=== PATIENT | female | born 1955 | race Caucasian/White ===

== ENCOUNTER → 2016-07-14 | Outpatient (CLI) | payer OTHER ==
[~2016-07-14] MED LIST: CARV6.25 PO; CITRTAB15 PO; CLOB-49 TOP; DRIS50002 PO; FLUO25CR EXT; HYDR-4266 PO; HYDR12.55 PO; IRON65TA PO; ROCA0.25 PO; VITA500C24 PO
[2016-07-14 13:43] LABS: ALBUMIN 3.9 GM/DL (3.2-5.2); CREATININE FOR GFR 1.89 MG/DL (0.55-1.02); GLOMERULAR FILTRATION RATE 28.6 (>45); PHOSPHORUS LEVEL 4.3 MG/DL (2.5-4.9); POTASSIUM SERUM 4.5 MEQ/L (3.5-5.1)
[2016-07-14 14:08] LABS: MEAN CORPUSCULAR HEMOGLOBIN 29.3 pg (27.0-33.0); MEAN CORPUSCULAR HGB CONC 33.4 g/dl (32.0-36.5); MEAN CORPUSCULAR VOLUME 87.9 fl (80.0-96.0); PLATELET COUNT, AUTOMATED 241 k/mm3 (150-450); RED CELL DISTRIBUTION WIDTH 15.6 % (11.5-14.5); WHITE BLOOD COUNT 2.2 K/mm3 (4.0-10.0)
[2016-07-14 15:02] LABS: BANDS 6 % (< 11); BASOPHILS 1 % (0-4); EOSINOPHILS 5 % (0-5)
[2016-07-14 15:03] LABS: ANISOCYTOSIS 1+; MICROCYTOSIS 1+
== END ==
LOC: M SMT 08:25
PROVIDERS: ATTEND Internal Medicine Nephrology
DX: Z94.0 Kidney transplant status (principal); N18.5 Chronic kidney disease, stage 5; Z79.899 Other long term (current) drug therapy

== ENCOUNTER → 2016-07-19 | Outpatient (CLI) | payer OTHER ==
[2016-07-19 10:54] LABS: ALBUMIN 3.8 GM/DL (3.2-5.2); ALBUMIN/GLOBULIN RATIO 1.41 (1.00-1.93); ALKALINE PHOSPHATASE 45 U/L (45-117); ALT/SGPT 24 U/L (12-78); ANION GAP 12 MEQ/L (8-16); AST/SGOT 20 U/L (15-37); BILIRUBIN,DIRECT < 0.1 MG/DL (0.0-0.2); BILIRUBIN,TOTAL 0.3 MG/DL (0.2-1.0); BLOOD UREA NITROGEN 50 MG/DL (7-18); CALCIUM LEVEL 8.5 MG/DL (8.8-10.2); CARBON DIOXIDE LEVEL 23 MEQ/L (21-32); CHLORIDE LEVEL 105 MEQ/L (98-107); CHOLESTEROL LEVEL 241 MG/DL (<200); CREATININE FOR GFR 2.44 MG/DL (0.55-1.02); GLOMERULAR FILTRATION RATE 21.3 (>45); GLUCOSE, FASTING 91 MG/DL (80-110); MAGNESIUM LEVEL 2.1 MG/DL (1.8-2.4); PHOSPHORUS LEVEL 4.1 MG/DL (2.5-4.9); POTASSIUM SERUM 4.7 MEQ/L (3.5-5.1); SODIUM LEVEL 140 MEQ/L (136-145); TOTAL PROTEIN 6.5 GM/DL (6.4-8.2); TRIGLYCERIDES LEVEL 181 MG/DL (<150)
[2016-07-19 11:37] LABS: DIFF SLIDE NUMBER 156; MEAN CORPUSCULAR HEMOGLOBIN 29.6 pg (27.0-33.0); MEAN CORPUSCULAR HGB CONC 34.7 g/dl (32.0-36.5); MEAN CORPUSCULAR VOLUME 85.2 fl (80.0-96.0); PLATELET COUNT, AUTOMATED 268 k/mm3 (150-450); RED CELL DISTRIBUTION WIDTH 15.9 % (11.5-14.5); WHITE BLOOD COUNT 2.7 K/mm3 (4.0-10.0)
[2016-07-19 12:27] LABS: ANISOCYTOSIS 2+; BANDS 6 % (< 11); EOSINOPHILS 2 % (0-5); MICROCYTOSIS 1+; POIKILOCYTOSIS 1+
== END ==
LOC: M SMT 08:14
PROVIDERS: ATTEND Internal Medicine Nephrology
DX: Z94.0 Kidney transplant status (principal); N18.5 Chronic kidney disease, stage 5; D84.9 Immunodeficiency, unspecified

== ENCOUNTER → 2016-07-23 | Outpatient (CLI) | payer OTHER ==
[2016-07-23 11:04] LABS: ALBUMIN 3.8 GM/DL (3.2-5.2); ALBUMIN/GLOBULIN RATIO 1.58 (1.00-1.93); ALKALINE PHOSPHATASE 44 U/L (45-117); ALT/SGPT 22 U/L (12-78); ANION GAP 11 MEQ/L (8-16); AST/SGOT 20 U/L (15-37); BILIRUBIN,DIRECT < 0.1 MG/DL (0.0-0.2); BILIRUBIN,TOTAL 0.2 MG/DL (0.2-1.0); BLOOD UREA NITROGEN 32 MG/DL (7-18); CALCIUM LEVEL 8.3 MG/DL (8.8-10.2); CARBON DIOXIDE LEVEL 26 MEQ/L (21-32); CHLORIDE LEVEL 104 MEQ/L (98-107); CHOLESTEROL LEVEL 242 MG/DL (<200); CREATININE FOR GFR 1.79 MG/DL (0.55-1.02); GLOMERULAR FILTRATION RATE 30.4 (>45); GLUCOSE, FASTING 92 MG/DL (80-110); MAGNESIUM LEVEL 2.1 MG/DL (1.8-2.4); PHOSPHORUS LEVEL 3.6 MG/DL (2.5-4.9); POTASSIUM SERUM 4.8 MEQ/L (3.5-5.1); SODIUM LEVEL 141 MEQ/L (136-145); TOTAL PROTEIN 6.2 GM/DL (6.4-8.2); TRIGLYCERIDES LEVEL 153 MG/DL (<150)
[2016-07-23 11:08] LABS: MEAN CORPUSCULAR HEMOGLOBIN 28.9 pg (27.0-33.0); MEAN CORPUSCULAR VOLUME 87.7 fl (80.0-96.0); PLATELET COUNT, AUTOMATED 246 k/mm3 (150-450); RED CELL DISTRIBUTION WIDTH 16.8 % (11.5-14.5)
[2016-07-23 11:35] LABS: ANISOCYTOSIS 1+; BANDS 1 % (< 11); BASOPHILS 1 % (0-4); EOSINOPHILS 5 % (0-5)
== END ==
LOC: M SMT 08:07
PROVIDERS: ATTEND Internal Medicine Nephrology
DX: Z94.0 Kidney transplant status (principal); N18.5 Chronic kidney disease, stage 5; D84.9 Immunodeficiency, unspecified

== ENCOUNTER → 2016-07-23 | Outpatient (CLI) | payer OTHER ==
--- NOTE | 2016-07-23 12:23 | REP ---
ULTRASOUND RENAL TRANSPLANT WITH DUPLEX DOPPLER EVALUATION: Real-time sonographic evaluation of the renal transplant performed. The transplant was placed at [facility] in March 2016. Renal transplant measures 10.8 x 7.2 x 6.5 cm. There is no hydronephrosis. Peripherally in a relatively subcutaneous location is an elliptical fluid collection compatible with postsurgical hematoma/seroma measuring 15.7 x 1.3 x 2.1 cm. Duplex Doppler evaluation of the intrarenal vasculature demonstrates somewhat elevated resistive indices of the arcuate and segmental branches. In the upper third of the renal transplant, resistive index is 0.79, mid aspect, 0.77 and lower third 0.77. The peak systolic velocity of the right iliac artery prior to the anastomosis with the transplant artery is 131 cm/s, just distal to the origin of the transplant artery it is 172 cm/s. Transplant artery demonstrates peak systolic velocity at its origin, at the anastomosis of 207 cm/s, in the mid aspect 52 cm/s, and in the region of the transplant hilum 61 cm/s. Ratio of peak systolic velocities of the main transplant artery to the external iliac artery is 1.6. Transplant renal vein is patent with normal waveforms. IMPRESSION: Elliptical postsurgical hematoma/seroma in a relatively subcutaneous location at the site of the prior transplant surgery. No perirenal collection. No hydronephrosis of the renal transplant, with normal size. There is somewhat elevated resistive indices of the intrarenal vasculature but there is no compelling duplex Doppler sonographic evidence of transplant renal artery stenosis. Signed by Yasmani Soliman MD 07/23/2016 01:14 P
== END ==
LOC: M RAD 09:53
PROVIDERS: ATTEND Internal Medicine Nephrology
DX: Z94.0 Kidney transplant status (principal); N17.9 Acute kidney failure, unspecified

== ENCOUNTER → 2016-08-02 | Outpatient (REF) | payer OTHER ==
[2016-08-02 10:26] LABS: ALBUMIN 3.6 GM/DL (3.2-5.2); ALBUMIN/GLOBULIN RATIO 1.57 (1.00-1.93); ALKALINE PHOSPHATASE 41 U/L (45-117); ALT/SGPT 27 U/L (12-78); ANION GAP 12 MEQ/L (8-16); AST/SGOT 22 U/L (15-37); BILIRUBIN,DIRECT < 0.1 MG/DL (0.0-0.2); BILIRUBIN,TOTAL 0.3 MG/DL (0.2-1.0); BLOOD UREA NITROGEN 37 MG/DL (7-18); CARBON DIOXIDE LEVEL 26 MEQ/L (21-32); CHLORIDE LEVEL 104 MEQ/L (98-107); CHOLESTEROL LEVEL 210 MG/DL (<200); CREATININE FOR GFR 1.52 MG/DL (0.55-1.02); GLOMERULAR FILTRATION RATE 36.8 (>45); GLUCOSE, FASTING 90 MG/DL (80-110); MAGNESIUM LEVEL 1.9 MG/DL (1.8-2.4); PHOSPHORUS LEVEL 3.8 MG/DL (2.5-4.9); POTASSIUM SERUM 3.8 MEQ/L (3.5-5.1); SODIUM LEVEL 142 MEQ/L (136-145); TOTAL PROTEIN 5.9 GM/DL (6.4-8.2); TRIGLYCERIDES LEVEL 113 MG/DL (<150)
[2016-08-02 10:34] LABS: MEAN CORPUSCULAR HEMOGLOBIN 29.5 pg (27.0-33.0); MEAN CORPUSCULAR HGB CONC 32.9 g/dl (32.0-36.5); MEAN CORPUSCULAR VOLUME 89.7 fl (80.0-96.0); PLATELET COUNT, AUTOMATED 271 k/mm3 (150-450); RED CELL DISTRIBUTION WIDTH 15.3 % (11.5-14.5); WHITE BLOOD COUNT 3.4 K/mm3 (4.0-10.0)
[2016-08-02 11:24] LABS: BANDS 5 % (< 11); BASOPHILS 2 % (0-4); EOSINOPHILS 3 % (0-5)
[2016-08-02 11:25] LABS: ANISOCYTOSIS 2+; MICROCYTOSIS 2+
[2016-08-02 11:26] LABS: POIKILOCYTOSIS 1+
== END ==
LOC: M LABSMT 09:30 → M SHH 09:30
PROVIDERS: ATTEND Internal Medicine Nephrology
DX: Z94.0 Kidney transplant status (principal); D84.9 Immunodeficiency, unspecified; Z79.899 Other long term (current) drug therapy; N18.5 Chronic kidney disease, stage 5

== ENCOUNTER → 2016-08-09 | Outpatient (CLI) | payer OTHER ==
[2016-08-09 12:43] LABS: MEAN CORPUSCULAR HEMOGLOBIN 29.9 pg (27.0-33.0); MEAN CORPUSCULAR HGB CONC 33.1 g/dl (32.0-36.5); MEAN CORPUSCULAR VOLUME 90.4 fl (80.0-96.0); PLATELET COUNT, AUTOMATED 255 k/mm3 (150-450); RED CELL DISTRIBUTION WIDTH 14.9 % (11.5-14.5); WHITE BLOOD COUNT 4.3 K/mm3 (4.0-10.0)
[2016-08-09 12:48] LABS: ALBUMIN 3.7 GM/DL (3.2-5.2); ALBUMIN/GLOBULIN RATIO 1.54 (1.00-1.93); ALKALINE PHOSPHATASE 45 U/L (45-117); ALT/SGPT 51 U/L (12-78); ANION GAP 10 MEQ/L (8-16); AST/SGOT 27 U/L (15-37); BILIRUBIN,DIRECT < 0.1 MG/DL (0.0-0.2); BILIRUBIN,TOTAL 0.3 MG/DL (0.2-1.0); BLOOD UREA NITROGEN 38 MG/DL (7-18); CALCIUM LEVEL 8.6 MG/DL (8.8-10.2); CARBON DIOXIDE LEVEL 26 MEQ/L (21-32); CHLORIDE LEVEL 105 MEQ/L (98-107); CHOLESTEROL LEVEL 226 MG/DL (<200); CREATININE FOR GFR 1.58 MG/DL (0.55-1.02); GLOMERULAR FILTRATION RATE 35.2 (>45); GLUCOSE, FASTING 97 MG/DL (80-110); MAGNESIUM LEVEL 1.9 MG/DL (1.8-2.4); PHOSPHORUS LEVEL 3.4 MG/DL (2.5-4.9); POTASSIUM SERUM 4.1 MEQ/L (3.5-5.1); SODIUM LEVEL 141 MEQ/L (136-145); TOTAL PROTEIN 6.1 GM/DL (6.4-8.2); TRIGLYCERIDES LEVEL 141 MG/DL (<150)
[2016-08-09 13:31] LABS: EOSINOPHILS 4 % (0-5)
== END ==
LOC: M SMT 08:21
PROVIDERS: ATTEND Internal Medicine Nephrology
DX: N18.5 Chronic kidney disease, stage 5 (principal); Z94.0 Kidney transplant status; D64.9 Anemia, unspecified; Z79.899 Other long term (current) drug therapy

== ENCOUNTER → 2016-08-19 | Outpatient (CLI) | payer OTHER, MEDICARE ==
[2016-08-19 11:57] LABS: MEAN CORPUSCULAR HEMOGLOBIN 29.2 pg (27.0-33.0); MEAN CORPUSCULAR HGB CONC 33.1 g/dl (32.0-36.5); MEAN CORPUSCULAR VOLUME 88.2 fl (80.0-96.0); PLATELET COUNT, AUTOMATED 193 k/mm3 (150-450); WHITE BLOOD COUNT 3.3 K/mm3 (4.0-10.0)
[2016-08-19 12:07] LABS: EOSINOPHILS 3 % (0-5)
[2016-08-19 12:26] LABS: ALBUMIN 3.7 GM/DL (3.2-5.2); ALBUMIN/GLOBULIN RATIO 1.54 (1.00-1.93); ALKALINE PHOSPHATASE 46 U/L (45-117); ALT/SGPT 25 U/L (12-78); ANION GAP 13 MEQ/L (8-16); AST/SGOT 18 U/L (15-37); BILIRUBIN,DIRECT < 0.1 MG/DL (0.0-0.2); BILIRUBIN,TOTAL 0.3 MG/DL (0.2-1.0); BLOOD UREA NITROGEN 50 MG/DL (7-18); CALCIUM LEVEL 8.6 MG/DL (8.8-10.2); CARBON DIOXIDE LEVEL 24 MEQ/L (21-32); CHLORIDE LEVEL 102 MEQ/L (98-107); CHOLESTEROL LEVEL 231 MG/DL (<200); GLOMERULAR FILTRATION RATE 28.4 (>45); GLUCOSE, FASTING 99 MG/DL (80-110); PHOSPHORUS LEVEL 3.6 MG/DL (2.5-4.9); POTASSIUM SERUM 3.8 MEQ/L (3.5-5.1); SODIUM LEVEL 139 MEQ/L (136-145); TOTAL PROTEIN 6.1 GM/DL (6.4-8.2); TRIGLYCERIDES LEVEL 127 MG/DL (<150)
[2016-08-19 19:49] LABS: MICROSCOPIC INDICATED? MAN YES (NO)
[2016-08-19 19:53] LABS: BACTERIA, URINE SMALL AMOUNT; HYALINE CAST, URINE NONE SEEN /lpf (0-1); MICROSCOPIC EXAM PERFORMED; SQUAMOUS EPITHELIAL CELL URINE SMALL AMOUNT /hpf (SMALL AMT)
== END ==
LOC: M SMT 08:09
PROVIDERS: ATTEND Internal Medicine Nephrology
DX: Z94.0 Kidney transplant status (principal); N18.5 Chronic kidney disease, stage 5; Z79.899 Other long term (current) drug therapy; D64.9 Anemia, unspecified

== ENCOUNTER → 2016-09-02 | Outpatient (CLI) | payer OTHER ==
[2016-09-02 10:57] LABS: MEAN CORPUSCULAR HEMOGLOBIN 29.3 pg (27.0-33.0); MEAN CORPUSCULAR HGB CONC 33.1 g/dl (32.0-36.5); MEAN CORPUSCULAR VOLUME 88.4 fl (80.0-96.0); PLATELET COUNT, AUTOMATED 193 k/mm3 (150-450); RED CELL DISTRIBUTION WIDTH 13.9 % (11.5-14.5); WHITE BLOOD COUNT 2.7 K/mm3 (4.0-10.0)
[2016-09-02 11:16] LABS: ALBUMIN 3.6 GM/DL (3.2-5.2); ALBUMIN/GLOBULIN RATIO 1.57 (1.00-1.93); ALKALINE PHOSPHATASE 45 U/L (45-117); ALT/SGPT 21 U/L (12-78); ANION GAP 11 MEQ/L (8-16); AST/SGOT 16 U/L (15-37); BILIRUBIN,DIRECT < 0.1 MG/DL (0.0-0.2); BILIRUBIN,TOTAL 0.3 MG/DL (0.2-1.0); BLOOD UREA NITROGEN 61 MG/DL (7-18); CALCIUM LEVEL 8.3 MG/DL (8.8-10.2); CARBON DIOXIDE LEVEL 23 MEQ/L (21-32); CHLORIDE LEVEL 106 MEQ/L (98-107); CHOLESTEROL LEVEL 194 MG/DL (<200); CREATININE FOR GFR 1.92 MG/DL (0.55-1.02); GLOMERULAR FILTRATION RATE 28.1 (>45); GLUCOSE, FASTING 104 MG/DL (80-110); MAGNESIUM LEVEL 2.1 MG/DL (1.8-2.4); PHOSPHORUS LEVEL 3.8 MG/DL (2.5-4.9); POTASSIUM SERUM 4.3 MEQ/L (3.5-5.1); SODIUM LEVEL 140 MEQ/L (136-145); TOTAL PROTEIN 5.9 GM/DL (6.4-8.2); TRIGLYCERIDES LEVEL 89 MG/DL (<150)
[2016-09-02 11:46] LABS: BANDS 5 % (< 11); EOSINOPHILS 1 % (0-5)
[2016-09-02 11:47] LABS: ANISOCYTOSIS 1+
== END ==
LOC: M SMT 08:21
PROVIDERS: ATTEND Internal Medicine Nephrology
DX: Z94.0 Kidney transplant status (principal); N18.5 Chronic kidney disease, stage 5; D84.9 Immunodeficiency, unspecified; Z79.899 Other long term (current) drug therapy

== ENCOUNTER → 2016-09-14 | Outpatient (CLI) | payer OTHER ==
[2016-09-14 10:29] LABS: MEAN CORPUSCULAR HEMOGLOBIN 29.6 pg (27.0-33.0); MEAN CORPUSCULAR HGB CONC 33.6 g/dl (32.0-36.5); MEAN CORPUSCULAR VOLUME 88.2 fl (80.0-96.0); PLATELET COUNT, AUTOMATED 171 k/mm3 (150-450); RED CELL DISTRIBUTION WIDTH 13.7 % (11.5-14.5); WHITE BLOOD COUNT 2.7 K/mm3 (4.0-10.0)
[2016-09-14 10:31] LABS: ALBUMIN 3.5 GM/DL (3.2-5.2); ALBUMIN/GLOBULIN RATIO 1.59 (1.00-1.93); ALKALINE PHOSPHATASE 48 U/L (45-117); ALT/SGPT 27 U/L (12-78); ANION GAP 10 MEQ/L (8-16); AST/SGOT 18 U/L (15-37); BILIRUBIN,DIRECT < 0.1 MG/DL (0.0-0.2); BILIRUBIN,TOTAL 0.3 MG/DL (0.2-1.0); BLOOD UREA NITROGEN 60 MG/DL (7-18); CALCIUM LEVEL 8.2 MG/DL (8.8-10.2); CARBON DIOXIDE LEVEL 22 MEQ/L (21-32); CHLORIDE LEVEL 105 MEQ/L (98-107); CHOLESTEROL LEVEL 186 MG/DL (<200); CREATININE FOR GFR 1.98 MG/DL (0.55-1.02); GLOMERULAR FILTRATION RATE 27.1 (>45); GLUCOSE, FASTING 101 MG/DL (80-110); MAGNESIUM LEVEL 1.8 MG/DL (1.8-2.4); POTASSIUM SERUM 4.3 MEQ/L (3.5-5.1); SODIUM LEVEL 137 MEQ/L (136-145); TOTAL PROTEIN 5.7 GM/DL (6.4-8.2); TRIGLYCERIDES LEVEL 98 MG/DL (<150)
[2016-09-14 10:53] LABS: BANDS 6 % (< 11); EOSINOPHILS 1 % (0-5)
== END ==
LOC: M SMT 08:25
PROVIDERS: ATTEND Internal Medicine Nephrology
DX: N18.5 Chronic kidney disease, stage 5 (principal); Z79.899 Other long term (current) drug therapy; Z94.0 Kidney transplant status; D84.9 Immunodeficiency, unspecified

== ENCOUNTER → 2016-10-21 | Outpatient (REF) | payer OTHER, MEDICARE ==
[2016-10-21 14:09] LABS: PERCENT SATURATION 16.6 % (13.2-37.4)
== END ==
LOC: M LAB REF 13:22
PROVIDERS: ATTEND Internal Medicine Nephrology
DX: Z94.0 Kidney transplant status (principal)

== ENCOUNTER → 2016-10-25 | Outpatient (CLI) | payer OTHER, MEDICARE ==
[2016-10-25 14:28] LABS: ALBUMIN 3.5 GM/DL (3.2-5.2); ALBUMIN/GLOBULIN RATIO 1.46 (1.00-1.93); BILIRUBIN,DIRECT 0.1 MG/DL (0.0-0.2); BILIRUBIN,TOTAL 0.4 MG/DL (0.2-1.0); CALCIUM LEVEL 8.4 MG/DL (8.8-10.2); CREATININE FOR GFR 2.49 MG/DL (0.55-1.02); GLOMERULAR FILTRATION RATE 20.8 (>45); MAGNESIUM LEVEL 1.8 MG/DL (1.8-2.4); PHOSPHORUS LEVEL 4.1 MG/DL (2.5-4.9); POTASSIUM SERUM 4.2 MEQ/L (3.5-5.1); TOTAL PROTEIN 5.9 GM/DL (6.4-8.2)
[2016-10-25 15:01] LABS: DIFF SLIDE NUMBER 121; MEAN CORPUSCULAR HEMOGLOBIN 28.9 pg (27.0-33.0); MEAN CORPUSCULAR HGB CONC 32.3 g/dl (32.0-36.5); MEAN CORPUSCULAR VOLUME 89.4 fl (80.0-96.0); PLATELET COUNT, AUTOMATED 252 k/mm3 (150-450); RED CELL DISTRIBUTION WIDTH 14.8 % (11.5-14.5); WHITE BLOOD COUNT 8.5 K/mm3 (4.0-10.0)
[2016-10-25 15:35] LABS: ANISOCYTOSIS 2+; BANDS 2 % (< 11); BASOPHILS 1 % (0-4); EOSINOPHILS 3 % (0-5)
[2016-10-25 15:36] LABS: MICROCYTOSIS 1+; POIKILOCYTOSIS 1+
== END ==
LOC: M SMT 08:15
PROVIDERS: ATTEND Internal Medicine Nephrology
DX: Z94.0 Kidney transplant status (principal); N18.5 Chronic kidney disease, stage 5; Z79.899 Other long term (current) drug therapy

== ENCOUNTER → 2016-10-28 | Outpatient (CLI) | payer OTHER ==
[2016-10-28 10:13] LABS: MEAN CORPUSCULAR HEMOGLOBIN 28.9 pg (27.0-33.0); MEAN CORPUSCULAR HGB CONC 32.4 g/dl (32.0-36.5); PLATELET COUNT, AUTOMATED 220 k/mm3 (150-450); RED CELL DISTRIBUTION WIDTH 14.7 % (11.5-14.5); WHITE BLOOD COUNT 8.4 K/mm3 (4.0-10.0)
[2016-10-28 10:28] LABS: ALBUMIN 3.4 GM/DL (3.2-5.2); ALBUMIN/GLOBULIN RATIO 1.36 (1.00-1.93); BILIRUBIN,DIRECT 0.1 MG/DL (0.0-0.2); BILIRUBIN,TOTAL 0.4 MG/DL (0.2-1.0); CREATININE FOR GFR 2.27 MG/DL (0.55-1.02); GLOMERULAR FILTRATION RATE 23.1 (>45); MAGNESIUM LEVEL 1.8 MG/DL (1.8-2.4); PHOSPHORUS LEVEL 4.2 MG/DL (2.5-4.9); POTASSIUM SERUM 4.2 MEQ/L (3.5-5.1); TOTAL PROTEIN 5.9 GM/DL (6.4-8.2)
[2016-10-28 10:40] LABS: BASOPHILS 2 % (0-4); EOSINOPHILS 2 % (0-5)
== END ==
LOC: M SMT 08:49
PROVIDERS: ATTEND Internal Medicine Nephrology
DX: Z94.0 Kidney transplant status (principal); N18.5 Chronic kidney disease, stage 5; D84.9 Immunodeficiency, unspecified; Z79.899 Other long term (current) drug therapy

== ENCOUNTER → 2016-11-16 | Outpatient (CLI) | payer OTHER | LOC: M SMT 08:01 | PROVIDERS: ATTEND Internal Medicine Nephrology | DX: Z94.0 Kidney transplant status (principal); N18.5 Chronic kidney disease, stage 5; D84.9 Immunodeficiency, unspecified ==

== ENCOUNTER → 2016-12-09 | Outpatient (CLI) | payer OTHER | LOC: M SMT 08:19 | PROVIDERS: ATTEND Internal Medicine Nephrology | DX: Z94.0 Kidney transplant status (principal); N18.5 Chronic kidney disease, stage 5; D84.9 Immunodeficiency, unspecified; Z79.899 Other long term (current) drug therapy ==

== ENCOUNTER → 2016-12-13 | Outpatient (CLI) | payer OTHER | LOC: M SMT 08:25 | PROVIDERS: ATTEND Internal Medicine Nephrology | DX: Z94.0 Kidney transplant status (principal); D84.9 Immunodeficiency, unspecified; Z79.899 Other long term (current) drug therapy ==

== ENCOUNTER → 2016-12-16 | Outpatient (CLI) | payer OTHER | LOC: M SMT 08:25 | PROVIDERS: ATTEND Internal Medicine Nephrology | DX: Z94.0 Kidney transplant status (principal); N18.5 Chronic kidney disease, stage 5; D84.9 Immunodeficiency, unspecified; Z79.899 Other long term (current) drug therapy ==

== ENCOUNTER → 2016-12-23 | Outpatient (REF) | payer OTHER ==
[~2016-12-23] MED LIST changes: +AMLO5TAB2 PO; +CALC600T60 PO; +CARV12.5 PO; +CLON3PA TD; +FURO20TA2 PO; +HYDR-3910 PO; -HYDR-4266 PO; +IRON50TA PO; +MYCO500T PO; +NULO250I IV; +PRED5TA PO; +PROC1INJ5 IJ; +SODI325T9 PO; +VALG1TAB PO; +VITA100066 PO
[2016-12-23 18:07] LABS: PERCENT SATURATION 14.5 % (13.2-37.4)
== END ==
LOC: M LAB REF 17:05
PROVIDERS: ATTEND Internal Medicine Nephrology
DX: N18.9 Chronic kidney disease, unspecified (principal); D63.1 Anemia in chronic kidney disease

== ENCOUNTER → 2016-12-23 | Outpatient (CLI) | payer OTHER | LOC: M SMT 08:17 | PROVIDERS: ATTEND Internal Medicine Nephrology | DX: Z94.0 Kidney transplant status (principal); N18.5 Chronic kidney disease, stage 5; D84.9 Immunodeficiency, unspecified; Z79.899 Other long term (current) drug therapy ==

== ENCOUNTER → 2016-12-27 | Outpatient (CLI) | payer OTHER | LOC: M SMT 08:08 | PROVIDERS: ATTEND Internal Medicine Nephrology | DX: Z94.0 Kidney transplant status (principal); N18.5 Chronic kidney disease, stage 5; D84.9 Immunodeficiency, unspecified; Z79.899 Other long term (current) drug therapy ==

== ENCOUNTER → 2016-12-31 | Outpatient (CLI) | payer OTHER | LOC: M SMT 08:03 | PROVIDERS: ATTEND Internal Medicine Nephrology | DX: Z94.0 Kidney transplant status (principal); N18.5 Chronic kidney disease, stage 5; D84.9 Immunodeficiency, unspecified; Z79.899 Other long term (current) drug therapy ==

== ENCOUNTER → 2017-01-03 | Outpatient (CLI) | payer OTHER | LOC: M SMT 08:09 | PROVIDERS: ATTEND Internal Medicine Nephrology | DX: Z94.0 Kidney transplant status (principal); N18.5 Chronic kidney disease, stage 5; D84.9 Immunodeficiency, unspecified; Z79.899 Other long term (current) drug therapy ==

== ENCOUNTER → 2017-01-10 | Outpatient (CLI) | payer OTHER ==
[2017-01-10 13:32] LABS: ADD MANUAL DIFFER YES; DIFF SLIDE NUMBER 212; MEAN CORPUSCULAR HEMOGLOBIN 30.8 pg (27.0-33.0); MEAN CORPUSCULAR VOLUME 90.8 fl (80.0-96.0); RED CELL DISTRIBUTION WIDTH 17.8 % (11.5-14.5); WHITE BLOOD COUNT 4.4 K/mm3 (4.0-10.0)
[2017-01-10 13:47] LABS: ALBUMIN 3.4 GM/DL (3.2-5.2); ALBUMIN/GLOBULIN RATIO 1.31 (1.00-1.93); ALKALINE PHOSPHATASE 46 U/L (45-117); ALT/SGPT 19 U/L (12-78); ANION GAP 12 MEQ/L (8-16); AST/SGOT 20 U/L (15-37); BILIRUBIN,DIRECT < 0.1 MG/DL (0.0-0.2); BILIRUBIN,TOTAL 0.6 MG/DL (0.2-1.0); BLOOD UREA NITROGEN 69 MG/DL (7-18); CALCIUM LEVEL 8.7 MG/DL (8.8-10.2); CARBON DIOXIDE LEVEL 21 MEQ/L (21-32); CHLORIDE LEVEL 103 MEQ/L (98-107); CREATININE FOR GFR 2.42 MG/DL (0.55-1.02); GLOMERULAR FILTRATION RATE 21.5 (>45); GLUCOSE, FASTING 87 MG/DL (80-110); MAGNESIUM LEVEL 2.3 MG/DL (1.8-2.4); PHOSPHORUS LEVEL 4.1 MG/DL (2.5-4.9); POTASSIUM SERUM 4.7 MEQ/L (3.5-5.1); SODIUM LEVEL 136 MEQ/L (136-145)
[2017-01-10 14:00] LABS: PLATELET COUNT, AUTOMATED 96 k/mm3 (150-450)
[2017-01-10 14:03] LABS: BANDS 3 % (< 11)
[2017-01-13 00:08] LABS: log10 CMV QN DNA P1 2.879 (.)
== END ==
LOC: M SMT 08:15
PROVIDERS: ATTEND Internal Medicine Nephrology
DX: Z94.0 Kidney transplant status (principal); N18.5 Chronic kidney disease, stage 5; D84.9 Immunodeficiency, unspecified; Z79.899 Other long term (current) drug therapy

== ENCOUNTER → 2017-01-14 | Outpatient (CLI) | payer OTHER ==
[2017-01-14 14:26] LABS: ADD MANUAL DIFFER YES; DIFF SLIDE NUMBER 244; MEAN CORPUSCULAR HEMOGLOBIN 30.1 pg (27.0-33.0); MEAN CORPUSCULAR HGB CONC 33.3 g/dl (32.0-36.5); MEAN CORPUSCULAR VOLUME 90.6 fl (80.0-96.0); RED CELL DISTRIBUTION WIDTH 17.7 % (11.5-14.5)
[2017-01-14 14:27] LABS: PLATELET COUNT, AUTOMATED 99 k/mm3 (150-450)
[2017-01-14 14:32] LABS: ALBUMIN 3.5 GM/DL (3.2-5.2); ALBUMIN/GLOBULIN RATIO 1.4 (1.00-1.93); BILIRUBIN,DIRECT 0.2 MG/DL (0.0-0.2); BILIRUBIN,TOTAL 0.7 MG/DL (0.2-1.0); CALCIUM LEVEL 8.4 MG/DL (8.8-10.2); CREATININE FOR GFR 2.28 MG/DL (0.55-1.02); MAGNESIUM LEVEL 2.1 MG/DL (1.8-2.4); PHOSPHORUS LEVEL 4.2 MG/DL (2.5-4.9)
[2017-01-14 15:04] LABS: BANDS 8 % (< 11); EOSINOPHILS 2 % (0-5)
[2017-01-14 15:11] LABS: ANISOCYTOSIS 2+
[2017-01-14 15:21] LABS: TOXIC VACUOLATION 1+
[2017-01-19 08:09] LABS: log10 CMV QN DNA P1 2.749 (.)
== END ==
LOC: M SMT 08:12
PROVIDERS: ATTEND Internal Medicine Nephrology
DX: Z94.0 Kidney transplant status (principal); N18.5 Chronic kidney disease, stage 5; D84.9 Immunodeficiency, unspecified; Z79.899 Other long term (current) drug therapy

== ENCOUNTER → 2017-01-28 | Outpatient (CLI) | payer OTHER ==
[2017-01-28 10:16] LABS: ADD MANUAL DIFFER YES; MEAN CORPUSCULAR HEMOGLOBIN 30.8 pg (27.0-33.0); MEAN CORPUSCULAR HGB CONC 34.1 g/dl (32.0-36.5); MEAN CORPUSCULAR VOLUME 90.3 fl (80.0-96.0); PLATELET COUNT, AUTOMATED 164 k/mm3 (150-450); RED CELL DISTRIBUTION WIDTH 17.1 % (11.5-14.5)
[2017-01-28 10:32] LABS: ALBUMIN 3.4 GM/DL (3.2-5.2); ALBUMIN/GLOBULIN RATIO 1.42 (1.00-1.93); BILIRUBIN,DIRECT 0.1 MG/DL (0.0-0.2); BILIRUBIN,TOTAL 0.4 MG/DL (0.2-1.0); CALCIUM LEVEL 8.3 MG/DL (8.8-10.2); CREATININE FOR GFR 2.33 MG/DL (0.55-1.02); GLOMERULAR FILTRATION RATE 22.4 (>45); MAGNESIUM LEVEL 2.3 MG/DL (1.8-2.4); TOTAL PROTEIN 5.8 GM/DL (6.4-8.2)
[2017-01-28 11:07] LABS: BANDS 10 % (< 11); BASOPHILS 1 % (0-4); NUCLEATED RED BLOOD CELL 1 % (0-0)
[2017-01-28 11:10] LABS: TOXIC GRANULATION 1+
[2017-01-28 11:11] LABS: ANISOCYTOSIS 2+; POIKILOCYTOSIS 1+
[2017-02-01 00:10] LABS: log10 CMV QN DNA P1 2.33 (.)
== END ==
LOC: M SMT 08:22
PROVIDERS: ATTEND Internal Medicine Nephrology
DX: Z94.0 Kidney transplant status (principal); N18.5 Chronic kidney disease, stage 5; D84.9 Immunodeficiency, unspecified; Z79.899 Other long term (current) drug therapy

== ENCOUNTER → 2017-02-07 | Outpatient (CLI) | payer OTHER ==
[2017-02-07 09:57] LABS: ALBUMIN 3.3 GM/DL (3.2-5.2); ALBUMIN/GLOBULIN RATIO 1.43 (1.00-1.93); BILIRUBIN,DIRECT 0.1 MG/DL (0.0-0.2); BILIRUBIN,TOTAL 0.5 MG/DL (0.2-1.0); CALCIUM LEVEL 8.2 MG/DL (8.8-10.2); CREATININE FOR GFR 2.27 MG/DL (0.55-1.02); GLOMERULAR FILTRATION RATE 23.1 (>45); MAGNESIUM LEVEL 2.3 MG/DL (1.8-2.4); PHOSPHORUS LEVEL 4.2 MG/DL (2.5-4.9); POTASSIUM SERUM 4.6 MEQ/L (3.5-5.1); TOTAL PROTEIN 5.6 GM/DL (6.4-8.2)
[2017-02-07 10:01] LABS: MEAN CORPUSCULAR HEMOGLOBIN 30.9 pg (27.0-33.0); MEAN CORPUSCULAR HGB CONC 33.6 g/dl (32.0-36.5); MEAN CORPUSCULAR VOLUME 91.9 fl (80.0-96.0); RED CELL DISTRIBUTION WIDTH 17.8 % (11.5-14.5); WHITE BLOOD COUNT 1.7 K/mm3 (4.0-10.0)
== END ==
LOC: M SMT 08:18
PROVIDERS: ATTEND Internal Medicine Nephrology
DX: Z94.0 Kidney transplant status (principal)

== ENCOUNTER → 2017-02-08 | Outpatient (REF) | payer OTHER | LOC: M LAB REF 17:07 | PROVIDERS: ATTEND Internal Medicine Nephrology | DX: D64.9 Anemia, unspecified (principal) ==

== ENCOUNTER 2017-02-09 08:45 | Outpatient (CLI) | payer OTHER ==
[~2017-02-09 08:45] MED LIST changes: -AMLO5TAB2 PO; -CALC600T60 PO; -CARV12.5 PO; -CLON3PA TD; -FURO20TA2 PO; -IRON50TA PO; -MYCO500T PO; -NULO250I IV; -PRED5TA PO; -PROC1INJ5 IJ; -SODI325T9 PO; -VALG1TAB PO; -VITA100066 PO
[2017-02-09] MEDS ORDERED: diphenhydrAMINE 25 MG CAP PO ONE (09:00)
[2017-02-09] MEDS ORDERED: AMLO5TAB2 PO (14:26)
[2017-02-09] MEDS ORDERED: MYCO500T PO (14:26)
[2017-02-09] MEDS ORDERED: VITA100066 PO (14:26)
[2017-02-09] MEDS ORDERED: NULO250I IV (14:26)
[2017-02-09] MEDS ORDERED: PRED5TA PO (14:26)
[2017-02-09] MEDS ORDERED: FURO20TA2 PO (14:26)
[2017-02-09] MEDS ORDERED: CALC600T60 PO (14:26)
[2017-02-09] MEDS ORDERED: IRON50TA PO (14:26)
[2017-02-09] MEDS ORDERED: CARV12.5 PO (14:26)
[2017-02-09] MEDS ORDERED: PROC1INJ5 IJ (14:26)
[2017-02-09] MEDS ORDERED: CLON3PA TD (14:26)
[2017-02-09] MEDS ORDERED: VALG1TAB PO (14:26)
[2017-02-09] MEDS ORDERED: SODI325T9 PO (14:26)
== END 2017-02-09 14:15 | disposition home or self-care (01) ==
LOC: M INFU 08:45
PROVIDERS: ATTEND Internal Medicine Nephrology
DX: D64.9 Anemia, unspecified (principal); Z94.0 Kidney transplant status; Z79.52 Long term (current) use of systemic steroids
CPT/HCPCS: 36430; P9016

== ENCOUNTER → 2017-02-11 | Outpatient (CLI) | payer OTHER ==
[~2017-02-11] MED LIST changes: +AMLO5TAB2 PO; +CALC600T60 PO; +CARV12.5 PO; +CLON3PA TD; +FURO20TA2 PO; +IRON50TA PO; +MYCO500T PO; +NULO250I IV; +PRED5TA PO; +PROC1INJ5 IJ; +SODI325T9 PO; +VALG1TAB PO; +VITA100066 PO
[2017-02-11 11:03] LABS: ADD MANUAL DIFFER YES; DIFF SLIDE NUMBER 122; MEAN CORPUSCULAR HEMOGLOBIN 31.1 pg (27.0-33.0); MEAN CORPUSCULAR HGB CONC 35.2 g/dl (32.0-36.5); MEAN CORPUSCULAR VOLUME 88.3 fl (80.0-96.0); RED CELL DISTRIBUTION WIDTH 16.1 % (11.5-14.5); WHITE BLOOD COUNT 1.1 K/mm3 (4.0-10.0)
[2017-02-11 11:09] LABS: ALBUMIN 3.4 GM/DL (3.2-5.2); ALBUMIN/GLOBULIN RATIO 1.21 (1.00-1.93); BILIRUBIN,DIRECT 0.2 MG/DL (0.0-0.2); BILIRUBIN,TOTAL 0.6 MG/DL (0.2-1.0); CALCIUM LEVEL 8.6 MG/DL (8.8-10.2); CREATININE FOR GFR 2.04 MG/DL (0.55-1.02); GLOMERULAR FILTRATION RATE 26.1 (>45); MAGNESIUM LEVEL 2.3 MG/DL (1.8-2.4); PHOSPHORUS LEVEL 3.9 MG/DL (2.5-4.9); POTASSIUM SERUM 4.9 MEQ/L (3.5-5.1); TOTAL PROTEIN 6.2 GM/DL (6.4-8.2)
[2017-02-11 11:33] LABS: PLATELET COUNT, AUTOMATED 96 k/mm3 (150-450)
[2017-02-11 11:38] LABS: BANDS 3 % (< 11)
[2017-02-11 11:40] LABS: ANISOCYTOSIS 1+
== END ==
LOC: M SMT 08:15
PROVIDERS: ATTEND Internal Medicine Nephrology
DX: Z94.0 Kidney transplant status (principal); N18.5 Chronic kidney disease, stage 5; D84.9 Immunodeficiency, unspecified; Z79.899 Other long term (current) drug therapy

== ENCOUNTER → 2017-02-18 | Outpatient (CLI) | payer OTHER | LOC: M SMT 08:21 | PROVIDERS: ATTEND Internal Medicine Nephrology | DX: Z94.0 Kidney transplant status (principal); N18.5 Chronic kidney disease, stage 5; D84.9 Immunodeficiency, unspecified; Z79.899 Other long term (current) drug therapy ==

== ENCOUNTER → 2017-02-25 | Outpatient (CLI) | payer OTHER | LOC: M SMT 08:21 | PROVIDERS: ATTEND Internal Medicine Nephrology | DX: Z94.0 Kidney transplant status (principal); N18.5 Chronic kidney disease, stage 5; D84.9 Immunodeficiency, unspecified; Z79.899 Other long term (current) drug therapy ==

== ENCOUNTER → 2017-03-04 | Outpatient (CLI) | payer OTHER | LOC: M SMT 08:01 | PROVIDERS: ATTEND Internal Medicine Nephrology | DX: Z94.0 Kidney transplant status (principal); N18.5 Chronic kidney disease, stage 5; D84.9 Immunodeficiency, unspecified; Z79.899 Other long term (current) drug therapy ==

== ENCOUNTER → 2017-03-11 | Outpatient (CLI) | payer OTHER ==
[2017-03-11 10:04] LABS: ALBUMIN 3.2 GM/DL (3.2-5.2); CALCIUM LEVEL 8.1 MG/DL (8.8-10.2); CREATININE FOR GFR 1.98 MG/DL (0.55-1.02); PHOSPHORUS LEVEL 4.7 MG/DL (2.5-4.9); POTASSIUM SERUM 4.2 MEQ/L (3.5-5.1)
[2017-03-11 10:42] LABS: ADD MANUAL DIFFER YES; DIFF SLIDE NUMBER 148; MEAN CORPUSCULAR HEMOGLOBIN 31.2 pg (27.0-33.0); MEAN CORPUSCULAR HGB CONC 34.4 g/dl (32.0-36.5); MEAN CORPUSCULAR VOLUME 90.6 fl (80.0-96.0); RED CELL DISTRIBUTION WIDTH 17.3 % (11.5-14.5); WHITE BLOOD COUNT 3.8 K/mm3 (4.0-10.0)
[2017-03-11 10:43] LABS: PLATELET COUNT, AUTOMATED 76 k/mm3 (150-450)
[2017-03-11 11:21] LABS: BANDS 14 % (< 11); BASOPHILS 1 % (0-4); CORRECTED WHITE BLOOD COUNT 3.6 K/mm3; EOSINOPHILS 1 % (0-5); NUCLEATED RED BLOOD CELL 5 % (0-0)
[2017-03-11 11:22] LABS: ANISOCYTOSIS 2+; POIKILOCYTOSIS 2+
== END ==
LOC: M SMT 08:05
PROVIDERS: ATTEND Internal Medicine Nephrology
DX: Z94.0 Kidney transplant status (principal); N18.5 Chronic kidney disease, stage 5; D84.9 Immunodeficiency, unspecified; Z79.899 Other long term (current) drug therapy

== ENCOUNTER → 2017-03-18 | Outpatient (CLI) | payer OTHER | LOC: M SMT 08:38 | PROVIDERS: ATTEND Internal Medicine Nephrology | DX: Z94.0 Kidney transplant status (principal); N18.5 Chronic kidney disease, stage 5; D84.9 Immunodeficiency, unspecified; Z79.899 Other long term (current) drug therapy ==

== ENCOUNTER → 2017-03-25 | Outpatient (CLI) | payer OTHER | LOC: M SMT 08:21 | PROVIDERS: ATTEND Internal Medicine Nephrology | DX: Z94.0 Kidney transplant status (principal); N18.5 Chronic kidney disease, stage 5; D84.9 Immunodeficiency, unspecified; Z79.899 Other long term (current) drug therapy ==

== ENCOUNTER → 2017-03-28 | Outpatient (CLI) | payer OTHER | LOC: M SMT 08:30 | PROVIDERS: ATTEND Internal Medicine Nephrology | DX: N18.5 Chronic kidney disease, stage 5 (principal); Z94.0 Kidney transplant status; D84.9 Immunodeficiency, unspecified; Z79.899 Other long term (current) drug therapy ==

== ENCOUNTER → 2017-03-31 | Outpatient (REF) | payer OTHER ==
[2017-03-31 19:58] LABS: TOTAL PROTEIN 6.1 GM/DL (6.4-8.2)
[2017-03-31 20:57] LABS: REASON FOR REVIEW COMPREHENSIVE REVIEW
[2017-04-01 12:04] LABS: FOLATE 13.9 NG/ML
[2017-04-04 10:50] LABS: ALBUMIN 3.82 GM/DL (3.29-5.55); ALBUMIN % 62.7 % (55.8-66.1); GAMMA GLOBULIN % 7.3 % (11.1-18.8)
== END ==
LOC: M LAB REF 17:18
PROVIDERS: ATTEND Internal Medicine Medical Oncology
DX: D64.9 Anemia, unspecified (principal)

== ENCOUNTER 2017-04-01 09:49 | Outpatient (CLI) | payer OTHER, MEDICARE ==
[~2017-04-01 09:49] MED LIST changes: +ACETAMINOPHEN TAB 650MG DOSE (2X325MG) PO SCH; +diphenhydrAMINE 25 MG CAP PO SCH
[2017-04-01 10:20] VITALS: BP 147/70
[2017-04-01] MEDS ORDERED: FUROSEMIDE 20 MG/2 ML VIAL (J1940) IV ONE (11:00)
[2017-04-01 14:50] VITALS: BP 151/70
== END 2017-04-01 17:02 | disposition home or self-care (01) ==
LOC: M OPCLI4PR 09:49 → M PED 09:54 → M OPCLI4PR 17:02
PROVIDERS: ATTEND Internal Medicine Medical Oncology
DX: N18.9 Chronic kidney disease, unspecified (principal); D63.1 Anemia in chronic kidney disease; Z79.52 Long term (current) use of systemic steroids; Z79.899 Other long term (current) drug therapy
CPT/HCPCS: 36430; J1940; P9016

== ENCOUNTER → 2017-04-04 | Outpatient (CLI) | payer OTHER, MEDICARE ==
[~2017-04-04] MED LIST changes: -ACETAMINOPHEN TAB 650MG DOSE (2X325MG) PO SCH; -diphenhydrAMINE 25 MG CAP PO SCH
== END ==
LOC: M SMT 08:36
PROVIDERS: ATTEND Internal Medicine Nephrology
DX: Z94.0 Kidney transplant status (principal); N18.5 Chronic kidney disease, stage 5; D84.9 Immunodeficiency, unspecified; Z79.899 Other long term (current) drug therapy

== ENCOUNTER → 2017-04-14 | Outpatient (REF) | payer OTHER, MEDICARE | LOC: M LAB REF 15:00 | PROVIDERS: ATTEND Internal Medicine Medical Oncology | DX: D64.9 Anemia, unspecified (principal) ==

== ENCOUNTER → 2017-04-22 | Outpatient (CLI) | payer OTHER | LOC: M SMT 08:27 | PROVIDERS: ATTEND Internal Medicine Nephrology | DX: Z94.0 Kidney transplant status (principal); N18.5 Chronic kidney disease, stage 5; D84.9 Immunodeficiency, unspecified; Z79.899 Other long term (current) drug therapy ==

== ENCOUNTER → 2017-09-09 | Outpatient (CLI) | payer OTHER ==
[2017-09-09 12:37] LABS: HEMATOCRIT 33.4 % (36.0-47.0); HEMOGLOBIN 10.9 g/dl (12.0-16.0); MEAN CORPUSCULAR HEMOGLOBIN 30.9 pg (27.0-33.0); MEAN CORPUSCULAR HGB CONC 32.6 g/dl (32.0-36.5); MEAN CORPUSCULAR VOLUME 94.6 fl (80.0-96.0); PLATELET COUNT, AUTOMATED 170 10^3/uL (150-450); RED BLOOD COUNT 3.53 10^6/uL (4.00-5.40); RED CELL DISTRIBUTION WIDTH 14.4 % (11.5-14.5); WHITE BLOOD COUNT 2.7 10^3/uL (4.0-10.0)
[2017-09-09 12:43] LABS: ADD MANUAL DIFFER YES; DIFF SLIDE NUMBER 153; POS COUNT POS FLAG; POSITIVE MORPH POS FLAG
[2017-09-09 12:46] LABS: APPEARANCE, URINE CLEAR (CLEAR); BACTERIA, URINE AUTO NEGATIVE (NEGATIVE); BILIRUBIN, URINE AUTO NEGATIVE (NEGATIVE); BLOOD, URINE BLOOD NEGATIVE (NEGATIVE); COLOR, URINE STRAW (YELLOW); GLUCOSE, URINE (UA) AUTO NEGATIVE (NEGATIVE); KETONE, URINE AUTO NEGATIVE (NEGATIVE); LEUKOCYTE ESTERASE, URINE AUTO NEGATIVE (NEGATIVE); MUCUS, URINE SMALL (NEGATIVE); NITRITE, URINE AUTO NEGATIVE (NEGATIVE); PROTEIN, URINE AUTO 1+ mg/dL (NEGATIVE); RBC, URINE AUTO 1 /HPF (0-3); SPECIFIC GRAVITY URINE AUTO 1.011 (1.002-1.035); SQUAMOUS EPITHELIAL CELL UR AU 0 /HPF (0-6); UROBILINOGEN, URINE AUTO 0.2 mg/dL (0.0-2.0); WBC, URINE AUTO 4 /HPF (0-3)
[2017-09-09 13:00] LABS: ALBUMIN 3.5 GM/DL (3.2-5.2); ANION GAP 9 MEQ/L (8-16); BLOOD UREA NITROGEN 63 MG/DL (7-18); CALCIUM LEVEL 8.5 MG/DL (8.8-10.2); CARBON DIOXIDE LEVEL 24 MEQ/L (21-32); CHLORIDE LEVEL 108 MEQ/L (98-107); CREATININE FOR GFR 2.21 MG/DL (0.55-1.30); GLOMERULAR FILTRATION RATE 23.8 (>45); GLUCOSE, FASTING 92 MG/DL (70-100); MAGNESIUM LEVEL 2.4 MG/DL (1.8-2.4); POTASSIUM SERUM 4.9 MEQ/L (3.5-5.1); SODIUM LEVEL 141 MEQ/L (136-145)
[2017-09-09 13:25] LABS: ATYPICAL LYMPH 8 % (0-5); BANDS 3 % (< 11); BASOPHILS 2 % (0-4); EOSINOPHILS 6 % (0-5); LYMPHOCYTES 10 % (16-52); METAMYELOCYTES 3 % (0-0); MONOCYTES 7 % (0-8); NEUTROPHILS 61 % (35-75)
[2017-09-09 13:27] LABS: PLATELET ESTIMATE NORMAL (NORMAL)
[2017-09-09 13:58] LABS: CREATININE,RANDOM URINE 59.2 MG/DL; TOTAL PROTEIN,RANDOM URINE 52.7 MG/DL (0.0-12.0)
== END ==
LOC: M SMT 09:02
DX: D84.9 Immunodeficiency, unspecified (principal); N18.5 Chronic kidney disease, stage 5; Z94.0 Kidney transplant status; Z79.899 Other long term (current) drug therapy
CPT/HCPCS: 83735

== ENCOUNTER → 2017-10-25 | Outpatient (CLI) | payer OTHER ==
[2017-10-25 13:25] LABS: HEMATOCRIT 35.7 % (36.0-47.0); HEMOGLOBIN 11.6 g/dl (12.0-15.5); MEAN CORPUSCULAR HEMOGLOBIN 30.4 pg (27.0-33.0); MEAN CORPUSCULAR HGB CONC 32.5 g/dl (32.0-36.5); MEAN CORPUSCULAR VOLUME 93.7 fl (80.0-96.0); PLATELET COUNT, AUTOMATED 214 10^3/uL (150-450); RED BLOOD COUNT 3.81 10^6/uL (4.00-5.40); RED CELL DISTRIBUTION WIDTH 13.8 % (11.5-14.5); WHITE BLOOD COUNT 7.9 10^3/uL (4.0-10.0)
[2017-10-25 13:28] LABS: APPEARANCE, URINE CLEAR (CLEAR); BACTERIA, URINE AUTO 1+ (NEGATIVE); BILIRUBIN, URINE AUTO NEGATIVE (NEGATIVE); BLOOD, URINE BLOOD NEGATIVE (NEGATIVE); COLOR, URINE STRAW (YELLOW); GLUCOSE, URINE (UA) AUTO NEGATIVE (NEGATIVE); KETONE, URINE AUTO NEGATIVE (NEGATIVE); LEUKOCYTE ESTERASE, URINE AUTO NEGATIVE (NEGATIVE); MUCUS, URINE SMALL (NEGATIVE); NITRITE, URINE AUTO NEGATIVE (NEGATIVE); PROTEIN, URINE AUTO NEGATIVE (NEGATIVE); RBC, URINE AUTO 0 /HPF (0-3); SPECIFIC GRAVITY URINE AUTO 1.006 (1.002-1.035); SQUAMOUS EPITHELIAL CELL UR AU 0 /HPF (0-6); UROBILINOGEN, URINE AUTO 0.2 mg/dL (0.0-2.0); WBC, URINE AUTO 0 /HPF (0-3)
[2017-10-25 13:33] LABS: ADD MANUAL DIFFER YES; DIFF SLIDE NUMBER 238; POS COUNT POS FLAG; POSITIVE MORPH POS FLAG
[2017-10-25 13:58] LABS: ATYPICAL LYMPH 1 % (0-5); BANDS 5 % (< 11); EOSINOPHILS 1 % (0-5); LYMPHOCYTES 6 % (16-52); METAMYELOCYTES 4 % (0-0); MONOCYTES 11 % (0-8); MYELOCYTES 1 % (0-0); NEUTROPHILS 71 % (35-75); PLATELET ESTIMATE NORMAL (NORMAL)
[2017-10-25 13:59] LABS: ANISOCYTOSIS 1+; POIKILOCYTOSIS 1+
[2017-10-25 14:01] LABS: CREATININE,RANDOM URINE 33.8 MG/DL; TOTAL PROTEIN,RANDOM URINE 20.5 MG/DL (0.0-12.0)
[2017-10-25 14:06] LABS: ALBUMIN 3.8 GM/DL (3.2-5.2); ALBUMIN/GLOBULIN RATIO 1.36 (1.00-1.93); ALKALINE PHOSPHATASE 70 U/L (45-117); ALT/SGPT 23 U/L (12-78); ANION GAP 11 MEQ/L (8-16); AST/SGOT 31 U/L (7-37); BILIRUBIN,DIRECT < 0.1 MG/DL (0.0-0.2); BILIRUBIN,TOTAL 0.3 MG/DL (0.2-1.0); BLOOD UREA NITROGEN 84 MG/DL (7-18); CALCIUM LEVEL 9.4 MG/DL (8.8-10.2); CARBON DIOXIDE LEVEL 24 MEQ/L (21-32); CHLORIDE LEVEL 101 MEQ/L (98-107); CREATININE FOR GFR 2.63 MG/DL (0.55-1.30); GLOMERULAR FILTRATION RATE 19.5 (>45); GLUCOSE, FASTING 81 MG/DL (70-100); MAGNESIUM LEVEL 2.4 MG/DL (1.8-2.4); PHOSPHORUS LEVEL 5.2 MG/DL (2.5-4.9); POTASSIUM SERUM 5.1 MEQ/L (3.5-5.1); SODIUM LEVEL 136 MEQ/L (136-145); TOTAL PROTEIN 6.6 GM/DL (6.4-8.2)
[2017-10-28 00:07] LABS: BK VIRUS BLOOD PCR1 Negative copies/mL (Negative); CMV QUANT DNA PCR (PLASMA) 1449 IU/mL (Negative); log10 CMV QN DNA P1 3.161 (.)
== END ==
LOC: M SMT 11:31
DX: Z94.0 Kidney transplant status (principal); N18.5 Chronic kidney disease, stage 5; D84.9 Immunodeficiency, unspecified; Z79.899 Other long term (current) drug therapy
CPT/HCPCS: 83735

== ENCOUNTER 2017-11-18 08:55 | Outpatient (CLI) | payer OTHER, MEDICARE ==
[2017-11-18] MEDS: FILTER 1.2 MICRON (ADULT TPN/MANNITOL/REMICADE) XX (09:00)
[2017-11-18] MEDS: BELATACEPT IV (09:18)
[2017-11-18] MEDS: NS IV (09:18)
== END 2017-11-18 10:45 | disposition home or self-care (01) ==
LOC: M INFU 08:55
DX: Z94.0 Kidney transplant status (principal); Z79.52 Long term (current) use of systemic steroids; Z79.899 Other long term (current) drug therapy
CPT/HCPCS: J0485

== ENCOUNTER → 2017-11-18 | Outpatient (CLI) | payer OTHER, MEDICARE ==
[2017-11-18 09:41] LABS: HEMATOCRIT 33.4 % (36.0-47.0); HEMOGLOBIN 10.7 g/dl (12.0-15.5); MEAN CORPUSCULAR HEMOGLOBIN 29.4 pg (27.0-33.0); MEAN CORPUSCULAR VOLUME 91.8 fl (80.0-96.0); PLATELET COUNT, AUTOMATED 121 10^3/uL (150-450); RED BLOOD COUNT 3.64 10^6/uL (4.00-5.40); RED CELL DISTRIBUTION WIDTH 13.5 % (11.5-14.5); WHITE BLOOD COUNT 6.6 10^3/uL (4.0-10.0)
[2017-11-18 09:43] LABS: POS COUNT POS FLAG; POSITIVE MORPH POS FLAG
[2017-11-18 09:44] LABS: ADD MANUAL DIFFER YES; DIFF SLIDE NUMBER 169
[2017-11-18 09:53] LABS: APPEARANCE, URINE CLEAR (CLEAR); BACTERIA, URINE AUTO NEGATIVE (NEGATIVE); BILIRUBIN, URINE AUTO NEGATIVE (NEGATIVE); BLOOD, URINE BLOOD NEGATIVE (NEGATIVE); COLOR, URINE STRAW (YELLOW); GLUCOSE, URINE (UA) AUTO NEGATIVE (NEGATIVE); KETONE, URINE AUTO NEGATIVE (NEGATIVE); LEUKOCYTE ESTERASE, URINE AUTO NEGATIVE (NEGATIVE); NITRITE, URINE AUTO NEGATIVE (NEGATIVE); PROTEIN, URINE AUTO 1+ mg/dL (NEGATIVE); RBC, URINE AUTO 0 /HPF (0-3); SPECIFIC GRAVITY URINE AUTO 1.008 (1.002-1.035); SQUAMOUS EPITHELIAL CELL UR AU 2 /HPF (0-6); UROBILINOGEN, URINE AUTO 0.2 mg/dL (0.0-2.0); WBC, URINE AUTO 3 /HPF (0-3)
[2017-11-18 10:07] LABS: ATYPICAL LYMPH 2 % (0-5); BANDS 7 % (< 11); LYMPHOCYTES 3 % (16-52); METAMYELOCYTES 1 % (0-0); MONOCYTES 9 % (0-8); MYELOCYTES 1 % (0-0); NEUTROPHILS 77 % (35-75)
[2017-11-18 10:08] LABS: ANISOCYTOSIS 1+; PLATELET ESTIMATE DECREASED (NORMAL); POLYCHROMASIA 1+
[2017-11-18 10:14] LABS: ALBUMIN 3.5 GM/DL (3.2-5.2); ALBUMIN/GLOBULIN RATIO 1.21 (1.00-1.93); ALKALINE PHOSPHATASE 74 U/L (45-117); ALT/SGPT 29 U/L (12-78); ANION GAP 10 MEQ/L (8-16); AST/SGOT 28 U/L (7-37); BILIRUBIN,DIRECT 0.1 MG/DL (0.0-0.2); BILIRUBIN,TOTAL 0.4 MG/DL (0.2-1.0); BLOOD UREA NITROGEN 71 MG/DL (7-18); CALCIUM LEVEL 8.5 MG/DL (8.8-10.2); CARBON DIOXIDE LEVEL 25 MEQ/L (21-32); CHLORIDE LEVEL 104 MEQ/L (98-107); CREATININE FOR GFR 2.45 MG/DL (0.55-1.30); GLOMERULAR FILTRATION RATE 21.1 (>45); GLUCOSE, FASTING 89 MG/DL (70-100); MAGNESIUM LEVEL 2.4 MG/DL (1.8-2.4); PHOSPHORUS LEVEL 4.8 MG/DL (2.5-4.9); POTASSIUM SERUM 4.5 MEQ/L (3.5-5.1); SODIUM LEVEL 139 MEQ/L (136-145); TOTAL PROTEIN 6.4 GM/DL (6.4-8.2)
[2017-11-18 10:28] LABS: TOTAL PROTEIN,RANDOM URINE 39.1 MG/DL (0.0-12.0)
[2017-11-22 00:06] LABS: BK VIRUS BLOOD PCR1 Negative copies/mL (Negative); CMV QUANT DNA PCR (PLASMA) 8820 IU/mL (Negative); log10 CMV QN DNA P1 3.945 (.)
== END ==
LOC: M LAB 08:37
DX: Z94.0 Kidney transplant status (principal)
CPT/HCPCS: 83735

== ENCOUNTER 2017-12-16 07:13 | Outpatient (CLI) | payer OTHER, MEDICARE ==
[2017-12-16] MEDS: FILTER 1.2 MICRON (ADULT TPN/MANNITOL/REMICADE) XX (07:15)
[2017-12-16] MEDS: NS IV (08:18)
[2017-12-16] MEDS: BELATACEPT IV (08:18)
== END 2017-12-16 09:15 | disposition home or self-care (01) ==
LOC: M INFU 07:13
DX: Z94.0 Kidney transplant status (principal); Z79.52 Long term (current) use of systemic steroids; Z79.899 Other long term (current) drug therapy
CPT/HCPCS: J0485

== ENCOUNTER → 2017-12-16 | Outpatient (CLI) | payer OTHER, MEDICARE ==
[2017-12-16 10:19] LABS: BASO % 0.2 % (0.0-1.0); EOS # 0.1 10^3/uL (0.0-0.50); EOS % 1.5 % (0.0-3.0); HEMATOCRIT 30.3 % (36.0-47.0); HEMOGLOBIN 9.9 g/dl (12.0-15.5); IMMATURE GRANULOCYTE % 2.6 % (0-3.0); LYMPH # 0.4 10^3/uL (1.5-4.5); LYMPH % 7.8 % (24.0-44.0); MEAN CORPUSCULAR HEMOGLOBIN 29.4 pg (27.0-33.0); MEAN CORPUSCULAR HGB CONC 32.7 g/dl (32.0-36.5); MEAN CORPUSCULAR VOLUME 89.9 fl (80.0-96.0); MONO # 0.6 10^3/uL (0.0-0.8); MONO % 11.3 % (0.0-5.0); NEUTROPHILS # 4.1 10^3/uL (1.8-7.7); NEUTROPHILS % 76.6 % (36.0-66.0); PLATELET COUNT, AUTOMATED 171 10^3/uL (150-450); RED BLOOD COUNT 3.37 10^6/uL (4.00-5.40); RED CELL DISTRIBUTION WIDTH 14.6 % (11.5-14.5); WHITE BLOOD COUNT 5.4 10^3/uL (4.0-10.0)
[2017-12-16 10:33] LABS: ALBUMIN 3.5 GM/DL (3.2-5.2); ALBUMIN/GLOBULIN RATIO 1.35 (1.00-1.93); ALKALINE PHOSPHATASE 75 U/L (45-117); ALT/SGPT 22 U/L (12-78); AMORPHOUS SEDIMENT SMALL (NEGATIVE); ANION GAP 11 MEQ/L (8-16); APPEARANCE, URINE HAZY (CLEAR); AST/SGOT 19 U/L (7-37); BACTERIA, URINE AUTO NEGATIVE (NEGATIVE); BILIRUBIN, URINE AUTO NEGATIVE (NEGATIVE); BILIRUBIN,DIRECT 0.1 MG/DL (0.0-0.2); BILIRUBIN,TOTAL 0.4 MG/DL (0.2-1.0); BLOOD UREA NITROGEN 81 MG/DL (7-18); BLOOD, URINE BLOOD NEGATIVE (NEGATIVE); CALCIUM LEVEL 8.6 MG/DL (8.8-10.2); CARBON DIOXIDE LEVEL 24 MEQ/L (21-32); CHLORIDE LEVEL 105 MEQ/L (98-107); COLOR, URINE STRAW (YELLOW); CREATININE FOR GFR 2.69 MG/DL (0.55-1.30); GLUCOSE, FASTING 87 MG/DL (70-100); GLUCOSE, URINE (UA) AUTO NEGATIVE (NEGATIVE); KETONE, URINE AUTO NEGATIVE (NEGATIVE); LEUKOCYTE ESTERASE, URINE AUTO NEGATIVE (NEGATIVE); MAGNESIUM LEVEL 2.2 MG/DL (1.8-2.4); MUCUS, URINE SMALL (NEGATIVE); NITRITE, URINE AUTO NEGATIVE (NEGATIVE); PHOSPHORUS LEVEL 4.3 MG/DL (2.5-4.9); PROTEIN, URINE AUTO 1+ mg/dL (NEGATIVE); RBC, URINE AUTO 0 /HPF (0-3); SODIUM LEVEL 140 MEQ/L (136-145); SPECIFIC GRAVITY URINE AUTO 1.009 (1.002-1.035); SQUAMOUS EPITHELIAL CELL UR AU 0 /HPF (0-6); TOTAL PROTEIN 6.1 GM/DL (6.4-8.2); UROBILINOGEN, URINE AUTO 0.2 mg/dL (0.0-2.0); WBC, URINE AUTO 2 /HPF (0-3)
[2017-12-16 11:06] LABS: CREATININE,RANDOM URINE 55.4 MG/DL; TOTAL PROTEIN,RANDOM URINE 35.2 MG/DL (0.0-12.0)
== END ==
LOC: M LAB 07:12
DX: Z94.0 Kidney transplant status (principal)
CPT/HCPCS: 83735

== ENCOUNTER 2018-01-13 08:44 | Outpatient (CLI) | payer OTHER, MEDICARE ==
[2018-01-13] MEDS: FILTER 1.2 MICRON (ADULT TPN/MANNITOL/REMICADE) XX (09:00)
[2018-01-13] MEDS: BELATACEPT IV (09:32)
[2018-01-13] MEDS: NS IV (09:32)
== END 2018-01-13 10:45 | disposition home or self-care (01) ==
LOC: M INFU 08:44
DX: Z94.0 Kidney transplant status (principal); Z79.899 Other long term (current) drug therapy; Z90.711 Acquired absence of uterus with remaining cervical stump
CPT/HCPCS: J0485

== ENCOUNTER → 2018-01-13 | Outpatient (CLI) | payer OTHER, MEDICARE ==
[2018-01-13 09:37] LABS: HEMATOCRIT 28.9 % (36.0-47.0); HEMOGLOBIN 9.5 g/dl (12.0-15.5); MEAN CORPUSCULAR HEMOGLOBIN 29.7 pg (27.0-33.0); MEAN CORPUSCULAR HGB CONC 32.9 g/dl (32.0-36.5); MEAN CORPUSCULAR VOLUME 90.3 fl (80.0-96.0); PLATELET COUNT, AUTOMATED 141 10^3/uL (150-450); RED CELL DISTRIBUTION WIDTH 14.6 % (11.5-14.5); WHITE BLOOD COUNT 4.3 10^3/uL (4.0-10.0)
[2018-01-13 09:42] LABS: APPEARANCE, URINE CLEAR (CLEAR); BACTERIA, URINE AUTO NEGATIVE (NEGATIVE); BILIRUBIN, URINE AUTO NEGATIVE (NEGATIVE); BLOOD, URINE BLOOD NEGATIVE (NEGATIVE); COLOR, URINE STRAW (YELLOW); GLUCOSE, URINE (UA) AUTO NEGATIVE (NEGATIVE); KETONE, URINE AUTO NEGATIVE (NEGATIVE); LEUKOCYTE ESTERASE, URINE AUTO NEGATIVE (NEGATIVE); NITRITE, URINE AUTO NEGATIVE (NEGATIVE); PROTEIN, URINE AUTO 1+ mg/dL (NEGATIVE); RBC, URINE AUTO 0 /HPF (0-3); SPECIFIC GRAVITY URINE AUTO 1.011 (1.002-1.035); SQUAMOUS EPITHELIAL CELL UR AU 1 /HPF (0-6); UROBILINOGEN, URINE AUTO 0.2 mg/dL (0.0-2.0); WBC, URINE AUTO 3 /HPF (0-3)
[2018-01-13 09:45] LABS: ADD MANUAL DIFFER YES; DIFF SLIDE NUMBER 137; POS COUNT POS FLAG; POSITIVE MORPH POS FLAG
[2018-01-13 10:02] LABS: CREATININE,RANDOM URINE 78.8 MG/DL; TOTAL PROTEIN,RANDOM URINE 49.4 MG/DL (0.0-12.0)
[2018-01-13 10:04] LABS: ALBUMIN 3.6 GM/DL (3.2-5.2); ALBUMIN/GLOBULIN RATIO 1.33 (1.00-1.93); ALKALINE PHOSPHATASE 65 U/L (45-117); ALT/SGPT 23 U/L (12-78); ANION GAP 11 MEQ/L (8-16); AST/SGOT 20 U/L (7-37); BILIRUBIN,DIRECT < 0.1 MG/DL (0.0-0.2); BILIRUBIN,TOTAL 0.4 MG/DL (0.2-1.0); BLOOD UREA NITROGEN 75 MG/DL (7-18); CALCIUM LEVEL 8.8 MG/DL (8.8-10.2); CARBON DIOXIDE LEVEL 24 MEQ/L (21-32); CHLORIDE LEVEL 106 MEQ/L (98-107); CREATININE FOR GFR 2.45 MG/DL (0.55-1.30); GLOMERULAR FILTRATION RATE 21.1 (>45); GLUCOSE, FASTING 92 MG/DL (70-100); MAGNESIUM LEVEL 2.2 MG/DL (1.8-2.4); PHOSPHORUS LEVEL 4.9 MG/DL (2.5-4.9); POTASSIUM SERUM 5.1 MEQ/L (3.5-5.1); SODIUM LEVEL 141 MEQ/L (136-145); TOTAL PROTEIN 6.3 GM/DL (6.4-8.2)
[2018-01-13 10:07] LABS: ATYPICAL LYMPH 2 % (0-5); BANDS 2 % (< 11); BASOPHILS 1 % (0-4); EOSINOPHILS 1 % (0-5); LYMPHOCYTES 14 % (16-52); MONOCYTES 2 % (0-8); NEUTROPHILS 78 % (35-75)
[2018-01-13 10:08] LABS: OVALOCYTES 1+; PLATELET ESTIMATE NORMAL (NORMAL)
[2018-01-13 10:09] LABS: ANISOCYTOSIS 1+; POIKILOCYTOSIS 1+
[2018-01-15 10:13] LABS: QUANTIFERON GOLD TB Negative (Negative); TB Test (QFT) Antigen 0.03 IU/mL (.); TB Test (QFT) Antigen Minus Ni <0.01 IU/mL (.); TB Test (QFT) Mitogen 7.25 IU/mL (.); TB Test (QFT) Nil 0.04 IU/mL (.)
[2018-01-17 10:04] LABS: CMV QUANT DNA PCR (PLASMA) 353 IU/mL (Negative); log10 CMV QN DNA P1 2.548 (.)
== END ==
LOC: M LAB 08:41
DX: Z94.0 Kidney transplant status (principal); N18.5 Chronic kidney disease, stage 5; D84.9 Immunodeficiency, unspecified; Z79.899 Other long term (current) drug therapy
CPT/HCPCS: 83735

== ENCOUNTER 2018-02-10 07:45 | Outpatient (CLI) | payer OTHER, MEDICARE ==
[2018-02-10] MEDS: FILTER 1.2 MICRON (ADULT TPN/MANNITOL/REMICADE) XX (08:48)
[2018-02-10] MEDS: BELATACEPT IV (08:48)
[2018-02-10] MEDS: NS IV (08:48)
== END 2018-02-10 09:25 | disposition home or self-care (01) ==
LOC: M INFU 07:45
DX: N18.4 Chronic kidney disease, stage 4 (severe) (principal); D63.1 Anemia in chronic kidney disease; R60.0 Localized edema; E79.0 Hyperuricemia without signs of inflammatory arthritis and tophaceous disease; B25.9 Cytomegaloviral disease, unspecified; Z94.0 Kidney transplant status; Z90.710 Acquired absence of both cervix and uterus
CPT/HCPCS: J0485

== ENCOUNTER → 2018-02-10 | Outpatient (CLI) | payer OTHER, MEDICARE ==
[2018-02-10 08:19] LABS: HEMATOCRIT 30.5 % (36.0-47.0); HEMOGLOBIN 10.1 g/dl (12.0-15.5); MEAN CORPUSCULAR HEMOGLOBIN 30.9 pg (27.0-33.0); MEAN CORPUSCULAR HGB CONC 33.1 g/dl (32.0-36.5); MEAN CORPUSCULAR VOLUME 93.3 fl (80.0-96.0); PLATELET COUNT, AUTOMATED 131 10^3/uL (150-450); RED BLOOD COUNT 3.27 10^6/uL (4.00-5.40); RED CELL DISTRIBUTION WIDTH 15.4 % (11.5-14.5); WHITE BLOOD COUNT 4.5 10^3/uL (4.0-10.0)
[2018-02-10 08:20] LABS: ADD MANUAL DIFFER YES; DIFF SLIDE NUMBER 130; POS COUNT POS FLAG; POSITIVE MORPH POS FLAG
[2018-02-10 08:39] LABS: APPEARANCE, URINE CLEAR (CLEAR); BACTERIA, URINE AUTO NEGATIVE (NEGATIVE); BILIRUBIN, URINE AUTO NEGATIVE (NEGATIVE); BLOOD, URINE BLOOD NEGATIVE (NEGATIVE); COLOR, URINE STRAW (YELLOW); GLUCOSE, URINE (UA) AUTO NEGATIVE (NEGATIVE); KETONE, URINE AUTO NEGATIVE (NEGATIVE); LEUKOCYTE ESTERASE, URINE AUTO TRACE (NEGATIVE); NITRITE, URINE AUTO NEGATIVE (NEGATIVE); PROTEIN, URINE AUTO 1+ mg/dL (NEGATIVE); RBC, URINE AUTO 0 /HPF (0-3); SPECIFIC GRAVITY URINE AUTO 1.009 (1.002-1.035); SQUAMOUS EPITHELIAL CELL UR AU 1 /HPF (0-6); UROBILINOGEN, URINE AUTO 0.2 mg/dL (0.0-2.0); WBC, URINE AUTO 2 /HPF (0-3)
[2018-02-10 08:48] LABS: ALBUMIN 3.6 GM/DL (3.2-5.2); ALBUMIN/GLOBULIN RATIO 1.33 (1.00-1.93); ALKALINE PHOSPHATASE 67 U/L (45-117); ALT/SGPT 34 U/L (12-78); ANION GAP 9 MEQ/L (8-16); AST/SGOT 28 U/L (7-37); BILIRUBIN,DIRECT < 0.1 MG/DL (0.0-0.2); BILIRUBIN,TOTAL 0.4 MG/DL (0.2-1.0); BLOOD UREA NITROGEN 63 MG/DL (7-18); CALCIUM LEVEL 8.7 MG/DL (8.8-10.2); CARBON DIOXIDE LEVEL 26 MEQ/L (21-32); CHLORIDE LEVEL 105 MEQ/L (98-107); CREATININE FOR GFR 2.49 MG/DL (0.55-1.30); GLOMERULAR FILTRATION RATE 20.7 (>45); GLUCOSE, FASTING 89 MG/DL (70-100); MAGNESIUM LEVEL 2.5 MG/DL (1.8-2.4); PHOSPHORUS LEVEL 4.5 MG/DL (2.5-4.9); POTASSIUM SERUM 4.9 MEQ/L (3.5-5.1); SODIUM LEVEL 140 MEQ/L (136-145); TOTAL PROTEIN 6.3 GM/DL (6.4-8.2)
[2018-02-10 09:29] LABS: ANISOCYTOSIS 1+; BANDS 3 % (< 11); LYMPHOCYTES 14 % (16-52); METAMYELOCYTES 3 % (0-0); MONOCYTES 3 % (0-8); NEUTROPHILS 77 % (35-75); PLATELET ESTIMATE DECREASED (NORMAL)
[2018-02-10 09:30] LABS: OVALOCYTES 1+
[2018-02-13 00:06] LABS: QUANTIFERON GOLD TB Negative (Negative); TB Test (QFT) Antigen 0.02 IU/mL (.); TB Test (QFT) Antigen Minus Ni <0.01 IU/mL (.); TB Test (QFT) Mitogen 8.61 IU/mL (.); TB Test (QFT) Nil 0.03 IU/mL (.)
[2018-02-14 15:19] LABS: CMV QUANT DNA PCR (PLASMA) Positive < 200 IU/mL (Negative)
== END ==
LOC: M LAB 07:43
DX: Z94.0 Kidney transplant status (principal)
CPT/HCPCS: 83735

== ENCOUNTER 2018-03-10 10:09 | Outpatient (CLI) | payer OTHER, MEDICARE ==
[2018-03-10] MEDS: FILTER 1.2 MICRON (ADULT TPN/MANNITOL/REMICADE) XX (10:30)
[2018-03-10] MEDS: NS IV (10:46)
[2018-03-10] MEDS: BELATACEPT IV (10:46)
== END 2018-03-10 11:30 | disposition home or self-care (01) ==
LOC: M INFU 10:09
DX: N18.4 Chronic kidney disease, stage 4 (severe) (principal); D63.1 Anemia in chronic kidney disease; I12.9 Hypertensive chronic kidney disease with stage 1 through stage 4 chronic kidney disease, or unspecified chronic kidney disease; R01.1 Cardiac murmur, unspecified; E79.0 Hyperuricemia without signs of inflammatory arthritis and tophaceous disease; R60.0 Localized edema; Z79.899 Other long term (current) drug therapy; Z90.710 Acquired absence of both cervix and uterus; Z94.0 Kidney transplant status
CPT/HCPCS: J0485

== ENCOUNTER 2018-04-07 10:19 | Outpatient (CLI) | payer OTHER, MEDICARE ==
[2018-04-07] MEDS: FILTER 1.2 MICRON (ADULT TPN/MANNITOL/REMICADE) XX (11:00)
[2018-04-07] MEDS: NS IV (11:31)
[2018-04-07] MEDS: BELATACEPT IV (11:31)
== END 2018-04-07 12:25 | disposition home or self-care (01) ==
LOC: M INFU 10:19
DX: Z94.0 Kidney transplant status (principal); Z98.890 Other specified postprocedural states
CPT/HCPCS: J0485

== ENCOUNTER → 2018-04-07 | Outpatient (CLI) | payer OTHER, MEDICARE ==
[2018-04-07 11:07] LABS: HEMOGLOBIN 12.7 g/dl (12.0-15.5); MEAN CORPUSCULAR HEMOGLOBIN 31.8 pg (27.0-33.0); MEAN CORPUSCULAR HGB CONC 31.8 g/dl (32.0-36.5); PLATELET COUNT, AUTOMATED 102 10^3/uL (150-450); RED CELL DISTRIBUTION WIDTH 16.4 % (11.5-14.5)
[2018-04-07 11:11] LABS: ADD MANUAL DIFFER YES; DIFF SLIDE NUMBER 178; POS COUNT POS FLAG; POSITIVE MORPH POS FLAG
[2018-04-07 11:17] LABS: APPEARANCE, URINE CLEAR (CLEAR); BACTERIA, URINE AUTO 1+ (NEGATIVE); BILIRUBIN, URINE AUTO NEGATIVE (NEGATIVE); BLOOD, URINE BLOOD NEGATIVE (NEGATIVE); COLOR, URINE YELLOW (YELLOW); GLUCOSE, URINE (UA) AUTO NEGATIVE (NEGATIVE); KETONE, URINE AUTO NEGATIVE (NEGATIVE); LEUKOCYTE ESTERASE, URINE AUTO 2+ (NEGATIVE); NITRITE, URINE AUTO NEGATIVE (NEGATIVE); PROTEIN, URINE AUTO 1+ mg/dL (NEGATIVE); RBC, URINE AUTO 1 /HPF (0-3); SPECIFIC GRAVITY URINE AUTO 1.006 (1.002-1.035); SQUAMOUS EPITHELIAL CELL UR AU 2 /HPF (0-6); UROBILINOGEN, URINE AUTO 0.2 mg/dL (0.0-2.0); WBC, URINE AUTO 9 /HPF (0-3)
[2018-04-07 11:48] LABS: ATYPICAL LYMPH 1 % (0-5); BANDS 17 % (< 11); BASOPHILS 2 % (0-4); LYMPHOCYTES 11 % (16-52); NEUTROPHILS 69 % (35-75); OVALOCYTES 1+; PLATELET ESTIMATE DECREASED (NORMAL)
[2018-04-07 11:54] LABS: CREATININE,RANDOM URINE 35.5 MG/DL
[2018-04-07 12:27] LABS: ALBUMIN 3.1 GM/DL (3.2-5.2); ALBUMIN/GLOBULIN RATIO 1.11 (1.00-1.93); ALKALINE PHOSPHATASE 122 U/L (45-117); ALT/SGPT 38 U/L (12-78); ANION GAP 12 MEQ/L (8-16); AST/SGOT 48 U/L (7-37); BILIRUBIN,DIRECT 0.2 MG/DL (0.0-0.2); BILIRUBIN,TOTAL 0.8 MG/DL (0.2-1.0); BLOOD UREA NITROGEN 60 MG/DL (7-18); CARBON DIOXIDE LEVEL 23 MEQ/L (21-32); CHLORIDE LEVEL 107 MEQ/L (98-107); CREATININE FOR GFR 2.68 MG/DL (0.55-1.30); GLUCOSE, FASTING 170 MG/DL (70-100); MAGNESIUM LEVEL 2.1 MG/DL (1.8-2.4); PHOSPHORUS LEVEL 3.1 MG/DL (2.5-4.9); POTASSIUM SERUM 4.4 MEQ/L (3.5-5.1); SODIUM LEVEL 142 MEQ/L (136-145); TOTAL PROTEIN 5.9 GM/DL (6.4-8.2)
[2018-04-11 15:09] LABS: CMV QUANT DNA PCR (PLASMA) 290 IU/mL (Negative); log10 CMV QN DNA P1 2.462 (.)
== END ==
LOC: M LAB 10:16
DX: Z94.0 Kidney transplant status (principal)
CPT/HCPCS: 83735

== ENCOUNTER 2018-05-05 10:29 | Outpatient (CLI) | payer OTHER, MEDICARE ==
[2018-05-05] MEDS: FILTER 1.2 MICRON (ADULT TPN/MANNITOL/REMICADE) XX (11:25)
[2018-05-05] MEDS: NS IV (11:26)
[2018-05-05] MEDS: BELATACEPT IV (11:26)
== END 2018-05-05 14:35 | disposition home or self-care (01) ==
LOC: M INFU 10:29
DX: Z94.0 Kidney transplant status (principal)
CPT/HCPCS: J0485

== ENCOUNTER → 2018-05-05 | Outpatient (CLI) | payer OTHER, MEDICARE ==
[2018-05-05 11:00] LABS: APPEARANCE, URINE CLEAR (CLEAR); BACTERIA, URINE AUTO 1+ (NEGATIVE); BILIRUBIN, URINE AUTO NEGATIVE (NEGATIVE); BLOOD, URINE BLOOD NEGATIVE (NEGATIVE); COLOR, URINE YELLOW (YELLOW); GLUCOSE, URINE (UA) AUTO NEGATIVE (NEGATIVE); KETONE, URINE AUTO NEGATIVE (NEGATIVE); LEUKOCYTE ESTERASE, URINE AUTO NEGATIVE (NEGATIVE); MUCUS, URINE SMALL (NEGATIVE); NITRITE, URINE AUTO NEGATIVE (NEGATIVE); PROTEIN, URINE AUTO 1+ mg/dL (NEGATIVE); RBC, URINE AUTO 1 /HPF (0-3); SPECIFIC GRAVITY URINE AUTO 1.009 (1.002-1.035); SQUAMOUS EPITHELIAL CELL UR AU 2 /HPF (0-6); UROBILINOGEN, URINE AUTO 0.2 mg/dL (0.0-2.0); WBC, URINE AUTO 6 /HPF (0-3)
[2018-05-05 11:09] LABS: HEMOGLOBIN 13.1 g/dl (12.0-15.5); MEAN CORPUSCULAR HEMOGLOBIN 31.6 pg (27.0-33.0); RED BLOOD COUNT 4.14 10^6/uL (4.00-5.40); RED CELL DISTRIBUTION WIDTH 13.9 % (11.5-14.5); WHITE BLOOD COUNT 7.2 10^3/uL (4.0-10.0)
[2018-05-05 11:15] LABS: ADD MANUAL DIFFER YES; DIFF SLIDE NUMBER 169; PLATELET COUNT, AUTOMATED 67 10^3/uL (150-450); POS COUNT POS FLAG; POSITIVE MORPH POS FLAG
[2018-05-05 11:16] LABS: IMMATURE PLATELET FRACTION % 3.7 % (0.0-9.6)
[2018-05-05 11:27] LABS: CREATININE,RANDOM URINE 70.2 MG/DL
[2018-05-05 11:28] LABS: ALBUMIN 3.2 GM/DL (3.2-5.2); ALBUMIN/GLOBULIN RATIO 1.19 (1.00-1.93); ALKALINE PHOSPHATASE 186 U/L (45-117); ALT/SGPT 53 U/L (12-78); ANION GAP 9 MEQ/L (8-16); AST/SGOT 62 U/L (7-37); BILIRUBIN,DIRECT 0.2 MG/DL (0.0-0.2); BILIRUBIN,TOTAL 0.7 MG/DL (0.2-1.0); BLOOD UREA NITROGEN 47 MG/DL (7-18); CALCIUM LEVEL 9.2 MG/DL (8.8-10.2); CARBON DIOXIDE LEVEL 26 MEQ/L (21-32); CHLORIDE LEVEL 101 MEQ/L (98-107); CREATININE FOR GFR 2.09 MG/DL (0.55-1.30); GLOMERULAR FILTRATION RATE 25.3 (>45); GLUCOSE, FASTING 90 MG/DL (70-100); MAGNESIUM LEVEL 1.9 MG/DL (1.8-2.4); PHOSPHORUS LEVEL 3.6 MG/DL (2.5-4.9); SODIUM LEVEL 136 MEQ/L (136-145); TOTAL PROTEIN 5.9 GM/DL (6.4-8.2)
[2018-05-05 11:39] LABS: BANDS 4 % (< 11); EOSINOPHILS 1 % (0-5); LYMPHOCYTES 8 % (16-52); MONOCYTES 4 % (0-8); NEUTROPHILS 83 % (35-75); PLATELET ESTIMATE DECREASED (NORMAL)
[2018-05-05 13:49] LABS: TOTAL PROTEIN,RANDOM URINE 36.1 MG/DL (0.0-12.0)
[2018-05-09 00:10] LABS: CMV QUANT DNA PCR (PLASMA) 340 IU/mL (Negative); log10 CMV QN DNA P1 2.531 (.)
== END ==
LOC: M LAB 10:26
DX: N18.5 Chronic kidney disease, stage 5 (principal); Z94.0 Kidney transplant status; D84.9 Immunodeficiency, unspecified; Z79.899 Other long term (current) drug therapy
CPT/HCPCS: 83735

== ENCOUNTER → 2018-05-17 | Outpatient (REF) | payer OTHER, MEDICARE ==
[2018-05-17 11:39] LABS: APPEARANCE, URINE CLEAR (CLEAR); BACTERIA, URINE AUTO NEGATIVE (NEGATIVE); BILIRUBIN, URINE AUTO NEGATIVE (NEGATIVE); BLOOD, URINE BLOOD NEGATIVE (NEGATIVE); COLOR, URINE STRAW (YELLOW); GLUCOSE, URINE (UA) AUTO NEGATIVE (NEGATIVE); KETONE, URINE AUTO NEGATIVE (NEGATIVE); LEUKOCYTE ESTERASE, URINE AUTO NEGATIVE (NEGATIVE); NITRITE, URINE AUTO NEGATIVE (NEGATIVE); PROTEIN, URINE AUTO 1+ mg/dL (NEGATIVE); RBC, URINE AUTO 0 /HPF (0-3); SPECIFIC GRAVITY URINE AUTO 1.008 (1.002-1.035); SQUAMOUS EPITHELIAL CELL UR AU 0 /HPF (0-6); UROBILINOGEN, URINE AUTO 0.2 mg/dL (0.0-2.0); WBC, URINE AUTO 1 /HPF (0-3)
[2018-05-17 11:43] LABS: ALBUMIN 3.3 GM/DL (3.2-5.2); ALBUMIN/GLOBULIN RATIO 1.32 (1.00-1.93); ALKALINE PHOSPHATASE 168 U/L (45-117); ALT/SGPT 39 U/L (12-78); ANION GAP 8 MEQ/L (8-16); AST/SGOT 45 U/L (7-37); BILIRUBIN,DIRECT 0.2 MG/DL (0.0-0.2); BILIRUBIN,TOTAL 0.7 MG/DL (0.2-1.0); BLOOD UREA NITROGEN 74 MG/DL (7-18); CALCIUM LEVEL 8.9 MG/DL (8.8-10.2); CARBON DIOXIDE LEVEL 25 MEQ/L (21-32); CHLORIDE LEVEL 107 MEQ/L (98-107); CPK CREATINE PHOSPHOKINASE 59 U/L (26-192); CREATININE FOR GFR 2.63 MG/DL (0.55-1.30); GLOMERULAR FILTRATION RATE 19.4 (>45); GLUCOSE, FASTING 93 MG/DL (70-100); LDH LACTATE DEHYDROGENASE 361 U/L (84-246); MAGNESIUM LEVEL 2.4 MG/DL (1.8-2.4); PHOSPHORUS LEVEL 4.3 MG/DL (2.5-4.9); POTASSIUM SERUM 4.6 MEQ/L (3.5-5.1); SODIUM LEVEL 140 MEQ/L (136-145); TOTAL PROTEIN 5.8 GM/DL (6.4-8.2)
[2018-05-17 11:50] LABS: HEMATOCRIT 40.2 % (36.0-47.0); MEAN CORPUSCULAR HGB CONC 32.3 g/dl (32.0-36.5); MEAN CORPUSCULAR VOLUME 95.9 fl (80.0-96.0); PLATELET COUNT, AUTOMATED 82 10^3/uL (150-450); RED BLOOD COUNT 4.19 10^6/uL (4.00-5.40); RED CELL DISTRIBUTION WIDTH 14.1 % (11.5-14.5); WHITE BLOOD COUNT 2.4 10^3/uL (4.0-10.0)
[2018-05-17 11:51] LABS: ADD MANUAL DIFFER YES; DIFF SLIDE NUMBER 198; POS COUNT POS FLAG; POSITIVE MORPH POS FLAG
[2018-05-17 11:56] LABS: TOTAL PROTEIN,RANDOM URINE 34.1 MG/DL (0.0-12.0)
[2018-05-17 13:11] LABS: ATYPICAL LYMPH 9 % (0-5); BANDS 37 % (< 11); BASOPHILS 1 % (0-4); EOSINOPHILS 5 % (0-5); LYMPHOCYTES 18 % (16-52); METAMYELOCYTES 12 % (0-0); MONOCYTES 4 % (0-8); NEUTROPHILS 14 % (35-75); PLATELET ESTIMATE MARKED DECREASE (NORMAL)
[2018-05-17 13:13] LABS: TEAR DROP CELLS 1+
[2018-05-23 00:30] LABS: CMV QUANT DNA PCR (PLASMA) Positive < 200 IU/mL (Negative)
== END ==
LOC: M LABDRWSH 11:09
DX: N18.5 Chronic kidney disease, stage 5 (principal); Z94.0 Kidney transplant status; Z51.81 Encounter for therapeutic drug level monitoring; Z79.899 Other long term (current) drug therapy
CPT/HCPCS: 82550

== ENCOUNTER → 2018-05-17 | Outpatient (REF) | payer OTHER, MEDICARE ==
[2018-05-17 11:45] LABS: HEMATOCRIT 40.4 % (36.0-47.0); HEMOGLOBIN 13.1 g/dl (12.0-15.5); MEAN CORPUSCULAR HEMOGLOBIN 31.6 pg (27.0-33.0); MEAN CORPUSCULAR HGB CONC 32.4 g/dl (32.0-36.5); MEAN CORPUSCULAR VOLUME 97.6 fl (80.0-96.0); RED BLOOD COUNT 4.14 10^6/uL (4.00-5.40); WHITE BLOOD COUNT 2.2 10^3/uL (4.0-10.0)
[2018-05-17 11:48] LABS: ALBUMIN 3.4 GM/DL (3.2-5.2); ALBUMIN/GLOBULIN RATIO 1.36 (1.00-1.93); ALKALINE PHOSPHATASE 161 U/L (45-117); ALT/SGPT 40 U/L (12-78); ANION GAP 10 MEQ/L (8-16); AST/SGOT 45 U/L (7-37); BILIRUBIN,TOTAL 0.7 MG/DL (0.2-1.0); BLOOD UREA NITROGEN 76 MG/DL (7-18); CALCIUM LEVEL 8.9 MG/DL (8.8-10.2); CARBON DIOXIDE LEVEL 24 MEQ/L (21-32); CHLORIDE LEVEL 107 MEQ/L (98-107); CHOLESTEROL LEVEL 219 MG/DL (<200); CREATININE FOR GFR 2.67 MG/DL (0.55-1.30); FREE T4 0.91 NG/DL (0.76-1.46); GLOMERULAR FILTRATION RATE 19.1 (>45); GLUCOSE, FASTING 95 MG/DL (70-100); HDL CHOLESTEROL 68 MG/DL (>40); LDL CHOLESTEROL 126 MG/DL (<100); MAGNESIUM LEVEL 2.5 MG/DL (1.8-2.4); NON-HDL-C 151 MG/DL; PLATELET COUNT, AUTOMATED 79 10^3/uL (150-450); POS COUNT POS FLAG; POSITIVE MORPH POS FLAG; POTASSIUM SERUM 4.7 MEQ/L (3.5-5.1); SODIUM LEVEL 141 MEQ/L (136-145); TOTAL PROTEIN 5.9 GM/DL (6.4-8.2); TRIGLYCERIDES LEVEL 126 MG/DL (<150)
[2018-05-17 11:49] LABS: ADD MANUAL DIFFER YES; DIFF SLIDE NUMBER 148
[2018-05-17 11:51] LABS: TOTAL 25(OH) VITAMIN D 35.2 NG/ML (30.0-100.0)
[2018-05-17 11:52] LABS: IMMATURE PLATELET FRACTION % 3.2 % (0.0-9.6)
[2018-05-17 12:47] LABS: ATYPICAL LYMPH 2 % (0-5); BANDS 33 % (< 11); EOSINOPHILS 5 % (0-5); LYMPHOCYTES 21 % (16-52); METAMYELOCYTES 11 % (0-0); MONOCYTES 5 % (0-8); MYELOCYTES 2 % (0-0); NEUTROPHILS 21 % (35-75); PLATELET ESTIMATE MARKED DECREASE (NORMAL)
[2018-05-17 12:49] LABS: SCHISTOCYTES 1+; TEAR DROP CELLS 1+
== END ==
LOC: M SFHCSACK 08:47
DX: I12.9 Hypertensive chronic kidney disease with stage 1 through stage 4 chronic kidney disease, or unspecified chronic kidney disease (principal); N18.9 Chronic kidney disease, unspecified; Z13.29 Encounter for screening for other suspected endocrine disorder; E78.2 Mixed hyperlipidemia; E55.9 Vitamin D deficiency, unspecified
CPT/HCPCS: 83735

== ENCOUNTER 2018-06-06 13:21 | Outpatient (CLI) | payer OTHER, MEDICARE ==
[2018-06-06] MEDS: FILTER 1.2 MICRON (ADULT TPN/MANNITOL/REMICADE) XX (13:45)
[2018-06-06] MEDS: NS IV (14:27)
[2018-06-06] MEDS: BELATACEPT IV (14:27)
== END 2018-06-06 15:00 | disposition home or self-care (01) ==
LOC: M INFU 13:21
DX: Z94.0 Kidney transplant status (principal)
CPT/HCPCS: J0485

== ENCOUNTER → 2018-06-06 | Outpatient (CLI) | payer OTHER, MEDICARE ==
[2018-06-06 14:05] LABS: APPEARANCE, URINE CLEAR (CLEAR); BACTERIA, URINE AUTO 1+ (NEGATIVE); BILIRUBIN, URINE AUTO NEGATIVE (NEGATIVE); BLOOD, URINE BLOOD NEGATIVE (NEGATIVE); COLOR, URINE STRAW (YELLOW); GLUCOSE, URINE (UA) AUTO NEGATIVE (NEGATIVE); HEMOGLOBIN 12.5 g/dl (12.0-15.5); KETONE, URINE AUTO NEGATIVE (NEGATIVE); LEUKOCYTE ESTERASE, URINE AUTO 1+ (NEGATIVE); MEAN CORPUSCULAR HEMOGLOBIN 31.9 pg (27.0-33.0); MEAN CORPUSCULAR HGB CONC 32.9 g/dl (32.0-36.5); MEAN CORPUSCULAR VOLUME 96.9 fl (80.0-96.0); MUCUS, URINE SMALL (NEGATIVE); NITRITE, URINE AUTO NEGATIVE (NEGATIVE); PLATELET COUNT, AUTOMATED 100 10^3/uL (150-450); PROTEIN, URINE AUTO NEGATIVE (NEGATIVE); RBC, URINE AUTO 1 /HPF (0-3); RED BLOOD COUNT 3.92 10^6/uL (4.00-5.40); RED CELL DISTRIBUTION WIDTH 15.2 % (11.5-14.5); SPECIFIC GRAVITY URINE AUTO 1.009 (1.002-1.035); SQUAMOUS EPITHELIAL CELL UR AU 1 /HPF (0-6); UROBILINOGEN, URINE AUTO 0.2 mg/dL (0.0-2.0); WBC, URINE AUTO 6 /HPF (0-3); WHITE BLOOD COUNT 3.6 10^3/uL (4.0-10.0)
[2018-06-06 14:10] LABS: POSITIVE MORPH POS FLAG
[2018-06-06 14:11] LABS: ADD MANUAL DIFFER YES; DIFF SLIDE NUMBER 313; POS COUNT POS FLAG
[2018-06-06 14:19] LABS: ALBUMIN 3.4 GM/DL (3.2-5.2); ALBUMIN/GLOBULIN RATIO 1.26 (1.00-1.93); ALKALINE PHOSPHATASE 172 U/L (45-117); ALT/SGPT 40 U/L (12-78); ANION GAP 8 MEQ/L (8-16); AST/SGOT 53 U/L (7-37); BILIRUBIN,DIRECT 0.2 MG/DL (0.0-0.2); BILIRUBIN,TOTAL 0.8 MG/DL (0.2-1.0); BLOOD UREA NITROGEN 66 MG/DL (7-18); CARBON DIOXIDE LEVEL 24 MEQ/L (21-32); CHLORIDE LEVEL 106 MEQ/L (98-107); CPK CREATINE PHOSPHOKINASE 126 U/L (26-192); CREATININE FOR GFR 2.54 MG/DL (0.55-1.30); GLOMERULAR FILTRATION RATE 20.2 (>45); GLUCOSE, FASTING 133 MG/DL (70-100); LDH LACTATE DEHYDROGENASE 398 U/L (84-246); MAGNESIUM LEVEL 2.2 MG/DL (1.8-2.4); PHOSPHORUS LEVEL 3.5 MG/DL (2.5-4.9); POTASSIUM SERUM 4.9 MEQ/L (3.5-5.1); SODIUM LEVEL 138 MEQ/L (136-145); TOTAL PROTEIN 6.1 GM/DL (6.4-8.2)
[2018-06-06 14:30] LABS: CREATININE, URINE 54.6 MG/DL; MAU/CREAT RATIO 300.3 MCG/MG (0.0-30.0)
[2018-06-06 14:55] LABS: BANDS 39 % (< 11); LYMPHOCYTES 14 % (16-52); METAMYELOCYTES 2 % (0-0); MONOCYTES 5 % (0-8); NEUTROPHILS 40 % (35-75)
[2018-06-06 15:04] LABS: PLATELET ESTIMATE DECREASED (NORMAL)
[2018-06-06 15:05] LABS: ANISOCYTOSIS 1+; POIKILOCYTOSIS 1+; TEAR DROP CELLS 1+
[2018-06-10 00:08] LABS: CMV QUANT DNA PCR (PLASMA) 353 IU/mL (Negative); log10 CMV QN DNA P1 2.548 (.)
== END ==
LOC: M LAB 13:24
DX: D84.9 Immunodeficiency, unspecified (principal); N18.5 Chronic kidney disease, stage 5; Z51.81 Encounter for therapeutic drug level monitoring; Z79.899 Other long term (current) drug therapy; Z94.0 Kidney transplant status
CPT/HCPCS: 82550

== ENCOUNTER 2018-07-04 09:50 | Outpatient (CLI) | payer OTHER, MEDICARE ==
[~2018-07-04] VITALS: Ht 154.9 cm; Wt 81.0 kg
[2018-07-04] MEDS ORDERED: BELATACEPT IV ONE (10:00)
[2018-07-04] MEDS ORDERED: FILTER 1.2 MICRON (ADULT TPN/MANNITOL/REMICADE) XX ONE (10:00)
[2018-07-04] MEDS ORDERED: NS IV ONE (10:00)
[2018-07-04 10:17] VITALS: BP 140/60
[2018-07-04 11:00] VITALS: BP 114/55
== END 2018-07-04 11:00 | disposition home or self-care (01) ==
LOC: M INFU 09:50
PROVIDERS: ATTEND Internal Medicine Nephrology
DX: Z94.0 Kidney transplant status (principal)
CPT/HCPCS: 96365; J0485

== ENCOUNTER → 2018-07-04 | Outpatient (CLI) | payer OTHER, MEDICARE ==
[~2018-07-04] MED LIST changes: +ALLO100T PO; -AMLO5TAB2 PO; +AMLO5TAB6 PO; +BIOT50004 PO; +CLON0.3D8 TD; -CLON3PA TD; -DRIS50002 PO; +DRIS50003 PO; +FILG48VL SC; +LISI2.5T5 PO; +VALC450T PO
[2018-07-04 10:21] LABS: HEMATOCRIT 38.9 % (36.0-47.0); HEMOGLOBIN 12.9 g/dl (12.0-15.5); MEAN CORPUSCULAR HEMOGLOBIN 31.9 pg (27.0-33.0); MEAN CORPUSCULAR HGB CONC 33.2 g/dl (32.0-36.5); PLATELET COUNT, AUTOMATED 127 10^3/uL (150-450); RED BLOOD COUNT 4.05 10^6/uL (4.00-5.40); WHITE BLOOD COUNT 3.3 10^3/uL (4.0-10.0)
[2018-07-04 10:26] LABS: APPEARANCE, URINE CLEAR (CLEAR); BACTERIA, URINE AUTO NEGATIVE (NEGATIVE); BILIRUBIN, URINE AUTO NEGATIVE (NEGATIVE); BLOOD, URINE BLOOD NEGATIVE (NEGATIVE); COLOR, URINE YELLOW (YELLOW); GLUCOSE, URINE (UA) AUTO NEGATIVE (NEGATIVE); KETONE, URINE AUTO NEGATIVE (NEGATIVE); LEUKOCYTE ESTERASE, URINE AUTO NEGATIVE (NEGATIVE); NITRITE, URINE AUTO NEGATIVE (NEGATIVE); PROTEIN, URINE AUTO NEGATIVE (NEGATIVE); RBC, URINE AUTO 0 /HPF (0-3); SQUAMOUS EPITHELIAL CELL UR AU 0 /HPF (0-6); UROBILINOGEN, URINE AUTO 0.2 mg/dL (0.0-2.0); WBC, URINE AUTO 1 /HPF (0-3)
[2018-07-04 10:47] LABS: ALBUMIN 3.3 GM/DL (3.2-5.2); BILIRUBIN,DIRECT 0.4 MG/DL (0.0-0.2); BILIRUBIN,TOTAL 1.1 MG/DL (0.2-1.0); CREATININE FOR GFR 2.98 MG/DL (0.55-1.30); GLOMERULAR FILTRATION RATE 16.8 (>45); MAGNESIUM LEVEL 2.3 MG/DL (1.8-2.4); PHOSPHORUS LEVEL 4.2 MG/DL (2.5-4.9); POTASSIUM SERUM 3.9 MEQ/L (3.5-5.1)
[2018-07-04 10:57] LABS: TOTAL PROTEIN,RANDOM URINE 19.8 MG/DL (0.0-12.0)
[2018-07-04 10:58] LABS: ANISOCYTOSIS 1+; ATYPICAL LYMPH 8 % (0-5); BASOPHILS 2 % (0-4); EOSINOPHILS 1 % (0-5); LYMPHOCYTES 14 % (16-52); METAMYELOCYTES 19 % (0-0); MONOCYTES 2 % (0-8); MYELOCYTES 3 % (0-0); NEUTROPHILS 27 % (35-75); PLATELET ESTIMATE DECREASED (NORMAL); POIKILOCYTOSIS 1+
[2018-07-04 10:59] LABS: OVALOCYTES 1+; SCHISTOCYTES 1+; TEAR DROP CELLS 1+
[2018-07-11 00:07] LABS: CMV QUANT DNA PCR (PLASMA) Positive < 200 IU/mL (Negative)
== END ==
LOC: M LAB 09:54
PROVIDERS: ATTEND Internal Medicine Nephrology
DX: Z94.0 Kidney transplant status (principal); N18.5 Chronic kidney disease, stage 5; D84.9 Immunodeficiency, unspecified; Z79.899 Other long term (current) drug therapy

== ENCOUNTER 2018-08-01 16:46 | Inpatient (IN) | payer OTHER, MEDICARE ==
[~2018-08-01] VITALS: Ht 149.9 cm; Wt 76.8 kg
[~2018-08-01 16:46] MED LIST changes: -CALC1CAP31 PO; -FURO40TA2 PO; -LEVA250T13 PO; -LISI-542 PO; -MUCI600T37 PO; -MYCO250C PO
--- NOTE | 2018-08-01 17:38 | REP ---
Chest one-view HISTORY: Cough Comparison: None The lungs are clear. The heart is normal in size. The pulmonary vasculature is normal in appearance. Impression: No acute disease. Electronically Signed by Tj Mcfadden MD 08/01/2018 05:30 P
[2018-08-01 17:54] LABS: HEMATOCRIT 36.1 % (36.0-47.0); MEAN CORPUSCULAR HEMOGLOBIN 31.8 pg (27.0-33.0); MEAN CORPUSCULAR HGB CONC 33.2 g/dl (32.0-36.5); MEAN CORPUSCULAR VOLUME 95.8 fl (80.0-96.0); PLATELET COUNT, AUTOMATED 141 10^3/uL (150-450); RED BLOOD COUNT 3.77 10^6/uL (4.00-5.40); WHITE BLOOD COUNT 6.4 10^3/uL (4.0-10.0)
[2018-08-01] MEDS ORDERED: IPRATROPIUM 0.5MG/ALBUTEROL 2.5MG INH SOL UD 3ML (DUONEB)(J7620) NEB ONE (18:00)
[2018-08-01 18:21] LABS: CALCIUM LEVEL 8.7 MG/DL (8.8-10.2); CREATININE FOR GFR 3.12 MG/DL (0.55-1.30); GLOMERULAR FILTRATION RATE 15.9 (>45); MB/CK RELATIVE INDEX 0.54 (< OR =4); POTASSIUM SERUM 4.7 MEQ/L (3.5-5.1); TROPONIN I 0.02 NG/ML (< 0.10)
[2018-08-01 18:37] LABS: EOSINOPHILS 1 % (0-5); LYMPHOCYTES 18 % (16-52); METAMYELOCYTES 9 % (0-0); MONOCYTES 8 % (0-8); MYELOCYTES 9 % (0-0); NEUTROPHILS 45 % (35-75); PLATELET ESTIMATE DECREASED (NORMAL); TOXIC VACUOLATION 2+
[2018-08-01 18:38] LABS: ANISOCYTOSIS 1+; TEAR DROP CELLS 1+
[2018-08-01] MEDS: MYCOPHENOLATE MOFETIL 250 MG CAP (J7517) PO SCH (21:00)
[2018-08-01] MEDS: CARVedilol 12.5 MG TAB PO SCH (21:00)
[2018-08-01] MEDS: NS 1,000 ML IV SCH ×2 (21:25→22:30)
[2018-08-01] MEDS ORDERED: cefTRIAXone SOD 1 GM in D5W MINI-BAG PLUS 50 ML IV ONE (21:45)
[2018-08-01] MEDS ORDERED: CALC1CAP31 PO (21:50)
[2018-08-01] MEDS ORDERED: LISI-542 PO (21:50)
[2018-08-01] MEDS ORDERED: FURO40TA2 PO (21:50)
[2018-08-01] MEDS ORDERED: CARV6.25 PO (21:50)
[2018-08-01] MEDS ORDERED: MYCO250C PO (21:50)
--- NOTE | 2018-08-01 22:56 | HPEPDOC ---
[facility] Medical History & Physical Date of Admission Aug 01, 2018 Other Provider Dictating/admitting: Lucia Montez MD Attending Physician: ALE AGUERO MD History and Physical CHIEF COMPLAINT: Cough 1 week HISTORY OF PRESENT ILLNESS: Patient is a 63-year-old woman. She has history significant for hypertension, hyperlipidemia, renal failure. She is status post renal transplant in 2016. She also has history of leukopenia, cytopenia. According to her, she has been in her usual usual state of health until about a week ago when she developed coughing, no associated shortness of breath, cough is said to be nonproductive of sputum. She also has noticed generalized weakness associated with this episode of cough. Although she denies noticing any subjective fever or chills, but she gives a history of having a temperature of 100 at her infusion center and infusion was withheld on account of this. She was also seen by Dr. Francisco who felt she may be developing a pneumonia and advised that she gets further evaluation in the hospital. She denies chest pain, palpitations, nausea, vomiting, no hemoptysis. No change in bowel or urinary habits. No recent lower extremity swellings or pains. No recent long distance travel. She was evaluated. It respiratory panel in the emergency room which all came out negative for chest x-ray with no acute disease. Her labs also without any white count, although with bandemia, no lactate. Hospitalist was called in for further evaluation and to admit patient. PAST MEDICAL HISTORY: Per HPI PAST SURGICAL HISTORY: 1. Right breast lumpectomy, benign pathology. 2. Total hysterectomy. 3. AV fistula 2015. 4. Renal transplant March 2016 SOCIAL HISTORY: Marital status: . Denies alcohol, denies illicit drug use. Denies smoking. FAMILY HISTORY: Father: in his 80s Mother: in her 80s Siblings: 4 brothers and one sister is total. 2 brothers in their 60s ALLERGIES: Please see below. REVIEW OF SYSTEMS: She denies chest pain, palpitations, nausea, vomiting, no hemoptysis. No change in bowel or urinary habits. No recent lower extremity swellings or pains. Other systems reviewed, negative. 12 point review of system done HOME MEDICATIONS: Please see below. PHYSICAL EXAMINATION: VITAL SIGNS: Temperature 98, pulse 75, respiratory rate 20, blood pressure 126/63, pulse oximetry 95% on 2 L of. GENERAL APPEARANCE: Elderly woman, lying calmly in bed, not in any apparent distress. She is not pale, anicteric and afebrile HEENT: Atraumatic. Neck: Supple. LUNGS: Transmitted sounds initially but clears up with coughing. CARDIOVASCULAR: S1 and 2 heard, no murmurs, rubs or gallops. ABDOMEN: Obese, soft, not tender, not distended. Bowel sounds normoactive. MUSCULOSKELETAL: Apparently within normal limits. EXTREMITIES: No pedal edema, 2+ bilateral pedal pulses noted. NEUROLOGICAL: Awake, alert, oriented 3. PSYCHIATRIC: Normal affect LABORATORY DATA: See below. IMAGING: Chest x-ray: No acute disease. EKG normal sinus rhythm, no acute ST or T-wave changes noted. MICROBIOLOGY: Please see below. ASSESSMENT: 63-year-old woman with hypertension, hyperlipidemia, renal failure status post renal transplant in 2016. Comes in with a weeks duration of nonproductive cough. Exam reveals elderly patient with cough transmitted sounds on auscultation, but clears after coughing. Chest x-ray unremarkable, labs equivocal: No white count, but with bandemia and no lactate, creatinine 3.12 baseline of 2.5-2.6, blood has shown slow increase in serum creatinine over the past 3 months. History significant for associated weakness, poor appetite and with medication compliant. DIAGNOSES: 1. Bronchitis. 2. JAMES 3. Renal transplant. . PLAN: 1. I will admit patient to the medical floor with remote telemetry under care of Dr. Aguero. 2. I will give a dose of ceftriaxone on clear if there is any source of infection at this time. Follow temperature trends. Follow blood culture. Follow repeat CBC in the morning. 3. I will also give IV normal saline as volume expansion for JAMES to run at a rate of 50 mils per hour and I will hold Lasix, lisinopril and valganciclovir for now. Please review and restart medications when indicated. Follow repeat chemistry in the morning. 4. Status post renal transplant. Renal consult placed to Dr. Francisco. 5. DVT prophylaxis subcutaneous heparin. 6. GI prophylaxis not indicated at this time. 7. Further management will be per patient's clinical course. Vital Signs Vital Signs Date Time Temp Pulse Resp B/P (MAP) Pulse Ox O2 Delivery O2 Flow Rate FiO2 2/5/19 22:16 73 20 95 Nasal Cannula 2.0 08/01/18 22:15 144/74 (97) 08/01/18 17:16 97.1 Laboratory Data Labs 24H Laboratory Tests 2 08/01/18 17:45: Immature Granulocyte % (Auto) , Nucleated Red Blood Cells % (auto) 0.0, Neutrophils 45, Band Neutrophils 10, Lymphocytes (Manual) 18, Monocytes (Manual) 8, Eosinophils (Manual) 1, Metamyelocytes 9H, Myelocytes 9H, Toxic Vacuolation 2+, Platelet Estimate DECREASED, Anisocytosis 1+, Macrocytosis 1+, Tear Drop Cells 1+, Anion Gap 12, Glomerular Filtration Rate 15.9L, Lactic Acid Level 1.6, Blood Urea Nitrogen 80H, Creatinine 3.12H, Sodium Level 136, Potassium Level 4.7 , Chloride Level 105, Carbon Dioxide Level 19L, Calcium Level 8.7L, Total Creatine Kinase 369H, Creatine Kinase MB 2.0, Creatine Kinase MB Relative Index 0.54, Troponin I 0.02, OQ-Wpn-H-Type Natriuretic Peptide 4597H CBC/BMP Laboratory Tests 08/01/18 17:45 Red Blood Count 3.77 L, Mean Corpuscular Volume 95.8, Mean Corpuscular Hemoglobin 31.8, Mean Corpuscular Hemoglobin Concent 33.2, Red Cell Distribution Width 16.3 H, Calcium Level 8.7 L, Total Creatine Kinase 369 H Microbiology Microbiology 08/01/18 Blood Culture, Received Pending 08/01/18 Blood Culture, Received Pending 08/01/18 Respiratory Virus Panel (PCR) (PANFILO) - Final, Complete Home Medications Scheduled Allopurinol (Allopurinol) 100 Mg Tab, 100 MG PO DAILY Belatacept IV (Nulojix) 250 Mg Inj, 250 MG IV MTHLY EVERY 28 DAYS, SUPPOSED TO GET NEXT DOSE ON 08/01/18 BUT HAD ELEVATED T EMPERATURE Biotin (Vitamin H) (Biotin) 5,000 Mcg Cap, 5,000 MCG PO DAILY Calcitriol (Calcitriol) 0.25 Mcg Cap, 0.25 MCG PO 3XW TAKES ON TUESDAY, TUESDAY AND TUESDAY Calcium Carbonate (Calcium) 600 Mg Tab, 600 MG PO BID Carvedilol (Carvedilol) 6.25 Mg Tab, 12.5 MG PO BID Clonidine HCl (Clonidine HCl) 0.3 Mg/24 Hr Dis, 1 PATCH TD 1XWK TAKES ON MONDAYS Furosemide (Furosemide) 40 Mg Tab, 20 MG PO DAILY Lisinopril (Lisinopril) 5 Mg Tab, 2.5 MG PO DAILY Mycophenolate Mofetil (Mycophenolate Mofetil) 250 Mg Cap, 250 MG PO BID Prednisone (Prednisone) 5 Mg Tab, 5 MG PO DAILY Valganciclovir Hydrochloride (Valcyte) 450 Mg Tab, 450 MG PO BID Allergies Coded Allergies: No Known Allergies (Verified , 12/31/02) LUCIA MONTEZ MD Aug 01, 2018 22:56
[2018-08-02 00:36] LABS: MAGNESIUM LEVEL 1.8 MG/DL (1.8-2.4)
[2018-08-02] MEDS ORDERED: MAG SULF 1GM/100ML (MAG RUN) 1 GM in APPROPRIATE DILUENT 1 EA IV ONE ×2 (01:30→02:30)
[2018-08-02] MEDS ORDERED: guaiFENesin DM LIQ 10ML UD PO PRN (01:30)
[2018-08-02 06:57] LABS: HEMOGLOBIN 11.8 g/dl (12.0-15.5); MEAN CORPUSCULAR HEMOGLOBIN 32.2 pg (27.0-33.0); MEAN CORPUSCULAR HGB CONC 33.7 g/dl (32.0-36.5); MEAN CORPUSCULAR VOLUME 95.6 fl (80.0-96.0); PLATELET COUNT, AUTOMATED 141 10^3/uL (150-450); RED BLOOD COUNT 3.66 10^6/uL (4.00-5.40); WHITE BLOOD COUNT 5.2 10^3/uL (4.0-10.0)
[2018-08-02 07:26] LABS: CALCIUM LEVEL 8.2 MG/DL (8.8-10.2); CREATININE FOR GFR 2.8 MG/DL (0.55-1.30); GLOMERULAR FILTRATION RATE 18.1 (>45); MAGNESIUM LEVEL 3.1 MG/DL (1.8-2.4); POTASSIUM SERUM 4.7 MEQ/L (3.5-5.1)
[2018-08-02] MEDS: ALLOPURINOL 100 MG TAB PO SCH (07:42)
[2018-08-02] MEDS: predniSONE 5 MG TAB PO SCH (07:43)
[2018-08-02] MEDS: HEPARIN SOD (PORCINE) 5000 UNITS/ML VIAL SQ SCH ×2 (07:43→21:43)
[2018-08-02] MEDS: CARVedilol 12.5 MG TAB PO SCH ×2 (07:43→21:44)
[2018-08-02 08:21] LABS: C REACTIVE PROTEIN QUANTITATIV 17.6 MG/DL (0.00-0.30)
[2018-08-02 08:30] LABS: ATYPICAL LYMPH 1 % (0-5); LYMPHOCYTES 12 % (16-52); METAMYELOCYTES 5 % (0-0); MONOCYTES 17 % (0-8); MYELOCYTES 4 % (0-0); NEUTROPHILS 53 % (35-75)
[2018-08-02 08:31] LABS: ANISOCYTOSIS 1+; OVALOCYTES 1+; POIKILOCYTOSIS 1+
[2018-08-02 08:45] LABS: PLATELET ESTIMATE DECREASED (NORMAL)
--- NOTE | 2018-08-02 09:03 | ECGEPIP ---
Stationary ECG Study [facility] - ED Test Date: 2018-08-01 Pat Name: ELENO GUTIERREZ Department: Room: - Gender: F Career Representative: SANDRINE : 1955 Requested By: Abhijeet Stuart Order Number: [id number] Reading MD: Abhijeet Mccauley Measurements Intervals Mabel Rate: 77 P: 50 RI: 166 QRS: 23 QRSD: 85 T: 34 QT: 391 QTc: 443 Interpretive Statements SINUS RHYTHM POSSIBLE LEFT ATRIAL ENLARGEMENT NO PRIORS FOR COMPARISON Electronically Signed On 08-02-2018 9:02:53 EST by Abhijeet Mccauley
[2018-08-02] MEDS: MYCOPHENOLATE MOFETIL 250 MG CAP (J7517) PO SCH ×2 (09:27→21:44)
[2018-08-02 10:30] VITALS: BP 130/61
[2018-08-02 10:47] LABS: APPEARANCE, URINE HAZY (CLEAR); BACTERIA, URINE AUTO 1+ (NEGATIVE); BILIRUBIN, URINE AUTO NEGATIVE (NEGATIVE); BLOOD, URINE BLOOD NEGATIVE (NEGATIVE); COLOR, URINE YELLOW (YELLOW); GLUCOSE, URINE (UA) AUTO NEGATIVE (NEGATIVE); KETONE, URINE AUTO NEGATIVE (NEGATIVE); LEUKOCYTE ESTERASE, URINE AUTO NEGATIVE (NEGATIVE); MUCUS, URINE SMALL (NEGATIVE); NITRITE, URINE AUTO NEGATIVE (NEGATIVE); PROTEIN, URINE AUTO NEGATIVE (NEGATIVE); RBC, URINE AUTO 3 /HPF (0-3); SPECIFIC GRAVITY URINE AUTO 1.012 (1.002-1.035); SQUAMOUS EPITHELIAL CELL UR AU 5 /HPF (0-6); UROBILINOGEN, URINE AUTO 0.2 mg/dL (0.0-2.0); WBC, URINE AUTO 2 /HPF (0-3)
[2018-08-02 11:14] LABS: CREATININE,RANDOM URINE 92.8 MG/DL
--- NOTE | 2018-08-02 13:00 | REP ---
Chest two views HISTORY: Shortness of breath Comparison: 08/01/2018 The lungs are clear. The cardiac silhouette is enlarged. The pulmonary vasculature is normal in appearance. The bony structure is intact. IMPRESSION: Cardiomegaly. Electronically Signed by Tj Mcfadden MD 08/02/2018 12:51 P
[2018-08-02] MEDS: ValGANciclovir HYDROCHLORIDE 450MG TABLET PO SCH ×2 (13:12→18:01)
--- NOTE | 2018-08-02 13:30 | IPNPDOC ---
Text Note Date of Service The patient was seen on 08/02/18. NOTE Subjective: Patient states she's had upper respiratory tract infection over the last week. Has a nonproductive cough. Sick contacts at work. Denies chest pain/palpitations. Objective: Vitals: (see below) General: No acute distress, laying comfortably in bed. HEENT: Moist mucous membranes. Neck: No JVD or lymphadenopathy Cardiac: RRR, No murmurs Pulm: Mild crackles at the bases of her than the right b/l. No wheezing, rhonchi Abd: NT/ND + BS . Obese Ext: No edema or cyanosis Labs (see below) Images: Chest x-ray on 08/01/18 with no acute pulmonary disease. CT chest pending. Assessment/Plan 1. Acute bronchitis. Chest x-ray negative for infiltrate. We'll obtain CT chest without contrast. Started on Rocephin, will continue. Sputum culture. Blood cultures pending. Mild low-grade fevers. Respiratory panel negative. On 2 L of oxygen. 2. Acute kidney injury on chronic kidney disease. History of renal transplant. Status post IV fluids, and improving. Dr. Francisco consulted. 3. Hypertension controlled continue current meds DVT prophy: Heparin subcutaneous VS,Fishbone, I+O VS, Fishbone, I+O Laboratory Tests 08/01/18 17:45 Red Blood Count 3.77 L, Mean Corpuscular Volume 95.8, Mean Corpuscular Hemoglobin 31.8, Mean Corpuscular Hemoglobin Concent 33.2, Red Cell Distribution Width 16.3 H, Calcium Level 8.7 L, Total Creatine Kinase 369 H 08/02/18 06:39 Red Blood Count 3.66 L, Mean Corpuscular Volume 95.6, Mean Corpuscular Hemoglobin 32.2, Mean Corpuscular Hemoglobin Concent 33.7, Red Cell Distribution Width 16.3 H, Calcium Level 8.2 L Vital Signs Date Time Temp Pulse Resp B/P (MAP) Pulse Ox O2 Delivery O2 Flow Rate FiO2 08/02/18 10:30 100.2 82 20 130/61 (84) 94 2.0 08/02/18 07:00 Room Air I&O- Last 24 Hours up to 6 AM 08/02/18 06:00 Output Total 220 ml Balance -220 ml ALE NAVARRETE MD Aug 02, 2018 13:30
--- NOTE | 2018-08-02 15:18 | REP ---
CT chest without contrast: History: Cough. Question infiltrate. Comparison chest x-ray: Earlier today. CT findings: There are patchy areas of parenchymal consolidation bilaterally in the bases involving areas of both lower lobes, the right middle lobe, and the lingular segment of the left upper lobe. There is some patchy inflammatory changes more superiorly in the upper lobes bilaterally. The findings are compatible with multifocal pneumonia. There is partial collapse in the posterobasal segment of the left lower lobe with air bronchograms. No pulmonary nodule is appreciated. No pleural effusion is seen. No adrenal lesion is observed. Vascular calcification is noted. There is a small amount of pericardial fluid. No bony destructive lesion. Impression: Patchy infiltrates bilaterally involving the lower lobes and to a lesser extent the right middle lobe and bilateral upper lobes. Small amount of pericardial fluid. Electronically Signed by Gerardo Wright MD 08/02/2018 07:17 P
[2018-08-02 16:45] VITALS: BP 160/75
[2018-08-02] MEDS: AZITHROMYCIN INJ 500 MG, VIAL MATE ADAPTER 1 EACH in D5W 250 ML IV SCH (21:43)
[2018-08-02 22:00] VITALS: BP 143/67
[2018-08-02] MEDS: cefTRIAXone SOD 1 GM in D5W MINI-BAG PLUS 50 ML IV SCH (22:42)
[2018-08-03 06:00] VITALS: BP 153/69
--- NOTE | 2018-08-03 08:09 | CR ---
DATE OF CONSULTATION: 08/02/2018 REQUESTING PHYSICIAN: Dr. Sean Van REASON FOR CONSULTATION: Management of chronic kidney disease (CKD)IV and renal allograft status. CHIEF COMPLAINT: The patient presented to the emergency room with a productive cough for one week with fever. HISTORY OF PRESENT ILLNESS: This patient is a 63-year-old female with past medical history of end-stage renal disease status post donor kidney transplant with chronic kidney disease stage IV, with a baseline GFR of around 20. She follows up regularly with the nephrology clinic. Her immune suppression is maintained with Cellcept, prednisone, and belatacept infusions once a month. She came to see me for an urgent visit yesterday in the clinic and she was complaining of feeling very weak, tired, fatigued, fevers and a productive cough. She was found to have acute kidney injury superimposed on chronic kidney disease stage IV. Because of her immunocompromised status the patient was sent to the emergency room for further evaluation for possible community acquired pneumonia. The patient was evaluated in the emergency room (ER) last night. She had a chest x-ray done which did not show any infiltrate; however, her CBC showed myelocytes and metamyelocytes. The patient was admitted under observation last night and given one dose of ceftriaxone. I saw and evaluated the patient this morning in the emergency room. The patient reports that she feels much better today as compared with yesterday after she got the antibiotics. However, she reports that she is feeling very weak and tired still at this time. The patient could not get her regular dose of belatacept yesterday because of the fever and feeling very weak and tired. PAST MEDICAL HISTORY: 1. donor kidney transplant. 2. CKD IV. 3. Hypertension. 4. Lower extremity edema. 5. Chronic cytomegalovirus (CMV) viremia. 6. Hyperlipidemia. 7. History of leukopenia and anemia requiring Neupogen and Epogen in the past. PAST SURGICAL HISTORY: 1. History of donor kidney transplant in March 2016. 2. Status post total hysterectomy. 3. Status post left arm arteriovenous (AV) fistula in 2015. 4. Status post left breast lumpectomy. ALLERGIES: No known drug allergies. FAMILY HISTORY: No significant family history of end-stage renal disease requiring hemodialysis. SOCIAL HISTORY: The patient is , she lives alone. She is currently working in [employer]. She denies any illicit drug abuse or alcohol abuse. REVIEW OF SYSTEMS Constitutional: The patient reports feeling very weak and tired with fever spikes. EYES: She denies any blurring vision, double vision. ENT: She denies any dysphagia or ear discharge. Cardiovascular: She denies any chest pain or palpitations. Respiratory: She reports cough, mild to moderate shortness of breath and phlegm. Gastrointestinal (GI): She denies any nausea or vomiting but she does report decreased appetite. Genitourinary: She denies any dysuria or hematuria. Musculoskeletal: She denies any muscles aches or pains. Central Nervous System: She denies any strokes or seizures. Psychiatric: She denies any depression, anxiety. Endocrine: She reports history of secondary hypoparathyroidism. Hematological/Oncological: She denies easy bleeding or bruising. All other review of systems are negative PHYSICAL EXAMINATION: General: The patient is awake, alert and oriented times three sitting up in the bed. Vital signs: Temperature 100.2 degrees Fahrenheit, blood pressure 130/61, pulse 82, respiratory rate 20, saturating 94% on nasal cannula at 2 liters. Head and Neck Exam: Extraocular muscles intact, pupils equal, round, and reactive to light. Moist mucous membranes. Neck is supple. There is no jugular venous distention (JVD). Cardiovascular: S1, S2, regular rate, trace edema of the bilateral lower extremities. Respiratory: Diffuse, coarse crepitations bilaterally in the lungs. Decreased breath sounds at the bases. Abdomen: Soft, positive bowel sounds. A renal allograft is palpable. No tenderness at the renal allograft. Genitourinary: The bladder is not palpable. No hernias are noted. Musculoskeletal: No clubbing or cyanosis. Pulses are 2+. Left arm AV fistula is palpable. HEALTH POLICY MANAGER: No focal deficit. Power is 5/5 in all extremities. Psychiatric: Normal mood and affect. LABORATORY DATA: CBC showed a WBC 5.2, hemoglobin 11.8, platelets 141. The patient had metamyelocytes and myelocytes on admission which are improving after ceftriaxone infusion. Urinalysis showed 1+ bacteria, no protein or blood was noted. Basic metabolic profile (BMP) on arrival showed sodium 136, potassium 4.7, chloride 105, bicarbonate 19, BUN 80, creatinine 3.1. Lactic acid 1.6, calcium 8.7, magnesium 1.8, ProBNP 4597, C-reactive protein 17.6. Microbiology: Blood cultures are negative so far. Respiratory viral panel is negative. IMAGING: Chest x-ray, PA and lateral, does not show any acute infiltrate. CAT scan of the chest without contrast showed patchy infiltration bilaterally involving the lower lobes and to a lesser extent in the right middle lobe and bilateral upper lobes consistent with multifocal pneumonia. CURRENT INPATIENT MEDICATIONS: The patient's medications were all reviewed by me. She was given one dose of ceftriaxone 1 gram IV last night. - normal saline at 50 mL an hour - allopurinol 100 mg daily - Coreg 12.5 mg by mouth every12 hours - mycophenolate 250 mg by mouth twice daily - prednisone 5 mg by mouth daily - Valcyte 450 mg by mouth twice a day ASSESSMENT: This patient is a 63-year-old female with history of donor kidney transplant, immunocompromised status, hypertension, chronic edema, secondary hyperparathyroidism admitted this time with multifocal pneumonia. PLAN: 1. Multifocal pneumonia. The patient is immunocompromised. I have started her on ceftriaxone 1 gram IV daily. I have also started her on azithromycin 500 mg IV daily. Blood cultures are pending. Sputum cultures are also pending. 2. Renal allograft status. The patient gets belatacept infusions once a month. She could not get the infusion because of sickness. I would hold off on the infusion. She will get it as soon as she is discharged from the hospital. Continue mycophenolate at 250 mg by mouth twice a day and prednisone 5 mg by mouth daily. 3. Chronic gout secondary to chronic kidney disease. Continue the current dose of allopurinol 100 mg by mouth daily. 4. Hypertension. Continue the current dose of carvedilol 12. 5 mg by mouth twice a day, lisinopril is on-hold because of acute kidney injury. 5. Chronic cytomegalovirus (CMV) viremia. Continue current dose of Valcyte 450 mg by mouth twice daily. The patient is also on Clonidine patch 0.3 mg for 24 hours which will be restarted. 6. Chronic lower extremity edema. The patient takes Furosemide 20 mg by mouth daily which is on-hold because of acute kidney injury. 7. Acute kidney injury superimposed on chronic kidney disease stage IV. This is secondary to dehydration, volume depletion, use of diuretics and sickness and inability to keep food down. She is being given cathleen IV fluid hydration. I stopped the intravenous fluid now. Continue to hold the diuretics. Further decision to restart diuretics will be done tomorrow morning. Thank you for involving me in the care of this patient. I shall be happy to follow the patient along with you tomorrow morning.
[2018-08-03] MEDS: HEPARIN SOD (PORCINE) 5000 UNITS/ML VIAL SQ SCH ×2 (08:20→21:37)
[2018-08-03] MEDS: predniSONE 5 MG TAB PO SCH (08:20)
[2018-08-03] MEDS: MYCOPHENOLATE MOFETIL 250 MG CAP (J7517) PO SCH ×2 (08:20→21:37)
[2018-08-03] MEDS: ALLOPURINOL 100 MG TAB PO SCH (08:20)
[2018-08-03] MEDS: CARVedilol 12.5 MG TAB PO SCH ×2 (08:21→21:36)
[2018-08-03] MEDS: ValGANciclovir HYDROCHLORIDE 450MG TABLET PO SCH ×2 (08:21→17:45)
[2018-08-03 08:25] LABS: HEMOGLOBIN 12.2 g/dl (12.0-15.5); MEAN CORPUSCULAR HEMOGLOBIN 32.2 pg (27.0-33.0); MEAN CORPUSCULAR VOLUME 97.6 fl (80.0-96.0); PLATELET COUNT, AUTOMATED 167 10^3/uL (150-450); RED BLOOD COUNT 3.79 10^6/uL (4.00-5.40); WHITE BLOOD COUNT 6.8 10^3/uL (4.0-10.0)
[2018-08-03 08:55] LABS: ALBUMIN 2.3 GM/DL (3.2-5.2); BILIRUBIN,TOTAL 0.9 MG/DL (0.2-1.0); C REACTIVE PROTEIN QUANTITATIV 13.9 MG/DL (0.00-0.30); CALCIUM LEVEL 8.2 MG/DL (8.8-10.2); CREATININE FOR GFR 2.63 MG/DL (0.55-1.30); GLOMERULAR FILTRATION RATE 19.4 (>45); POTASSIUM SERUM 4.5 MEQ/L (3.5-5.1); TOTAL PROTEIN 4.9 GM/DL (6.4-8.2)
[2018-08-03 09:54] LABS: BASOPHILS 1 % (0-4); EOSINOPHILS 4 % (0-5); LYMPHOCYTES 15 % (16-52); METAMYELOCYTES 2 % (0-0); NEUTROPHILS 53 % (35-75)
[2018-08-03 09:55] LABS: PLATELET ESTIMATE NORMAL (NORMAL)
[2018-08-03 09:57] LABS: ANISOCYTOSIS 3+; SCHISTOCYTES 2+
[2018-08-03] MEDS: FUROSEMIDE 20 MG TAB PO SCH (13:23)
[2018-08-03 14:00] VITALS: BP 130/59
--- NOTE | 2018-08-03 14:07 | IPNPDOC ---
Text Note Date of Service The patient was seen on 08/03/18. NOTE Subjective: Patient's cough is improving. Dyspnea improving as well. No chest pain. Objective: Vitals: (see below) General: No acute distress, laying comfortably in bed. HEENT: Moist mucous membranes. Neck: No JVD or lymphadenopathy Cardiac: RRR, No murmurs Pulm: Mild crackles at the bases of her than the right b/l. No wheezing, rhonchi Abd: NT/ND + BS . Obese Ext: No edema or cyanosis Labs (see below) Images: Chest x-ray on 08/01/18 with no acute pulmonary disease. CT chest 08/02/18 Impression: Patchy infiltrates bilaterally involving the lower lobes and to a lesser extent the right middle lobe and bilateral upper lobes. Small amount of pericardial fluid. Assessment/Plan 1. Community acquired pneumonia - started on Rocephin as well as azithromycin. Sputum culture/blood cultures pending. Respiratory panel negative. Will titrate down oxygen as needed. 2. Acute kidney injury on chronic kidney disease. History of renal transplant. Status post IV fluids, and improving. Dr. Francisco consulted, appreciate input. 3. Hypertension controlled continue current meds DVT prophy: Heparin subcutaneous PT consult. VS,Fishbone, I+O VS, Fishbone, I+O Laboratory Tests 08/03/18 08:11 Red Blood Count 3.79 L, Mean Corpuscular Volume 97.6 H, Mean Corpuscular Hemoglobin 32.2, Mean Corpuscular Hemoglobin Concent 33.0, Red Cell Distribution Width 16.5 H, Calcium Level 8.2 L, Aspartate Amino Transf (AST/SGOT) 67 H, Alanine Aminotransferase (ALT/SGPT) 28, Alkaline Phosphatase 144 H, Total Bilirubin 0.9, Total Protein 4.9 L, Albumin 2.3 #L Vital Signs Date Time Temp Pulse Resp B/P (MAP) Pulse Ox O2 Delivery O2 Flow Rate FiO2 08/03/18 09:42 2.0 08/03/18 08:21 148/60 08/03/18 06:00 96.9 77 20 97 08/02/18 07:00 Room Air I&O- Last 24 Hours up to 6 AM 08/03/18 06:00 Intake Total 935 ml Output Total 625 ml Balance 310 ml ALE NAVARRETE MD Aug 03, 2018 14:07
[2018-08-03] MEDS: AZITHROMYCIN INJ 500 MG, VIAL MATE ADAPTER 1 EACH in D5W 250 ML IV SCH (21:37)
[2018-08-03 22:00] VITALS: BP 134/64
[2018-08-03] MEDS: cefTRIAXone SOD 1 GM in D5W MINI-BAG PLUS 50 ML IV SCH (22:43)
[2018-08-04 06:00] VITALS: BP 176/77
[2018-08-04 06:10] LABS: HEMATOCRIT 35.1 % (36.0-47.0); HEMOGLOBIN 11.6 g/dl (12.0-15.5); MEAN CORPUSCULAR VOLUME 96.7 fl (80.0-96.0); PLATELET COUNT, AUTOMATED 179 10^3/uL (150-450); RED BLOOD COUNT 3.63 10^6/uL (4.00-5.40); WHITE BLOOD COUNT 6.2 10^3/uL (4.0-10.0)
[2018-08-04 06:37] LABS: ALBUMIN 2.1 GM/DL (3.2-5.2); BILIRUBIN,TOTAL 0.6 MG/DL (0.2-1.0); CALCIUM LEVEL 8.4 MG/DL (8.8-10.2); CREATININE FOR GFR 2.44 MG/DL (0.55-1.30); GLOMERULAR FILTRATION RATE 21.2 (>45); MAGNESIUM LEVEL 2.8 MG/DL (1.8-2.4); POTASSIUM SERUM 4.4 MEQ/L (3.5-5.1); TOTAL PROTEIN 5.5 GM/DL (6.4-8.2)
[2018-08-04 06:38] LABS: C REACTIVE PROTEIN QUANTITATIV 9.33 MG/DL (0.00-0.30)
[2018-08-04 06:39] LABS: ANISOCYTOSIS 1+; LYMPHOCYTES 6 % (16-52); METAMYELOCYTES 3 % (0-0); MONOCYTES 9 % (0-8); NEUTROPHILS 76 % (35-75); OVALOCYTES 1+; PLATELET ESTIMATE NORMAL (NORMAL); SCHISTOCYTES 1+
--- NOTE | 2018-08-04 07:32 | IPN ---
DATE: 08/03/2018 SUBJECTIVE: Patient was seen and examined at the bedside this morning. Patient reports that her phlegm is breaking down now. She is bringing up more phlegm now. Her breathing is improving. She does not have any fever spikes since yesterday morning. She is hemodynamically stable. She denies any active complaints at this point. OBJECTIVE: VITAL SIGNS: Temperature 97.2 degrees Fahrenheit, blood pressure 130/59, pulse 75, respiratory rate of 20 saturating 98% on 2 liters via nasal cannula. Intake and output: Urine output recorded as 850 mL. PHYSICAL EXAMINATION: GENERAL: Patient is awake, alert, oriented times three. Sitting up in the bed in no apparent distress. Wearing nasal cannula. HEAD/NECK: Extraocular muscles intact. Pupils equally round and reactive to light. Mucous membranes are moist. Neck is supple. There is no jugular venous distention (JVD). CARDIOVASCULAR: S1, S2. Regular rate. Trace edema of the bilateral lower extremities. RESPIRATORY: Mildly decreased breath sounds at the bases with coarse crepitations all over the lungs. ABDOMEN: Soft. Positive bowel sounds. Renal allograft is nontender. GENITOURINARY: Bladder is not palpable. MUSCULOSKELETAL: No clubbing or cyanosis. Pulses are 2+. Left upper arm arteriovenous fistula is palpable. FIRST PRESS OPERATOR: No focal deficit. Power is 5/5 in all extremities. LAB REVIEW: CBC showed a WBC 6.8, hemoglobin 12.2, platelet 167 with 25% bands. BMP showed sodium 136, potassium 4.5, chloride 105, bicarbonate 21, BUN 84, creatinine is 2.6, it was 2.8 yesterday. C-reactive protein is 13.9 today. Albumin is 2.3. Microbiology: Blood cultures are negative so far. CURRENT INPATIENT MEDICATIONS: Patient continues to be in IV Rocephin and azithromycin. Patient reported that she is still wearing the clonidine 0.3 mg patch that she uses at home. No other change in her medications today as compared with yesterday. ASSESSMENT/PLAN: 1. Multifocal pneumonia: Patient came in with fevers, cough, phlegm and now she has bandemia. CT chest showed multifocal pneumonia. She is currently on azithromycin and Rocephin. She is symptomatically getting better. Cultures are still pending. 2. Renal allograft status: Continue current dose of mycophenolate and prednisone in the hospital. Once patient is discharged from the hospital, she will get her monthly dose of belatacept infusion. 3. Chronic gout secondary to chronic kidney disease: Continue current dose of allopurinol 100 mg daily. 4. Hypertension: Patient is still wearing her clonidine patch. I would continue the clonidine 0.3 mg patch. Continue current dose of Coreg 12.5 mg by mouth twice a day. Lisinopril has been held now. 5. Chronic lower extremity edema: I have restarted her home dose of furosemide 20 mg daily. 6. Chronic cytomegalovirus (CMV) viremia: Continue current dose of Valcyte 450 mg by mouth twice a day. 7. Acute kidney injury superimposed on chronic kidney disease stage IV: Her renal function is improving. Creatinine is down to 2.6, which is close to her baseline.
[2018-08-04] MEDS: predniSONE 5 MG TAB PO SCH (08:49)
[2018-08-04] MEDS: MYCOPHENOLATE MOFETIL 250 MG CAP (J7517) PO SCH (08:49)
[2018-08-04] MEDS: FUROSEMIDE 20 MG TAB PO SCH (08:49)
[2018-08-04] MEDS: ValGANciclovir HYDROCHLORIDE 450MG TABLET PO SCH ×2 (08:49→17:08)
[2018-08-04 08:50] VITALS: BP 158/71
[2018-08-04] MEDS: CARVedilol 12.5 MG TAB PO SCH (08:50)
[2018-08-04] MEDS: HEPARIN SOD (PORCINE) 5000 UNITS/ML VIAL SQ SCH (08:50)
[2018-08-04] MEDS: ALLOPURINOL 100 MG TAB PO SCH (08:50)
[2018-08-04] MEDS ORDERED: amLODIPine 5 MG TAB PO SCH (09:00)
[2018-08-04 14:00] VITALS: BP 114/55
[2018-08-04] MEDS ORDERED: MUCI600T37 PO (15:43)
[2018-08-04] MEDS ORDERED: LEVA250T13 PO (15:43)
[2018-08-04] MEDS ORDERED: LevoFLOXacin 500 MG TABLET PO ONE (15:45)
--- NOTE | 2018-08-05 07:58 | IPN ---
DATE OF SERVICE: 08/04/2018 SUBJECTIVE: Patient was seen and examined at the bedside today morning. She is afebrile. Hemodynamically stable. Her renal function continues to improve. Creatinine is down to 2.4 today. She was started on Lasix yesterday. She is tolerating the Lasix dose. She reports her lower extremity edema is improving. She reports much improvement in the respiratory symptoms. Her shortness of breath is improving. OBJECTIVE: VITAL SIGNS: Temperature 98.4 degrees Fahrenheit, blood pressure 158/71, pulse 79, respiratory rate of 18 saturating 93% on nasal cannula at 2 liters. Intake and output: Urine output recorded as 1.3 liters yesterday, 1.6 liters so far today since overnight. Weight in the bed scale is not available. PHYSICAL EXAMINATION: GENERAL: Patient is awake, alert, oriented times three. Sitting up in the bed in no apparent distress. Wearing nasal cannula. HEAD AND NECK EXAM: Extraocular muscles intact. Pupils equally round and reactive to light. Mucous membranes are moist. Neck is supple. There is no jugular venous distention (JVD). CARDIOVASCULAR: S1, S2. Regular rate. 1+ edema of the bilateral lower extremities. RESPIRATORY: Mildly decreased breath sounds bilaterally with coarse crepitations. ABDOMEN: Soft. Positive bowel sounds. Renal allograft is nontender. MUSCULOSKELETAL: No clubbing or cyanosis. Pulses are 2+. LOFTSMAN: No focal deficit. Power is 5/5 in all extremities. LAB REVIEW: CBC showed a WBC of 6.2, hemoglobin 11.6, platelet 179. Band neutrophils are 6 only. BMP showed sodium 137, potassium 4.4, chloride 107, bicarbonate 19, BUN 81, creatinine is 2.4. Calcium 8.4. Magnesium 2.8. C-reactive protein is 9.3 now. Albumin 2.1. Microbiology: Urine culture is growing Enterococci faecalis more than 100,000 colonies. CURRENT INPATIENT MEDICATIONS: Patient's medications are all reviewed by me. She continues to be on IV azithromycin and ceftriaxone. ASSESSMENT AND PLAN: 1. Multifocal pneumonia. Patient is on IV ceftriaxone and azithromycin, her symptoms are significant better. She has been switched to oral Levaquin now. 2. Renal allograft status. Renal function is improving back to the baseline. Continue current dose of mycophenolate and prednisone. Patient will given a dose of belatacept once she finishes her oral antibiotics. 3. Hypertension. Blood pressure is accetable. Continue current dose of clonidine, Coreg, and amlodipine. Lisinopril is on hold. 4. Chronic lower extremity edema. Patient is restarted on Lasix 20 mg daily. Continue the home dose for now. 5. Chronic cytomegalovirus (CMV) viremia. Continue current dose of Valcyte 450 mg by mouth twice a day. 6. Acute kidney injury superimposed on chronic kidney disease stage 4. Renal function is stable. Creatinine is down to 2.4 today, which is close to her baseline. 7. Enterococci faecalis urinary tract infection. Patient is asymptomatic, however, her cultures are positive, she is immunocompromised and she has a transplanted kidney which is right next to the bladder with a risk of pyelonephritis. Enterococci faecalis is sensitive to Levaquin, patient has been switched to oral Levaquin which should adequately cover community acquired pneumonia and the Enterococci faecalis urinary tract infection (UTI) as well. DISPOSITION: It is okay to discharge the patient from a nephrology standpoint. She needs to followup with nephrology within 2 weeks after discharge from the hospital.
--- NOTE | 2018-08-05 15:38 | DS.PDOC ---
Discharge Summary General Date of Admission Aug 01, 2018 Date of Discharge 08/04/18 Attending Physician: ALE NAVARRETE MD Specialist/Consultants Involve: BEN BENTLEY MD Discharge Summary PROCEDURES PERFORMED DURING STAY: None. ADMITTING/DISCHARGE DIAGNOSES: 1. Community acquired pneumonia 2. Acute kidney injury on chronic kidney disease 3. Hypertension 4. History of renal transplant 5. Urine culture with Enterococcus faecalis. COMPLICATIONS/CHIEF COMPLAINT: Shortness of breath and cough HISTORY OF PRESENT ILLNESS/HOSPITAL COURSE: This is a 63-year-old female past history of chronic kidney disease, hypertension, history of renal transplant who presents with shortness of breath and cough. Patient had a negative chest x-ray however a CT of the chest noted patchy infiltrates in the lower lobes as well as upper lobes. Patient was started on Rocephin as well as azithromycin significant improvement of her symptoms, and has been weaned off oxygen. Patient was also noted to have acute kidney injury for which nephrology was consulted. Patient did have a urine culture that was positive for Enterococcus faecalis, urinalysis was negative, however recommended treatment given her renal transplant. Antibiotics were changed to Levaquin to cover for both urine as well as respiratory. Patient is now hemodynamically stable, ambulating with no hypoxia, and will be discharged home with outpatient follow-up. DISCHARGE MEDICATIONS: Please see below. ALLERGIES: Please see below. PHYSICAL EXAMINATION ON DISCHARGE: Vitals: (see below) General: No acute distress, laying comfortably in bed. HEENT: Moist mucous membranes. Neck: No JVD or lymphadenopathy Cardiac: RRR, No murmurs Pulm: Mild crackles at the bases of her than the right b/l. No wheezing, rhonchi Abd: NT/ND + BS . Obese Ext: No edema or cyanosis LABORATORY DATA: Please see below. IMAGING: Chest x-ray on 08/01/18 with no acute pulmonary disease. CT chest 08/02/18 Impression: Patchy infiltrates bilaterally involving the lower lobes and to a lesser extent the right middle lobe and bilateral upper lobes. Small amount of pericardial fluid. PROGNOSIS: Fair ACTIVITY: As tolerated. DIET: Renal diet DISCHARGE PLAN/DISPOSITION: Home DISCHARGE INSTRUCTIONS: 1. Follow-up with PCP and nephrology in one week. Return to ED if symptoms worsen. DISCHARGE CONDITION: Stable. TIME SPENT ON DISCHARGE: Greater than 30 minutes. Vital Signs/I&Os Vital Signs Date Time Temp Pulse Resp B/P (MAP) Pulse Ox O2 Delivery O2 Flow Rate FiO2 08/04/18 14:00 97.7 78 20 114/55 (74) 94 2.0 08/02/18 07:00 Room Air I&O- Last 24 Hours up to 6 AM 08/05/18 06:00 Intake Total 880 ml Output Total 1600 ml Balance -720 ml Microbiology Microbiology 08/01/18 Blood Culture - Preliminary, Resulted No Growth after 72 hours. All specime... 08/01/18 Blood Culture - Preliminary, Resulted No Growth after 72 hours. All specime... 08/01/18 Respiratory Virus Panel (PCR) (PANFILO) - Final, Complete 08/02/18 Urine Culture - Final, Complete Enterococcus Faecalis Discharge Medications Scheduled Allopurinol (Allopurinol) 100 Mg Tab, 100 MG PO DAILY, (Reported) Belatacept IV (Nulojix) 250 Mg Inj, 250 MG IV MTHLY, (Reported) EVERY 28 DAYS, SUPPOSED TO GET NEXT DOSE ON 08/01/18 BUT HAD ELEVATED TEMPERATURE Biotin (Vitamin H) (Biotin) 5,000 Mcg Cap, 5,000 MCG PO DAILY, (Reported) Calcitriol (Calcitriol) 0.25 Mcg Cap, 0.25 MCG PO 3XW, (Reported) TAKES ON TUESDAY, TUESDAY AND TUESDAY Calcium Carbonate (Calcium) 600 Mg Tab, 600 MG PO BID, (Reported) Carvedilol (Carvedilol) 6.25 Mg Tab, 12.5 MG PO BID, (Reported) Clonidine HCl (Clonidine HCl) 0.3 Mg/24 Hr Dis, 1 PATCH TD 1XWK, (Reported) TAKES ON MONDAYS Furosemide (Furosemide) 40 Mg Tab, 20 MG PO DAILY, (Reported) Guaifenesin (Mucinex) 600 Mg Tab, 600 MG PO BID Levofloxacin Hemihydrate (Levaquin) 250 Mg Tab, 1 TAB PO Q48H Mycophenolate Mofetil (Mycophenolate Mofetil) 250 Mg Cap, 250 MG PO BID, (Reported) Prednisone (Prednisone) 5 Mg Tab, 5 MG PO DAILY, (Reported) Valganciclovir Hydrochloride (Valcyte) 450 Mg Tab, 450 MG PO BID, (Reported) Allergies Coded Allergies: No Known Allergies (Verified , 12/31/02) ALE NAVARRETE MDb 9, 2019 15:38
[2018-08-07] MEDS ORDERED: cloNIDine HCL 0.3 MG/24 HR PATCH TOP SCH (09:00)
== END 2018-08-04 17:20 | disposition home or self-care (01) | DRG 194 ==
LOC: M ED 16:46 → M ED INP 21:25 → M MSPAV 08-02 16:38 → OBSVTOIN 08-03 14:01
PROVIDERS: ADMIT Hospitalist; ATTEND Internal Medicine
DX: J18.9 Pneumonia, unspecified organism (principal); N17.9 Acute kidney failure, unspecified; Z94.0 Kidney transplant status; N18.4 Chronic kidney disease, stage 4 (severe); B25.9 Cytomegaloviral disease, unspecified; N39.0 Urinary tract infection, site not specified; I12.9 Hypertensive chronic kidney disease with stage 1 through stage 4 chronic kidney disease, or unspecified chronic kidney disease; Z79.899 Other long term (current) drug therapy; E78.5 Hyperlipidemia, unspecified; Z79.52 Long term (current) use of systemic steroids; M10.30 Gout due to renal impairment, unspecified site

== ENCOUNTER → 2018-08-01 | Outpatient (CLI) | payer OTHER, MEDICARE ==
[~2018-08-01] VITALS: Ht 154.4 cm; Wt 81.0 kg
[~2018-08-01] MED LIST changes: +BELATACEPT IV ONE; +CALC1CAP31 PO; +FILTER 1.2 MICRON (ADULT TPN/MANNITOL/REMICADE) XX ONE; +FLUO0.024 EXT; -FLUO25CR EXT; +FURO40TA2 PO; +LEVA250T13 PO; +LISI-1046 PO; +LISI-542 PO; -LISI2.5T5 PO; +MUCI600T37 PO; +MYCO250C PO; +NS IV ONE
[2018-08-01 10:45] VITALS: BP 150/68
== END ==
LOC: M INFU 10:15
PROVIDERS: ATTEND Internal Medicine Nephrology
DX: Z94.0 Kidney transplant status (principal); Z53.8 Procedure and treatment not carried out for other reasons

== ENCOUNTER → 2018-08-01 | Outpatient (CLI) | payer OTHER, MEDICARE ==
[~2018-08-01] MED LIST changes: -BELATACEPT IV ONE; -FILTER 1.2 MICRON (ADULT TPN/MANNITOL/REMICADE) XX ONE; -FLUO0.024 EXT; +FLUO25CR EXT; -LISI-1046 PO; +LISI2.5T5 PO; -NS IV ONE
[2018-08-01 11:26] LABS: APPEARANCE, URINE CLEAR (CLEAR); BACTERIA, URINE AUTO NEGATIVE (NEGATIVE); BILIRUBIN, URINE AUTO NEGATIVE (NEGATIVE); BLOOD, URINE BLOOD NEGATIVE (NEGATIVE); COLOR, URINE YELLOW (YELLOW); GLUCOSE, URINE (UA) AUTO NEGATIVE (NEGATIVE); KETONE, URINE AUTO NEGATIVE (NEGATIVE); LEUKOCYTE ESTERASE, URINE AUTO NEGATIVE (NEGATIVE); NITRITE, URINE AUTO NEGATIVE (NEGATIVE); PROTEIN, URINE AUTO 1+ mg/dL (NEGATIVE); RBC, URINE AUTO 0 /HPF (0-3); SPECIFIC GRAVITY URINE AUTO 1.012 (1.002-1.035); SQUAMOUS EPITHELIAL CELL UR AU 0 /HPF (0-6); UROBILINOGEN, URINE AUTO 0.2 mg/dL (0.0-2.0); WBC, URINE AUTO 0 /HPF (0-3)
[2018-08-01 11:39] LABS: HEMATOCRIT 37.8 % (36.0-47.0); HEMOGLOBIN 12.7 g/dl (12.0-15.5); MEAN CORPUSCULAR HEMOGLOBIN 31.8 pg (27.0-33.0); MEAN CORPUSCULAR HGB CONC 33.6 g/dl (32.0-36.5); MEAN CORPUSCULAR VOLUME 94.7 fl (80.0-96.0); PLATELET COUNT, AUTOMATED 162 10^3/uL (150-450); RED BLOOD COUNT 3.99 10^6/uL (4.00-5.40); WHITE BLOOD COUNT 6.7 10^3/uL (4.0-10.0)
[2018-08-01 11:46] LABS: TOTAL PROTEIN,RANDOM URINE 42.5 MG/DL (0.0-12.0)
[2018-08-01 12:14] LABS: ALBUMIN 2.9 GM/DL (3.2-5.2); BILIRUBIN,DIRECT 0.8 MG/DL (0.0-0.2); BILIRUBIN,TOTAL 1.8 MG/DL (0.2-1.0); CALCIUM LEVEL 8.4 MG/DL (8.8-10.2); CREATININE FOR GFR 3.02 MG/DL (0.55-1.30); GLOMERULAR FILTRATION RATE 16.5 (>45); MAGNESIUM LEVEL 1.8 MG/DL (1.8-2.4); PHOSPHORUS LEVEL 3.5 MG/DL (2.5-4.9); POTASSIUM SERUM 4.9 MEQ/L (3.5-5.1)
[2018-08-01 13:57] LABS: BASOPHILS 1 % (0-4); BLAST CELLS 1 % (0-0); EOSINOPHILS 2 % (0-5); LYMPHOCYTES 14 % (16-52); METAMYELOCYTES 8 % (0-0); MONOCYTES 4 % (0-8); MYELOCYTES 15 % (0-0); NEUTROPHILS 48 % (35-75); PROMYELOCYTES 2 % (0-0)
[2018-08-01 14:01] LABS: PLATELET ESTIMATE NORMAL (NORMAL); TEAR DROP CELLS 1+
[2018-08-01 14:02] LABS: OVALOCYTES 1+
[2018-08-04 14:32] LABS: CMV QUANT DNA PCR (PLASMA) Positive < 200 IU/mL (Negative)
== END ==
LOC: M LAB 09:29 → M INFU 09:29
PROVIDERS: ATTEND Internal Medicine Nephrology
DX: N18.5 Chronic kidney disease, stage 5 (principal); D84.9 Immunodeficiency, unspecified; Z94.0 Kidney transplant status; Z79.899 Other long term (current) drug therapy

== ENCOUNTER → 2018-08-08 | Outpatient (CLI) | payer OTHER, MEDICARE ==
[~2018-08-08] VITALS: Ht 154.9 cm; Wt 81.0 kg
[~2018-08-08] MED LIST changes: +BELATACEPT IV ONE; +CALC1CAP31 PO; +FILTER 1.2 MICRON (ADULT TPN/MANNITOL/REMICADE) XX ONE; +FURO40TA2 PO; +LEVA250T13 PO; +LISI-542 PO; +MUCI600T37 PO; +MYCO250C PO; +NS IV ONE
[2018-08-08 08:10] VITALS: BP 147/67
== END ==
LOC: M INFU 07:53
PROVIDERS: ATTEND Internal Medicine Nephrology
DX: Z94.0 Kidney transplant status (principal); Z53.8 Procedure and treatment not carried out for other reasons

== ENCOUNTER 2018-08-14 07:40 | Outpatient (CLI) | payer OTHER, MEDICARE ==
[~2018-08-14] VITALS: Ht 147.3 cm; Wt 76.8 kg
[~2018-08-14 07:40] MED LIST changes: -BELATACEPT IV ONE; -FILTER 1.2 MICRON (ADULT TPN/MANNITOL/REMICADE) XX ONE; -NS IV ONE
[2018-08-14 07:57] VITALS: BP 165/74
[2018-08-14] MEDS ORDERED: BELATACEPT IV ONE (08:00)
[2018-08-14] MEDS ORDERED: FILTER 1.2 MICRON (ADULT TPN/MANNITOL/REMICADE) XX ONE (08:00)
[2018-08-14] MEDS ORDERED: NS IV ONE (08:00)
[2018-08-14 09:31] VITALS: BP 155/65
== END 2018-08-14 09:35 | disposition home or self-care (01) ==
LOC: M INFU 07:40
PROVIDERS: ATTEND Internal Medicine Nephrology
DX: Z94.0 Kidney transplant status (principal); Z79.899 Other long term (current) drug therapy
CPT/HCPCS: 96365; J0485

== ENCOUNTER → 2018-09-01 | Outpatient (REF) | payer OTHER, MEDICARE ==
[2018-09-01 15:21] LABS: ALBUMIN 3.3 GM/DL (3.2-5.2); BILIRUBIN,TOTAL 1.5 MG/DL (0.2-1.0); CALCIUM LEVEL 8.8 MG/DL (8.8-10.2); CREATININE FOR GFR 2.24 MG/DL (0.55-1.30); GLOMERULAR FILTRATION RATE 23.4 (>45); POTASSIUM SERUM 3.8 MEQ/L (3.5-5.1)
== END ==
LOC: M SFHCSACK 08:00
PROVIDERS: ATTEND Physician Assistant
DX: D69.6 Thrombocytopenia, unspecified (principal); Z94.0 Kidney transplant status

== ENCOUNTER 2018-09-11 07:04 | Outpatient (CLI) | payer OTHER, MEDICARE ==
[~2018-09-11] VITALS: Ht 149.9 cm; Wt 76.3 kg
[2018-09-11 07:30] VITALS: BP 153/57
[2018-09-11] MEDS ORDERED: FILTER 1.2 MICRON (ADULT TPN/MANNITOL/REMICADE) XX ONE (08:45)
[2018-09-11 09:52] VITALS: BP 150/66
[2018-09-11] MEDS ORDERED: NS IV ONE (10:00)
[2018-09-11] MEDS ORDERED: BELATACEPT IV ONE (10:00)
== END 2018-09-11 10:10 | disposition home or self-care (01) ==
LOC: M INFU 07:04
PROVIDERS: ATTEND Internal Medicine Nephrology
DX: Z94.0 Kidney transplant status (principal)
CPT/HCPCS: 96365; 96366; J0485

== ENCOUNTER → 2018-09-11 | Outpatient (CLI) | payer OTHER, MEDICARE ==
[2018-09-11 08:15] LABS: HEMATOCRIT 36.4 % (36.0-47.0); HEMOGLOBIN 11.9 g/dl (12.0-15.5); MEAN CORPUSCULAR HEMOGLOBIN 33.4 pg (27.0-33.0); MEAN CORPUSCULAR HGB CONC 32.7 g/dl (32.0-36.5); MEAN CORPUSCULAR VOLUME 102.2 fl (80.0-96.0); PLATELET COUNT, AUTOMATED 104 10^3/uL (150-450); RED BLOOD COUNT 3.56 10^6/uL (4.00-5.40); WHITE BLOOD COUNT 4.2 10^3/uL (4.0-10.0)
[2018-09-11 08:18] LABS: APPEARANCE, URINE CLEAR (CLEAR); BACTERIA, URINE AUTO NEGATIVE (NEGATIVE); BILIRUBIN, URINE AUTO NEGATIVE (NEGATIVE); BLOOD, URINE BLOOD NEGATIVE (NEGATIVE); COLOR, URINE STRAW (YELLOW); GLUCOSE, URINE (UA) AUTO NEGATIVE (NEGATIVE); KETONE, URINE AUTO NEGATIVE (NEGATIVE); LEUKOCYTE ESTERASE, URINE AUTO NEGATIVE (NEGATIVE); NITRITE, URINE AUTO NEGATIVE (NEGATIVE); PROTEIN, URINE AUTO NEGATIVE (NEGATIVE); RBC, URINE AUTO 1 /HPF (0-3); SPECIFIC GRAVITY URINE AUTO 1.005 (1.002-1.035); SQUAMOUS EPITHELIAL CELL UR AU 0 /HPF (0-6); UROBILINOGEN, URINE AUTO 0.2 mg/dL (0.0-2.0); WBC, URINE AUTO 0 /HPF (0-3)
[2018-09-11 08:40] LABS: ALBUMIN 3.3 GM/DL (3.2-5.2); BILIRUBIN,DIRECT 0.4 MG/DL (0.0-0.2); BILIRUBIN,TOTAL 1.3 MG/DL (0.2-1.0); CALCIUM LEVEL 8.9 MG/DL (8.8-10.2); CREATININE FOR GFR 2.21 MG/DL (0.55-1.30); GLOMERULAR FILTRATION RATE 23.7 (>45); MAGNESIUM LEVEL 2.4 MG/DL (1.8-2.4); PHOSPHORUS LEVEL 3.8 MG/DL (2.5-4.9); POTASSIUM SERUM 3.5 MEQ/L (3.5-5.1); TOTAL PROTEIN 5.8 GM/DL (6.4-8.2)
[2018-09-11 08:57] LABS: ATYPICAL LYMPH 2 % (0-5); EOSINOPHILS 2 % (0-5); LYMPHOCYTES 20 % (16-52); METAMYELOCYTES 2 % (0-0); MONOCYTES 13 % (0-8); MYELOCYTES 2 % (0-0); NEUTROPHILS 49 % (35-75)
[2018-09-11 08:58] LABS: OVALOCYTES 1+; PLATELET ESTIMATE DECREASED (NORMAL); POIKILOCYTOSIS 1+
[2018-09-11 08:59] LABS: ANISOCYTOSIS 2+; TEAR DROP CELLS 1+
[2018-09-11 09:29] LABS: CREATININE,RANDOM URINE 20.6 MG/DL; TOTAL PROTEIN,RANDOM URINE 10.9 MG/DL (0.0-12.0)
[2018-09-14 00:08] LABS: CMV QUANT DNA PCR (PLASMA) Positive < 200 IU/mL (Negative)
== END ==
LOC: M LAB 07:07
PROVIDERS: ATTEND Internal Medicine Nephrology
DX: D72.819 Decreased white blood cell count, unspecified (principal); E78.2 Mixed hyperlipidemia; Z13.29 Encounter for screening for other suspected endocrine disorder; E55.9 Vitamin D deficiency, unspecified

== ENCOUNTER → 2018-09-18 | Outpatient (REF) | payer OTHER, MEDICARE ==
[2018-09-18 11:41] LABS: TOTAL PROTEIN,RANDOM URINE 9.6 MG/DL (0.0-12.0); URINE TOTAL PROTEIN 9.6 MG/DL (0-12)
[2018-09-18 13:51] LABS: URINE VOLUME 1300 ML
[2018-09-21 13:41] LABS: UPEP INTERPRETATION NO M-SPIKE NOTED
== END ==
LOC: M LAB REF 11:01
PROVIDERS: ATTEND Internal Medicine Hematology & Oncology
DX: D70.9 Neutropenia, unspecified (principal); D69.6 Thrombocytopenia, unspecified; Z79.899 Other long term (current) drug therapy

== ENCOUNTER 2018-10-09 07:14 | Outpatient (CLI) | payer OTHER, MEDICARE ==
[~2018-10-09] VITALS: Ht 149.9 cm; Wt 76.0 kg
[2018-10-09] MEDS ORDERED: NS IV ONE (07:30)
[2018-10-09] MEDS ORDERED: FILTER 1.2 MICRON (ADULT TPN/MANNITOL/REMICADE) XX ONE (07:30)
[2018-10-09] MEDS ORDERED: BELATACEPT IV ONE (07:30)
[2018-10-09 08:13] VITALS: BP 161/66
[2018-10-09 08:46] VITALS: BP 148/65
== END 2018-10-09 08:50 | disposition home or self-care (01) ==
LOC: M INFU 07:14
PROVIDERS: ATTEND Internal Medicine Nephrology
DX: Z94.0 Kidney transplant status (principal)
CPT/HCPCS: 36415; 96365; J0485

== ENCOUNTER → 2018-10-09 | Outpatient (CLI) | payer OTHER, MEDICARE ==
[~2018-10-09] MED LIST changes: +FLUO0.024 EXT; -FLUO25CR EXT; +LISI-1046 PO; -LISI2.5T5 PO
[2018-10-09 08:24] LABS: APPEARANCE, URINE CLEAR (CLEAR); BACTERIA, URINE AUTO NEGATIVE (NEGATIVE); BILIRUBIN, URINE AUTO NEGATIVE (NEGATIVE); BLOOD, URINE BLOOD NEGATIVE (NEGATIVE); COLOR, URINE STRAW (YELLOW); GLUCOSE, URINE (UA) AUTO NEGATIVE (NEGATIVE); KETONE, URINE AUTO NEGATIVE (NEGATIVE); LEUKOCYTE ESTERASE, URINE AUTO NEGATIVE (NEGATIVE); NITRITE, URINE AUTO NEGATIVE (NEGATIVE); PROTEIN, URINE AUTO NEGATIVE (NEGATIVE); RBC, URINE AUTO 0 /HPF (0-3); SPECIFIC GRAVITY URINE AUTO 1.006 (1.002-1.035); SQUAMOUS EPITHELIAL CELL UR AU 0 /HPF (0-6); UROBILINOGEN, URINE AUTO 0.2 mg/dL (0.0-2.0); WBC, URINE AUTO 0 /HPF (0-3)
[2018-10-09 08:32] LABS: HEMATOCRIT 34.1 % (36.0-47.0); HEMOGLOBIN 11.4 g/dl (12.0-15.5); MEAN CORPUSCULAR HEMOGLOBIN 33.5 pg (27.0-33.0); MEAN CORPUSCULAR HGB CONC 33.4 g/dl (32.0-36.5); MEAN CORPUSCULAR VOLUME 100.3 fl (80.0-96.0); WHITE BLOOD COUNT 3.8 10^3/uL (4.0-10.0)
[2018-10-09 08:48] LABS: CREATININE,RANDOM URINE 28.3 MG/DL; TOTAL PROTEIN,RANDOM URINE < 5.0 MG/DL (0.0-12.0)
[2018-10-09 08:50] LABS: ALBUMIN 3.5 GM/DL (3.2-5.2); BILIRUBIN,DIRECT 0.4 MG/DL (0.0-0.2); BILIRUBIN,TOTAL 1.2 MG/DL (0.2-1.0); CALCIUM LEVEL 9.1 MG/DL (8.8-10.2); CREATININE FOR GFR 2.4 MG/DL (0.55-1.30); GLOMERULAR FILTRATION RATE 21.6 (>45); MAGNESIUM LEVEL 2.2 MG/DL (1.8-2.4); PHOSPHORUS LEVEL 4.6 MG/DL (2.5-4.9); POTASSIUM SERUM 3.7 MEQ/L (3.5-5.1)
[2018-10-09 10:04] LABS: PLATELET COUNT, AUTOMATED 87 10^3/uL (150-450)
[2018-10-09 10:16] LABS: ATYPICAL LYMPH 4 % (0-5); EOSINOPHILS 2 % (0-5); LYMPHOCYTES 15 % (16-52); METAMYELOCYTES 6 % (0-0); MONOCYTES 8 % (0-8); MYELOCYTES 2 % (0-0); NEUTROPHILS 50 % (35-75)
[2018-10-09 10:20] LABS: ANISOCYTOSIS 1+; PLATELET ESTIMATE DECREASED (NORMAL); POIKILOCYTOSIS 1+
[2018-10-13 00:07] LABS: CMV QUANT DNA PCR (PLASMA) Positive < 200 IU/mL (Negative)
== END ==
LOC: M LAB 07:16
PROVIDERS: ATTEND Internal Medicine Nephrology
DX: Z94.0 Kidney transplant status (principal)

== ENCOUNTER → 2018-10-09 | Outpatient (CLI) | payer OTHER, MEDICARE ==
[2018-10-09 08:32] LABS: HEMATOCRIT 35.1 % (36.0-47.0); HEMOGLOBIN 11.7 g/dl (12.0-15.5); MEAN CORPUSCULAR HEMOGLOBIN 33.5 pg (27.0-33.0); MEAN CORPUSCULAR HGB CONC 33.3 g/dl (32.0-36.5); MEAN CORPUSCULAR VOLUME 100.6 fl (80.0-96.0); RED BLOOD COUNT 3.49 10^6/uL (4.00-5.40); WHITE BLOOD COUNT 3.9 10^3/uL (4.0-10.0)
[2018-10-09 09:02] LABS: ALBUMIN 3.6 GM/DL (3.2-5.2); ALT/SGPT 54 U/L (12-78); BILIRUBIN,TOTAL 1.2 MG/DL (0.2-1.0); BLOOD UREA NITROGEN 75 MG/DL (7-18); CALCIUM LEVEL 9.1 MG/DL (8.8-10.2); CARBON DIOXIDE LEVEL 27 MEQ/L (21-32); CHLORIDE LEVEL 102 MEQ/L (98-107); CREATININE FOR GFR 2.45 MG/DL (0.55-1.30); GLOMERULAR FILTRATION RATE 21.1 (>45); GLUCOSE, FASTING 93 MG/DL (70-100); IMMUNOGLOBULIN G 644 MG/DL (681-1648); POTASSIUM SERUM 3.7 MEQ/L (3.5-5.1); SODIUM LEVEL 138 MEQ/L (136-145)
[2018-10-09 09:17] LABS: ERYTHROCYTE SEDIMENTATION RATE 34 mm/hr (0-30)
[2018-10-09 10:23] LABS: PLATELET COUNT, AUTOMATED 81 10^3/uL (150-450)
[2018-10-09 10:31] LABS: ATYPICAL LYMPH 4 % (0-5); EOSINOPHILS 3 % (0-5); LYMPHOCYTES 14 % (16-52); METAMYELOCYTES 5 % (0-0); MONOCYTES 9 % (0-8); MYELOCYTES 2 % (0-0); NEUTROPHILS 51 % (35-75); OVALOCYTES 1+; PLATELET ESTIMATE DECREASED (NORMAL); POIKILOCYTOSIS 1+
[2018-10-09 10:32] LABS: ANISOCYTOSIS 1+
[2018-10-09 10:53] LABS: HIV 1&2 SCREEN CENTAUR NEGATIVE (NEGATIVE)
[2018-10-10 11:13] LABS: ALBUMIN 3.73 GM/DL (3.29-5.55); ALBUMIN % 62.1 % (55.8-66.1); ALPHA-1-GLOBULIN % 5.5 % (2.9-4.9); ALPHA-1-GLOBULINS 0.33 GM/DL (0.17-0.41); ALPHA-2-GLOBULINS 0.68 GM/DL (0.42-0.99); ALPHA-2-GLOBULINS % 11.4 % (7.1-11.8); BETA-1-GLOBULINS 0.39 GM/DL (0.28-0.60); BETA-1-GLOBULINS % 6.5 % (4.7-7.2); BETA-2-GLOBULINS 0.26 GM/DL (0.19-0.55); BETA-2-GLOBULINS % 4.4 % (3.2-6.5); GAMMA GLOBULIN % 10.1 % (11.1-18.8); GAMMA GLOBULINS 0.61 GM/DL (0.65-1.58)
[2018-10-11 00:59] LABS: FREE KAPPA LIGHT CHAINS SERUM 59.5 mg/L (3.3-19.4); FREE LAMBDA LIGHT CHAINS SERUM 41.2 mg/L (5.7-26.3); KAPPA/LAMBDA RATIO SERUM 1.44 (0.26-1.65)
== END ==
LOC: M LAB 07:19
PROVIDERS: ATTEND Internal Medicine Hematology & Oncology
DX: Z79.899 Other long term (current) drug therapy (principal); Z94.0 Kidney transplant status

== ENCOUNTER 2018-11-14 12:49 | Outpatient (CLI) | payer OTHER, MEDICARE ==
[~2018-11-14] VITALS: Ht 149.9 cm; Wt 74.8 kg
[2018-11-14 13:59] VITALS: BP 136/65
[2018-11-14] MEDS ORDERED: BELATACEPT IV ONE (14:00)
[2018-11-14] MEDS ORDERED: NS IV ONE (14:00)
[2018-11-14] MEDS ORDERED: FILTER 1.2 MICRON (ADULT TPN/MANNITOL/REMICADE) XX ONE (14:00)
[2018-11-14 14:50] VITALS: BP 147/67
== END 2018-11-14 15:05 | disposition home or self-care (01) ==
LOC: M INFU 12:49
PROVIDERS: ATTEND Internal Medicine Nephrology
DX: Z94.0 Kidney transplant status (principal)
CPT/HCPCS: 96365; J0485

== ENCOUNTER → 2018-11-14 | Outpatient (CLI) | payer OTHER, MEDICARE ==
[2018-11-14 13:46] LABS: APPEARANCE, URINE CLEAR (CLEAR); BACTERIA, URINE AUTO NEGATIVE (NEGATIVE); BILIRUBIN, URINE AUTO NEGATIVE (NEGATIVE); BLOOD, URINE BLOOD NEGATIVE (NEGATIVE); COLOR, URINE YELLOW (YELLOW); GLUCOSE, URINE (UA) AUTO NEGATIVE (NEGATIVE); KETONE, URINE AUTO NEGATIVE (NEGATIVE); LEUKOCYTE ESTERASE, URINE AUTO NEGATIVE (NEGATIVE); MEAN CORPUSCULAR HEMOGLOBIN 34.1 pg (27.0-33.0); MEAN CORPUSCULAR HGB CONC 33.3 g/dl (32.0-36.5); MEAN CORPUSCULAR VOLUME 102.3 fl (80.0-96.0); MUCUS, URINE SMALL (NEGATIVE); NITRITE, URINE AUTO NEGATIVE (NEGATIVE); PLATELET COUNT, AUTOMATED 100 10^3/uL (150-450); PROTEIN, URINE AUTO NEGATIVE (NEGATIVE); RBC, URINE AUTO 1 /HPF (0-3); RED BLOOD COUNT 3.52 10^6/uL (4.00-5.40); SQUAMOUS EPITHELIAL CELL UR AU 2 /HPF (0-6); UROBILINOGEN, URINE AUTO 0.2 mg/dL (0.0-2.0); WBC, URINE AUTO 0 /HPF (0-3); WHITE BLOOD COUNT 4.2 10^3/uL (4.0-10.0)
[2018-11-14 14:15] LABS: CREATININE,RANDOM URINE 82.5 MG/DL; TOTAL PROTEIN,RANDOM URINE 12.8 MG/DL (0.0-12.0)
[2018-11-14 14:23] LABS: ALBUMIN 3.7 GM/DL (3.2-5.2); BILIRUBIN,DIRECT 0.4 MG/DL (0.0-0.2); BILIRUBIN,TOTAL 1.1 MG/DL (0.2-1.0); CALCIUM LEVEL 9.6 MG/DL (8.8-10.2); CREATININE FOR GFR 2.25 MG/DL (0.55-1.30); GLOMERULAR FILTRATION RATE 23.2 (>45); MAGNESIUM LEVEL 2.5 MG/DL (1.8-2.4); PHOSPHORUS LEVEL 3.6 MG/DL (2.5-4.9); POTASSIUM SERUM 3.7 MEQ/L (3.5-5.1); TOTAL PROTEIN 6.1 GM/DL (6.4-8.2)
[2018-11-14 15:33] LABS: EOSINOPHILS 4 % (0-5); LYMPHOCYTES 20 % (16-52); METAMYELOCYTES 12 % (0-0); MONOCYTES 4 % (0-8); MYELOCYTES 4 % (0-0); NEUTROPHILS 51 % (35-75)
[2018-11-14 15:34] LABS: TEAR DROP CELLS 1+
[2018-11-14 15:36] LABS: ANISOCYTOSIS 1+
[2018-11-14 15:44] LABS: PLATELET ESTIMATE DECREASED (NORMAL)
[2018-11-17 00:06] LABS: CMV QUANT DNA PCR (PLASMA) Positive < 200 IU/mL (Negative)
== END ==
LOC: M LAB 12:52
PROVIDERS: ATTEND Internal Medicine Nephrology
DX: Z94.0 Kidney transplant status (principal); N18.5 Chronic kidney disease, stage 5; D84.9 Immunodeficiency, unspecified; Z79.899 Other long term (current) drug therapy

== ENCOUNTER → 2018-11-21 | Outpatient (REF) | payer OTHER, MEDICARE ==
[2018-11-21 18:21] LABS: HEMATOCRIT 33.2 % (36.0-47.0); HEMOGLOBIN 10.9 g/dl (12.0-15.5); MEAN CORPUSCULAR HEMOGLOBIN 32.9 pg (27.0-33.0); MEAN CORPUSCULAR HGB CONC 32.8 g/dl (32.0-36.5); MEAN CORPUSCULAR VOLUME 100.3 fl (80.0-96.0); RED BLOOD COUNT 3.31 10^6/uL (4.00-5.40); WHITE BLOOD COUNT 3.8 10^3/uL (4.0-10.0)
[2018-11-21 20:04] LABS: PLATELET COUNT, AUTOMATED 87 10^3/uL (150-450)
[2018-11-21 20:12] LABS: BASOPHILS 1 % (0-4); EOSINOPHILS 1 % (0-5); LYMPHOCYTES 9 % (16-52); METAMYELOCYTES 15 % (0-0); MYELOCYTES 17 % (0-0); NEUTROPHILS 37 % (35-75)
[2018-11-21 20:16] LABS: PLATELET ESTIMATE DECREASED (NORMAL); POIKILOCYTOSIS 1+; SCHISTOCYTES 1+; TEAR DROP CELLS 2+; TOXIC VACUOLATION 1+
== END ==
LOC: M LAB REF 17:15
PROVIDERS: ATTEND Internal Medicine Nephrology
DX: N18.9 Chronic kidney disease, unspecified (principal); D63.1 Anemia in chronic kidney disease

== ENCOUNTER 2018-12-19 07:15 | Outpatient (CLI) | payer OTHER, MEDICARE ==
[~2018-12-19] VITALS: Ht 149.9 cm; Wt 74.8 kg
[2018-12-19] MEDS ORDERED: BELATACEPT IV ONE (07:30)
[2018-12-19] MEDS ORDERED: NS IV ONE (07:30)
[2018-12-19] MEDS ORDERED: FILTER 1.2 MICRON (ADULT TPN/MANNITOL/REMICADE) XX ONE (07:30)
[2018-12-19 07:40] VITALS: BP 141/61
[2018-12-19 08:48] VITALS: BP 153/68
== END 2018-12-19 09:00 | disposition home or self-care (01) ==
LOC: M INFU 07:15
PROVIDERS: ATTEND Internal Medicine Nephrology
DX: Z94.0 Kidney transplant status (principal)
CPT/HCPCS: 96365; J0485

== ENCOUNTER → 2018-12-19 | Outpatient (CLI) | payer OTHER, MEDICARE ==
[2018-12-19 07:53] LABS: HEMATOCRIT 28.5 % (36.0-47.0); HEMOGLOBIN 9.4 g/dl (12.0-15.5); MEAN CORPUSCULAR HEMOGLOBIN 33.8 pg (27.0-33.0); MEAN CORPUSCULAR VOLUME 102.5 fl (80.0-96.0); RED BLOOD COUNT 2.78 10^6/uL (4.00-5.40); WHITE BLOOD COUNT 3.3 10^3/uL (4.0-10.0)
[2018-12-19 07:54] LABS: PLATELET COUNT, AUTOMATED 90 10^3/uL (150-450)
[2018-12-19 07:59] LABS: APPEARANCE, URINE CLEAR (CLEAR); BACTERIA, URINE AUTO NEGATIVE (NEGATIVE); BILIRUBIN, URINE AUTO NEGATIVE (NEGATIVE); BLOOD, URINE BLOOD NEGATIVE (NEGATIVE); COLOR, URINE YELLOW (YELLOW); GLUCOSE, URINE (UA) AUTO NEGATIVE (NEGATIVE); KETONE, URINE AUTO NEGATIVE (NEGATIVE); LEUKOCYTE ESTERASE, URINE AUTO NEGATIVE (NEGATIVE); NITRITE, URINE AUTO NEGATIVE (NEGATIVE); PROTEIN, URINE AUTO NEGATIVE (NEGATIVE); RBC, URINE AUTO 1 /HPF (0-3); SPECIFIC GRAVITY URINE AUTO 1.008 (1.002-1.035); SQUAMOUS EPITHELIAL CELL UR AU 0 /HPF (0-6); UROBILINOGEN, URINE AUTO 0.2 mg/dL (0.0-2.0); WBC, URINE AUTO 1 /HPF (0-3)
[2018-12-19 08:08] LABS: CREATININE,RANDOM URINE 55.4 MG/DL; TOTAL PROTEIN,RANDOM URINE 11.1 MG/DL (0.0-12.0)
[2018-12-19 08:11] LABS: ALBUMIN 3.4 GM/DL (3.2-5.2); BILIRUBIN,DIRECT 0.3 MG/DL (0.0-0.2); BILIRUBIN,TOTAL 0.9 MG/DL (0.2-1.0); CALCIUM LEVEL 8.6 MG/DL (8.8-10.2); CREATININE FOR GFR 2.23 MG/DL (0.55-1.30); GLOMERULAR FILTRATION RATE 23.5 (>45); MAGNESIUM LEVEL 2.3 MG/DL (1.8-2.4); PHOSPHORUS LEVEL 3.8 MG/DL (2.5-4.9); POTASSIUM SERUM 3.4 MEQ/L (3.5-5.1); TOTAL PROTEIN 5.9 GM/DL (6.4-8.2)
[2018-12-19 08:14] LABS: ANISOCYTOSIS 2+; EOSINOPHILS 2 % (0-5); LYMPHOCYTES 21 % (16-52); NEUTROPHILS 72 % (35-75)
[2018-12-19 08:21] LABS: PLATELET ESTIMATE DECREASED (NORMAL)
[2018-12-22 00:11] LABS: CMV QUANT DNA PCR (PLASMA) Positive < 200 IU/mL (Negative)
== END ==
LOC: M LAB 07:13
PROVIDERS: ATTEND Internal Medicine Nephrology
DX: N18.5 Chronic kidney disease, stage 5 (principal); D84.9 Immunodeficiency, unspecified; Z79.899 Other long term (current) drug therapy; Z94.0 Kidney transplant status

== ENCOUNTER → 2019-01-01 | Outpatient (CLI) | payer OTHER, MEDICARE ==
[2019-01-01 09:26] LABS: BASO % 0.7 % (0.0-1.0); EOS # 0.1 10^3/uL (0.0-0.50); EOS % 3.3 % (0.0-3.0); HEMATOCRIT 28.5 % (36.0-47.0); HEMOGLOBIN 9.2 g/dl (12.0-15.5); LYMPH # 0.5 10^3/uL (1.5-4.5); LYMPH % 12.4 % (24.0-44.0); MEAN CORPUSCULAR HEMOGLOBIN 32.3 pg (27.0-33.0); MEAN CORPUSCULAR HGB CONC 32.3 g/dl (32.0-36.5); MONO # 0.2 10^3/uL (0.0-0.8); MONO % 3.8 % (0.0-5.0); NEUTROPHILS # 3.3 10^3/uL (1.8-7.7); NEUTROPHILS % 77.5 % (36.0-66.0); PLATELET COUNT, AUTOMATED 109 10^3/uL (150-450); RED BLOOD COUNT 2.85 10^6/uL (4.00-5.40); WHITE BLOOD COUNT 4.3 10^3/uL (4.0-10.0)
[2019-01-01 10:02] LABS: ALBUMIN 3.4 GM/DL (3.2-5.2); BILIRUBIN,TOTAL 1.1 MG/DL (0.2-1.0); CHOLESTEROL RISK RATIO 2.716 (<5); CREATININE FOR GFR 2.39 MG/DL (0.55-1.30); FREE T4 0.93 NG/DL (0.76-1.46); GLOMERULAR FILTRATION RATE 21.7 (>45); POTASSIUM SERUM 3.6 MEQ/L (3.5-5.1); THYROID STIMULATING HORMONE 2.37 uIU/ML (0.358-3.740); TOTAL PROTEIN 6.1 GM/DL (6.4-8.2)
[2019-01-01 11:51] LABS: TOTAL 25(OH) VITAMIN D 49.3 NG/ML (30.0-100.0)
== END ==
LOC: M WUC 08:11
PROVIDERS: ATTEND Physician Assistant
DX: Z13.29 Encounter for screening for other suspected endocrine disorder (principal); D72.819 Decreased white blood cell count, unspecified; E78.2 Mixed hyperlipidemia; E55.9 Vitamin D deficiency, unspecified

== ENCOUNTER 2019-01-23 07:45 | Outpatient (CLI) | payer OTHER, MEDICARE ==
[~2019-01-23] VITALS: Ht 144.8 cm; Wt 70.0 kg
[~2019-01-23 07:45] MED LIST changes: -PRED10PA2 PO
[2019-01-23 08:00] VITALS: BP 155/72
[2019-01-23] MEDS ORDERED: NS IV ONE (08:30)
[2019-01-23] MEDS ORDERED: FILTER 1.2 MICRON (ADULT TPN/MANNITOL/REMICADE) XX ONE (08:30)
[2019-01-23] MEDS ORDERED: BELATACEPT IV ONE (08:30)
[2019-01-23 09:02] VITALS: BP 156/67
[2019-01-23 09:15] VITALS: BP 142/63
[2019-01-25] MEDS ORDERED: PRED10PA2 PO (10:15)
== END 2019-01-23 09:15 ==
LOC: M INFU 07:45
PROVIDERS: ATTEND Internal Medicine Nephrology
DX: Z94.0 Kidney transplant status (principal); N18.5 Chronic kidney disease, stage 5; D84.9 Immunodeficiency, unspecified; Z79.899 Other long term (current) drug therapy
CPT/HCPCS: 96365; J0485

== ENCOUNTER → 2019-01-23 | Outpatient (CLI) | payer OTHER, MEDICARE ==
[~2019-01-23] MED LIST changes: +PRED10PA2 PO
[2019-01-23 08:21] LABS: APPEARANCE, URINE CLEAR (CLEAR); BACTERIA, URINE AUTO NEGATIVE (NEGATIVE); BILIRUBIN, URINE AUTO NEGATIVE (NEGATIVE); BLOOD, URINE BLOOD NEGATIVE (NEGATIVE); COLOR, URINE STRAW (YELLOW); GLUCOSE, URINE (UA) AUTO NEGATIVE (NEGATIVE); HEMATOCRIT 25.8 % (36.0-47.0); HEMOGLOBIN 8.2 g/dl (12.0-15.5); KETONE, URINE AUTO NEGATIVE (NEGATIVE); LEUKOCYTE ESTERASE, URINE AUTO NEGATIVE (NEGATIVE); MEAN CORPUSCULAR HEMOGLOBIN 32.3 pg (27.0-33.0); MEAN CORPUSCULAR HGB CONC 31.8 g/dl (32.0-36.5); MEAN CORPUSCULAR VOLUME 101.6 fl (80.0-96.0); NITRITE, URINE AUTO NEGATIVE (NEGATIVE); PLATELET COUNT, AUTOMATED 105 10^3/uL (150-450); PROTEIN, URINE AUTO NEGATIVE (NEGATIVE); RBC, URINE AUTO 0 /HPF (0-3); RED BLOOD COUNT 2.54 10^6/uL (4.00-5.40); SPECIFIC GRAVITY URINE AUTO 1.006 (1.002-1.035); SQUAMOUS EPITHELIAL CELL UR AU 0 /HPF (0-6); UROBILINOGEN, URINE AUTO 0.2 mg/dL (0.0-2.0); WBC, URINE AUTO 3 /HPF (0-3); WHITE BLOOD COUNT 3.8 10^3/uL (4.0-10.0)
[2019-01-23 08:46] LABS: TOTAL PROTEIN,RANDOM URINE 11.6 MG/DL (0.0-12.0)
[2019-01-23 08:49] LABS: ALBUMIN 3.3 GM/DL (3.2-5.2); BILIRUBIN,DIRECT 0.4 MG/DL (0.0-0.2); BILIRUBIN,TOTAL 1.1 MG/DL (0.2-1.0); CALCIUM LEVEL 8.7 MG/DL (8.8-10.2); CREATININE FOR GFR 2.56 MG/DL (0.55-1.30); MAGNESIUM LEVEL 2.2 MG/DL (1.8-2.4); POTASSIUM SERUM 3.2 MEQ/L (3.5-5.1); TOTAL PROTEIN 5.9 GM/DL (6.4-8.2)
[2019-01-23 09:16] LABS: ATYPICAL LYMPH 1 % (0-5); BASOPHILS 1 % (0-4); EOSINOPHILS 4 % (0-5); LYMPHOCYTES 20 % (16-52); METAMYELOCYTES 1 % (0-0); MONOCYTES 2 % (0-8); MYELOCYTES 2 % (0-0); NEUTROPHILS 59 % (35-75)
[2019-01-23 09:17] LABS: ANISOCYTOSIS 1+; OVALOCYTES 1+; PLATELET ESTIMATE DECREASED (NORMAL); POIKILOCYTOSIS 1+
[2019-01-26 00:06] LABS: CMV QUANT DNA PCR (PLASMA) Positive < 200 IU/mL (Negative)
== END ==
LOC: M LAB 07:40
PROVIDERS: ATTEND Internal Medicine Nephrology
DX: Z94.0 Kidney transplant status (principal); N18.5 Chronic kidney disease, stage 5; D84.9 Immunodeficiency, unspecified; Z79.899 Other long term (current) drug therapy

== ENCOUNTER → 2019-01-24 | Outpatient (REF) | payer OTHER, MEDICARE ==
[~2019-01-24] MED LIST changes: +PRED10PA2 PO
[2019-01-24 18:29] LABS: PERCENT SATURATION 9.9 % (13.2-45.0)
[2019-01-24 18:38] LABS: FOLATE 6.3 NG/ML
== END ==
LOC: M LAB REF 17:16
PROVIDERS: ATTEND Internal Medicine Nephrology
DX: N18.9 Chronic kidney disease, unspecified (principal); D63.1 Anemia in chronic kidney disease

== ENCOUNTER → 2019-02-07 | Outpatient (REF) | payer OTHER, MEDICARE | LOC: M LAB REF 13:10 | PROVIDERS: ATTEND Internal Medicine Nephrology | DX: D64.9 Anemia, unspecified (principal) ==

== ENCOUNTER 2019-02-08 07:04 | Outpatient (CLI) | payer OTHER, MEDICARE ==
[2019-02-08] VITALS (10 sets, daily range): BP systolic 121–140; BP diastolic 56–64
[~2019-02-08] VITALS: Ht 149.9 cm; Wt 65.9 kg
[~2019-02-08 07:04] MED LIST changes: +diphenhydrAMINE 25 MG CAP PO SCH
[2019-02-08] MEDS ORDERED: ACETAMINOPHEN 500 MG TAB PO ONE (07:15)
[2019-02-08] MEDS ORDERED: FUROSEMIDE 40 MG/4 ML VIAL (J1940) IV ONE (07:15)
[2019-03-02] MEDS ORDERED: POTA20TA6 PO (14:55)
[2019-07-10] MEDS ORDERED: HYDR-3910 PO (08:12)
[2019-07-10] MEDS ORDERED: VALC450T PO (08:12)
[2019-07-10] MEDS ORDERED: SPIR-10 PO (08:12)
== END 2019-02-08 15:00 | disposition home or self-care (01) ==
LOC: M INFU 07:04
PROVIDERS: ATTEND Internal Medicine Nephrology
DX: D50.9 Iron deficiency anemia, unspecified (principal); N18.9 Chronic kidney disease, unspecified; Z94.0 Kidney transplant status
CPT/HCPCS: 36430; 96374; J1940; P9016

== ENCOUNTER 2019-02-12 08:45 | Outpatient (CLI) | payer OTHER, MEDICARE ==
[~2019-02-12] VITALS: Ht 149.9 cm; Wt 68.7 kg
[~2019-02-12 08:45] MED LIST changes: -diphenhydrAMINE 25 MG CAP PO SCH
[2019-02-12 08:56] VITALS: BP 147/67
[2019-02-12] MEDS ORDERED: IRON SUCROSE 275 MG in NS 250 ML IV ONE (10:00)
[2019-02-12] MEDS ORDERED: IRON SUCROSE 25 MG in NS 50 ML IV ONE (10:00)
[2019-02-12 10:30] VITALS: BP 145/64
[2019-02-12 12:45] VITALS: BP 139/67
[2019-02-12 13:35] VITALS: BP 139/63
[2019-02-12 14:45] VITALS: BP 122/60
[2019-02-12 15:06] VITALS: BP 115/55
== END 2019-02-12 15:10 | disposition home or self-care (01) ==
LOC: M INFU 08:45
PROVIDERS: ATTEND Internal Medicine Nephrology
DX: D50.9 Iron deficiency anemia, unspecified (principal)
CPT/HCPCS: 96365; 96366; J1756

== ENCOUNTER 2019-02-19 08:44 | Outpatient (CLI) | payer OTHER, MEDICARE ==
[~2019-02-19] VITALS: Ht 149.9 cm; Wt 68.7 kg
[2019-02-19 08:50] VITALS: BP 127/55
[2019-02-19] MEDS ORDERED: IRON SUCROSE 300 MG in NS 250 ML IV ONE (09:30)
[2019-02-19 09:56] VITALS: BP 103/54
[2019-02-19 10:10] VITALS: BP 108/54
[2019-02-19 10:55] VITALS: BP 127/58
[2019-02-19 11:55] VITALS: BP 122/59
[2019-02-19 13:00] VITALS: BP 126/62
== END 2019-02-19 13:00 | disposition home or self-care (01) ==
LOC: M INFU 08:44
PROVIDERS: ATTEND Internal Medicine Nephrology
DX: D50.9 Iron deficiency anemia, unspecified (principal); N18.9 Chronic kidney disease, unspecified
CPT/HCPCS: 96365; 96366; J1756

== ENCOUNTER 2019-02-27 08:38 | Outpatient (CLI) | payer OTHER, MEDICARE ==
[~2019-02-27] VITALS: Ht 144.8 cm; Wt 68.7 kg
[~2019-02-27 08:38] MED LIST changes: -CARV25TA; -POTA1TAB14 PO; -POTA20TA6 PO; -PRED10TA2 PO
[2019-02-27 09:00] VITALS: BP 130/63
[2019-02-27] MEDS ORDERED: FILTER 1.2 MICRON (ADULT TPN/MANNITOL/REMICADE) XX ONE (09:00)
[2019-02-27] MEDS ORDERED: BELATACEPT IV ONE (09:00)
[2019-02-27] MEDS ORDERED: NS IV ONE (09:00)
[2019-02-27 10:40] VITALS: BP 127/60
[2019-03-02] MEDS ORDERED: POTA20TA6 PO (14:55)
== END 2019-02-27 10:40 | disposition home or self-care (01) ==
LOC: M INFU 08:38
PROVIDERS: ATTEND Internal Medicine Nephrology
DX: Z94.0 Kidney transplant status (principal)
CPT/HCPCS: 96365; J0485

== ENCOUNTER → 2019-02-27 | Outpatient (CLI) | payer OTHER, MEDICARE ==
[~2019-02-27] MED LIST changes: +CARV25TA; +POTA1TAB14 PO; +POTA20TA6 PO; +PRED10TA2 PO
[2019-02-27 09:36] LABS: HEMATOCRIT 22.7 % (36.0-47.0); HEMOGLOBIN 7.2 g/dl (12.0-15.5); MEAN CORPUSCULAR HEMOGLOBIN 32.1 pg (27.0-33.0); MEAN CORPUSCULAR HGB CONC 31.7 g/dl (32.0-36.5); MEAN CORPUSCULAR VOLUME 101.3 fl (80.0-96.0); RED BLOOD COUNT 2.24 10^6/uL (4.00-5.40); WHITE BLOOD COUNT 3.3 10^3/uL (4.0-10.0)
[2019-02-27 10:05] LABS: BILIRUBIN,DIRECT 0.3 MG/DL (0.0-0.2); BILIRUBIN,TOTAL 0.7 MG/DL (0.2-1.0); CALCIUM LEVEL 8.3 MG/DL (8.8-10.2); CREATININE FOR GFR 2.25 MG/DL (0.55-1.30); GLOMERULAR FILTRATION RATE 23.2 (>45); MAGNESIUM LEVEL 2.1 MG/DL (1.8-2.4); PHOSPHORUS LEVEL 3.6 MG/DL (2.5-4.9); POTASSIUM SERUM 3.6 MEQ/L (3.5-5.1); TOTAL PROTEIN 5.1 GM/DL (6.4-8.2)
[2019-02-27 10:08] LABS: PLATELET COUNT, AUTOMATED 95 10^3/uL (150-450)
[2019-02-27 10:15] LABS: BASOPHILS 1 % (0-1); EOSINOPHILS 2 % (0-3); LYMPHOCYTES 21 % (16-44); METAMYELOCYTES 2 % (0-0); MONOCYTES 7 % (0-5); MYELOCYTES 1 % (0-0); NEUTROPHILS 50 % (28-66)
[2019-02-27 10:16] LABS: ANISOCYTOSIS 2+; PLATELET ESTIMATE DECREASED (NORMAL); POIKILOCYTOSIS 1+
[2019-02-27 10:17] LABS: MICROCYTOSIS 1+; OVALOCYTES 1+
[2019-02-27 11:05] LABS: AMORPHOUS SEDIMENT SMALL (NEGATIVE); APPEARANCE, URINE CLEAR (CLEAR); BACTERIA, URINE AUTO NEGATIVE (NEGATIVE); BILIRUBIN, URINE AUTO NEGATIVE (NEGATIVE); BLOOD, URINE BLOOD NEGATIVE (NEGATIVE); COLOR, URINE STRAW (YELLOW); GLUCOSE, URINE (UA) AUTO NEGATIVE (NEGATIVE); KETONE, URINE AUTO NEGATIVE (NEGATIVE); LEUKOCYTE ESTERASE, URINE AUTO NEGATIVE (NEGATIVE); NITRITE, URINE AUTO NEGATIVE (NEGATIVE); PROTEIN, URINE AUTO NEGATIVE (NEGATIVE); RBC, URINE AUTO 1 /HPF (0-3); SPECIFIC GRAVITY URINE AUTO 1.005 (1.002-1.035); SQUAMOUS EPITHELIAL CELL UR AU 1 /HPF (0-6); UROBILINOGEN, URINE AUTO 0.2 mg/dL (0.0-2.0); WBC, URINE AUTO 2 /HPF (0-3)
[2019-02-27 11:31] LABS: CREATININE,RANDOM URINE 29.5 MG/DL; TOTAL PROTEIN,RANDOM URINE 7.9 MG/DL (0.0-12.0)
[2019-03-02 00:07] LABS: CMV QUANT DNA PCR (PLASMA) Positive < 200 IU/mL (Negative)
== END ==
LOC: M LAB 08:39
PROVIDERS: ATTEND Internal Medicine Nephrology
DX: Z94.0 Kidney transplant status (principal); N18.5 Chronic kidney disease, stage 5; D84.9 Immunodeficiency, unspecified; Z79.899 Other long term (current) drug therapy

== ENCOUNTER 2019-03-14 07:44 | Inpatient (IN) | payer OTHER, MEDICARE ==
[~2019-03-14] VITALS: Ht 149.9 cm; Wt 66.9 kg
[~2019-03-14 07:44] MED LIST changes: +POTA20TA6 PO
[2019-03-14] MEDS ORDERED: CARV25TA (07:57)
[2019-03-14] MEDS ORDERED: POTA1TAB14 PO (07:58)
[2019-03-14] MEDS ORDERED: cloNIDine HCL 0.3 MG/24 HR PATCH TOP SCH (09:00)
[2019-03-14 09:45] LABS: HEMATOCRIT 19.9 % (36.0-47.0); MEAN CORPUSCULAR HEMOGLOBIN 31.6 pg (27.0-33.0); MEAN CORPUSCULAR HGB CONC 30.7 g/dl (32.0-36.5); MEAN CORPUSCULAR VOLUME 103.1 fl (80.0-96.0); PLATELET COUNT, AUTOMATED 105 10^3/uL (150-450); RED BLOOD COUNT 1.93 10^6/uL (4.00-5.40); WHITE BLOOD COUNT 3.4 10^3/uL (4.0-10.0)
[2019-03-14 09:49] LABS: HEMOGLOBIN 6.1 g/dl (12.0-15.5)
[2019-03-14 10:10] LABS: CALCIUM LEVEL 8.7 MG/DL (8.8-10.2); CREATININE FOR GFR 2.26 MG/DL (0.55-1.30); POTASSIUM SERUM 3.4 MEQ/L (3.5-5.1)
[2019-03-14 10:19] LABS: ATYPICAL LYMPH 3 % (0-5); EOSINOPHILS 1 % (0-3); LYMPHOCYTES 18 % (16-44); METAMYELOCYTES 2 % (0-0); MONOCYTES 5 % (0-5); MYELOCYTES 2 % (0-0); NEUTROPHILS 54 % (28-66)
[2019-03-14 10:20] LABS: ANISOCYTOSIS 1+; HYPOCHROMASIA 1+; OVALOCYTES 1+; PLATELET ESTIMATE DECREASED (NORMAL); POIKILOCYTOSIS 1+
[2019-03-14] MEDS ORDERED: CARV6.25 PO (10:28)
[2019-03-14] MEDS ORDERED: PRED10TA2 PO (10:28)
[2019-03-14] MEDS ORDERED: FUROSEMIDE 40 MG TAB PO ONE (10:30)
[2019-03-14] MEDS ORDERED: ALLOPURINOL 100 MG TAB PO ONE (10:30)
[2019-03-14] MEDS ORDERED: predniSONE 5 MG TAB PO ONE (10:30)
[2019-03-14] MEDS ORDERED: CALCITRIOL 0.25 MCG CAP (S0169) PO ONE (10:30)
[2019-03-14] MEDS ORDERED: POTASSIUM CHLORIDE 10 MEQ SR TABLET PO ONE (10:30)
[2019-03-14] MEDS ORDERED: MYCOPHENOLATE MOFETIL 250 MG CAP (J7517) PO ONE (10:30)
[2019-03-14] MEDS ORDERED: CARVedilol 12.5 MG TAB PO ONE (10:30)
[2019-03-14] MEDS ORDERED: CALCIUM CARBONATE 500 MG CHEW U/D PO ONE (10:30)
--- NOTE | 2019-03-14 13:34 | HPEPDOC ---
[facility] Medical History & Physical Date of Admission Mar 14, 2019 Date of Service: Mar 14, 2019 History and Physical CHIEF COMPLAINT: Weakness HISTORY OF PRESENT ILLNESS: 64F with PMH kidney transplant on immunosupression and HTN presented to the ER with weakness and reported symptomatic anemia. Reportedly had a Hb 7 in January and received 2 units pRBC along with iron transfusion. Was sent from doctor's office to ER today, noted to have Hb 6.1 here. She reports weakness for some time now but otherwise denies any other complaints including any pain, discomfort, fever or chills. She states that she had noted some dark stool from time to time but unsure if iron is the cause of stool color changes. Does not report any rhona blood noted. Follow with physicians teddy as well as Dr. Francisco here in [place]. PAST MEDICAL HISTORY: Refer to [facility] PAST SURGICAL HISTORY: Kidney transplant 2016 hysterectomy Benign breast lump removal SOCIAL HISTORY: Denies tobacco, alcohol or illicit drug use. FAMILY HISTORY: Brother with Parkinson and "bladder issues" ALLERGIES: Please see below. REVIEW OF SYSTEMS: 10 point review of system negative except as stated in [facility] HOME MEDICATIONS: Please see below. PHYSICAL EXAMINATION: General: No acute distress, Alert Eyes: Normal sclera, EOMI, RY HENT: Atraumatic, neck supple, moist mucous membranes Cardiovascular: Normal rate, normal rhythm. No murmurs appreciated. Pulmonary: Clear to auscultation b/l, no wheezing GI: Soft, nontender, nondistended Skin: Warm and dry Neuro: CN grossly intact. No focal deficits. Strengths equal b/l. Psych: oriented x 3 LABORATORY DATA: See below. MICROBIOLOGY: Please see below. ASSESSMENT AND PLAN: 1. Symptomatic anemia - Appear to have degree of pancytopenia, on immunosuppression. - Hb January was 7 s/p 2 units pRBC and iron infusion since then, had not improved and noted to be at 6.1 on admission. - Reported dark stools intermittently but unsure if it could be caused by iron. - Weakness for a period of time now. - GI consulted to evaluate for scope. Patient made NPO after midnight for the mean time. - 3 units of pRBC ordered in ER, to get today. 2. HTN - BP controlled. - Resume home meds. BB and Clonidine patch. 3. s/p kidney transplant - Follows with Dr. Francisco in [place]. - c/w home meds. c/w immunosupression drugs: mycophenolate, Prednisone, and Belatacept (Nulojix). - c/w valcyte ppx. Vital Signs Vital Signs Date Time Temp Pulse Resp B/P (MAP) Pulse Ox O2 Delivery O2 Flow Rate FiO2 03/14/19 12:30 96.0 66 16 116/56 (76) 97 Room Air Laboratory Data Labs 24H Laboratory Tests 2 03/14/19 09:25: Immature Granulocyte % (Auto) , Nucleated Red Blood Cells % (auto) 0.0, Neutrophils 54, Band Neutrophils 15H, Lymphocytes (Manual) 18, Monocytes (Manual) 5, Eosinophils (Manual) 1, Metamyelocytes 2H, Myelocytes 2H, Atypical Lymphocytes 3, Platelet Estimate DECREASED, Hypochromasia 1+, Poikilocytosis 1+, Anisocytosis 1+, Macrocytosis 1+, Ovalocytes 1+, Anion Gap 12, Glomerular Filtr ation Rate 23.0L, Blood Urea Nitrogen 69H, Creatinine 2.26H, Sodium Level 140, Potassium Level 3.4L, Chloride Level 104, Carbon Dioxide Level 24, Calcium Level 8.7L CBC/BMP Laboratory Tests 03/14/19 09:25 Red Blood Count 1.93 L, Mean Corpuscular Volume 103.1 H, Mean Corpuscular Hemoglobin 31.6, Mean Corpuscular Hemoglobin Concent 30.7 L, Red Cell Distribution Width 19.4 H, Calcium Level 8.7 L Home Medications Scheduled Allopurinol (Allopurinol) 100 Mg Tab, 100 MG PO DAILY Belatacept IV (Nulojix) 250 Mg Inj, 250 MG IV Q5WK Calcitriol (Calcitriol) 0.25 Mcg Cap, 0.25 MCG PO 3XW TAKES ON TUESDAY, TUESDAY AND TUESDAY Calcium Carbonate (Calcium) 600 Mg Tab, 600 MG PO BID Carvedilol (Carvedilol) 6.25 Mg Tablet, 12.5 MG PO BID Clonidine (Clonidine) 0.3 Mg/24 Hr Dis, 1 PATCH TD 1XWK WEDNESDAYS - DUE TO CHANGE 03/14/19 Furosemide (Furosemide) 40 Mg Tab, 40 MG PO BID Mycophenolate Mofetil (Mycophenolate Mofetil) 250 Mg Cap, 250 MG PO BID Potassium Chloride (Potassium Chloride) 20 Meq Tab.er.prt, 20 MEQ PO DAILY Prednisone (Prednisone) 10 Mg Tablet, 5 MG PO DAILY Valganciclovir HCl (Valcyte) 450 Mg Tab, 450 MG PO 2XW TUESDAY AND TUESDAY - DOSING WAS JUST CHANGED 03/13/19 Allergies Coded Allergies: No Known Allergies (Verified , 12/31/02) A-FIB/CHADSVASC A-FIB History Current/History of A-Fib/PAF?: No JESSIE RAMIRES MD Mar 14, 2019 13:34
[2019-03-14 14:20] VITALS: BP 138/69
[2019-03-14 15:42] VITALS: BP 117/53
[2019-03-14] MEDS: CALCIUM CARBONATE 500 MG CHEW U/D PO SCH (20:12)
[2019-03-14] MEDS: FUROSEMIDE 40 MG TAB PO SCH (20:12)
[2019-03-14] MEDS: MYCOPHENOLATE MOFETIL 250 MG CAP (J7517) PO SCH (20:13)
[2019-03-14] MEDS: CARVedilol 6.25 MG TAB PO SCH (20:13)
[2019-03-14] MEDS ORDERED: FUROSEMIDE 40 MG/4 ML VIAL (J1940) IV ONE (20:45)
[2019-03-14 22:00] VITALS: BP 135/67
[2019-03-15 00:03] LABS: APPEARANCE, URINE CLEAR (CLEAR); BACTERIA, URINE AUTO NEGATIVE (NEGATIVE); BILIRUBIN, URINE AUTO NEGATIVE (NEGATIVE); BLOOD, URINE BLOOD NEGATIVE (NEGATIVE); COLOR, URINE STRAW (YELLOW); GLUCOSE, URINE (UA) AUTO NEGATIVE (NEGATIVE); KETONE, URINE AUTO NEGATIVE (NEGATIVE); LEUKOCYTE ESTERASE, URINE AUTO NEGATIVE (NEGATIVE); NITRITE, URINE AUTO NEGATIVE (NEGATIVE); PROTEIN, URINE AUTO NEGATIVE (NEGATIVE); RBC, URINE AUTO 1 /HPF (0-3); SPECIFIC GRAVITY URINE AUTO 1.006 (1.002-1.035); SQUAMOUS EPITHELIAL CELL UR AU 1 /HPF (0-6); UROBILINOGEN, URINE AUTO 0.2 mg/dL (0.0-2.0); WBC, URINE AUTO 1 /HPF (0-3)
--- NOTE | 2019-03-15 05:51 | CR ---
DATE OF CONSULTATION: 03/14/2019 REQUESTING PHYSICIAN: Dr. Marilee Arteaga CONSULTING PHYSICIAN: Dr. Feliberto Francisco REASON FOR CONSULTATION: Management of chronic kidney disease stage IV and renal allograft immunosuppression. CHIEF COMPLAINT: The patient presented to the emergency room with weakness and she was found to be anemic in the nephrology office. HISTORY OF PRESENT ILLNESS: Chacha Kumar is a 64-year-old female with past medical history of renal allograft status with a baseline chronic kidney disease (CKD) IV, hypertension, chronic cytomegalovirus (CMV) viremia. She follows with the nephrology office in [place] and she also follows up at the [facility] [place]. She was seen in the nephrology office yesterday and was found to have hemoglobin of 6.2. At that time she was advised to come to the emergency room but she wanted to go home and take care of her dog before she came to the emergency room so she presented to the emergency room (ER) today in the afternoon. She was found to have a hemoglobin of 6.1. She was admitted under the hospitalist service. She was started on packed red blood cell (PRBC) transfusion. The nephrology service was called to further help in the management of chronic kidney disease stage IV and renal allograft immunosuppression. The patient was also advised to have the endoscopy done as an outpatient. However, she could not get the colonoscopy or esophagogastroduodenal (EGD) scheduled as an outpatient, but she denies any melena, hematochezia or hematemesis. I saw and evaluated the patient at the bedside in the evening. She was getting the PRBC transfusion when I saw her. The patient was afebrile and hemodynamically stable. PAST MEDICAL HISTORY: 1. donor kidney transplant in 2016. 2. Chronic kidney disease stage IV. 3. Hypertension. 4. Secondary hyperparathyroidism. 5. Chronic CMV viremia. 6. Lower extremity edema. PAST SURGICAL HISTORY: 1. Status post left upper arm arteriovenous (AV) fistula placement. 2. Status post donor kidney transplant in 2016. 3. Status post hysterectomy. 4. History of her benign breast lump removal in the past. ALLERGIES: NO KNOWN DRUG ALLERGIES. FAMILY HISTORY: No significant family history of end-stage renal disease. Her brother had Parkinson's. SOCIAL HISTORY: The patient still actively working with [employer]. She denies any smoking, illicit drug abuse or alcohol abuse. REVIEW OF SYSTEMS: CONSTITUTIONAL: She reports feeling very weak and tired and fatigue. EYE: She denies any blurry vision or double vision. ENT: She denies any dysphagia, odynophagia. CARDIOVASCULAR: She denies any chest pain or palpitations. RESPIRATORY: She denies any shortness of breath or cough. GASTROINTESTINAL (GI) : She denies any hematochezia ore melena. GENITOURINARY: She denies any dysuria, hematuria. MUSCULOSKELETAL: She denies any muscle aches or pains. CENTRAL NERVOUS SYSTEM (RESPIRATORY THERAPY DIRECTOR): She denies any focal seizures. SKIN: She denies any rashes or ulcers. ENDOCRINE: She reports second degree hyperparathyroidism. HEMATOLOGIC/ONCOLOGIC: She denies any easy bleeding or bruising. PSYCHIATRIC: She denies any depression or anxiety. All other review of systems is negative. PHYSICAL EXAMINATION: GENERAL: The patient is awake, alert, oriented times three, laying in bed getting blood transfusion. VITAL SIGNS: Temperature is 97.9 degrees Fahrenheit, blood pressure 135/67, pulse is 82, respiratory rate 70, saturating 99% on room air. HEENT: The patient has conjunctival pallor. Mucous membranes are moist. NECK: Neck is supple. There is no jugular venous distention (JVD). CARDIOVASCULAR: Sinus, regular rate. No edema of the bilateral lower extremities. RESPIRATORY: Chest is clear to auscultation bilaterally. Bilateral equal air entry. No rales or rhonchi. ABDOMEN: Soft, positive bowel sounds. Nontender. Right lower quadrant renal allograft was noted with no tenderness or bruit. GENITOURINARY: Bladder is not palpable. MUSCULOSKELETAL: No clubbing or cyanosis. She has a left upper arm AV fistula with positive thrill and bruit. RESPIRATORY THERAPY DIRECTOR: No focal deficit, power is 5/5 in all extremities. SKIN: No rashes or ulcers. LABORATORY REVIEW: CBC showed WBC of 3.4, hemoglobin 6.1, platelets of 105. BMP showed sodium 140, potassium 3.4, chloride 104, bicarb 24, BUN 69, creatinine is 2.2, glucose is 92, calcium 8.7. HOME MEDICATIONS: The patient's home medication include - allopurinol 100 mg daily - Belatacept infusion 250 mg IV every five weeks - calcitriol 0.25 mcg Tuesday, Tuesday, Tuesday - calcium tablets 600 mg by mouth twice a day - Coreg 12.5 mg by mouth twice a day - clonidine patch 0.3 mg per 24 hourly every seven days - Lasix 40 mg by mouth twice a day - mycophenolate 250 mg by mouth twice a day - potassium chloride 20 mEq by mouth daily - prednisone 5 mg by mouth daily - Valcyte, she was initially on 450 mg by mouth twice a day which has been changed to 450 mg twice a week CURRENT INPATIENT MEDICATIONS: The patient's medications include: - allopurinol 100 mg by mouth daily - calcitriol 0.25 mcg Tuesday, Tuesday, Tuesday - Tums 600 mg by mouth twice a day - Coreg 12.5 mg by mouth twice a day - clonidine patch 0.3 mg - Lasix 40 mg by mouth twice a day I have also ordered Lasix 40 mg IV to be given after the blood transfusion. - she is on CellCept 250 mg by mouth twice a day - potassium chloride 20 mEq by mouth daily - prednisone 5 mg daily - Valcyte 450 mg by mouth twice a week. ASSESSMENT: 64-year-old female with past medical history of renal allograft status, chronic kidney disease stage IV, chronic gout, lower extremity edema, chronic cytomegalovirus viremia (CMV) admitted this time with severe symptomatic anemia. PLAN: 1. Severe symptomatic anemia. The patient apparently has a pancytopenia. She was on high-dose Valcyte which I stopped and decreased the Valcyte dose to 450 mg twice a week only. She is going to get three units of packed red blood cels (PRBC) transfusion today. I have also ordered fecal occult blood test (FOBT) to be done to rule out possibility of gastrointestinal (GI) bleeding. Okay to continue current immunosuppression. The patient is also following up with Hem/Onc as an outpatient. She has not been given any Aranesp or Procrit for the last many months. I am going to give her a dose of Aranesp. 2. Chronic kidney disease stage IV. Patient's baseline creatinine is around 2 to 2.2. Her renal function is at baseline. No need of IV fluid addition at this time. 3. Hypokalemia. It is secondary to use of diuretics as an outpatient. Continue home dose of potassium chloride. 4. Hypertension with chronic kidney disease stage IV. Continue home dose of clonidine patch 0.3 mg, Coreg 12.5 mg by mouth twice a day. I have also ordered a dose of 40 mg IV Lasix to prevent volume overload after blood transfusion. 5. Renal allograft status. The patient could not tolerate multiple immunosuppression. Currently she gets a belatacept infusion every five weeks as an outpatient. Continue home dose of CellCept 250 mg by mouth twice a day and prednisone 5 mg by mouth . daily. 6. Chronic lower extremity edema. She is tolerating Lasix 40 mg by mouth twice a day along with potassium chloride 20 mEq by mouth daily. 7. Chronic CMV viremia. She was on a very high dose of Valcyte 400 mg by mouth twice a day. I have decreased it to 450 mg by mouth twice a week because of her GFR of less than 30. 8. Chronic gout secondary to chronic kidney disease. Continue current dose of allopurinol 100 mg by mouth daily. 9. Secondary hyperparathyroidism. Continue current dose of calcitriol 0.25 mcg by mouth Tuesday, Tuesday, Tuesday. Thank you for involving me in the care of this patient. I shall be happy to follow the patient along with you tomorrow morning.
[2019-03-15 06:00] VITALS: BP 135/67
[2019-03-15 06:40] LABS: HEMATOCRIT 27.6 % (36.0-47.0); MEAN CORPUSCULAR HEMOGLOBIN 31.3 pg (27.0-33.0); MEAN CORPUSCULAR HGB CONC 33.3 g/dl (32.0-36.5); MEAN CORPUSCULAR VOLUME 93.9 fl (80.0-96.0); RED BLOOD COUNT 2.94 10^6/uL (4.00-5.40); WHITE BLOOD COUNT 3.3 10^3/uL (4.0-10.0)
[2019-03-15 06:51] LABS: ALBUMIN 2.7 GM/DL (3.2-5.2); CALCIUM LEVEL 8.4 MG/DL (8.8-10.2); CREATININE FOR GFR 2.09 MG/DL (0.55-1.30); GLOMERULAR FILTRATION RATE 25.2 (>45); PHOSPHORUS LEVEL 3.8 MG/DL (2.5-4.9); POTASSIUM SERUM 3.2 MEQ/L (3.5-5.1)
[2019-03-15] MEDS ORDERED: GOLYTELY SOLN 4000 ML BTL PO ONE (07:00)
[2019-03-15 07:05] LABS: PLATELET COUNT, AUTOMATED 92 10^3/uL (150-450)
[2019-03-15 07:06] LABS: HEMOGLOBIN 9.2 g/dl (12.0-15.5)
[2019-03-15] MEDS: CALCIUM CARBONATE 500 MG CHEW U/D PO SCH ×2 (08:42→20:27)
[2019-03-15] MEDS: CARVedilol 6.25 MG TAB PO SCH ×2 (08:42→20:30)
[2019-03-15] MEDS: FUROSEMIDE 40 MG TAB PO SCH ×2 (08:43→20:27)
[2019-03-15] MEDS: MYCOPHENOLATE MOFETIL 250 MG CAP (J7517) PO SCH ×2 (08:43→20:26)
[2019-03-15] MEDS: predniSONE 5 MG TAB PO SCH (08:43)
[2019-03-15] MEDS: ALLOPURINOL 100 MG TAB PO SCH (08:44)
[2019-03-15] MEDS: POTASSIUM CHLORIDE 10 MEQ SR TABLET PO SCH (08:44)
[2019-03-15] MEDS ORDERED: DARBEPOETIN 300 MCG/0.6 ML *NON-DIALYSIS* SYRINGE (J0881) SQ SCH (09:00)
[2019-03-15] MEDS ORDERED: POTASSIUM CHLORIDE 10 MEQ SR TABLET PO ONE (10:00)
--- NOTE | 2019-03-15 13:12 | IPN ---
DATE OF SERVICE: 03/15/2019 SUBJECTIVE: The patient was seen and examined at the bedside today morning. This patient was given 3 units of packed red blood cell (PRBC) transfusion yesterday, hemoglobin has nicely improved to 9.2. The patient denies any active bleeding, but she is going to start the [facility] prep for colonoscopy tomorrow morning. Renal function is stable. She denies any active complaints. OBJECTIVE: Vital signs: Temperature is 98.8 degrees Fahrenheit, blood pressure 130/70, pulse is 71, respiratory of 15, saturating 95% on room air. Intake and output - urine output recorded is 1.8 liters yesterday, 1.4 liters so far today. Weight in the bed scale was 66.9 mL yesterday. PHYSICAL EXAMINATION: General: The patient is awake, alert, oriented times three, sitting up in the bed in the bed in no apparent distress. Head and neck exam extraocular muscles intact. Pupils equally round and reactive to light. Mucous membranes are moist. Neck is supple. There is no jugular venous distention (JVD). Cardiovascular: S1, S2, regular rate. Trace edema of the bilateral lower extremities. Respiratory: Chest is clear to auscultation bilaterally. Bilateral equal air entry. No rales or rhonchi. Abdomen: Soft, positive bowel sounds. Right lower quadrant renal allograft which is nontender. Musculoskeletal: No clubbing or cyanosis. Pulses are 2+. She has a left upper arm AV fistula with thrill and bruit. 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 Power is 5/5 in all extremities. LAB REVIEW: CBC showed a WBC 3.3, hemoglobin 9.2, platelets are 92. Urinalysis was done yesterday which showed no proteinuria, hematuria or leukocyte esterase. BMP done today morning showed sodium 143, potassium 3.2, chloride 106, bicarb 27, BUN 69, creatinine is 2.09, calcium 8.4, phosphorus 3.8, albumin is 2.7. Microbiology - all the cultures are pending. CURRENT INPATIENT MEDICATIONS: The patient's medications were all reviewed by me. The patient was given a dose of potassium chloride 40 mEq by mouth additional dose in addition to the 20 mEq by mouth daily dose. No other change in the medications today as compared with yesterday. ASSESSMENT AND PLAN: 1. Symptomatic anemia. The patient was given 3 units of packed red blood cell (PRBC) transfusion yesterday, hemoglobin level has nicely improved to 9.1 now. She is going to get colonoscopy prep today and get the colonoscopy done tomorrow. The patient also has pancytopenia actually, in the past she needed Neupogen injections off and on, however, with his white cell count there is no need of Neupogen at this time. Continue to monitor for now. There is a possibility of drug-induced bone marrow suppression, I have decreased the Valcyte dose. 2. Chronic kidney disease stage IV. Patient's renal function is stable, creatinine is at baseline. 3. Hypokalemia. The patient was given additional dose of potassium chloride 40 mEq today morning. Continue daily dose of 20 mEq daily. 4. Hypertension with chronic kidney disease stage IV. Blood pressure is very well optimized. Continue current dose of clonidine, Coreg and diuretic. 5. Renal allograft status. Continue current dose of CellCept and prednisone inpatient, she gets Belatacept infusions as outpatient every 5 weeks. 6. Chronic lower extremity edema. Continue current dose of Lasix 40 mg by mouth twice a day. 7. Chronic CMV viremia. Continue Valcyte 450 mg by mouth twice a week.
[2019-03-15 14:00] VITALS: BP 129/71
--- NOTE | 2019-03-15 19:25 | IPNPDOC ---
Date Seen The patient was seen on 03/15/19. Progress Note SUBJECTIVE: Patient reported feeling well without any complaints today. No reported pain or any evidence of bleeding. However, FOBT+. Afebriile overnight. Hb 6->9 post transfusion. OBJECTIVE PHYSICAL EXAMINATION: General: No acute distress, Alert Eyes: Normal sclera, EOMI, RY HENT: Atraumatic, neck supple, moist mucous membranes Cardiovascular: Normal rate, normal rhythm. No murmurs appreciated. Pulmonary: Clear to auscultation b/l, no wheezing GI: Soft, nontender, nondistended Skin: Warm and dry Neuro: CN grossly intact. No focal deficits. Strengths equal b/l. Psych: oriented x 3 LABORATORY DATA, IMAGING STUDIES, MICROBIOLOGY: Please see below. DVT prophylaxis ordered?: ASSESSMENT AND PLAN: 1. Symptomatic anemia - Appear to have degree of pancytopenia, on immunosuppression. - s/p 3 pRBC with improvement in Hb. - Reported dark stools intermittently but unsure if it could be caused by iron. - GI consulted, plan for colonosocpy tomorrow. NPO after midnight. 2. HTN - BP controlled. - Resume home meds. BB and Clonidine patch. 3. s/p kidney transplant - Follows with Dr. Francisco in [place]. - c/w home meds. c/w immunosupression drugs: mycophenolate, Prednisone, and Belatacept (Nulojix). - c/w valcyte ppx. VS, I&O, 24H, Fishbone Vital Signs/I&O Vital Signs Date Time Temp Pulse Resp B/P (MAP) Pulse Ox O2 Delivery O2 Flow Rate FiO2 03/15/19 14:00 97.8 72 17 129/71 (90) 95 03/14/19 14:00 Room Air I&O- Last 24 Hours up to 6 AM 03/15/19 06:00 Intake Total 1734 ml Output Total 2650 ml Balance -916 ml Laboratory Data 24H LABS Laboratory Tests 2 03/14/19 23:44: Urine Appearance CLEAR, Urine Color STRAW, Urine pH 6.0, Urine Specific [place] 1.006, Urine Protein NEGATIVE, Urine Glucose (UA) NEGATIVE, Urine Ketones NEGATIVE, Urine Urobilinogen 0.2, Urine Bilirubin NEGATIVE, Urine Leukocyte Esterase NEGATIVE, Urine Blood NEGATIVE, Urine Nitrite NEGATIVE, Urine WBC (Auto) 1, Urine RBC (Auto) 1, Urine Hyaline Casts (Auto) 0, Urine Bacteria (Auto) NEGATIVE, Urine Squamous Epithelial Cells 1, Urine Sperm (Auto) 03/15/19 06:18: Nucleated Red Blood Cells % (auto) 0.0, Immature Platelet Fraction 2.0, Blood Urea Nitrogen 69H, Creatinine 2.09H, Sodium Level 143, Potassium Level 3.2L, Chloride Level 106, Carbon Dioxide Level 27, Anion Gap 10, Glomerular Filtration Rate 25.2L, Calcium Level 8.4L, Phosphorus Level 3.8, Albumin 2.7L CBC/BMP Laboratory Tests 03/15/19 06:18 Red Blood Count 2.94 L, Mean Corpuscular Volume 93.9, Mean Corpuscular Hemoglobin 31.3, Mean Corpuscular Hemoglobin Concent 33.3, Red Cell Distribution Width 19.6 H, Anion Gap 10 Microbiology Microbiology 03/14/19 Blood Culture, Received Pending 03/14/19 Blood Culture, Received Pending 03/15/19 Stool Occult Blood (PANFILO) - Final, Complete 03/14/19 Urine Culture, Received Pending JESSIE RAMIRES MD Mar 15, 2019 19:25
[2019-03-15 22:00] VITALS: BP 134/68
[2019-03-16 06:00] VITALS: BP 132/67
[2019-03-16 06:12] LABS: HEMATOCRIT 27.6 % (36.0-47.0); MEAN CORPUSCULAR HEMOGLOBIN 31.1 pg (27.0-33.0); MEAN CORPUSCULAR HGB CONC 32.6 g/dl (32.0-36.5); MEAN CORPUSCULAR VOLUME 95.5 fl (80.0-96.0); RED BLOOD COUNT 2.89 10^6/uL (4.00-5.40)
[2019-03-16 06:14] LABS: PLATELET COUNT, AUTOMATED 88 10^3/uL (150-450)
[2019-03-16 06:31] LABS: CALCIUM LEVEL 8.4 MG/DL (8.8-10.2); CREATININE FOR GFR 1.77 MG/DL (0.55-1.30); GLOMERULAR FILTRATION RATE 30.6 (>45); POTASSIUM SERUM 3.2 MEQ/L (3.5-5.1)
[2019-03-16] MEDS ORDERED: NS 1,000 ML IV SCH (08:15)
[2019-03-16] MEDS: predniSONE 5 MG TAB PO SCH (08:24)
[2019-03-16] MEDS: MYCOPHENOLATE MOFETIL 250 MG CAP (J7517) PO SCH ×2 (08:25→23:36)
[2019-03-16] MEDS: CARVedilol 6.25 MG TAB PO SCH ×2 (08:25→23:37)
[2019-03-16] MEDS: CALCIUM CARBONATE 500 MG CHEW U/D PO SCH ×2 (08:25→23:36)
[2019-03-16] MEDS: ALLOPURINOL 100 MG TAB PO SCH (08:25)
[2019-03-16] MEDS: FUROSEMIDE 40 MG TAB PO SCH (08:25)
[2019-03-16] MEDS: POTASSIUM CHLORIDE 10 MEQ SR TABLET PO SCH (08:26)
[2019-03-16] MEDS ORDERED: ValGANciclovir HYDROCHLORIDE 450MG TABLET PO SCH (09:00)
[2019-03-16] MEDS ORDERED: KCL 20MEQ IN D5W 1000ML 1,000 ML IV SCH (13:00)
[2019-03-16] MEDS ORDERED: PROPOFOL 200 MG/20 ML VIAL As Ordered ONE ×2 (13:23→14:44)
[2019-03-16] MEDS ORDERED: LIDOCAINE 2% INJ 100 MG/5 ML SDV (FOR ANES.) As Ordered ONE (13:23)
--- NOTE | 2019-03-16 14:34 | ROOR ---
Patient Name: Chacha Kumar Procedure Date: 03/16/2019 2:13 PM Date of : 1955 Age: 64 Room: [facility] Gender: Female Note Status: Finalized Procedure: Egd + Apc Indications: Iron deficiency anemia Providers: Abram Medrano MD Referring MD: Zo Arteaga Md Requesting Provider: Medicines: Monitored Anesthesia Care Complications: No immediate complications. Procedure: Pre-Anesthesia Assessment: - The heart rate, respiratory rate, oxygen saturations, blood pressure, adequacy of pulmonary ventilation, and response to care were monitored throughout the procedure. The Endoscope was introduced through the mouth, and advanced to the second part of duodenum. The upper GI endoscopy was accomplished without difficulty. The patient tolerated the procedure well. Findings: The Z-line was regular and was found 35 cm from the incisors. A small hiatal hernia was present. 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 Coagulation for bleeding prevention using argon plasma at 0.8 liters/minute and 35 jose was successful. Multiple small angioectasias without bleeding were found in the first portion of the duodenum. The exam was otherwise without abnormality. Impression: - Z-line regular, 35 cm from the incisors. - Small hiatal hernia. - Gastric antral vascular ectasia without bleeding. Treated with argon plasma coagulation (APC). - Multiple non-bleeding angioectasias in the duodenum. - The examination was otherwise normal. - No specimens collected. - The examination was otherwise normal. Recommendation: - Patient has a contact number available for emergencies. The signs and symptoms of potential delayed complications were discussed with the patient. Return to normal activities tomorrow. Written discharge instructions were provided to the patient. - High fiber diet. - Return patient to hospital [facility] for ongoing care. - Continue present medications. - Return to referring physician. - Repeat upper endoscopy in 3 months for retreatment. - The findings and recommendations were discussed with the patient's family. Abram Medrano MD Abram Medrano MD 03/16/2019 2:34:17 PM Electronically signed by Abram Medrano MD Number of Addenda: 0 Note Initiated On: 03/16/2019 2:13 PM Estimated Blood Loss: Estimated blood loss: none.
--- NOTE | 2019-03-16 14:52 | ROOR ---
Patient Name: Chacha Kumar Procedure Date: 03/16/2019 2:14 PM Date of : 1955 Age: 64 Room: [facility] Gender: Female Note Status: Finalized Procedure: Total Colonoscopy to Cecum + Biopsy Polypectomy Indications: Iron deficiency anemia Providers: Abram Medrano MD Referring MD: VINAYAK Donahue Pa-c Requesting Provider: Medicines: Monitored Anesthesia Care Complications: No immediate complications. Procedure: Pre-Anesthesia Assessment: - The heart rate, respiratory rate, oxygen saturations, blood pressure, adequacy of pulmonary ventilation, and response to care were monitored throughout the procedure. The Colonoscope was introduced through the anus and advanced to the cecum, identified by appendiceal orifice and ileocecal valve. The colonoscopy was performed without difficulty. The patient tolerated the procedure well. The quality of the bowel preparation was good. Findings: The perianal and digital rectal examinations were normal. Non-bleeding internal hemorrhoids were found during retroflexion. The hemorrhoids were small and Grade I (internal hemorrhoids that do not prolapse). Multiple small and large-mouthed diverticula were found in the recto-sigmoid colon, sigmoid colon and descending colon. A small polyp was found in the ileocecal valve. The polyp was sessile. The polyp was removed with a jumbo cold forceps. Resection and retrieval were complete. The exam was otherwise without abnormality on direct and retroflexion views. Impression: - Non-bleeding internal hemorrhoids. - Diverticulosis in the recto-sigmoid colon, in the sigmoid colon and in the descending colon. - One small polyp at the ileocecal valve, removed with a jumbo cold forceps. Resected and retrieved. - The examination was otherwise normal on direct and retroflexion views. - The exam was otherwise normal to the cecum. Recommendation: - Patient has a contact number available for emergencies. The signs and symptoms of potential delayed complications were discussed with the patient. Return to normal activities tomorrow. Written discharge instructions were provided to the patient. - High fiber diet. - Continue present medications. - Return patient to hospital [facility] for ongoing care. - Repeat colonoscopy in 5 years for surveillance. - Return to referring physician. - The findings and recommendations were discussed with the patient's family. Abram Medrano MD Abram Medrano MD 03/16/2019 2:52:30 PM Electronically signed by Abram Medrano MD Number of Addenda: 0 Note Initiated On: 03/16/2019 2:14 PM Estimated Blood Loss: Estimated blood loss: none.
--- NOTE | 2019-03-16 17:08 | IPNPDOC ---
Date Seen The patient was seen on 03/16/19. Progress Note SUBJECTIVE: Patient had no complaints this morning. s/p colonoscopy and EGD today with GI. GAVA w/o bleeding, angioectasias. Hb 9.0 this AM. OBJECTIVE PHYSICAL EXAMINATION: General: No acute distress, Alert Eyes: Normal sclera, EOMI, RY HENT: Atraumatic, neck supple, moist mucous membranes Cardiovascular: Normal rate, normal rhythm. No murmurs appreciated. Pulmonary: Clear to auscultation b/l, no wheezing GI: Soft, nontender, nondistended Skin: Warm and dry Neuro: CN grossly intact. No focal deficits. Strengths equal b/l. Psych: oriented x 3 LABORATORY DATA, IMAGING STUDIES, MICROBIOLOGY: Please see below. DVT prophylaxis ordered?: ASSESSMENT AND PLAN: 1. Symptomatic anemia - Appear to have degree of pancytopenia, on immunosuppression. - s/p 3 pRBC with improvement in Hb. - s/p colonoscopy and EGD. Diverticulosis, nonbleeding internal hemorrhoids, small polyp resected. Mild Gastric Antral Vascular ectasia without bleeding in gastric antrum treated with argon plasma for bleeding prevention. Multiple small angioectasias. 2. HTN - BP controlled. - Resume home meds. BB and Clonidine patch. 3. s/p kidney transplant - Follows with Dr. Francisco in [place]. - c/w home meds. c/w immunosupression drugs: mycophenolate, Prednisone, and Belatacept (Nulojix). - c/w valcyte ppx. Plan to observe and d/c in AM. VS, I&O, 24H, Fishbone Vital Signs/I&O Vital Signs Date Time Temp Pulse Resp B/P (MAP) Pulse Ox O2 Delivery O2 Flow Rate FiO2 03/16/19 14:50 97 87 15 115/57 (76) 95 03/14/19 14:00 Room Air I&O- Last 24 Hours up to 6 AM 03/16/19 06:00 Intake Total 1320 ml Output Total 1450 ml Balance -130 ml Laboratory Data 24H LABS Laboratory Tests 2 03/16/19 05:50: Nucleated Red Blood Cells % (auto) 0.0, Anion Gap 13, Glomerular Filtration Rate 30.6L, Blood Urea Nitrogen 49H, Creatinine 1.77H, Sodium Level 146H, Potassium Level 3.2L, Chloride Level 105, Carbon Dioxide Level 28, Calcium Level 8.4L CBC/BMP Laboratory Tests 03/16/19 05:50 Red Blood Count 2.89 L, Mean Corpuscular Volume 95.5, Mean Corpuscular Hemoglobin 31.1, Mean Corpuscular Hemoglobin Concent 32.6, Red Cell Distribution Width 19.6 H, Calcium Level 8.4 L Microbiology Microbiology 03/14/19 Blood Culture - Preliminary, Resulted No growth after 24 hours . All specim... 03/14/19 Blood Culture - Preliminary, Resulted No growth after 24 hours . All specim... 03/15/19 Stool Occult Blood (PANFILO) - Final, Complete 03/14/19 Urine Culture - Final, Complete JESSIE RAMIRES MD Mar 16, 2019 17:08
[2019-03-16 22:00] VITALS: BP 124/58
[2019-03-17 06:00] VITALS: BP 154/66
[2019-03-17 06:21] LABS: HEMATOCRIT 28.2 % (36.0-47.0); HEMOGLOBIN 8.9 g/dl (12.0-15.5); MEAN CORPUSCULAR HEMOGLOBIN 30.6 pg (27.0-33.0); MEAN CORPUSCULAR HGB CONC 31.6 g/dl (32.0-36.5); MEAN CORPUSCULAR VOLUME 96.9 fl (80.0-96.0); RED BLOOD COUNT 2.91 10^6/uL (4.00-5.40); WHITE BLOOD COUNT 2.6 10^3/uL (4.0-10.0)
[2019-03-17 06:26] LABS: PLATELET COUNT, AUTOMATED 84 10^3/uL (150-450)
[2019-03-17 06:42] LABS: CALCIUM LEVEL 8.1 MG/DL (8.8-10.2); CREATININE FOR GFR 1.79 MG/DL (0.55-1.30); GLOMERULAR FILTRATION RATE 30.2 (>45); POTASSIUM SERUM 3.5 MEQ/L (3.5-5.1)
[2019-03-17] MEDS: ALLOPURINOL 100 MG TAB PO SCH (08:38)
[2019-03-17] MEDS: CALCIUM CARBONATE 500 MG CHEW U/D PO SCH (08:38)
[2019-03-17] MEDS: predniSONE 5 MG TAB PO SCH (08:38)
[2019-03-17] MEDS: POTASSIUM CHLORIDE 10 MEQ SR TABLET PO SCH (08:38)
[2019-03-17] MEDS: MYCOPHENOLATE MOFETIL 250 MG CAP (J7517) PO SCH (08:38)
[2019-03-17 08:39] VITALS: BP 124/57
[2019-03-17] MEDS: CARVedilol 6.25 MG TAB PO SCH (08:39)
--- NOTE | 2019-03-17 09:06 | IPN ---
DATE OF SERVICE: 03/16/2019 SUBJECTIVE: The patient was seen and examined at the bedside today morning. She is afebrile, hemodynamically stable. She is nothing by mouth at this time and getting IV fluid hydration. She got the colonoscopy prep done overnight and she is going to have the colonoscopy done today. She denies any other active complaints. OBJECTIVE: Vital signs: Temperature is 97.2 degrees Fahrenheit, blood pressure 132/67, pulse is 72, respiratory rate of 18, saturating 96% on room air. Intake and output: Urine output recorded is 1.9 liters yesterday, 300 mL so far today since overnight. Weight in the bed scale is not available. PHYSICAL EXAMINATION: General: The patient is awake, alert, oriented times three, sitting in the sofa, in no apparent distress. Head and neck exam: Extraocular muscles intact. Pupils equally round and reactive to light. Mucous membranes are moist. Neck is supple. There is no jugular venous distention (JVD). Cardiovascular: S1, S2, regular rate. Trace edema of the bilateral lower extremities. Respiratory: Chest is clear to auscultation bilaterally. Bilateral equal air entry. No rales or rhonchi. Abdomen: Soft, positive bowel sounds. Right lower quadrant renal allograft, which is nontender. Musculoskeletal: No clubbing or cyanosis. Pulses are 2+. Left upper arm arteriovenous (AV) fistula with thrill and bruit. 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 Power is 5/5 in all extremities. LAB REVIEW: CBC showed WBC of 3, hemoglobin is 9, platelets are 88. BMP showed sodium 146, potassium 3.2, chloride 105, bicarbonate 28, BUN 49, creatinine is 1.7, calcium 8.4. CURRENT INPATIENT MEDICATIONS: The patient's medications were all reviewed by me. The patient was getting normal saline at 100 mL/h. I have change the IV fluid rate to 75 mL/h for a total of 1 liter only. I have held her Lasix 40 mg by mouth twice a day because she is nothing by mouth for the procedure today. No other change in the medications today. ASSESSMENT/PLAN: 1. Symptomatic anemia. The patient got the 3 units of blood during this hospitalization. Hemoglobin level is staying close to 9. She is going to have colonoscopy done today to rule out gastrointestinal (GI) bleed. Fecal occult blood test (FOBT) test was positive. 2. Chronic kidney disease, stage IV. The patient's renal function is stable. Creatinine is down to 1.7, which is actually better than her baseline. Continue current medications. 3. Renal allograft status. Continue current dose of CellCept and prednisone. She gets belatacept infusion as outpatient every 5 weeks. 4. Chronic lower extremity edema. The patient gets Lasix 40 mg twice a day. She is nothing by mouth. Lasix is on hold for 24 hours. 5. Hypokalemia. The patient is on potassium chloride 20 mEq by mouth daily. Continue current dose. Extra dose of potassium will be given once the patient starts eating. 6. Chronic CMV viremia. Continue Valcyte 450 mg by mouth twice a week.
--- NOTE | 2019-03-17 12:38 | DS.PDOC ---
Discharge Summary General Date of Admission Mar 14, 2019 at 11:57 Date of Discharge 03/17/19 Discharge Summary PROCEDURES PERFORMED DURING STAY: Colonoscopy- Impression: - Non-bleeding internal hemorrhoids. - Diverticulosis in the recto-sigmoid colon, in the sigmoid colon and in the descending colon. - One small polyp at the ileocecal valve, removed with a jumbo cold forceps. Resected and retrieved. - The examination was otherwise normal on direct and retroflexion views. - The exam was otherwise normal to the cecum. Recommendation: - Patient has a contact number available for emergencies. The signs and symptoms of potential delayed complications were discussed with the patient. Return to normal activities tomorrow. Written discharge instructions were provided to the patient. - High fiber diet. - Continue present medications. - Return patient to hospital [facility] for ongoing care. - Repeat colonoscopy in 5 years for surveillance. - Return to referring physician. - The findings and recommendations were discussed with the patient's family. EGD- Findings: The Z-line was regular and was found 35 cm from the incisors. A small hiatal hernia was present. 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 Coagulation for bleeding prevention using argon plasma at 0.8 liters/minute and 35 jose was successful. Multiple small angioectasias without bleeding were found in the first portion of the duodenum. The exam was otherwise without abnormality. ADMITTING DIAGNOSES: 1. Symptomatic anemia 2. hx Renal transplant 3. HTN DISCHARGE DIAGNOSES: 1. Symptomatic anemia 2. hx Renal transplant 3. HTN COMPLICATIONS/CHIEF COMPLAINT: History Of Renal Transplant. HISTORY OF PRESENT ILLNESS: "64F with PMH kidney transplant on immunosupression and HTN presented to the ER with weakness and reported symptomatic anemia. Reportedly had a Hb 7 in January and received 2 units pRBC along with iron transfusion. Was sent from doctor's office to ER today, noted to have Hb 6.1 here. She reports weakness for some time now but otherwise denies any other complaints including any pain, discomfort, fever or chills. She states that she had noted some dark stool from time to time but unsure if iron is the cause of stool color changes. Does not report any rhona blood noted. Follow with chiqui espinal as well as Dr. Francisco here in [place]. " HOSPITAL COURSE: Patient with symptomatic anemia with Hb 6.1 on arrival and was transfused 2 units with appropriate response and underwent EGD/Colonoscopy with GI, Dr. Medrano. Evidence of Gastric antral vascular ectasia were noted without bleeding and was treated with Argon plasma coagulation. Multiple non-bleeding angioectasias are also noted in the duodenum on EGD. Colonoscopy showed non- bleeding internal hemorrhoids and diverticulosis with small polyp that was removed. Patient does well post op and does not note any evidence of bleed. Will discharge patient to continue f/u with PMD, nephrology as well as GI. Will need repeat endoscopy in 3 months for retreatment with GI and repeat colonoscopy again in 5 years. DISCHARGE MEDICATIONS: Please see below. ALLERGIES: Please see below. PHYSICAL EXAMINATION ON DISCHARGE: VITAL SIGNS: Please see below. General: No acute distress, Alert Eyes: Normal sclera, EOMI, RY HENT: Atraumatic, neck supple, moist mucous membranes Cardiovascular: Normal rate, normal rhythm. No murmurs appreciated. Pulmonary: Clear to auscultation b/l, no wheezing GI: Soft, nontender, nondistended Skin: Warm and dry Neuro: CN grossly intact. LABORATORY DATA: Please see below. ACTIVITY: [As tolerated]. DIET: Regular DISCHARGE PLAN: f/u PMD, nephrology and GI Need repeat Endoscopy in 3 months Repeat colonoscopy in 5 years DISPOSITION: Home. DISCHARGE INSTRUCTIONS: f/u PMD, nephrology and GI Need repeat Endoscopy in 3 months Repeat colonoscopy in 5 years ITEMS TO FOLLOWUP ON ON OUTPATIENT: None DISCHARGE CONDITION: [Stable]. TIME SPENT ON DISCHARGE: 33 minutes. Vital Signs/I&Os Vital Signs Date Time Temp Pulse Resp B/P (MAP) Pulse Ox O2 Delivery O2 Flow Rate FiO2 03/17/19 08:39 76 124/57 03/17/19 06:00 98.5 16 95 03/14/19 14:00 Room Air I&O- Last 24 Hours up to 6 AM 03/17/19 05:59 Intake Total 565 ml Output Total 800 ml Balance -235 ml Laboratory Data Labs 24H Laboratory Tests 2 03/17/19 06:05: Nucleated Red Blood Cells % (auto) 0.0, Immature Platelet Fraction 2.1, Anion Gap 10, Glomerular Filtration Rate 30.2L, Blood Urea Nitrogen 40H, Creatinine 1.79H, Sodium Level 142, Potassium Level 3.5, Chloride Level 105, Carbon Dioxide Level 27, Calcium Level 8.1L CBC/BMP Laboratory Tests 9/21/19 06:05 Red Blood Count 2.91 L, Mean Corpuscular Volume 96.9 H, Mean Corpuscular Hemoglobin 30.6, Mean Corpuscular Hemoglobin Concent 31.6 L, Red Cell Distribution Width 19.1 H, Calcium Level 8.1 L Microbiology Microbiology 03/14/19 Blood Culture - Preliminary, Resulted No Growth after 48 hours. All Specime... 03/14/19 Blood Culture - Preliminary, Resulted No Growth after 48 hours. All Specime... 03/15/19 Stool Occult Blood (PANFILO) - Final, Complete 03/14/19 Urine Culture - Final, Complete Discharge Medications Scheduled Allopurinol (Allopurinol) 100 Mg Tab, 100 MG PO DAILY, (Reported) Belatacept IV (Nulojix) 250 Mg Inj, 250 MG IV Q5WK, (Reported) Calcitriol (Calcitriol) 0.25 Mcg Cap, 0.25 MCG PO 3XW, (Reported) TAKES ON TUESDAY, TUESDAY AND TUESDAY Calcium Carbonate (Calcium) 600 Mg Tab, 600 MG PO BID, (Reported) Carvedilol (Carvedilol) 6.25 Mg Tablet, 12.5 MG PO BID, (Reported) Clonidine (Clonidine) 0.3 Mg/24 Hr Dis, 1 PATCH TD 1XWK, (Reported) WEDNESDAYS - DUE TO CHANGE 03/14/19 Furosemide (Furosemide) 40 Mg Tab, 40 MG PO BID, (Reported) Mycophenolate Mofetil (Mycophenolate Mofetil) 250 Mg Cap, 250 MG PO BID, (Reported) Potassium Chloride (Potassium Chloride) 20 Meq Tab.er.prt, 20 MEQ PO DAILY, (Reported) Prednisone (Prednisone) 10 Mg Tablet, 5 MG PO DAILY, (Reported) Valganciclovir HCl (Valcyte) 450 Mg Tab, 450 MG PO 2XW, (Reported) TUESDAY AND TUESDAY - DOSING WAS JUST CHANGED 03/13/19 Allergies Coded Allergies: No Known Allergies (Verified , 12/31/02) JESSIE RAMIRES MD Mar 17, 2019 12:38
--- NOTE | 2019-03-18 07:37 | IPN ---
DATE: 03/17/2019 Ms Kumar is seen this morning on her bedside. She is feeling much better and denies any nausea, vomiting, dyspnea or chest pain. She underwent upper and lower endoscopy yesterday and no active bleeding was noticed. 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 There was no active bleeding noticed. Colonoscopy showed nonbleeding internal hemorrhoids and diverticulosis, one small polyp at the ileocecal valve which was removed. Again, no active bleeding was noticed. PHYSICAL EXAMINATION Temperature 98.5 degrees Fahrenheit, heart rate 76 per minute and respiratory rate 16 per minute. Blood pressure 124/57 mmHg and oxygen saturation 95% on room air. Head is atraumatic. Neck is supple and without jugular venous distention (JVD) or thyroid enlargement. There is no oral thrush or ulcers. Heart: Sounds are regular and lungs clear to auscultation. Abdomen: Soft and nontender and bowel sounds are normal. Extremities: Have no edema. LABS: Today's labs show sodium 142, potassium 3.5, CO2 27, BUN 40 and creatinine 1.79. Glucose 90 and calcium 8.1. WBC count is 2.6, hemoglobin 8.9 and hematocrit 28.2. Platelets are 84,000. PROBLEMS: 1. Anemia. Her anemia has been stable since she was transfused. Upper and lower endoscopy did not show any active bleeding. 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 She may have bled from small intestine. In any event, at this point her anemia is stable and unchanged. 2. Acute renal failure superimposed on chronic kidney disease. Kidney function has improved to baseline and her volume status is well-compensated. 3. Kidney transplant status. Her kidney function is improved and she remains on chronic immunosuppressive therapy which should be continued. No changes are being made today. 4. Hypokalemia. Her potassium level is 3.5. She will be given one more dose of oral potassium chloride 20 mEq. She is now going to resume regular diet which will help to correct her electrolytes. 5. Disposition: From a renal standpoint, the patient can be discharged to home and follow up with Dr. Francisco in 1 week.
--- NOTE | 2019-03-18 08:56 | CR ---
DATE OF CONSULTATION: 03/16/2019 This is a 64-year white female who presents for evaluation of sudden onset of anemia of unknown etiology. The patient is being seen by GI for the anemia. The patient had a kidney transplant 3 years ago and is on chronic immunosuppression. She has known hypertension. The patient presented to the emergency room with weakness. She had a hemoglobin of 7 in January, received 2 units of packed cells along with an iron transfusion. She was found to have a hemoglobin of 6 in her physician's office and was to come to the emergency room. No complaints of fevers, night sweats or chills. No weight loss. No nausea or vomiting. The patient has no melena, hematochezia or bright red blood per rectum. The patient has no history of hematemesis. No complaints of melena. She did have some complaints of some episodes of dark stools, but it is unclear whether this is iron. PAST MEDICAL HISTORY: 2016 hysterectomy. Benign breast lump removal. SOCIAL HISTORY: Cigarettes, alcohol, drugs negative. REVIEW OF SYSTEMS: 10 point review of systems negative. PHYSICAL EXAMINATION: GENERAL: Well-developed, well-nourished white female in no acute distress. Appears stated age. CHEST: Clear to auscultation. CARDIOVASCULAR: Exam showed regular rhythm. No murmurs or gallops. Normal physiological split S1 and S2. ABDOMEN: Soft, nontender. No masses, guarding, rebound hepatosplenomegaly. Bowel sounds positive. Laboratory studies on admission showed a hemoglobin of 6.1, hematocrit 19.9, white count was 3400, platelets were 105,000. The patient was given 2 units of packed cells on admission. The patient's chemistry showed a creatinine of 2.26, BUN 69. The patient has a kidney transplant. IMAGING STUDIES: No imaging studies were performed on admission. ANALYSIS: Anemia of unknown etiology. At the present time, plan is to set the patient up an upper and lower endoscopy to find any possible cause for the patient's blood loss.
== END 2019-03-17 14:16 | disposition home or self-care (01) | DRG 809 ==
LOC: M ED 07:44 → M ED INP 11:57 → M MSPAV 14:15
PROVIDERS: ADMIT Student in an Organized Health Care Education/Training Program; ATTEND Student in an Organized Health Care Education/Training Program
PROC: 30233N1 Transfusion of Nonautologous Red Blood Cells into Peripheral Vein, Percutaneous Approach (ICD-10-PCS; 2019-03-14)
PROC: 0DBH8ZX Excision of Cecum, Via Natural or Artificial Opening Endoscopic, Diagnostic (ICD-10-PCS; 2019-03-16)
PROC: 0DJ08ZZ Inspection of Upper Intestinal Tract, Via Natural or Artificial Opening Endoscopic (ICD-10-PCS; principal; 2019-03-16 14:00)
DX: D61.818 Other pancytopenia (principal); Z94.0 Kidney transplant status; N18.4 Chronic kidney disease, stage 4 (severe); N25.81 Secondary hyperparathyroidism of renal origin; K57.30 Diverticulosis of large intestine without perforation or abscess without bleeding; I12.9 Hypertensive chronic kidney disease with stage 1 through stage 4 chronic kidney disease, or unspecified chronic kidney disease; K64.8 Other hemorrhoids; K44.9 Diaphragmatic hernia without obstruction or gangrene; K31.819 Angiodysplasia of stomach and duodenum without bleeding; Z79.899 Other long term (current) drug therapy; E87.6 Hypokalemia; M10.30 Gout due to renal impairment, unspecified site; B34.9 Viral infection, unspecified

== ENCOUNTER → 2019-03-29 | Outpatient (REF) | payer OTHER, MEDICARE ==
[~2019-03-29] MED LIST changes: +CARV25TA; +POTA1TAB14 PO; +PRED10TA2 PO
== END ==
LOC: M LAB REF 16:51
PROVIDERS: ATTEND Internal Medicine Nephrology
DX: N18.9 Chronic kidney disease, unspecified (principal); D63.1 Anemia in chronic kidney disease

== ENCOUNTER 2019-03-31 09:53 | Outpatient (CLI) | payer OTHER, MEDICARE ==
[~2019-03-31] VITALS: Ht 149.9 cm; Wt 64.5 kg
[~2019-03-31 09:53] MED LIST changes: +diphenhydrAMINE 25 MG CAP PO SCH
[2019-03-31 10:07] VITALS: BP 122/58
[2019-03-31] MEDS ORDERED: ACETAMINOPHEN 325 MG TAB PO ONE (11:00)
[2019-03-31] MEDS ORDERED: FUROSEMIDE 40 MG/4 ML VIAL (J1940) IV ONE (13:00)
[2019-03-31 13:12] VITALS: BP 111/56
[2019-03-31 13:25] VITALS: BP 105/53
[2019-03-31 14:25] VITALS: BP 110/54
[2019-03-31 15:10] VITALS: BP 118/56
[2019-03-31 16:10] VITALS: BP 115/56
== END 2019-03-31 16:20 | disposition home or self-care (01) ==
LOC: M OPCLI4PR 09:53 → M PED 10:00 → M OPCLI4PR 16:20
PROVIDERS: ATTEND Internal Medicine Nephrology
DX: N18.9 Chronic kidney disease, unspecified (principal); Z94.0 Kidney transplant status; D84.9 Immunodeficiency, unspecified
CPT/HCPCS: 36430; 96372; J1940; P9016

== ENCOUNTER 2019-04-03 08:18 | Outpatient (CLI) | payer OTHER, MEDICARE ==
[~2019-04-03] VITALS: Ht 149.9 cm; Wt 67.3 kg
[~2019-04-03 08:18] MED LIST changes: -CARV25TA PO; -RETA1000 SQ
[2019-04-03] MEDS ORDERED: FILTER 1.2 MICRON (ADULT TPN/MANNITOL/REMICADE) XX ONE (09:00)
[2019-04-03] MEDS ORDERED: BELATACEPT IV ONE (09:00)
[2019-04-03] MEDS ORDERED: NS IV ONE (09:00)
[2019-04-03 09:01] VITALS: BP 132/60
[2019-04-03 10:30] VITALS: BP 112/60
[2019-04-03 10:45] VITALS: BP 101/57
== END 2019-04-03 10:45 | disposition home or self-care (01) ==
LOC: M INFU 08:18
PROVIDERS: ATTEND Internal Medicine Nephrology
DX: Z94.0 Kidney transplant status (principal)
CPT/HCPCS: 96365; J0485

== ENCOUNTER → 2019-04-03 | Outpatient (CLI) | payer OTHER, MEDICARE ==
[~2019-04-03] MED LIST changes: +CARV25TA PO; +RETA1000 SQ; -diphenhydrAMINE 25 MG CAP PO SCH
[2019-04-03 09:03] LABS: APPEARANCE, URINE CLEAR (CLEAR); BACTERIA, URINE AUTO NEGATIVE (NEGATIVE); BILIRUBIN, URINE AUTO NEGATIVE (NEGATIVE); BLOOD, URINE BLOOD NEGATIVE (NEGATIVE); COLOR, URINE STRAW (YELLOW); GLUCOSE, URINE (UA) AUTO NEGATIVE (NEGATIVE); KETONE, URINE AUTO NEGATIVE (NEGATIVE); LEUKOCYTE ESTERASE, URINE AUTO NEGATIVE (NEGATIVE); NITRITE, URINE AUTO NEGATIVE (NEGATIVE); PROTEIN, URINE AUTO NEGATIVE (NEGATIVE); RBC, URINE AUTO 0 /HPF (0-3); SPECIFIC GRAVITY URINE AUTO 1.005 (1.002-1.035); SQUAMOUS EPITHELIAL CELL UR AU 0 /HPF (0-6); UROBILINOGEN, URINE AUTO 0.2 mg/dL (0.0-2.0); WBC, URINE AUTO 1 /HPF (0-3)
[2019-04-03 09:05] LABS: HEMATOCRIT 27.5 % (36.0-47.0); HEMOGLOBIN 8.8 g/dl (12.0-15.5); MEAN CORPUSCULAR HEMOGLOBIN 30.3 pg (27.0-33.0); MEAN CORPUSCULAR VOLUME 94.8 fl (80.0-96.0); PLATELET COUNT, AUTOMATED 120 10^3/uL (150-450)
[2019-04-03 09:27] LABS: CREATININE,RANDOM URINE 17.2 MG/DL; TOTAL PROTEIN,RANDOM URINE 8.6 MG/DL (0.0-12.0)
[2019-04-03 09:31] LABS: ALBUMIN 2.8 GM/DL (3.2-5.2); BILIRUBIN,DIRECT 0.3 MG/DL (0.0-0.2); BILIRUBIN,TOTAL 0.8 MG/DL (0.2-1.0); CALCIUM LEVEL 8.8 MG/DL (8.8-10.2); CREATININE FOR GFR 2.49 MG/DL (0.55-1.30); GLOMERULAR FILTRATION RATE 20.6 (>45); MAGNESIUM LEVEL 2.1 MG/DL (1.8-2.4); PHOSPHORUS LEVEL 3.7 MG/DL (2.5-4.9); POTASSIUM SERUM 3.6 MEQ/L (3.5-5.1); TOTAL PROTEIN 5.1 GM/DL (6.4-8.2)
[2019-04-03 09:44] LABS: ATYPICAL LYMPH 3 % (0-5); HYPOCHROMASIA 2+; LYMPHOCYTES 12 % (16-44); METAMYELOCYTES 6 % (0-0); MONOCYTES 12 % (0-5); MYELOCYTES 1 % (0-0); NEUTROPHILS 42 % (28-66)
[2019-04-03 09:46] LABS: ANISOCYTOSIS 1+; PLATELET ESTIMATE DECREASED (NORMAL); TEAR DROP CELLS 1+
[2019-04-06 00:06] LABS: CMV QUANT DNA PCR (PLASMA) Positive < 200 IU/mL (Negative)
== END ==
LOC: M LAB 08:23
PROVIDERS: ATTEND Internal Medicine Nephrology
DX: Z94.0 Kidney transplant status (principal); N18.5 Chronic kidney disease, stage 5; D84.9 Immunodeficiency, unspecified; Z79.899 Other long term (current) drug therapy

== ENCOUNTER 2019-04-12 15:33 | Inpatient (IN) | payer OTHER, MEDICARE ==
[~2019-04-12] VITALS: Ht 149.9 cm; Wt 63.2 kg
[2019-04-12] MEDS ORDERED: RETA1000 SQ (15:53)
[2019-04-12 16:52] LABS: MEAN CORPUSCULAR HEMOGLOBIN 29.8 pg (27.0-33.0); MEAN CORPUSCULAR VOLUME 96.3 fl (80.0-96.0); PLATELET COUNT, AUTOMATED 116 10^3/uL (150-450); RED BLOOD COUNT 1.91 10^6/uL (4.00-5.40); WHITE BLOOD COUNT 7.3 10^3/uL (4.0-10.0)
[2019-04-12 16:57] LABS: INR 1.02; PROTHROMBIN TIME 13.1 SECONDS (11.8-14.0)
[2019-04-12 16:58] LABS: PARTIAL THROMBOPLASTIN TIME 24.9 SECONDS (25.0-38.4)
[2019-04-12 17:02] LABS: HEMATOCRIT 18.4 % (36.0-47.0); HEMOGLOBIN 5.7 g/dl (12.0-15.5)
[2019-04-12 17:09] LABS: ALBUMIN 2.8 GM/DL (3.2-5.2); ALT/SGPT 34 U/L (12-78); BILIRUBIN,DIRECT 0.2 MG/DL (0.0-0.2); BILIRUBIN,TOTAL 0.7 MG/DL (0.2-1.0); BLOOD UREA NITROGEN 100 MG/DL (7-18); CALCIUM LEVEL 8.1 MG/DL (8.8-10.2); CARBON DIOXIDE LEVEL 27 MEQ/L (21-32); CHLORIDE LEVEL 104 MEQ/L (98-107); CK-MB VALUE MASS < 1.0 NG/ML (<3.6); CPK CREATINE PHOSPHOKINASE 57 U/L (26-192); CREATININE FOR GFR 2.48 MG/DL (0.55-1.30); GLOMERULAR FILTRATION RATE 20.7 (>45); GLUCOSE, FASTING 115 MG/DL (70-100); LIPASE 488 U/L (73-393); MB/CK RELATIVE INDEX 1.75 (< OR =4); SODIUM LEVEL 140 MEQ/L (136-145); TOTAL PROTEIN 4.8 GM/DL (6.4-8.2); TROPONIN I < 0.02 NG/ML (< 0.10)
--- NOTE | 2019-04-12 17:15 | REP ---
Single view chest: 04/12/2019. Indication: Anemia. Comparison: 08/02/2018. Findings: The lungs are clear. There is no pleural effusion or pneumothorax. Borderline prominent heart size is noted. The mediastinum is unremarkable. Impression: No acute cardiopulmonary process. Electronically Signed by Caesar Shannon DO 04/12/2019 05:06 P
[2019-04-12 17:31] LABS: ATYPICAL LYMPH 1 % (0-5); BASOPHILS 1 % (0-1); LYMPHOCYTES 14 % (16-44); METAMYELOCYTES 2 % (0-0); MYELOCYTES 2 % (0-0); NEUTROPHILS 72 % (28-66)
[2019-04-12 17:32] LABS: ANISOCYTOSIS 1+; HYPOCHROMASIA 1+
[2019-04-12 17:33] LABS: POIKILOCYTOSIS 1+; SCHISTOCYTES 1+
[2019-04-12 17:34] LABS: TEAR DROP CELLS 1+
[2019-04-12 17:35] LABS: PLATELET ESTIMATE DECREASED (NORMAL)
[2019-04-12 18:55] VITALS: BP 158/72
[2019-04-12] MEDS ORDERED: FURO20TA2 PO (18:58)
[2019-04-12] MEDS ORDERED: CARV25TA PO (18:58)
[2019-04-12 19:10] VITALS: BP 149/67
--- NOTE | 2019-04-12 19:32 | HPEPDOC ---
[facility] Medical History & Physical Date of Admission Apr 12, 2019 Date of Service: Apr 12, 2019 History and Physical CHIEF COMPLAINT: Dizziness HISTORY OF PRESENT ILLNESS: Ms. Kumar is a 64-year-old female with a past medical history significant for kidney transplant and hypertension who presented to the ED with the chief complaint of intermittent dizziness secondary to anemia. She states she was at her dye house hand office where her hemoglobin was noted to be low and she was told to present to the ER. Upon admission to the ER, her hemoglobin was noted to be 5.7 and her hematocrit 18.4. She states she has been intermittently dizzy, lightheaded, and fatigued in the past week or two. She has a recent history of very similar presentation and was admitted on 03/14/2019 to [facility] where she received RBC transfusion. She denies any loss of consciousness, headache, seizure. She admits to having dark tarry stools since the end of January. Upon admission to the ER, she also presents with hypertension. She states in the past 2 days she has been hypotensive contrary to her usual hypertensive state and that she has not been taking her hypertensive medication as result. She admits to constipation in the past few weeks, but does state that she had a small bowel movement this morning. 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 Tobacco use: No, Never ETOH: Denies Illicit drug use: Denies IV drug use: Denies Other relevant social factors:. Home well water recently found positive for Escherichia coli. Lives with black lab dog. FAMILY HISTORY: Father: Alcoholism, tobacco usage, from aneurysm likely aortic but patient unsure Mother: , pneumonia Siblings: Half brother recently diagnosed with Parkinson's, another brother uses a colostomy/ileostomy. However, patient is unsure why. ALLERGIES: Please see below. REVIEW OF SYSTEMS: CONSTITUTIONAL: No recent fevers or chills, weight loss. HEENT: No vision or hearing changes, pharyngitis CARDIOVASCULAR: Admits to occasional pounding heartbeat. Admits to cardiac murmur. Admits to recently stopping her hypertension medication over the past 2 days because she was hypotensive. Denies chest pain, RESPIRATORY: Denies cough, shortness of breath, pleuritic chest pain, recent respiratory infection GASTROINTESTINAL: Admits to dark color stools since January 2019. Admits to possible constipation with small hard stools recently. Denies abdominal pain, na usea, vomiting, tenderness to palpation, bruising. GENITOURINARY: Denies recent dysuria, polyuria, oliguria. Denies change in urine color. MUSCULOSKELETAL: Denies recent muscle strength deficits NEUROLOGICAL: Admits to lightheadedness and does occasional dizziness. Denies focal deficits, denies loss of consciousness, loss of sensation., Alert and aware 3 PSYCHIATRIC: Patient good spirits cooperative to exam. HOME MEDICATIONS: Please see below. PHYSICAL EXAMINATION: VITAL SIGNS: See below GENERAL APPEARANCE: Patient is a well-nourished female lying in her bed in good spirits and cooperative to exam. In no apparent distress. HEENT: Atraumatic, no appreciable lymphadenopathy, good dentition, no plaques or ulcers seen on oral exam. Conjunctival pallor noted. CARDIOVASCULAR: Grade 2/6 systolic murmur heard upon exam. Regular rhythm, tachycardia LUNGS: Lungs clear to auscultation bilaterally. ABDOMEN: Splenomegaly noted. No tenderness to palpation, bruising, distention noted. Kidney transplant scar noted on right abdomen MUSCULOSKELETAL: 5 out of 5 strength noted in all 4 extremities EXTREMITIES: +2 pitting edema noted bilaterally in her lower extremities. No rashes, scars, calf tenderness noted. Capillary refill 3-4 seconds. LABORATORY DATA: See below. IMAGING: CXR 04/12: negative MICROBIOLOGY: Please see below. ASSESSMENT: Patient is a 64-year-old female with past medical history sufficient for hypertension as well as kidney transplant presents with symptomatic anemia. Her chief complaint is intermittent dizziness with fatigue, lightheadedness noted in the past week or 2. She was admitted in February of this year for very similar presentation and was treated with RBC transfusions. Upon admission she was found to be severely anemic with a hemoglobin of 5.7, hematocrit 18.4. Chest x-ray was negative upon admission. She admits to having dark colored stools since January 2019. PLAN: 1. Symptomatic anemia: -Pt has been intermittently dizzy, fatigued, and lightheaded -Hb 5.7 -HCT 18.4 -Pt recieved 1 unit pRBCs in ER and will receive another on the floor -Remain NPO -GI consult ordered for the morning -H&H ordered Q6 -CXR negative #HTN: -BP 158/69 on admission -Patient admits to not taking her bp medication over the past few days -Continue home meds #Hx of Kidney transplant: -Cr is 2.48. Patients baseline is between 1.7-2 -Continue home immunosuppression and antiviral prophylaxis -Continue Potassium and allopurinol #DVT prophylaxis: -TEDs and Sequentials ordered I performed a history and physical examination of the patient and discussed their management with the above documenter. I reviewed the note and agree with the documented findings and plan of care. Vital Signs Vital Signs Date Time Temp Pulse Resp B/P (MAP) Pulse Ox O2 Delivery O2 Flow Rate FiO2 04/12/19 18:30 171/74 (106) 04/12/19 18:18 78 98 04/12/19 15:34 98.4 20 Room Air Laboratory Data Labs 24H Laboratory Tests 2 04/12/19 16:23: Immature Granulocyte % (Auto) , Nucleated Red Blood Cells % (auto) 0.0, Neutrophils 72H, Band Neutrophils 8, Lymphocytes (Manual) 14L, Basophils (Manual) 1, Metamyelocytes 2H, Myelocytes 2H, Atypical Lymphocytes 1, Hypochromasia 1+, Poikilocytosis 1+, Anisocytosis 1+, Schistocytes 1+, Tear Drop Cells 1+, Platelet Estimate DECREASED, Prothrombin Time 13.1, Prothromb Time International Ratio 1.02, Activated Partial Thromboplast Time 24.9L, Anion Gap 9, Glomerular Filtration Rate 20.7L, Calcium Level 8.1L, Total Bilirubin 0.7, Direct Bilirubin 0.2, Aspartate Amino Transf (AST/SGOT) 50H, Alanine Aminotransferase (ALT/SGPT) 34, Alkaline Phosphatase 143H, Total Creatine Kinase 57, Creatine Kinase MB < 1.0, Creatine Kinase MB Relative Index 1.75, Troponin I < 0.02, Total Protein 4.8L, Albumin 2.8L, Albumin/Globulin Ratio 1.40, Lipase 488H 04/12/19 17:15: Lactic Acid Level 1.5 CBC/BMP Laboratory Tests 04/12/19 16:23 Home Medications Scheduled Allopurinol (Allopurinol) 100 Mg Tab, 100 MG PO DAILY Belatacept IV (Nulojix) 250 Mg Inj, 250 MG IV Q5WK Calcitriol (Calcitriol) 0.25 Mcg Cap, 0.25 MCG PO 3XW TAKES ON TUESDAY, TUESDAY AND TUESDAY Calcium Carbonate (Calcium) 600 Mg Tab, 600 MG PO BID Carvedilol (Carvedilol) 25 Mg Tablet, 25 MG PO BID Clonidine (Clonidine) 0.3 Mg/24 Hr Dis, 1 PATCH TD 1XWK WEDNESDAYS. TOOK IT OFF TUESDAY BECAUSE OF LOW BP HASN'T REAPPLIED PATCH Epoetin Murphy-Epbx (Retacrit) 10,000 Unit/1 Ml Vial, 2 ML SQ Q2WK HASN'T STARTED THERAPY YET HER INSURANCE IS STILL IN PROCESS OF AUTHORIZING IT Furosemide (Furosemide) 20 Mg Tablet, 40 MG PO BID Mycophenolate Mofetil (Mycophenolate Mofetil) 250 Mg Cap, 250 MG PO BID Potassium Chloride (Potassium Chloride) 20 Meq Tab.er.prt, 20 MEQ PO DAILY Prednisone (Prednisone) 10 Mg Tablet, 5 MG PO DAILY Valganciclovir HCl (Valcyte) 450 Mg Tab, 450 MG PO 2XW TUESDAY AND TUESDAY - DOSING WAS JUST CHANGED 03/13/19 Allergies Coded Allergies: No Known Allergies (Verified , 12/31/02) A-FIB/CHADSVASC A-FIB History Current/History of A-Fib/PAF?: No Current PO Anticoag Therapy: No SCOTT BECERRA OMS-3 Apr 12, 2019 19:31 EARNEST NEWBY MD Apr 13, 2019 13:12
[2019-04-12 21:15] VITALS: BP 171/75
[2019-04-12] MEDS ORDERED: SLF 3 ML SYR IV PRN (21:45)
[2019-04-12] MEDS: FUROSEMIDE 40 MG TAB PO SCH (21:51)
[2019-04-12] MEDS: CARVedilol 12.5 MG TAB PO SCH (21:52)
[2019-04-12 22:18] VITALS: BP 137/64
[2019-04-12] MEDS: MYCOPHENOLATE MOFETIL 250 MG CAP (J7517) PO SCH (22:25)
[2019-04-12] MEDS: SLF 3 ML SYR IV SCH (22:25)
[2019-04-12 22:38] VITALS: BP 131/63
[2019-04-12 23:23] VITALS: BP 137/65
[2019-04-13] VITALS (13 sets, daily range): BP systolic 122–174; BP diastolic 58–79
[2019-04-13 01:07] LABS: HEMATOCRIT 21.8 % (36.0-47.0); HEMOGLOBIN 7.2 g/dl (12.0-15.5)
[2019-04-13 05:43] LABS: HEMOGLOBIN 7.3 g/dl (12.0-15.5); MEAN CORPUSCULAR HEMOGLOBIN 30.5 pg (27.0-33.0); MEAN CORPUSCULAR HGB CONC 33.2 g/dl (32.0-36.5); MEAN CORPUSCULAR VOLUME 92.1 fl (80.0-96.0); RED BLOOD COUNT 2.39 10^6/uL (4.00-5.40); WHITE BLOOD COUNT 5.6 10^3/uL (4.0-10.0)
[2019-04-13 05:46] LABS: PLATELET COUNT, AUTOMATED 86 10^3/uL (150-450)
[2019-04-13 06:19] LABS: ALBUMIN 2.4 GM/DL (3.2-5.2); BILIRUBIN,TOTAL 1.1 MG/DL (0.2-1.0); CALCIUM LEVEL 7.6 MG/DL (8.8-10.2); CREATININE FOR GFR 2.21 MG/DL (0.55-1.30); GLOMERULAR FILTRATION RATE 23.6 (>45); POTASSIUM SERUM 3.4 MEQ/L (3.5-5.1); TOTAL PROTEIN 4.6 GM/DL (6.4-8.2)
[2019-04-13] MEDS: SLF 3 ML SYR IV SCH ×3 (06:37→20:46)
[2019-04-13] MEDS: CARVedilol 12.5 MG TAB PO SCH ×2 (08:16→20:46)
[2019-04-13] MEDS: MYCOPHENOLATE MOFETIL 250 MG CAP (J7517) PO SCH ×2 (08:16→20:46)
[2019-04-13] MEDS: ALLOPURINOL 100 MG TAB PO SCH (08:17)
[2019-04-13] MEDS: POTASSIUM CHLORIDE 10 MEQ SR TABLET PO SCH (08:17)
[2019-04-13] MEDS: predniSONE 5 MG TAB PO SCH (08:17)
[2019-04-13] MEDS: FUROSEMIDE 40 MG TAB PO SCH ×2 (08:17→20:46)
[2019-04-13] MEDS ORDERED: DARBEPOETIN 100 MCG/0.5 ML *NON-DIALYSIS* SYRINGE (J0881) SC SCH (09:00)
[2019-04-13] MEDS ORDERED: ValGANciclovir HYDROCHLORIDE 450MG TABLET PO SCH (09:00)
[2019-04-13] MEDS ORDERED: CALCITRIOL 0.25 MCG CAP (S0169) PO SCH (09:00)
[2019-04-13] MEDS ORDERED: cloNIDine HCL 0.3 MG/24 HR PATCH TD SCH (09:00)
--- NOTE | 2019-04-13 09:51 | IPNPDOC ---
Date Seen The patient was seen on 04/13/19. Progress Note SUBJECTIVE: Patient was interviewed and examined in her hospital room this morning. Patient was found to be seated at her bedside in no acute distress. Patient denies any difficulty overnight. She reports improvement in her lightheadedness. She reports overall feeling back to baseline following her blood transfusions. She denies any bloody or dark tarry bowel movements. No hemoptysis, nausea or vomiting. She does not many pain. She denies any acute complaints. OBJECTIVE PHYSICAL EXAMINATION: VITAL SIGNS: Please see below. GENERAL APPEARANCE: Patient is a well-nourished female lying in her bed in good spirits and cooperative to exam. In no apparent distress. HEENT: Atraumatic, no appreciable lymphadenopathy, EOMI, sclera nonicteric, good oral hygiene, conjunctival pallor noted, though improved from yesterday's examination. CARDIOVASCULAR: Grade 2/6 systolic murmur heard upon exam, radiation to left carotid. Regular rate and rhythm LUNGS: Lungs clear to auscultation bilaterally. No wheezes rales or rhonchi ABDOMEN: No tenderness to palpation, bruising, distention noted. Kidney transplant scar noted on lower right abdomen MUSCULOSKELETAL: 5 out of 5 strength noted in all 4 extremities EXTREMITIES: +2 pitting edema noted bilaterally in her lower extremities. No rashes, scars, calf tenderness noted. Capillary refill 2-3 seconds. LABORATORY DATA: Please see below IMAGING STUDIES: Chest x-ray (04/12/19): No acute cardiopulmonary process. ASSESSMENT AND PLAN: Patient is a 64-year-old female with past medical history sufficient for hypertension as well as kidney transplant presents with symptomatic anemia. Her chief complaint is intermittent dizziness with fatigue, lightheadedness noted in the past week or 2. She was admitted in February of this year for very similar presentation and was treated with RBC transfusions. Upon admission she was found to be severely anemic with a hemoglobin of 5.7, hematocrit 18.4. Chest x-ray was negative upon admission. She admits to having dark colored stools since February 2019. Patient was given 2 units of packed cells overnight. Morning H&H demonstrates improvement to 7.3/22. Both GI and nephrology are consulted. PROBLEMS: #Symptomatic anemia: Patient presented to Hospital complaining of intermittent fatigue and dizziness. Admission H&H of 5.7/18.4. Patient did receive 2 units of packed cells overnight. Morning H&H of 7.3/22. Continue to follow with H&H. Patient reports that her symptoms have resolved. She has not had any bloody bowel movements though, on admission she did admit to dark, tarry-like stools since her last hospitalization at the end of February. GI has been consulted and is following the patient. We greatly appreciate their assistance in management. Patient remains nothing by mouth pending GI consultation. #Hypertension Plan admission patient's blood pressure is 150/69. She states that she had not taken her blood pressure medication the morning of admission nor has she that day prior given that her home blood pressure measurements were running on the low side. Patient's home medications were continued Blood pressure morning of 04/13 of 127/61 (83) #History of kidney transplant. Patient has an admission creatinine of 2.48. Baseline per medical record of 2.2. Cr has improved to 2.21 Plan to continue home immunosuppression and anti-viral prophylaxis. Nephrology has been consulted and we appreciate their assistance in management of this patient. #Hypokalemia Patient was noted to have a potassium of 3.4 this morning, down from 4.0 on admission. Repleted with oral potassium DISPOSITION: Pending improvement in H&H and management per GI DVT Prophylaxis: Teds and sequentials VS, I&O, 24H, Fishbone Vital Signs/I&O Vital Signs Date Time Temp Pulse Resp B/P (MAP) Pulse Ox O2 Delivery O2 Flow Rate FiO2 04/13/19 08:16 69 130/70 04/13/19 08:00 97.9 18 97 Room Air I&O- Last 24 Hours up to 6 AM 04/13/19 06:00 Intake Total 1049 ml Output Total 900 ml Balance 149 ml Laboratory Data 24H LABS Laboratory Tests 2 04/12/19 16:23: Immature Granulocyte % (Auto) , Nucleated Red Blood Cells % (auto) 0.0, Neutrophils 72H, Band Neutrophils 8, Lymphocytes (Manual) 14L, Basophils (Manual) 1, Metamyelocytes 2H, Myelocytes 2H, Atypical Lymphocytes 1, Hypochromasia 1+, Poikilocytosis 1+, Anisocytosis 1+, Schistocytes 1+, Tear Drop Cells 1+, Platelet Estimate DECREASED, Prothrombin Time 13.1, Prothromb Time International Ratio 1.02, Activated Partial Thromboplast Time 24.9L, Anion Gap 9, Glomerular Filtration Rate 20.7L, Calcium Level 8.1L, Total Bilirubin 0.7, Direct Bilirubin 0.2, Aspartate Amino Transf (AST/SGOT) 50H, Alanine Aminotransferase (ALT/SGPT) 34, Alkaline Phosphatase 143H, Total Creatine Kinase 57, Creatine Kinase MB < 1.0, Creatine Kinase MB Relative Index 1.75, Troponin I < 0.02, Total Protein 4.8L, Albumin 2.8L, Albumin/Globulin Ratio 1.40, Lipase 488H 04/12/19 17:15: Lactic Acid Level 1.5 04/13/19 05:24: Nucleated Red Blood Cells % (auto) 0.0, Anion Gap 6L, Glomerular Filtration Rate 23.6L, Calcium Level 7.6L, Total Bilirubin 1.1#H, Aspartate Amino Transf (AST/SGOT) 42H, Alanine Aminotransferase (ALT/SGPT) 27, Alkaline Phosphatase 113, Total Protein 4.6L, Albumin 2.4L, Albumin/Globulin Ratio 1.09, Immature Platelet Fraction 1.9 CBC/BMP Laboratory Tests 04/12/19 16:23 04/13/19 01:00 04/13/19 05:24 GME ATTESTATION GME ATTESTATION I saw and evaluated the patient. I agree with the findings and plan of care as documented in the above note JUAN GUILLAUME DO Apr 13, 2019 09:51 EARNEST NEWBY MD Apr 15, 2019 14:50
[2019-04-13] MEDS ORDERED: POTASSIUM CHLORIDE 10 MEQ SR TABLET PO ONE ×2 (10:00→10:45)
[2019-04-13] MEDS ORDERED: FUROSEMIDE 40 MG/4 ML VIAL (J1940) IV ONE (10:45)
[2019-04-13 12:03] LABS: HEMATOCRIT 24.1 % (36.0-47.0); HEMOGLOBIN 7.9 g/dl (12.0-15.5)
--- NOTE | 2019-04-13 12:04 | CR ---
DATE OF CONSULTATION: 04/13/2019 REQUESTING PHYSICIAN: Dr. Taylor Reinoso CONSULTING PHYSICIAN: Dr. Francisco REASON FOR CONSULTATION: Management of transplant immunosuppression and chronic kidney disease stage IV. CHIEF COMPLAINT: The patient was sent from the nephrology office yesterday because of severe symptomatic anemia. HISTORY OF PRESENT ILLNESS: Chacha Kumar is a 64-year-old female with past medical history of chronic kidney disease stage IV, baseline creatinine close to 2, history of donor kidney transplant, hypertension, recurrent anemia, chronic CMV viremia, multiple other comorbidities as mentioned below. She was seen in the nephrology office yesterday and labs done in the office showed that her hemoglobin was 5.7. The patient was feeling very dizzy, lightheaded and weak. She stopped taking her antihypertensive medications before she was seen in the office. She reported that after stopping her medications she felt slightly better. However, because of critically low hemoglobin level she was sent to the emergency room. The patient was admitted under the hospitalist service last night. She was started on blood transfusions. She already had the workup of possible GI bleeding including EGD and colonoscopy during a previous hospitalization which could not localize any active bleeding. The patient is being worked up again for possible upper GI bleeding. Nephrology service was called for further help in the management of this patient with chronic kidney disease stage IV, hypertension and renal allograft status. I saw and evaluated the patient today morning at the bedside. She reports that she is feeling slightly better today as compared with yesterday. She did report possible melena at home. Fecal occult blood testing result is still pending. PAST MEDICAL HISTORY: History of renal allograft status. Hypertension. Chronic kidney disease stage IV. Lower extremity edema. Secondary hyperparathyroidism. Chronic CMV viremia. History of recurrent anemia requiring Procrit in the past, but recent Procrit has not been approved so far by the insurance. PAST SURGICAL HISTORY: Status post donor kidney transplant in 2016. Status post left upper arm AV fistula placement. Status post hysterectomy. History of benign breast lump removal. History of EGD and colonoscopy during a previous hospitalization a few weeks ago. ALLERGIES: No known drug allergies. FAMILY HISTORY: No significant family history of end-stage renal disease requiring hemodialysis. SOCIAL HISTORY: The patient works at [employer]. she denies any smoking, illicit drug abuse or alcohol abuse. She lives alone. Her few years ago. REVIEW OF SYSTEMS: CONSTITUTIONAL: The patient reported feeling weak and tired when she was seen in the office yesterday. EYES: She denies any blurry vision, double vision. ENT: She denies any dysphagia, odynophagia, ear discharge. CARDIOVASCULAR: She denies any chest pain or palpitations. RESPIRATORY: She reports that shortness of breath on mild exertion. GASTROINTESTINAL (GI): She denies any nausea, vomiting. She does report melena. GENITOURINARY: She denies any dysuria or hematuria. MUSCULOSKELETAL: She denies any muscle aches and pains, but she does report feeling a muscle weakness. FIELD TECHNICAL SPECIALIST: She denies any strokes, seizures or dizziness. SKIN: She denies any rashes or ulcers. HEMATOLOGY/ONCOLOGY: She denies any easy bleeding or bruising. ENDOCRINE: She reports secondary hyperparathyroidism. All other review of systems is negative. PHYSICAL EXAMINATION: GENERAL: The patient is awake, alert, oriented times three, laying in bed in no apparent distress. VITAL SIGNS: Temperature is 97.9 degrees Fahrenheit, blood pressure 134/63, pulse 72, respiratory of 18, saturating 97% on room air. HEAD AND NECK EXAM: Extraocular muscles intact. Pupils equally round and reactive to light. She has conjunctival pallor. Mucous membranes are moist. Neck is supple. There is mildly elevated JVD. CARDIOVASCULAR: S1, S2 regular rate. 1+ edema of the bilateral lower extremities. RESPIRATORY: Mildly decreased breath sounds at the bases, mild inspiratory crackles at the bases bilaterally. ABDOMEN: Soft, positive bowel sounds. Renal allograft is nontender with no bruit. MUSCULOSKELETAL: No clubbing or cyanosis. Pulses are 2+. FIELD TECHNICAL SPECIALIST: No focal deficit. Power is 5/5 in all extremities. PSYCH: Normal mood and affect. LAB REVIEW: CBC showed hemoglobin of 85.7 on arrival. Today morning CBC showed WBC 5.6, hemoglobin 7.3, platelets of 86. INR was 1.02. BMP done today morning showed sodium 142, potassium 3.4, chloride 107, bicarb 29, BUN 93, creatinine 2.2, calcium 7.6, total bilirubin 1.1, albumin is 2.4. IMAGING: A chest x-ray was done yesterday which showed no acute cardiopulmonary process. CURRENT INPATIENT MEDICATIONS: The patient's medications were all reviewed by me. She is currently getting: - allopurinol 100 mg daily - calcitriol 0.25 mcg p.o. Tuesday, Tuesday, Tuesday - Coreg 25 mg p.o. twice a day - clonidine patch 0.3 mg once a week - Lasix 40 mg p.o. twice a day - CellCept 250 mg p.o. twice a day - potassium chloride 20 mEq p.o. daily - prednisone 5 mg p.o. daily - Valcyte 450 mg p.o. Tuesday and Tuesday ASSESSMENT: 64-year-old female with chronic kidney disease stage IV, history of renal allograft status since 2016, chronic CMV viremia, hypertension admitted this time with symptomatic anemia. PLAN: 1. Severe symptomatic anemia. The patient recently got EGD and colonoscopy done. EGD showed vascular ectasias in the gastric antrum and in the duodenum. Most likely the patient might be having upper GI bleeding. She is getting packed red blood cells (PRBC) transfusion. She has received 2 units of PRBC transfusion so far. She is n.p.o. and if needed she might need another EGD done. 2. Renal allograft status. The patient gets belatacept infusion as outpatient every 5 weeks and she continues to be on CellCept and prednisone which can be continued during this hospitalization. 3. Hypertension with a chronic kidney disease. The patient's blood pressures were low at home and because of that she was holding her blood pressure medications. She can resume her home dose of clonidine and carvedilol. 4. Lower extremity edema. Continue home dose of Lasix 40 mg p.o. twice a day. Because of the blood transfusion I have ordered one dose of Lasix 40 mg IV x1 dose as well. 5. History of gout secondary to chronic kidney disease. Continue current dose of allopurinol 100 cm p.o. daily. 6. Secondary hyperparathyroidism. Continue home dose of calcitriol 0.25 mcg p.o. Tuesday, Tuesday, Tuesday. 7. Chronic CMV viremia. Continue Valcyte 450 mg p.o. Tuesday, Tuesday, Tuesday. 8. Hypokalemia. The patient was given an extra dose of her potassium chloride 40 mEq p.o. today in the afternoon. Thank you for involving me in the in the care of this patient. I shall be happy to follow the patient along with you tomorrow morning.
--- NOTE | 2019-04-13 19:38 | ECGEPIP ---
[facility] - ED Test Date: 2019-04-12 Pat Name: ELENO GUTIERREZ Department: Room: - Gender: Female Relationship Executive: SHANT : 1955 Requested By: Juan Green Order Number: [id number] Reading MD: Juan Green Measurements Intervals Pitcher Rate: 69 P: 50 OR: 179 QRS: 24 QRSD: 94 T: 24 QT: 422 QTc: 454 Interpretive Statements SINUS RHYTHM POSSIBLE RIGHT VENTRICULAR CONDUCTION DELAY NONSPECIFIC ST T WAVE CHANGES CW 08/01/[address] T WAVE CHANGES Electronically Signed on 04-13-2019 19:37:58 EDT by Juan Green
[2019-04-14 04:00] VITALS: BP 148/69
[2019-04-14 05:27] LABS: HEMATOCRIT 29.3 % (36.0-47.0); MEAN CORPUSCULAR HEMOGLOBIN 30.7 pg (27.0-33.0); MEAN CORPUSCULAR HGB CONC 34.1 g/dl (32.0-36.5); MEAN CORPUSCULAR VOLUME 89.9 fl (80.0-96.0); RED BLOOD COUNT 3.26 10^6/uL (4.00-5.40); WHITE BLOOD COUNT 5.8 10^3/uL (4.0-10.0)
[2019-04-14] MEDS: SLF 3 ML SYR IV SCH ×3 (05:28→20:35)
[2019-04-14 05:29] LABS: PLATELET COUNT, AUTOMATED 87 10^3/uL (150-450)
[2019-04-14 05:49] LABS: ALBUMIN 2.7 GM/DL (3.2-5.2); BILIRUBIN,TOTAL 1.1 MG/DL (0.2-1.0); CALCIUM LEVEL 7.9 MG/DL (8.8-10.2); CREATININE FOR GFR 2.15 MG/DL (0.55-1.30); GLOMERULAR FILTRATION RATE 24.4 (>45); PHOSPHORUS LEVEL 4.5 MG/DL (2.5-4.9); POTASSIUM SERUM 3.2 MEQ/L (3.5-5.1); TOTAL PROTEIN 4.9 GM/DL (6.4-8.2)
[2019-04-14] MEDS: SUCRALFATE 1 GM TAB PO SCH ×3 (07:30→17:42)
[2019-04-14 07:47] LABS: MAGNESIUM LEVEL 2.3 MG/DL (1.8-2.4)
[2019-04-14] MEDS ORDERED: POTASSIUM CHLORIDE 10 MEQ SR TABLET PO ONE (08:00)
[2019-04-14] MEDS ORDERED: DESFLURANE 240 ML INHALANT As Ordered ONE (09:45)
[2019-04-14] MEDS ORDERED: LIDOCAINE 2% INJ 100 MG/5 ML SDV (FOR ANES.) As Ordered ONE (09:45)
[2019-04-14] MEDS ORDERED: dexameTHASONE 4 MG/ML 1ML VIAL (J1100) As Ordered ONE (09:45)
[2019-04-14] MEDS ORDERED: SEVOFLURANE INHAL SOLN 250 ML BTL As Ordered ONE (09:45)
[2019-04-14] MEDS ORDERED: SUCCINYLCHOLINE 100 MG/5 ML SYRINGE (J0330) As Ordered ONE (09:45)
[2019-04-14] MEDS ORDERED: ROCURONIUM BROMIDE 50 MG/5 ML VIAL As Ordered ONE (09:45)
[2019-04-14] MEDS ORDERED: MIDAZOLAM INJ 2 MG/2 ML VIAL (J2250) As Ordered ONE (09:45)
[2019-04-14] MEDS ORDERED: PROPOFOL 200 MG/20 ML VIAL As Ordered ONE (09:45)
[2019-04-14] MEDS ORDERED: fentaNYL 100 MCG/2 ML INJECTION (J3010) As Ordered ONE (09:45)
[2019-04-14] MEDS ORDERED: ONDANSETRON 4MG/2ML VIAL (J2405) As Ordered ONE (09:45)
[2019-04-14 10:40] VITALS: BP 171/71
[2019-04-14] MEDS: ALLOPURINOL 100 MG TAB PO SCH (10:42)
[2019-04-14] MEDS: predniSONE 5 MG TAB PO SCH (10:42)
[2019-04-14] MEDS: FUROSEMIDE 40 MG TAB PO SCH ×2 (10:42→17:42)
[2019-04-14] MEDS: MYCOPHENOLATE MOFETIL 250 MG CAP (J7517) PO SCH ×2 (10:42→20:34)
[2019-04-14] MEDS: CARVedilol 12.5 MG TAB PO SCH ×2 (10:43→20:35)
[2019-04-14] MEDS: POTASSIUM CHLORIDE 10 MEQ SR TABLET PO SCH (10:43)
--- NOTE | 2019-04-14 11:01 | ROOR ---
Patient Name: Chacha Kumar Procedure Date: 04/14/2019 10:12 AM Date of : 1955 Age: 64 Room: Main OR Gender: Female Note Status: Finalized Procedure: Egd + Apc Indications: Iron deficiency anemia, Melena Providers: Abram Medrano MD Referring MD: 2. Inpatient 2. Inpatient Requesting Provider: Medicines: General Anesthesia Complications: No immediate complications. Procedure: Pre-Anesthesia Assessment: - The heart rate, respiratory rate, oxygen saturations, blood pressure, adequacy of pulmonary ventilation, and response to care were monitored throughout the procedure. The Endoscope was introduced through the mouth, and advanced to the second part of duodenum. The upper GI endoscopy was accomplished without difficulty. The patient tolerated the procedure well. Findings: The Z-line was irregular and was found 35 cm from the incisors. Multiple small angioectasias with no bleeding were found in the gastric antrum. Coagulation for bleeding prevention using argon plasma at 1 liter/minute and 35 jose was successful. Multiple small angioectasias without bleeding were found in the duodenal bulb, in the first portion of the duodenum and in the second portion of the duodenum. Coagulation for bleeding prevention using argon plasma at 1 liter/minute and 35 jose was successful. The exam was otherwise without abnormality. Impression: - Z-line irregular, 35 cm from the incisors. - Multiple non-bleeding angioectasias in the stomach. Treated with argon plasma coagulation (APC). - Multiple non-bleeding angioectasias in the duodenum. Treated with argon plasma coagulation (APC). - The examination was otherwise normal. - No specimens collected. - The examination was otherwise normal. Recommendation: - Patient has a contact number available for emergencies. The signs and symptoms of potential delayed complications were discussed with the patient. Return to normal activities tomorrow. Written discharge instructions were provided to the patient. - High fiber diet. - Discharge patient to home. - Continue present medications. - Return patient to hospital mak for ongoing care. - The findings and recommendations were discussed with the patient and their primary physician. Abram Medrano MD Abram Medrano MD 04/14/2019 11:00:41 AM Electronically signed by Abram Medrano MD Number of Addenda: 0 Note Initiated On: 04/14/2019 10:12 AM Estimated Blood Loss: Estimated blood loss: none.
[2019-04-14 12:00] VITALS: BP 163/71
--- NOTE | 2019-04-14 13:44 | IPN ---
DATE OF SERVICE: 04/14/2019 SUBJECTIVE: The patient was seen and examined at the bedside. She was coming back after getting the esophagogastroduodenoscopy (EGD) done. She was found to multiple vascular telangiectasias. Some of them were cauterized. She has received 4 units of packed red blood cell (PRBC) transfusion so far. Hemoglobin level has improved to 10 today. Renal function stayed stable, creatinine is down to 2.1. The patient denies any active complaints at this time. OBJECTIVE: Vital Signs: Temperature is 98.5 degrees Fahrenheit, blood pressure 138/64, pulse is 68, respiratory rate of 16, saturating 98% on 2 liters by nasal cannula. Intake and Output: Urine output recorded as 3.4 liters yesterday and 400 mL so far today since overnight. Weight in the bed scale is 63.5 kg. PHYSICAL EXAMINATION: General: The patient is awake, alert, oriented times three, laying in bed, in no apparent distress. Head and Neck Exam: Extraocular muscles intact. Pupils equally round and reactive to light. Mucous membranes are moist. Neck is supple. There is no jugular venous distention (JVD). Cardiovascular: S1 and S2, regular rate. Trace edema of the bilateral lower extremities. Left upper arm AV fistula with thrill and bruit. Respiratory: Chest is clear to auscultation bilaterally. Bilateral equal air entry. No rales or rhonchi. Abdomen: Soft. Positive bowel sounds. Renal allograft is nontender. Musculoskeletal: No clubbing or cyanosis. Pulses are 2+. PUTTY MIXER AND APPLIER: No focal deficit. Power is 5/5 in all extremities. LAB REVIEW: CBC showed a WBC of 5.8, hemoglobin is 10, platelets of 87. BMP showed sodium of 142, potassium 3.2, chloride 106, bicarb 28, BUN 79, creatinine is 2.1, calcium 7.9, phosphorus 4.5, and magnesium 2.3. CURRENT INPATIENT MEDICATIONS: The patient's medications were all reviewed by me. She continues to be on Lasix 40 mg by mouth twice a day. She was given a dose of Aranesp 200 mcg subcu yesterday. The patient was given an extra dose of potassium chloride 40 mEq today morning and I have started the patient on Carafate 1 gram by mouth with meals. ASSESSMENT/PLAN: 1. Acute symptomatic anemia. The patient has a multiple vascular telangiectasias in the stomach, duodenum and possibly in the rest of the gut as well. She got the EGD done and Argon laser treatment was done. She has received 4 units of PRBC transfusion. Hemoglobin is stable. She has also been started on Carafate 1 gram with meals. 2. Chronic kidney disease stage 4. The patient's renal function is stable, creatinine is down to 2.1, which is close to her baseline. 3. Renal allograft status. Continue current dose of CellCept and prednisone. Belatacept is given as outpatient. 4. Hypertension with chronic kidney disease. Blood pressures are optimized with current dose of Coreg and clonidine. 5. Lower extremity edema. The patient continues to be on Lasix 40 mg by mouth twice a day. One extra dose was given yesterday because the patient is getting multiple transfusions. 6. Chronic cytomegalovirus (CMV) viremia. Continue current dose of Valcyte 450 mg by mouth Tuesday and Tuesday. 7. Hypokalemia. The patient was given an extra dose of potassium chloride 40 mEq by mouth today morning. 8. Disposition. The patient is optimized from a nephrology standpoint. If her hemoglobin stays stable, hopefully, she should be able to be discharged home over the next 24 hours. MTDD
[2019-04-14 16:00] VITALS: BP 145/66
--- NOTE | 2019-04-14 16:04 | IPNPDOC ---
Date Seen The patient was seen on 04/14/19. Progress Note SUBJECTIVE: Patient interviewed and examined after her EGD procedure this morning. Patient remains in good spirits. She denies any acute complaints at this time, including chest pain, difficulty breathing, abdominal pain. No bowel movements. Review of labs indicates patient's hemoglobin has improved to 10. Renal remains stable near baseline. OBJECTIVE PHYSICAL EXAMINATION: VITAL SIGNS: Please see below. GENERAL APPEARANCE: Patient is a well-nourished female lying in her bed in good spirits and cooperative to exam. In no apparent distress. HEENT: Atraumatic, no appreciable lymphadenopathy, EOMI, sclera nonicteric, good oral hygiene, mild conjunctival pallor noted. CARDIOVASCULAR: Grade 2/6 systolic murmur heard upon exam, radiation to left carotid. Regular rate and rhythm LUNGS: Lungs clear to auscultation bilaterally. No wheezes rales or rhonchi ABDOMEN: No tenderness to palpation, bruising, distention noted. Kidney transplant scar noted on lower right abdomen EXTREMITIES: +1 pitting edema noted bilaterally in her lower extremities. No rashes, scars, calf tenderness noted. Capillary refill 2-3 seconds. LABORATORY DATA: Please see below IMAGING STUDIES: Chest x-ray (04/12/19): No acute cardiopulmonary process. ASSESSMENT AND PLAN: Patient is a 64-year-old female with past medical history sufficient for hypertension as well as kidney transplant presents with symptomatic anemia. Her chief complaint is intermittent dizziness with fatigue, lightheadedness noted in the past week or 2. She was admitted in February of this year for very similar presentation and was treated with RBC transfusions. Upon admission she was found to be severely anemic with a hemoglobin of 5.7, hematocrit 18.4. Chest x-ray was negative upon admission. She admits to having dark colored stools since February 2019. Patient is status post 4 units of packed red blood cells. Hemoglobin remained stable. Patient underwent EGD exploration on 04/14/19. Multiple vascular telangiectasias are noted and treated with argon laser treatment. Diet to be advanced as tolerated this evening. PROBLEMS: #Symptomatic anemia: Patient presented to Hospital complaining of intermittent fatigue and dizziness. Patient is status post 4 units of PRBCs. Hemoglobin remained stable at 10/29.3. Patient was brought for EGD. A number of vascular telangiectasias are noted in the patient's stomach and duodenum. Argon laser treatment was performed on these areas. Patient started on Carafate with meals Plan to advance patient's diet this evening #Hypertension Blood pressure remains well-controlled on home medication. #History of kidney transplant. Patient's renal function remained stable. Creatinine down to near baseline. Nephrology has been consulted and we appreciate their assistance in management of this patient. #Hypokalemia Patient was noted to have a potassium of 3.2 this morning, down from 4.0 on admission. Patient did receive 3 doses of 40 mg Lasix as she was receiving multiple transfusions. Patient normally receives 2 doses of 40 mg Lasix daily. Repleted with oral potassium Magnesium level 2.3. #Chronic CMV viremia Continue home dose of Valcyte 450 mg by mouth on Tuesday and Tuesday DVT Prophylaxis: Teds and sequentials DISPOSITION: Advanced diet this evening, the patient's hemoglobin and hematocrit remain stable, plan for discharge tomorrow VS, I&O, 24H, Fishbone Vital Signs/I&O Vital Signs Date Time Temp Pulse Resp B/P (MAP) Pulse Ox O2 Delivery O2 Flow Rate FiO2 04/14/19 12:00 97.2 62 18 163/71 (101) 95 Room Air 04/14/19 10:10 2 I&O- Last 24 Hours up to 6 AM 04/14/19 05:59 Intake Total 1250 ml Output Total 2900 ml Balance -1650 ml Laboratory Data 24H LABS Laboratory Tests 2 04/14/19 05:12: Nucleated Red Blood Cells % (auto) 0.0, Anion Gap 8, Glomerular Filtration Rate 24.4L, Calcium Level 7.9L, Phosphorus Level 4.5, Magnesium Level 2.3, Total Bilirubin 1.1H, Aspartate Amino Transf (AST/SGOT) 43H, Alanine Aminotransferase (ALT/SGPT) 27, Alkaline Phosphatase 122H, Total Protein 4.9L, Albumin 2.7L, Albumin/Globulin Ratio 1.23 CBC/BMP Laboratory Tests 04/14/19 05:12 GME ATTESTATION GME ATTESTATION I saw and evaluated the patient. I agree with the findings and plan of care as documented in the above note JUAN GUILLAUME DO Apr 14, 2019 16:04 EARNEST NEWBY MD Apr 15, 2019 14:53
[2019-04-14 20:00] VITALS: BP 125/58
[2019-04-14] MEDS ORDERED: SUCRALFATE 1 GM TAB PO SCH (21:00)
[2019-04-14 23:59] VITALS: BP 135/65
[2019-04-15 04:00] VITALS: BP 159/73
[2019-04-15] MEDS: SLF 3 ML SYR IV SCH (05:00)
[2019-04-15 06:29] LABS: HEMATOCRIT 30.5 % (36.0-47.0); MEAN CORPUSCULAR HEMOGLOBIN 29.7 pg (27.0-33.0); MEAN CORPUSCULAR HGB CONC 32.8 g/dl (32.0-36.5); MEAN CORPUSCULAR VOLUME 90.5 fl (80.0-96.0); RED BLOOD COUNT 3.37 10^6/uL (4.00-5.40)
[2019-04-15 06:32] LABS: PLATELET COUNT, AUTOMATED 91 10^3/uL (150-450)
[2019-04-15 06:54] LABS: ALBUMIN 2.8 GM/DL (3.2-5.2); BILIRUBIN,TOTAL 0.8 MG/DL (0.2-1.0); CALCIUM LEVEL 8.4 MG/DL (8.8-10.2); CREATININE FOR GFR 2.65 MG/DL (0.55-1.30); GLOMERULAR FILTRATION RATE 19.2 (>45); POTASSIUM SERUM 4.3 MEQ/L (3.5-5.1); TOTAL PROTEIN 5.4 GM/DL (6.4-8.2)
[2019-04-15] MEDS: SUCRALFATE 1 GM TAB PO SCH (07:44)
[2019-04-15 08:00] VITALS: BP 148/67
[2019-04-15 08:47] VITALS: BP 148/67
[2019-04-15] MEDS: ALLOPURINOL 100 MG TAB PO SCH (08:47)
[2019-04-15] MEDS: predniSONE 5 MG TAB PO SCH (08:47)
[2019-04-15] MEDS: CARVedilol 12.5 MG TAB PO SCH (08:47)
[2019-04-15] MEDS: POTASSIUM CHLORIDE 10 MEQ SR TABLET PO SCH (08:47)
[2019-04-15] MEDS: MYCOPHENOLATE MOFETIL 250 MG CAP (J7517) PO SCH (08:47)
[2019-04-15] MEDS: FUROSEMIDE 40 MG TAB PO SCH (08:48)
[2019-04-15] MEDS ORDERED: SUCR1TA PO (09:42)
--- NOTE | 2019-04-15 11:02 | DS.PDOC ---
Discharge Summary General Date of Admission Apr 12, 2019 at 17:43 Date of Discharge 04/15/2019 Discharge Summary DISCHARGE DIAGNOSIS: Symptomatic anemia secondary to GI losses SECONDARY DIAGNOSIS: 1 hypertension 2 renal transplant 3 hypokalemia 4 chronic CMV infection 5. Gastric angiectasia and duodenal angiectasia PROCEDURES PERFORMED DURING STAY: Upper endoscopy. CONSULTANTS:gastroenterology, nephrology HOSPITAL COURSE: Patient is a 64-year-old female who was recently admitted for upper GI bleed related to angiectasia's which were treated with argon laser. Her hemoglobin had been followed closely by nephrology which began to have symptoms continue dark tarry stools. Hemoglobin had dropped significantly to refer to the emergency room. She was evaluated by Gynecology performed upper endoscopy. Further laser of angiectasia is. Nephrology did follow closely with hospitalized and she did undergo some diuresis. She tolerated her procedure well hemoglobin remained stable at this time she is medically stable for discharge home DISCHARGE MEDICATIONS: Please see below. ALLERGIES: Please see below. SUBJECTIVE: Patient did have some dark tarry stools but she is feeling better, she denies lightheadedness dizziness chest pressure shortness of breath. She tells me that her fatigue has resolved OBJECTIVE PHYSICAL EXAMINATION: VITAL SIGNS: Please see below. GENERAL APPEARANCE: Patient is a well-nourished female sitting in a chair in good spirits and cooperative to exam. In no apparent distress. HEENT: Atraumatic, no appreciable lymphadenopathy, EOMI, sclera nonicteric, good oral hygiene, no conjunctival pallor noted. CARDIOVASCULAR: Grade 2/6 systolic murmur heard upon exam, radiation to left carotid. Regular rate and rhythm LUNGS: Lungs clear to auscultation bilaterally. No wheezes rales or rhonchi ABDOMEN: No tenderness to palpation, bruising, distention noted. Kidney transplant scar noted on lower right abdomen EXTREMITIES: No pitting edema noted bilaterally in her lower extremities. No rashes, scars, calf tenderness noted. Capillary refill 2-3 seconds. LABORATORY DATA: Please see below IMAGING STUDIES: Chest x-ray (04/12/19): No acute cardiopulmonary process. ASSESSMENT AND PLAN: Patient is a 64-year-old female with symptomatic anemia secondary to bleeding upper GI angiectasia in the stomach and duodenum PROBLEMS: #Symptomatic anemia secondary to upper GI bleed related to gastric and duodenal angiectasia: Nephrology help greatly appreciated she is status post operative laser yesterday tolerated procedure well hemoglobin remained stable at this time. She would benefit from further outpatient follow-up with gastroenterology and possibly repeat scoping in the future as well as continued hemoglobin monitoring through the nephrology clinic. At this time her presenting symptoms have resolved clinical status has improved. She's been started on Carafate received 4 units of PRBCs total during the stay she is tolerating a diet well #Hypertension Blood pressure remains well-controlled on home medication, Coreg, furosemide, and clonidine. #History of kidney transplant and chronic kidney disease. Patient's renal function remained stable. Stable fluctuant Nephrology help appreciated, she'll be discharged home on her home diuretic dosing. She is continued on prednisone and CellCept. She is continued on calcitriol #Hypokalemia: Resolved #Chronic CMV viremia Continue home dose of Valcyte 450 mg by mouth on Tuesday and Tuesday #Anemia of chronic renal disease: She is continued on Aranesp #Gout: Continue with allopurinol DVT Prophylaxis: Teds and sequentials DISPOSITION: Home to self-care DISCHARGE CONDITION: Improved and Stable. FOLLOW UP: Nephrology within 2 weeks, gastroenterology 1 month PCP 1 week ACTIVITY: As prior to admission. DIET: As prior to admission, with high fibre TIME SPENT ON DISCHARGE: 50 minutes This note was generated in part or whole with a voice recognition software. Voice recognition is usually quite accurate but there are scenic artist errors that can very often do occur. I apologize for any typographical errors that were not detected and corrected. Vital Signs/I&Os Vital Signs Date Time Temp Pulse Resp B/P (MAP) Pulse Ox O2 Delivery O2 Flow Rate FiO2 04/15/19 08:47 76 148/67 04/15/19 08:00 98.1 18 98 Room Air 04/14/19 10:10 2 I&O- Last 24 Hours up to 6 AM 04/15/19 06:00 Intake Total 1850 ml Output Total 2015 ml Balance -165 ml Laboratory Data Labs 24H Laboratory Tests 2 04/15/19 06:18: Nucleated Red Blood Cells % (auto) 0.0, Immature Platelet Fraction 2.0, Anion Gap 7L, Glomerular Filtration Rate 19.2L, Calcium Level 8.4L, Total Bilirubin 0.8, Aspartate Amino Transf (AST/SGOT) 49H, Alanine Aminotransferase (ALT/SGPT) 31, Alkaline Phosphatase 154H, Total Protein 5.4L, Albumin 2.8L, Albumin/Globu sarina Ratio 1.08 CBC/BMP Laboratory Tests 04/15/19 06:18 Discharge Medications Scheduled Allopurinol (Allopurinol) 100 Mg Tab, 100 MG PO DAILY, (Reported) Belatacept IV (Nulojix) 250 Mg Inj, 250 MG IV Q5WK, (Reported) Calcitriol (Calcitriol) 0.25 Mcg Cap, 0.25 MCG PO 3XW, (Reported) TAKES ON TUESDAY, TUESDAY AND TUESDAY Calcium Carbonate (Calcium) 600 Mg Tab, 600 MG PO BID, (Reported) Carvedilol (Carvedilol) 25 Mg Tablet, 25 MG PO BID, (Reported) Clonidine (Clonidine) 0.3 Mg/24 Hr Dis, 1 PATCH TD 1XWK, (Reported) WEDNESDAYS. TOOK IT OFF TUESDAY BECAUSE OF LOW BP HASN'T REAPPLIED PATCH Epoetin Murphy-Epbx (Retacrit) 10,000 Unit/1 Ml Vial, 2 ML SQ Q2WK, (Reported) HASN'T STARTED THERAPY YET HER INSURANCE IS STILL IN PROCESS OF AUTHORIZING IT Furosemide (Furosemide) 20 Mg Tablet, 40 MG PO BID, (Reported) Mycophenolate Mofetil (Mycophenolate Mofetil) 250 Mg Cap, 250 MG PO BID, (Reported) Potassium Chloride (Potassium Chloride) 20 Meq Tab.er.prt, 20 MEQ PO DAILY, (Reported) Prednisone (Prednisone) 10 Mg Tablet, 5 MG PO DAILY, (Reported) Sucralfate (Sucralfate) 1 Gm Tablet, 1 GM PO AC Valganciclovir HCl (Valcyte) 450 Mg Tab, 450 MG PO 2XW, (Reported) TUESDAY AND TUESDAY - DOSING WAS JUST CHANGED 03/13/19 Allergies Coded Allergies: No Known Allergies (Verified , 12/31/02) EARNEST NEWBY MD Apr 15, 2019 11:02
--- NOTE | 2019-04-16 12:17 | CR ---
DATE OF CONSULTATION: 04/13/2019 This is a 64-year-old white female unknown to me previously who presents with dark tarry stools and anemia. The patient presented with increasing shortness of breath and fatigue. She is status post kidney transplant and has known hypertension. She was having some shortness of breath and dizziness and was found to be anemic. 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 APC Argon plasma coagulation and cauterization was used to try to ablate the AVMs. The patient had a hemoglobin of 5.7 and hematocrit of 18.4. No complaints of abdominal pain. No hematemesis. PAST MEDICAL HISTORY (Positive for): 1. Kidney transplant 2016. 2. Hysterectomy. 3. Colonoscopy with polyp removal. SOCIAL HISTORY: Alcohol. Denies cigarettes, REVIEW OF SYSTEMS: Noncontributory to the above problem. PHYSICAL EXAMINATION: General: Well-developed, well-nourished white female no obvious acute distress. Appears stated age. Chest is clear to auscultation. Cardiovascular exam showed a regular rhythm. No murmurs or gallops. Physiological split S1 to S2. Abdomen: Soft. Nontender. No masses, guarding, rebound or hepatosplenomegaly. Bowel sounds positive. ANALYSIS: 1. Anemia of unknown etiology. At the present time, the plan will be to repeat the patient's upper endoscopy with probable cauterization of the antrum for treatment of the AVMs. 2. The patient should have at least blood counts every 2-4 weeks to stay ahead of her anemia. The patient may need capsule endoscopy for further evaluation. If we find the patient has numerous AVMs of the small bowel, she will need to have a push enteroscopy in an attempt to cauterize as many lesions as possible to slow down her recurrent bouts of anemia.
== END 2019-04-15 10:30 | disposition home or self-care (01) | DRG 378 ==
LOC: M ED 15:33 → M ED INP 17:43 → M PCU 21:09
PROVIDERS: ADMIT Internal Medicine; ATTEND Internal Medicine
PROC: 30233N1 Transfusion of Nonautologous Red Blood Cells into Peripheral Vein, Percutaneous Approach (ICD-10-PCS; principal; 2019-04-12)
PROC: 0W3P8ZZ Control Bleeding in Gastrointestinal Tract, Via Natural or Artificial Opening Endoscopic (ICD-10-PCS; 2019-04-14)
DX: K92.2 Gastrointestinal hemorrhage, unspecified (principal); Q43.9 Congenital malformation of intestine, unspecified; Z94.0 Kidney transplant status; B25.9 Cytomegaloviral disease, unspecified; N18.4 Chronic kidney disease, stage 4 (severe); N25.81 Secondary hyperparathyroidism of renal origin; D50.0 Iron deficiency anemia secondary to blood loss (chronic); I12.9 Hypertensive chronic kidney disease with stage 1 through stage 4 chronic kidney disease, or unspecified chronic kidney disease; E87.6 Hypokalemia; Q40.3 Congenital malformation of stomach, unspecified; D63.1 Anemia in chronic kidney disease; M10.30 Gout due to renal impairment, unspecified site; Z79.899 Other long term (current) drug therapy

== ENCOUNTER → 2019-04-24 | Outpatient (REF) | payer OTHER, MEDICARE ==
[~2019-04-24] MED LIST changes: +CARV25TA PO; +RETA1000 SQ; +SUCR1TA PO
== END ==
LOC: M LAB REF 17:12
PROVIDERS: ATTEND Internal Medicine Nephrology
DX: N18.9 Chronic kidney disease, unspecified (principal); D63.1 Anemia in chronic kidney disease

== ENCOUNTER 2019-04-26 10:43 | Outpatient (CLI) | payer OTHER, MEDICARE ==
[~2019-04-26] VITALS: Ht 149.9 cm; Wt 67.3 kg
[2019-04-26] VITALS (10 sets, daily range): BP systolic 118–145; BP diastolic 56–66
[2019-04-26] MEDS ORDERED: diphenhydrAMINE 25 MG CAP PO ONE (11:00)
[2019-04-26] MEDS ORDERED: FUROSEMIDE 40 MG/4 ML VIAL (J1940) IV ONE (11:00)
[2019-04-26] MEDS ORDERED: ACETAMINOPHEN 325 MG TAB PO ONE (11:00)
== END 2019-04-26 16:50 | disposition home or self-care (01) ==
LOC: M INFU 10:43
PROVIDERS: ATTEND Internal Medicine Nephrology
DX: D50.0 Iron deficiency anemia secondary to blood loss (chronic) (principal)
CPT/HCPCS: 36430; 96374; J1940; P9016

== ENCOUNTER → 2019-05-01 | Outpatient (REF) | payer OTHER, MEDICARE | LOC: M LAB REF 13:43 | PROVIDERS: ATTEND Internal Medicine Nephrology | DX: D64.9 Anemia, unspecified (principal) ==

== ENCOUNTER 2019-05-03 08:36 | Outpatient (CLI) | payer OTHER, MEDICARE ==
[2019-05-03] VITALS (9 sets, daily range): BP systolic 125–184; BP diastolic 59–74
[~2019-05-03] VITALS: Ht 149.9 cm; Wt 67.0 kg
[~2019-05-03 08:36] MED LIST changes: +ACETAMINOPHEN 325 MG TAB PO ONE; +FUROSEMIDE 40 MG TAB PO SCH; +diphenhydrAMINE 25 MG CAP PO SCH
[2019-05-03] MEDS ORDERED: FUROSEMIDE 40 MG/4 ML VIAL (J1940) IV ONE (13:45)
== END 2019-05-03 14:10 | disposition home or self-care (01) ==
LOC: M INFU 08:36
PROVIDERS: ATTEND Internal Medicine Nephrology
DX: D64.9 Anemia, unspecified (principal)
CPT/HCPCS: 36430; 96374; J1940; P9016

== ENCOUNTER 2019-05-04 14:11 | Outpatient (CLI) | payer OTHER, MEDICARE ==
[~2019-05-04] VITALS: Ht 149.9 cm; Wt 67.0 kg
[~2019-05-04 14:11] MED LIST changes: -ACETAMINOPHEN 325 MG TAB PO ONE; -FUROSEMIDE 40 MG TAB PO SCH; -diphenhydrAMINE 25 MG CAP PO SCH
[2019-05-04 14:55] VITALS: BP 141/67
[2019-05-04] MEDS ORDERED: FUROSEMIDE 40 MG/4 ML VIAL (J1940) IV ONE (15:00)
[2019-05-04] MEDS ORDERED: diphenhydrAMINE 25 MG CAP PO ONE (15:00)
[2019-05-04] MEDS ORDERED: ACETAMINOPHEN 325 MG TAB PO ONE (15:00)
[2019-05-04 15:10] VITALS: BP 153/66
[2019-05-04 16:10] VITALS: BP 153/69
[2019-05-04 16:40] VITALS: BP 148/67
[2019-05-04 17:13] VITALS: BP 165/70
== END 2019-05-04 17:15 | disposition home or self-care (01) ==
LOC: M INFU 14:11
PROVIDERS: ATTEND Internal Medicine Nephrology
DX: D64.9 Anemia, unspecified (principal); Z94.0 Kidney transplant status
CPT/HCPCS: 36430; P9016

== ENCOUNTER → 2019-05-08 | Outpatient (CLI) | payer OTHER, MEDICARE ==
[2019-05-08 07:57] LABS: APPEARANCE, URINE CLEAR (CLEAR); BACTERIA, URINE AUTO NEGATIVE (NEGATIVE); BILIRUBIN, URINE AUTO NEGATIVE (NEGATIVE); BLOOD, URINE BLOOD 1+ (NEGATIVE); COLOR, URINE YELLOW (YELLOW); GLUCOSE, URINE (UA) AUTO NEGATIVE (NEGATIVE); KETONE, URINE AUTO NEGATIVE (NEGATIVE); LEUKOCYTE ESTERASE, URINE AUTO NEGATIVE (NEGATIVE); NITRITE, URINE AUTO NEGATIVE (NEGATIVE); PROTEIN, URINE AUTO NEGATIVE (NEGATIVE); RBC, URINE AUTO 0 /HPF (0-3); SPECIFIC GRAVITY URINE AUTO 1.006 (1.002-1.035); SQUAMOUS EPITHELIAL CELL UR AU 2 /HPF (0-6); UROBILINOGEN, URINE AUTO 0.2 mg/dL (0.0-2.0); WBC, URINE AUTO 1 /HPF (0-3)
[2019-05-08 08:09] LABS: HEMATOCRIT 27.5 % (36.0-47.0); HEMOGLOBIN 8.6 g/dl (12.0-15.5); MEAN CORPUSCULAR HEMOGLOBIN 29.1 pg (27.0-33.0); MEAN CORPUSCULAR HGB CONC 31.3 g/dl (32.0-36.5); MEAN CORPUSCULAR VOLUME 92.9 fl (80.0-96.0); PLATELET COUNT, AUTOMATED 112 10^3/uL (150-450); RED BLOOD COUNT 2.96 10^6/uL (4.00-5.40)
[2019-05-08 08:24] LABS: CREATININE,RANDOM URINE 34.2 MG/DL; TOTAL PROTEIN,RANDOM URINE 10.3 MG/DL (0.0-12.0)
[2019-05-08 08:27] LABS: ALBUMIN 2.7 GM/DL (3.2-5.2); BILIRUBIN,DIRECT 0.3 MG/DL (0.0-0.2); BILIRUBIN,TOTAL 0.8 MG/DL (0.2-1.0); CALCIUM LEVEL 8.2 MG/DL (8.8-10.2); CREATININE FOR GFR 1.85 MG/DL (0.55-1.30); MAGNESIUM LEVEL 2.3 MG/DL (1.8-2.4); PHOSPHORUS LEVEL 3.6 MG/DL (2.5-4.9); POTASSIUM SERUM 3.3 MEQ/L (3.5-5.1)
[2019-05-08 08:36] LABS: EOSINOPHILS 2 % (0-3); LYMPHOCYTES 8 % (16-44); MONOCYTES 4 % (0-5); NEUTROPHILS 72 % (28-66); PLATELET ESTIMATE NORMAL (NORMAL)
[2019-05-11 00:07] LABS: CMV QUANT DNA PCR (PLASMA) Positive < 200 IU/mL (Negative)
== END ==
LOC: M LAB 07:10
PROVIDERS: ATTEND Internal Medicine Nephrology
DX: Z94.0 Kidney transplant status (principal); N18.5 Chronic kidney disease, stage 5; D84.9 Immunodeficiency, unspecified; Z79.899 Other long term (current) drug therapy

== ENCOUNTER 2019-05-15 14:28 | Inpatient (IN) | payer OTHER, MEDICARE ==
[2019-05-15] VITALS (8 sets, daily range): BP systolic 135–160; BP diastolic 64–74
[~2019-05-15] VITALS: Ht 149.9 cm; Wt 65.9 kg
[2019-05-15 15:09] LABS: HEMATOCRIT 21.4 % (36.0-47.0); MEAN CORPUSCULAR HGB CONC 30.4 g/dl (32.0-36.5); MEAN CORPUSCULAR VOLUME 95.5 fl (80.0-96.0); PLATELET COUNT, AUTOMATED 125 10^3/uL (150-450); RED BLOOD COUNT 2.24 10^6/uL (4.00-5.40); WHITE BLOOD COUNT 6.2 10^3/uL (4.0-10.0)
[2019-05-15 15:12] LABS: HEMOGLOBIN 6.5 g/dl (12.0-15.5)
[2019-05-15 15:19] LABS: PROTHROMBIN TIME 12.9 SECONDS (11.8-14.0)
[2019-05-15 15:28] LABS: LYMPHOCYTES 12 % (16-44); METAMYELOCYTES 4 % (0-0); MONOCYTES 1 % (0-5); NEUTROPHILS 71 % (28-66)
[2019-05-15 15:29] LABS: ANISOCYTOSIS 2+; OVALOCYTES 1+; PLATELET ESTIMATE DECREASED (NORMAL); POIKILOCYTOSIS 2+; TEAR DROP CELLS 1+
[2019-05-15 15:30] LABS: HYPOCHROMASIA 2+
[2019-05-15 15:36] LABS: ALBUMIN 2.7 GM/DL (3.2-5.2); BILIRUBIN,DIRECT 0.2 MG/DL (0.0-0.2); BILIRUBIN,TOTAL 0.6 MG/DL (0.2-1.0)
[2019-05-15 16:46] LABS: CALCIUM LEVEL 8.5 MG/DL (8.8-10.2); CREATININE FOR GFR 2.53 MG/DL (0.55-1.30); GLOMERULAR FILTRATION RATE 20.2 (>45); POTASSIUM SERUM 3.2 MEQ/L (3.5-5.1)
[2019-05-15] MEDS ORDERED: CARV12.5 PO (17:22)
[2019-05-15] MEDS ORDERED: SUCR1TA PO (17:22)
--- NOTE | 2019-05-15 18:02 | HPEPDOC ---
[facility] Medical History & Physical Date of Admission May 15, 2019 Date of Service: May 15, 2019 Primary Care Physician: A Attending Physician: JUAQUIN ZAZUETA MD History and Physical Patient is a 64-year-old female with past medical history of kidney transplant 2016 with a history of renal allograft status, CKD Stage IV secondary hyperparathyroidism, hx of leukopenia, hx of thrombocytopenia (current platelet is improved from previous levels), hx of chronic hypertension, chronic anemia, history of atrial venous now for many shins in the antrum and small bowel was last cauterized approximately [address] Medrano, hx of colonoscopy with polyp removal, history of hysterectomy presenting with SOB. Patient reports generalized fatigue, no changes from previous, normally positive for chills, denies fevers, denies headaches, vision changes, chest pain, nausea, vomiting, diarrhea. She does report occasional shortness of breath, and has had dark soft stools which she describes as dark brown, not black, no bright red blood per rectum. She also denies dysuria. 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 Nina, has been transfusing RBCs for the last few weeks after dc from [facility] a month ago. Last transfusion was on 05/03, 2 units, and 05/04 1unit pRBCs fusion was split due to appointments. She had a meeting with Dr. Medrano possible capsule imaging. Patient was recently discharged that [facility] from 04/12/2019 08/06/2018 for similar presentation. In this time, patient had an EGD, found to have angiectasias located multiple small angioectasias in gastric antrum and duodenal bulb which were treated with argon laser. In the ED, patients vital signs are stable, Hb 6.5, platelets of 125, baseline BUN 66, calcium 3.2, baseline creatinine 2.35, ranging from 1.77-2.65. 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 Meds: reviewed Allergies: NKDA Patient is a 64-year-old female with past medical history of kidney transplant 2016 with a history of renal allograft status, CKD Stage IV secondary hyperparathyroidism, hx of leukopenia, hx of thrombocytopenia (current platelet is improved from previous levels), hx of chronic hypertension, chronic anemia, history of atrial venous now for many shins in the antrum and small bowel was last cauterized approximately [address] Medrano, hx of colonoscopy with polyp removal, history of hysterectomy presenting with #Anemia, likely secondary to GI bleed with underlying CKD. Consult GI, spoke with Dr. Estrella. Possible repeat of EGD evaluation of AVMs. Repeat CBC in the AM. #HTN: Continue patients home medications #. Hypokalemia, will replace, check magnesium level #, Chronic CMV viremia: Continue home medications #Gout: Continue home medications DVT prophylaxis: SCDs, patient currently anemic Code.Full Vital Signs Vital Signs Date Time Temp Pulse Resp B/P (MAP) Pulse Ox O2 Delivery O2 Flow Rate FiO2 05/15/19 17:43 83 16 99 05/15/19 17:40 99.5 144/66 05/15/19 16:55 Room Air Laboratory Data Labs 24H Laboratory Tests 2 05/15/19 14:55: Immature Granulocyte % (Auto) , Nucleated Red Blood Cells % (auto) 0.0, Neutrophils 71H, Band Neutrophils 12H, Lymphocytes (Manual) 12L, Monocytes (Manual) 1, Metamyelocytes 4H, Hypochromasia 2+, Poikilocytosis 2+, Anisocytosis 2+, Tear Drop Cells 1+, Ovalocytes 1+, Platelet Estimate DECREASED, Prothrombin Time 12.9, Prothromb Time International Ratio 1.00, Anion Gap 11, Glomerular Filtration Rate 20.2L, Calcium Level 8.5L, Total Bilirubin 0.6, Direct Bilirubin 0.2, Aspartate Amino Transf (AST/SGOT) 50H, Alanine Aminotransferase (ALT/SGPT) 34, Alkaline Phosphatase 160H, Total Protein 5.0L, Albumin 2.7L, Albu min/Globulin Ratio 1.17, Lipase 823H CBC/BMP Laboratory Tests 05/15/19 14:55 Home Medications Scheduled Allopurinol (Allopurinol) 100 Mg Tab, 100 MG PO DAILY Belatacept IV (Nulojix) 250 Mg Inj, 250 MG IV Q5WK Calcitriol (Calcitriol) 0.25 Mcg Cap, 0.25 MCG PO 3XW TAKES ON TUESDAY, TUESDAY AND TUESDAY Calcium Carbonate (Calcium) 600 Mg Tab, 600 MG PO BID Carvedilol (Carvedilol) 12.5 Mg Tablet, 12.5 MG PO BID Epoetin Murphy-Epbx (Retacrit) 10,000 Unit/1 Ml Vial, 2 ML SQ Q2WK HASN'T STARTED THERAPY YET HER INSURANCE IS STILL IN PROCESS OF AUTHORIZING IT Furosemide (Furosemide) 20 Mg Tablet, 40 MG PO BID Mycophenolate Mofetil (Mycophenolate Mofetil) 250 Mg Cap, 250 MG PO BID TAKES AT LUNCH AND BEDTIME Potassium Chloride (Potassium Chloride) 20 Meq Tab.er.prt, 20 MEQ PO DAILY TAKES AT LUNCH Prednisone (Prednisone) 10 Mg Tablet, 5 MG PO DAILY Sucralfate (Sucralfate) 1 Gm Tablet, 1 GM PO QAM Allergies Coded Allergies: No Known Allergies (Verified , 12/31/02) A-FIB/CHADSVASC A-FIB History Current/History of A-Fib/PAF?: No Current PO Anticoag Therapy: No JUAQUIN ZAZUETA MD May 15, 2019 18:02
--- NOTE | 2019-05-15 23:50 | ECGEPIP ---
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
[2019-05-16 00:15] VITALS: BP 154/74
[2019-05-16 04:00] VITALS: BP 169/76
[2019-05-16 07:47] LABS: HEMATOCRIT 28.5 % (36.0-47.0); MEAN CORPUSCULAR HGB CONC 31.6 g/dl (32.0-36.5); MEAN CORPUSCULAR VOLUME 91.9 fl (80.0-96.0); PLATELET COUNT, AUTOMATED 120 10^3/uL (150-450); WHITE BLOOD COUNT 7.8 10^3/uL (4.0-10.0)
[2019-05-16 07:49] LABS: ALBUMIN 2.5 GM/DL (3.2-5.2); BILIRUBIN,TOTAL 1.1 MG/DL (0.2-1.0); CALCIUM LEVEL 8.2 MG/DL (8.8-10.2); CREATININE FOR GFR 2.21 MG/DL (0.55-1.30); GLOMERULAR FILTRATION RATE 23.6 (>45); POTASSIUM SERUM 3.4 MEQ/L (3.5-5.1); TOTAL PROTEIN 5.3 GM/DL (6.4-8.2)
[2019-05-16] MEDS: FUROSEMIDE 20 MG TAB PO SCH ×2 (08:37→17:44)
[2019-05-16] MEDS: ALLOPURINOL 100 MG TAB PO SCH (08:37)
[2019-05-16] MEDS: SUCRALFATE 1 GM TAB PO SCH (08:38)
[2019-05-16] MEDS: predniSONE 5 MG TAB PO SCH (08:38)
[2019-05-16] MEDS: CARVedilol 12.5 MG TAB PO SCH ×2 (08:38→20:46)
[2019-05-16] MEDS: POTASSIUM CHLORIDE 10 MEQ SR TABLET PO SCH (08:39)
[2019-05-16 09:00] VITALS: BP 146/53
[2019-05-16] MEDS ORDERED: POTASSIUM CHLORIDE 10 MEQ SR TABLET PO ONE (11:15)
[2019-05-16] MEDS: ACETAMINOPHEN TAB 650MG DOSE (2X325MG) PO PRN (13:05)
[2019-05-16 14:31] VITALS: BP 129/57
[2019-05-16] MEDS: MYCOPHENOLATE MOFETIL 250 MG CAP (J7517) PO SCH ×2 (14:53→20:46)
[2019-05-16 20:45] VITALS: BP 107/49
--- NOTE | 2019-05-16 22:06 | IPNPDOC ---
Date Seen The patient was seen on 05/16/19. Progress Note SUBJECTIVE: Patient had no o/n events, however, this AM she started to have a fever, blood cx were obtained. OBJECTIVE PHYSICAL EXAMINATION: VITAL SIGNS: Please see below. PHYSICAL EXAMINATION: VITAL SIGNS: Please see below. GENERAL: No distress HEENT: Normocephalic, atraumatic, moist mucous membranes, no pallor NECK: Supple CARDIOVASCULAR EXAMINATION: S1, S2 RESPIRATORY EXAMINATION: CTAB ABDOMINAL EXAMINATION: Soft, nontender, nondistended, positive bowel sounds EXTREMITIES: no edema, bruising on lateral hips, nontender to palpation SKIN: No rash NEUROLOGICAL EXAMINATION: Alert and oriented 3, no focal deficits PSYCHIATRIC EXAMINATION: Calm and cooperative, appropriate affect LABORATORY DATA, IMAGING STUDIES, MICROBIOLOGY: Please see below. DVT prophylaxis ordered?: SCD ASSESSMENT AND PLAN: Patient is a 64-year-old female with past medical history of kidney transplant 2016 with a history of renal allograft status, CKD Stage IV secondary hyperparathyroidism, hx of leukopenia, hx of thrombocytopenia (current platelet is improved from previous levels), hx of chronic hypertension, chronic anemia, history of atrial venous now for many shins in the antrum and small bowel was last cauterized approximately [address] Medrano, hx of colonoscopy with polyp removal, history of hysterectomy presenting with sx anemia suspected GI etiology. #fever/febrile nonhemolytic transfusion reaction: consider blood transfusion reaction versus bacteremia versus other. cont to monitor CBC, no leukocytosis, slight thrombocytopenia. Will follow with blood cultures on 05/16/2019, symptomatic treatment with Tylenol use #Anemia, likely secondary to GI bleed with underlying CKD. Hb improved. Consult GI, spoke with Dr. Estrella. Possible repeat of EGD evaluation of AVMs. Repeat CBC in the AM. Follow up with GI. #HTN: Continue patients home medications #. Hypokalemia,will replace prn, check magnesium level #. Chronic CMV viremia: Continue home medications #Gout: Continue home medications DVT prophylaxis: SCDs, patient currently anemic Code.Full dispo: pending GI change to inpatient admission VS, I&O, 24H, Fishbone Vital Signs/I&O Vital Signs Date Time Temp Pulse Resp B/P (MAP) Pulse Ox O2 Delivery O2 Flow Rate FiO2 05/16/19 20:46 77 107/49 05/16/19 12:15 101.7 05/16/19 09:00 18 92 Room Air I&O- Last 24 Hours up to 6 AM 05/16/19 06:00 Intake Total 900 ml Balance 900 ml Laboratory Data 24H LABS Laboratory Tests 2 05/16/19 06:58: Nucleated Red Blood Cells % (auto) 0.0, Anion Gap 8, Glomerular Filtration Rate 23.6L, Calcium Level 8.2L, Total Bilirubin 1.1#H, Aspartate Amino Transf (AST/SGOT) 54H, Alanine Aminotransferase (ALT/SGPT) 35, Alkaline Phosphatase 154H, Total Protein 5.3L, Albumin 2.5L, Albumin/Globulin Ratio 0.89L CBC/BMP Laboratory Tests 05/16/19 06:58 Microbiology Microbiology 05/16/19 Blood Culture, Received Pending 05/16/19 Blood Culture, Received Pending 05/15/19 Stool Occult Blood (PANFILO) - Final, Complete KOR,JUAQUIN Mann MD May 16, 2019 22:06
[2019-05-17 07:12] VITALS: BP 141/70
--- NOTE | 2019-05-17 07:25 | IPNPDOC ---
Date Seen The patient was seen on 05/17/19. Progress Note SUBJECTIVE: Patient has fevers overnight, but was otherwise asymptomatic. She did not have any fevers this morning, plan for EGD today. Hemoglobin stable 9, hemoccult positive. OBJECTIVE PHYSICAL EXAMINATION: VITAL SIGNS: Please see below. GENERAL: No distress, pleasant HEENT: Normocephalic, atraumatic, moist mucous membranes, no pallor NECK: Supple CARDIOVASCULAR EXAMINATION: S1, S2 RESPIRATORY EXAMINATION: CTAB ABDOMINAL EXAMINATION: Soft, nontender, nondistended, positive bowel sounds EXTREMITIES: no edema SKIN: No rash PSYCHIATRIC EXAMINATION: Calm and cooperative, appropriate affect LABORATORY DATA, IMAGING STUDIES, MICROBIOLOGY: Please see below. ASSESSMENT AND PLAN: Patient is a 64-year-old female with past medical history of kidney transplant 2016 with a history of renal allograft status, CKD Stage IV secondary hyperparathyroidism, hx of leukopenia, hx of thrombocytopenia (current platelet is improved from previous levels), hx of chronic hypertension, chronic anemia, history of atrial venous malformations in the antrum and small bowel was last cauterized approximately [address] Medrano, hx of colonoscopy with polyp removal, history of hysterectomy presenting with sx anemia suspected GI etiology. #fever/febrile nonhemolytic transfusion reaction: resolved, likely blood transfusion reaction versus bacteremia versus other. cont to monitor CBC, no leukocytosis, slight thrombocytopenia. Blood cultures on 05/16/2019 neg, symptomatic treatment with Tylenol use, if not resolved, consider ID consult #Anemia, likely secondary to GI bleed with underlying CKD. Hb improved. Consult GI, spoke with Dr. Estrella. Possible repeat of EGD evaluation of AVMs. Repeat CBC in the AM. Follow up with GI, plan EGD 05/17/19. #HTN: Continue patients home medications #. Hypokalemia,will replace prn, check magnesium level #. Chronic CMV viremia: Continue home medications #Gout: Continue home medications DVT prophylaxis: SCDs, patient currently anemic Code.Full dispo: pending GI recs change to inpatient admission VS, I&O, 24H, Fishbone Vital Signs/I&O Vital Signs Date Time Temp Pulse Resp B/P (MAP) Pulse Ox O2 Delivery O2 Flow Rate FiO2 05/16/19 20:46 77 107/49 05/16/19 20:45 98.0 18 95 Room Air I&O- Last 24 Hours up to 6 AM 05/17/19 06:00 Intake Total 360 ml Balance 360 ml Laboratory Data Microbiology Microbiology 05/16/19 Blood Culture, Received Pending 05/16/19 Blood Culture, Received Pending 05/15/19 Stool Occult Blood (PANFILO) - Final, Complete KOR,JUAQUIN Mann MD May 17, 2019 07:25
[2019-05-17 07:30] VITALS: BP 150/60
[2019-05-17 07:49] LABS: HEMATOCRIT 28.4 % (36.0-47.0); MEAN CORPUSCULAR HEMOGLOBIN 29.2 pg (27.0-33.0); MEAN CORPUSCULAR HGB CONC 31.7 g/dl (32.0-36.5); MEAN CORPUSCULAR VOLUME 92.2 fl (80.0-96.0); PLATELET COUNT, AUTOMATED 120 10^3/uL (150-450); RED BLOOD COUNT 3.08 10^6/uL (4.00-5.40); WHITE BLOOD COUNT 7.8 10^3/uL (4.0-10.0)
[2019-05-17] MEDS: ACETAMINOPHEN TAB 650MG DOSE (2X325MG) PO PRN (07:50)
[2019-05-17 08:22] LABS: CALCIUM LEVEL 7.7 MG/DL (8.8-10.2); CREATININE FOR GFR 2.18 MG/DL (0.55-1.30); MAGNESIUM LEVEL 2.1 MG/DL (1.8-2.4); POTASSIUM SERUM 3.8 MEQ/L (3.5-5.1)
[2019-05-17] MEDS: predniSONE 5 MG TAB PO SCH (09:21)
[2019-05-17] MEDS: POTASSIUM CHLORIDE 10 MEQ SR TABLET PO SCH (09:21)
[2019-05-17] MEDS: SUCRALFATE 1 GM TAB PO SCH (09:22)
[2019-05-17] MEDS: CARVedilol 12.5 MG TAB PO SCH ×2 (09:22→21:35)
[2019-05-17] MEDS: FUROSEMIDE 20 MG TAB PO SCH ×2 (09:23→17:23)
[2019-05-17] MEDS: ALLOPURINOL 100 MG TAB PO SCH (09:23)
[2019-05-17] MEDS ORDERED: PROPOFOL 200 MG/20 ML VIAL As Ordered ONE (13:21)
[2019-05-17] MEDS ORDERED: LIDOCAINE 2% INJ 100 MG/5 ML SDV (FOR ANES.) As Ordered ONE (13:21)
[2019-05-17] MEDS ORDERED: fentaNYL 100 MCG/2 ML INJECTION (J3010) As Ordered ONE (13:21)
[2019-05-17] MEDS ORDERED: NS 1,000 ML IV SCH (14:30)
[2019-05-17] MEDS: OMEPRAZOLE 20 MG CAP PO SCH (14:58)
[2019-05-17] MEDS: MYCOPHENOLATE MOFETIL 250 MG CAP (J7517) PO SCH ×2 (14:58→21:35)
--- NOTE | 2019-05-17 15:50 | ROOR ---
Patient Name: Chacha Kumar Procedure Date: 05/17/2019 12:07 PM Date of : 1955 Age: 64 Room: Main OR Gender: Female Note Status: Finalized Procedure: Upper GI endoscopy Indications: Iron deficiency anemia secondary to chronic blood loss Providers: Kevin HINTON MD Referring MD: 2. Inpatient 2. Inpatient Requesting Provider: Abram Medrano MD Medicines: Monitored Anesthesia Care Complications: No immediate complications. Procedure: Pre-Anesthesia Assessment: - The heart rate, respiratory rate, oxygen saturations, blood pressure, adequacy of pulmonary ventilation, and response to care were monitored throughout the procedure. The Endoscope was introduced through the mouth, and advanced to the second part of duodenum. The upper GI endoscopy was accomplished without difficulty. The patient tolerated the procedure well. Findings: Multiple small angioectasias with bleeding were found in the gastric antrum. Coagulation for hemostasis using argon beam at 0.8 liters/minute and 25 jose was successful. Three small angioectasias with stigmata of recent bleeding were found in the first portion of the duodenum. Coagulation for hemostasis using argon beam at 0.8 liters/minute and 25 ojse was successful. The exam was otherwise without abnormality. Impression: - Multiple recently bleeding angioectasias in the stomach. Treated with argon beam coagulation. - Three recently bleeding angioectasias in the duodenum. Treated with argon beam coagulation. - The examination was otherwise normal. - No specimens collected. Recommendation: - Advance diet as tolerated. - Use Prilosec (omeprazole) 20 mg PO daily. - Use sucralfate tablets 1 gram PO BID for 1 month. - Observe patient's clinical course, OK for discharge from my standpoint. - Follow up with Dr Medrano for retreatment if necessary. Kevin Hinton MD Kevin HINTON MD 05/17/2019 1:21:33 PM Electronically signed by Kevin HINTON MD Number of Addenda: 0 Note Initiated On: 05/17/2019 12:07 PM Estimated Blood Loss: Estimated blood loss: none.
[2019-05-17 22:00] VITALS: BP 124/58
[2019-05-18 06:33] VITALS: BP 127/60
[2019-05-18 06:37] LABS: HEMOGLOBIN 8.2 g/dl (12.0-15.5); MEAN CORPUSCULAR HEMOGLOBIN 29.2 pg (27.0-33.0); MEAN CORPUSCULAR HGB CONC 31.5 g/dl (32.0-36.5); MEAN CORPUSCULAR VOLUME 92.5 fl (80.0-96.0); PLATELET COUNT, AUTOMATED 107 10^3/uL (150-450); RED BLOOD COUNT 2.81 10^6/uL (4.00-5.40); WHITE BLOOD COUNT 5.9 10^3/uL (4.0-10.0)
[2019-05-18 06:57] LABS: CALCIUM LEVEL 7.9 MG/DL (8.8-10.2); CREATININE FOR GFR 2.21 MG/DL (0.55-1.30); GLOMERULAR FILTRATION RATE 23.6 (>45); POTASSIUM SERUM 3.4 MEQ/L (3.5-5.1)
--- NOTE | 2019-05-18 07:46 | DS.PDOC ---
Discharge Summary General Date of Admission May 15, 2019 at 22:03 Date of Discharge 05/18/19 Discharge Summary PROCEDURES PERFORMED DURING STAY: EGD 05/17/19. ADMITTING DIAGNOSES: 1. sx anemia, GI bleed. DISCHARGE DIAGNOSES: 1. Upper GI bleed. Contrary to multiple angiomata ectasias with coagulation with argon beam. COMPLICATIONS/CHIEF COMPLAINT: Abnormal Labs. HISTORY OF PRESENT ILLNESS and hospital course: Patient is a 64-year-old female with past medical history of kidney transplant 2016 with a history of renal allograft status, CKD Stage IV secondary hyperparathyroidism, hx of leukopenia, hx of thrombocytopenia (current platelet is improved from previous levels), hx of chronic hypertension, chronic anemia, history of atrial venous malformations in the antrum and small bowel was last cauterized approximately [address] Medrano, hx of colonoscopy with polyp removal, history of hysterectomy presenting with sx anemia suspected GI etiology. In the ED, her hemoglobin was found to be 6.5, where she received 2 units of RBCs, GI was consulted. Patient did have fevers throughout her hospital course, which was suspected to be secondary to febrile nonhemolytic transfusion reaction. She did receive an echo which was negative for any vegetations, and blood cultures were negative. GI AVMs could be secondary to chronic steroid use. Unfortunately, due to patient's kidney transplant course requires chronic use. Patient had POD#1 (05/17/19) s/p EGD: multiple small angioectasias in the gastric antrum, three small angioectasias with stigmata in the first portion of the duodenum which were coagulated using argon beam at 0.8 liters/minute and 25 jose. GI recommended to advance diet as tolerated, prilosec (omeprazole) 20 mg PO daily, sucralfate t ablets 1 gram PO BID for 1 month, follow up with Dr Medrano for retreatment if necessary. . She is to follow-up with her primary care and for allergy in 1-2 weeks. Follow-up with GI in a month for possible capsule if symptomatic. DISCHARGE MEDICATIONS: Please see below. ALLERGIES: Please see below. PHYSICAL EXAMINATION ON DISCHARGE: VITAL SIGNS: Please see below. VITAL SIGNS: Please see below. GENERAL: No distress, pleasant HEENT: Normocephalic, atraumatic, moist mucous membranes, no pallor NECK: Supple CARDIOVASCULAR EXAMINATION: S1, S2 RESPIRATORY EXAMINATION: CTAB ABDOMINAL EXAMINATION: Soft, nontender, nondistended, positive bowel sounds EXTREMITIES: no edema SKIN: No rash PSYCHIATRIC EXAMINATION: Calm and cooperative, appropriate affect LABORATORY DATA: Please see below. PROGNOSIS: Fair ACTIVITY: As tolerated. DIET: Advanced as tolerated DISCHARGE PLAN: Home DISPOSITION: Home. DISCHARGE INSTRUCTIONS: 1.. See above. ITEMS TO FOLLOWUP ON ON OUTPATIENT: 1.. See above. DISCHARGE CONDITION: Stable. TIME SPENT ON DISCHARGE: 35 minutes. Vital Signs/I&Os Vital Signs Date Time Temp Pulse Resp B/P (MAP) Pulse Ox O2 Delivery O2 Flow Rate FiO2 05/18/19 06:33 99.6 78 16 127/60 (82) 98 Room Air I&O- Last 24 Hours up to 6 AM 05/18/19 06:00 Intake Total 1390 ml Output Total 0 ml Balance 1390 ml Laboratory Data Labs 24H Laboratory Tests 2 05/18/19 06:10: Nucleated Red Blood Cells % (auto) 0.0, Anion Gap 9, Glomerular Filtration Rate 23.6L, Calcium Level 7.9L CBC/BMP Laboratory Tests 05/18/19 06:10 Microbiology Microbiology 05/16/19 Blood Culture - Preliminary, Resulted No growth after 24 hours . All specim... 05/16/19 Blood Culture - Preliminary, Resulted No growth after 24 hours . All specim... 05/15/19 Stool Occult Blood (PANFILO) - Final, Complete Discharge Medications Scheduled Allopurinol (Allopurinol) 100 Mg Tab, 100 MG PO DAILY, (Reported) Belatacept IV (Nulojix) 250 Mg Inj, 250 MG IV Q5WK, (Reported) Calcitriol (Calcitriol) 0.25 Mcg Cap, 0.25 MCG PO 3XW, (Reported) TAKES ON TUESDAY, TUESDAY AND TUESDAY Calcium Carbonate (Calcium) 600 Mg Tab, 600 MG PO BID, (Reported) Carvedilol (Carvedilol) 12.5 Mg Tablet, 12.5 MG PO BID, (Reported) Epoetin Murphy-Epbx (Retacrit) 10,000 Unit/1 Ml Vial, 2 ML SQ Q2WK, (Reported) HASN'T STARTED THERAPY YET HER INSURANCE IS STILL IN PROCESS OF AUTHORIZING IT Furosemide (Furosemide) 20 Mg Tablet, 40 MG PO BID, (Reported) Mycophenolate Mofetil (Mycophenolate Mofetil) 250 Mg Cap, 250 MG PO BID, (Reported) TAKES AT LUNCH AND BEDTIME Omeprazole (Omeprazole) 10 Mg Capsule.dr, 20 MG PO DAILY Potassium Chloride (Potassium Chloride) 20 Meq Tab.er.prt, 20 MEQ PO DAILY, (Reported) TAKES AT LUNCH Prednisone (Prednisone) 10 Mg Tablet, 5 MG PO DAILY, (Reported) Sucralfate (Sucralfate) 1 Gm Tablet, 1 GM PO QAM, (Reported) Sucralfate (Sucralfate) 1 Gm Tablet, 1 GRAM PO BID Allergies Coded Allergies: No Known Allergies (Verified , 12/31/02) JUAQUIN ZAZUETA MD May 18, 2019 07:46
[2019-05-18] MEDS ORDERED: POTASSIUM CHLORIDE 10 MEQ SR TABLET PO ONE (08:00)
[2019-05-18] MEDS ORDERED: SUCR1TA PO (08:07)
[2019-05-18] MEDS ORDERED: OMEP10CASR PO (08:07)
[2019-05-18] MEDS: OMEPRAZOLE 20 MG CAP PO SCH (08:27)
[2019-05-18] MEDS: SUCRALFATE 1 GM TAB PO SCH (08:27)
[2019-05-18 08:28] VITALS: BP 127/60
[2019-05-18] MEDS: CARVedilol 12.5 MG TAB PO SCH (08:28)
[2019-05-18] MEDS: ALLOPURINOL 100 MG TAB PO SCH (08:28)
[2019-05-18] MEDS: FUROSEMIDE 20 MG TAB PO SCH (08:28)
[2019-05-18] MEDS: predniSONE 5 MG TAB PO SCH (08:28)
--- NOTE | 2019-05-18 09:03 | ECHO ---
DATE OF PROCEDURE: 05/17/2019 REFERRING PHYSICIAN: Nidia Xavier MD INDICATION: Endocarditis. HEIGHT: 150 cm WEIGHT: 66 kg DIMENSIONS: IVS: 1.0 LV: 4.8 LVPW: 1.1 LA: 4.2 Aorta: 2.8 RV: 3.4 Left atrial volume index: 51 Mitral E wave velocity: 144, A wave: 132 E prime septal: 8.2 E prime lateral: 6.2 IVC: 2.4 FINDINGS: The study is of acceptable technical quality. The patient is in sinus rhythm. Left ventricle is normal size. There is a wall motion abnormality involving distal septum, apex and distal anterior wall. These segments appear almost akinetic. Remaining left ventricular segments have preserved mobility. I would estimate overall ejection fraction (EF) around 45-50%. Right ventricle is normal size and systolic function. Left atrium is severely enlarged. Right atrium was poorly visualized but appears at least mildly enlarged. Aortic valve is sclerotic. Based on limited views, I do not appreciate any distinct vegetations. There are also heavy degenerative abnormalities of mitral valve with mitral annular calcifications and thickening of mitral leaflets. There appears to be trivial prolapse of anterior mitral leaflet. Tricuspid valve appears normal. Pulmonic valve was poorly visualized but grossly appears normal. Trivial pericardial effusion is noted. Inferior vena cava is dilated. Aortic root and aortic arch appear normal. Abdominal aorta also appears normal. Doppler interrogation of aortic valve reveals no insufficiency and trivial stenosis with mean gradient 8 mmHg. There is approximately moderate mitral insufficiency with MR jet oriented towards lateral wall. There is approximately moderate tricuspid insufficiency with pulmonary artery pressure estimated around 60 or higher corresponding to moderately severe pulmonary hypertension. Trace pulmonic insufficiency is also seen. Mitral inflow pattern and tissue Doppler imaging of mitral annulus reveal grade 2 diastolic dysfunction. CONCLUSION: 1. Study is of acceptable technical quality. 2. Normal LV size with anteroapical wall motion abnormality and overall mildly reduced left ventricular systolic function. Grade 2 diastolic dysfunction. 3. Sclerotic aortic valve with trivial stenosis. 4. Heavy degenerative abnormalities of mitral valve with thickening of mitral leaflets, mitral annular calcifications. Functionally, approximately moderate mitral stenosis and moderate mitral insufficiency due to anterior mitral leaflet prolapse. 5. Moderate tricuspid insufficiency. 6. High central venous pressure. 7. Moderately severe pulmonary hypertension. 8. No definite visualized vegetations. COMMENT: If high clinical suspicion for bacterial endocarditis, transesophageal echocardiogram will provide much better anatomical resolution. Study is suggestive of ischemic heart disease.
[2019-05-18] MEDS: POTASSIUM CHLORIDE 10 MEQ SR TABLET PO SCH (09:52)
== END 2019-05-18 10:25 | disposition home or self-care (01) | DRG 378 ==
LOC: M ED 14:28 → M ED INP 14:29 → OBSVTOIN 22:03 → M MS4PR 22:35 → M MS5PR 05-16 08:20
PROVIDERS: ADMIT Family Medicine; ATTEND Family Medicine
PROC: 30233N1 Transfusion of Nonautologous Red Blood Cells into Peripheral Vein, Percutaneous Approach (ICD-10-PCS; principal; 2019-05-15)
PROC: 0W3P8ZZ Control Bleeding in Gastrointestinal Tract, Via Natural or Artificial Opening Endoscopic (ICD-10-PCS; 2019-05-17)
DX: K31.811 Angiodysplasia of stomach and duodenum with bleeding (principal); Z94.0 Kidney transplant status; N18.4 Chronic kidney disease, stage 4 (severe); N25.81 Secondary hyperparathyroidism of renal origin; D69.6 Thrombocytopenia, unspecified; I12.9 Hypertensive chronic kidney disease with stage 1 through stage 4 chronic kidney disease, or unspecified chronic kidney disease; Z79.899 Other long term (current) drug therapy; E87.6 Hypokalemia; M10.9 Gout, unspecified; D50.0 Iron deficiency anemia secondary to blood loss (chronic)

== ENCOUNTER 2019-05-28 14:05 | Outpatient (CLI) | payer OTHER, MEDICARE ==
[2019-05-28] VITALS (7 sets, daily range): BP systolic 128–156; BP diastolic 62–70
[~2019-05-28] VITALS: Ht 149.9 cm; Wt 61.0 kg
== END 2019-05-28 19:11 | disposition home or self-care (01) ==
LOC: M OPCLI5PR 14:05 → M MS5PR 14:07 → M OPCLI5PR 19:11
PROVIDERS: ATTEND Internal Medicine Nephrology
DX: D64.9 Anemia, unspecified (principal)
CPT/HCPCS: 36430; P9016

== ENCOUNTER → 2019-05-28 | Outpatient (REF) | payer OTHER, MEDICARE ==
[~2019-05-28] MED LIST changes: +OMEP10CASR PO
== END ==
LOC: M LAB REF 13:30
PROVIDERS: ATTEND Internal Medicine Nephrology
DX: D64.9 Anemia, unspecified (principal)
CPT/HCPCS: 86850; 86900; 86901; 86920; P9016

== ENCOUNTER 2019-06-12 07:25 | Outpatient (CLI) | payer OTHER, MEDICARE ==
[~2019-06-12] VITALS: Ht 149.9 cm; Wt 61.0 kg
[2019-06-12 07:30] VITALS: BP 158/69
[2019-06-12] MEDS ORDERED: BELATACEPT IV ONE (07:30)
[2019-06-12] MEDS ORDERED: NS IV ONE (07:30)
[2019-06-12 09:00] VITALS: BP 155/67
== END 2019-06-12 09:00 | disposition home or self-care (01) ==
LOC: M INFU 07:25
PROVIDERS: ATTEND Internal Medicine Nephrology
DX: Z94.0 Kidney transplant status (principal)
CPT/HCPCS: 36415; 96365; J0485

== ENCOUNTER → 2019-06-12 | Outpatient (CLI) | payer OTHER, MEDICARE ==
[2019-06-12 08:00] LABS: APPEARANCE, URINE CLEAR (CLEAR); BACTERIA, URINE AUTO NEGATIVE (NEGATIVE); BILIRUBIN, URINE AUTO NEGATIVE (NEGATIVE); BLOOD, URINE BLOOD NEGATIVE (NEGATIVE); COLOR, URINE STRAW (YELLOW); GLUCOSE, URINE (UA) AUTO NEGATIVE (NEGATIVE); KETONE, URINE AUTO NEGATIVE (NEGATIVE); LEUKOCYTE ESTERASE, URINE AUTO NEGATIVE (NEGATIVE); MUCUS, URINE SMALL (NEGATIVE); NITRITE, URINE AUTO NEGATIVE (NEGATIVE); PROTEIN, URINE AUTO NEGATIVE (NEGATIVE); RBC, URINE AUTO 0 /HPF (0-3); SPECIFIC GRAVITY URINE AUTO 1.006 (1.002-1.035); SQUAMOUS EPITHELIAL CELL UR AU 0 /HPF (0-6); UROBILINOGEN, URINE AUTO 0.2 mg/dL (0.0-2.0); WBC, URINE AUTO 0 /HPF (0-3)
[2019-06-12 08:26] LABS: CREATININE,RANDOM URINE 30.6 MG/DL; TOTAL PROTEIN,RANDOM URINE 5.7 MG/DL (0.0-12.0)
[2019-06-12 08:30] LABS: HEMATOCRIT 32.2 % (36.0-47.0); MEAN CORPUSCULAR HGB CONC 31.1 g/dl (32.0-36.5); MEAN CORPUSCULAR VOLUME 90.2 fl (80.0-96.0); PLATELET COUNT, AUTOMATED 136 10^3/uL (150-450); RED BLOOD COUNT 3.57 10^6/uL (4.00-5.40); WHITE BLOOD COUNT 5.1 10^3/uL (4.0-10.0)
[2019-06-12 08:55] LABS: ALBUMIN 3.1 GM/DL (3.2-5.2); BILIRUBIN,DIRECT 0.3 MG/DL (0.0-0.2); CALCIUM LEVEL 8.8 MG/DL (8.8-10.2); CREATININE FOR GFR 2.56 MG/DL (0.55-1.30); MAGNESIUM LEVEL 2.3 MG/DL (1.8-2.4); PHOSPHORUS LEVEL 4.4 MG/DL (2.5-4.9); POTASSIUM SERUM 3.9 MEQ/L (3.5-5.1); TOTAL PROTEIN 5.8 GM/DL (6.4-8.2)
[2019-06-12 09:44] LABS: ANISOCYTOSIS 1+; BASOPHILS 1 % (0-1); EOSINOPHILS 2 % (0-3); LYMPHOCYTES 12 % (16-44); METAMYELOCYTES 4 % (0-0); MONOCYTES 9 % (0-5); MYELOCYTES 1 % (0-0); NEUTROPHILS 68 % (28-66); OVALOCYTES 1+; PLATELET ESTIMATE NORMAL (NORMAL)
[2019-06-12 09:45] LABS: TEAR DROP CELLS 1+
[2019-06-15 00:07] LABS: log10 CMV QN DNA P1 3.719 (.)
== END ==
LOC: M LAB 07:26
PROVIDERS: ATTEND Internal Medicine Nephrology
DX: Z94.0 Kidney transplant status (principal); N18.6 End stage renal disease; D84.9 Immunodeficiency, unspecified; Z79.899 Other long term (current) drug therapy

== ENCOUNTER → 2019-06-28 | Outpatient (REF) | payer OTHER, MEDICARE ==
[2019-06-28 18:17] LABS: PERCENT SATURATION 14.9 % (13.2-45.0)
== END ==
LOC: M LAB REF 17:08
PROVIDERS: ATTEND Internal Medicine Nephrology
DX: N18.9 Chronic kidney disease, unspecified (principal); D63.1 Anemia in chronic kidney disease

== ENCOUNTER → 2019-07-06 | Outpatient (CLI) | payer OTHER, MEDICARE ==
[~2019-07-06] MED LIST changes: +SPIR-10 PO
[2019-07-06 10:44] LABS: HEMATOCRIT 26.8 % (36.0-47.0); HEMOGLOBIN 8.1 g/dl (12.0-15.5); MEAN CORPUSCULAR HEMOGLOBIN 27.1 pg (27.0-33.0); MEAN CORPUSCULAR HGB CONC 30.2 g/dl (32.0-36.5); MEAN CORPUSCULAR VOLUME 89.6 fl (80.0-96.0); PLATELET COUNT, AUTOMATED 107 10^3/uL (150-450); RED BLOOD COUNT 2.99 10^6/uL (4.00-5.40); WHITE BLOOD COUNT 3.2 10^3/uL (4.0-10.0)
[2019-07-06 11:07] LABS: BASOPHILS 1 % (0-1); LYMPHOCYTES 18 % (16-44); METAMYELOCYTES 1 % (0-0); MONOCYTES 4 % (0-5); NEUTROPHILS 59 % (28-66)
[2019-07-06 11:08] LABS: ANISOCYTOSIS 1+; HYPOCHROMASIA 1+; OVALOCYTES 1+; PLATELET ESTIMATE DECREASED (NORMAL); POIKILOCYTOSIS 1+
[2019-07-06 11:20] LABS: CALCIUM LEVEL 8.6 MG/DL (8.8-10.2); CHOLESTEROL RISK RATIO 2.757 (<5); CREATININE FOR GFR 2.89 MG/DL (0.55-1.30); GLOMERULAR FILTRATION RATE 17.4 (>45); POTASSIUM SERUM 3.9 MEQ/L (3.5-5.1); TOTAL PROTEIN 5.5 GM/DL (6.4-8.2)
[2019-07-06 16:18] LABS: TOTAL 25(OH) VITAMIN D 48.6 NG/ML (30.0-100.0)
== END ==
LOC: M WUC 08:38
PROVIDERS: ATTEND Physician Assistant
DX: E55.9 Vitamin D deficiency, unspecified (principal); D72.819 Decreased white blood cell count, unspecified; E78.2 Mixed hyperlipidemia

== ENCOUNTER 2019-07-13 10:01 | Day surgery (SDC) | payer OTHER, MEDICARE ==
[~2019-07-13] VITALS: Ht 149.9 cm; Wt 71.2 kg
[~2019-07-13 10:01] MED LIST changes: +NS 1,000 ML IV ONE
[2019-07-13] MEDS ORDERED: CARVedilol 6.25 MG TAB As Ordered ONE (11:17)
[2019-07-13] MEDS ORDERED: fentaNYL 100 MCG/2 ML INJECTION (J3010) As Ordered ONE (11:56)
[2019-07-13] MEDS ORDERED: FUROSEMIDE 100 MG/10 ML VIAL (J1940) As Ordered ONE (11:57)
[2019-07-13] MEDS ORDERED: CARVedilol 12.5 MG TAB PO ONE (12:00)
[2019-07-13] MEDS ORDERED: LIDOCAINE 2% INJ 100 MG/5 ML SDV (FOR ANES.) As Ordered ONE (12:18)
[2019-07-13] MEDS ORDERED: propofoL 200 MG/20 ML VIAL As Ordered ONE (12:18)
--- NOTE | 2019-07-13 12:22 | ROOR ---
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 Procedure: Pre-Anesthesia Assessment: - The heart rate, respiratory rate, oxygen saturations, blood pressure, adequacy of pulmonary ventilation, and response to care were monitored throughout the procedure. The Endoscope was introduced through the mouth, and advanced to the third part of duodenum. The upper GI endoscopy was accomplished without difficulty. The patient tolerated the procedure well. Findings: The examined esophagus was normal. 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 Coagulation for hemostasis using argon plasma at 0.8 liters/minute and 20 jose was successful. The examined duodenum was normal. Impression: - Normal esophagus. - Gastric antral vascular ectasia without bleeding. Treated with argon plasma coagulation (APC). - Normal examined duodenum. - No specimens collected. Recommendation: - Observe patient's clinical course. Kevin Hinton MD Kevin HINTON MD 07/13/2019 12:22:09 PM Electronically signed by Kevin HINTON MD Number of Addenda: 0 Note Initiated On: 07/13/2019 11:53 AM Estimated Blood Loss: Estimated blood loss: none.
[2019-07-13 12:50] VITALS: BP 110/55
== END 2019-07-13 12:57 | disposition home or self-care (01) ==
LOC: M OPP 10:01
PROVIDERS: ATTEND Internal Medicine Gastroenterology
DX: K31.819 Angiodysplasia of stomach and duodenum without bleeding (principal); Q27.33 Arteriovenous malformation of digestive system vessel; D50.0 Iron deficiency anemia secondary to blood loss (chronic); Z79.899 Other long term (current) drug therapy; Z94.0 Kidney transplant status
CPT/HCPCS: 43255; J1940; J3010

== ENCOUNTER 2019-07-17 07:45 | Outpatient (CLI) | payer OTHER, MEDICARE ==
[~2019-07-17] VITALS: Ht 149.9 cm; Wt 61.0 kg
[2019-07-17 08:03] VITALS: BP 180/74
[2019-07-17] MEDS ORDERED: BELATACEPT IV ONE (09:00)
[2019-07-17] MEDS ORDERED: NS IV ONE (09:00)
[2019-07-17 09:13] VITALS: BP 128/58
[2019-07-18] MEDS ORDERED: CARV25TA PO (14:29)
== END 2019-07-17 09:30 | disposition home or self-care (01) ==
LOC: M INFU 07:45
PROVIDERS: ATTEND Internal Medicine Nephrology
DX: Z94.0 Kidney transplant status (principal)
CPT/HCPCS: 36592; 96365; J0485

== ENCOUNTER → 2019-07-17 | Outpatient (CLI) | payer OTHER, MEDICARE ==
[~2019-07-17] MED LIST changes: -NS 1,000 ML IV ONE
[2019-07-17 08:29] LABS: APPEARANCE, URINE CLEAR (CLEAR); BACTERIA, URINE AUTO NEGATIVE (NEGATIVE); BILIRUBIN, URINE AUTO NEGATIVE (NEGATIVE); BLOOD, URINE BLOOD NEGATIVE (NEGATIVE); COLOR, URINE STRAW (YELLOW); GLUCOSE, URINE (UA) AUTO NEGATIVE (NEGATIVE); KETONE, URINE AUTO NEGATIVE (NEGATIVE); LEUKOCYTE ESTERASE, URINE AUTO NEGATIVE (NEGATIVE); MUCUS, URINE SMALL (NEGATIVE); NITRITE, URINE AUTO NEGATIVE (NEGATIVE); PROTEIN, URINE AUTO NEGATIVE (NEGATIVE); RBC, URINE AUTO 1 /HPF (0-3); SPECIFIC GRAVITY URINE AUTO 1.006 (1.002-1.035); SQUAMOUS EPITHELIAL CELL UR AU 0 /HPF (0-6); UROBILINOGEN, URINE AUTO 0.2 mg/dL (0.0-2.0); WBC, URINE AUTO 0 /HPF (0-3)
[2019-07-17 09:10] LABS: HEMATOCRIT 25.1 % (36.0-47.0); HEMOGLOBIN 7.6 g/dl (12.0-15.5); LYMPH % 28.8 % (24.0-44.0); MEAN CORPUSCULAR HEMOGLOBIN 26.9 pg (27.0-33.0); MEAN CORPUSCULAR HGB CONC 30.3 g/dl (32.0-36.5); MEAN CORPUSCULAR VOLUME 88.7 fl (80.0-96.0); MONO % 6.1 % (0.0-5.0); NEUTROPHILS % 30.3 % (36.0-66.0); RED BLOOD COUNT 2.83 10^6/uL (4.00-5.40)
[2019-07-17 09:16] LABS: LYMPH # 0.2 10^3/uL (1.5-5.0); NEUTROPHILS # 0.2 10^3/uL (1.5-8.5); PLATELET COUNT, AUTOMATED 80 10^3/uL (150-450); WHITE BLOOD COUNT 0.7 10^3/uL (4.0-10.0)
[2019-07-17 09:32] LABS: ALBUMIN 3.1 GM/DL (3.2-5.2); BILIRUBIN,DIRECT 0.4 MG/DL (0.0-0.2); CALCIUM LEVEL 8.4 MG/DL (8.8-10.2); CREATININE FOR GFR 2.55 MG/DL (0.55-1.30); MAGNESIUM LEVEL 2.2 MG/DL (1.8-2.4); PHOSPHORUS LEVEL 4.1 MG/DL (2.5-4.9); POTASSIUM SERUM 3.9 MEQ/L (3.5-5.1); TOTAL PROTEIN 5.7 GM/DL (6.4-8.2)
[2019-07-20 00:07] LABS: CMV QUANT DNA PCR (PLASMA) Positive < 200 IU/mL (Negative)
== END ==
LOC: M LAB 07:46
PROVIDERS: ATTEND Internal Medicine Nephrology
DX: Z94.0 Kidney transplant status (principal); N18.9 Chronic kidney disease, unspecified

== ENCOUNTER 2019-07-18 12:22 | Inpatient (IN) | payer OTHER, MEDICARE ==
[2019-07-18] VITALS (10 sets, daily range): BP systolic 122–183; BP diastolic 58–84
[~2019-07-18] VITALS: Ht 149.9 cm; Wt 70.9 kg
[2019-07-18 13:35] LABS: INR 0.94; PROTHROMBIN TIME 12.2 SECONDS (11.8-14.0)
[2019-07-18 13:47] LABS: EOS % 1.3 % (0.0-3.0); HEMATOCRIT 24.6 % (36.0-47.0); HEMOGLOBIN 7.4 g/dl (12.0-15.5); LYMPH % 20.3 % (24.0-44.0); MEAN CORPUSCULAR HEMOGLOBIN 26.6 pg (27.0-33.0); MEAN CORPUSCULAR HGB CONC 30.1 g/dl (32.0-36.5); MEAN CORPUSCULAR VOLUME 88.5 fl (80.0-96.0); MONO # 0.1 10^3/uL (0.0-0.8); MONO % 7.6 % (0.0-5.0); NEUTROPHILS % 49.3 % (36.0-66.0); RED BLOOD COUNT 2.78 10^6/uL (4.00-5.40)
[2019-07-18 13:50] LABS: LYMPH # 0.2 10^3/uL (1.5-5.0); NEUTROPHILS # 0.4 10^3/uL (1.5-8.5); PLATELET COUNT, AUTOMATED 75 10^3/uL (150-450); WHITE BLOOD COUNT 0.8 10^3/uL (4.0-10.0)
[2019-07-18] MEDS ORDERED: CARV25TA PO (14:29)
[2019-07-18 14:34] LABS: CREATININE FOR GFR 2.74 MG/DL (0.55-1.30); GLOMERULAR FILTRATION RATE 18.5 (>45)
[2019-07-18 14:35] LABS: ALBUMIN 3.1 GM/DL (3.2-5.2); BILIRUBIN,DIRECT 0.4 MG/DL (0.0-0.2); BILIRUBIN,TOTAL 0.8 MG/DL (0.2-1.0); TOTAL PROTEIN 5.9 GM/DL (6.4-8.2)
--- NOTE | 2019-07-18 15:08 | HPEPDOC ---
General Date of Admission 07/18/19 Date of Service: Jul 18, 2019 Primary Care Physician: BNE BENTLEY MD Chief Complaint The patient is a 64-year-old female admitted with a reason for visit of Abdnormal Labs. Source: Patient Exam Limitations: No limitations Timing/Duration: Other (not applicable) Severity: Other (not applicable) Associated Symptoms: Other (applicable) History of Present Illness This is a 64 years old white female with past medical history of multiple medical problems including kidney transplant. CK D, stage IV, hyperparathyroidism, leukopenia, thrombocytopenia, hypertension, chronic anemia every month formations was sent from Dr. Gusman was office with abnormal labs. Patient's hemoglobin was 7.4, hematocrit 24.6, platelets of 75,000 and WBC count is 0.8. Patient is asymptomatic. She received her regular immunosuppressant therapy with BELATACEPT yesterday for her kidney transplant. Patient denies any complain at the present time Home Medications Scheduled Allopurinol (Allopurinol) 100 Mg Tab, 100 MG PO DAILY, (Reported) Belatacept IV (Nulojix) Unknown Strength Inj, Unknown Dose IV Q5WK, (Reported) [facility] IS DISCUSSING INCREASING THIS TO [id number] Calcitriol (Calcitriol) 0.25 Mcg Cap, 0.25 MCG PO 3XW, (Reported) TAKES ON TUESDAY, TUESDAY AND TUESDAY Calcium Carbonate (Calcium) 600 Mg Tab, 600 MG PO BID, (Reported) Carvedilol (Carvedilol) 25 Mg Tablet, 25 MG PO BID, (Reported) PATIENT ALSO HAS RX FOR 12.5MG (2 TABS BID) Epoetin Murphy-Epbx (Retacrit) 10,000 Unit/1 Ml Vial, 2 ML SQ Q2WK, (Reported) Furosemide (Furosemide) 20 Mg Tablet, 40 MG PO BID, (Reported) Hydralazine HCl (Hydralazine HCl) 25 Mg Tablet, 25 MG PO TID, (Reported) Prednisone (Prednisone) 10 Mg Tablet, 5 MG PO DAILY, (Reported) Spironolactone (Spironolactone) 25 Mg Tablet, 25 MG PO DAILY, (Reported) Sucralfate (Sucralfate) 1 Gm Tablet, 1 GM PO DAILY, (Reported) Allergies Coded Allergies: No Known Allergies (Verified , 12/31/02) Past Medical History Medical History Kidney transplant 2016. 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 History of alcohol use and mother of pneumonia Social History * Smoker: Denies Alcohol: Denies Drugs: denies A-FIB/CHADSVASC A-FIB History Current/History of A-Fib/PAF?: No Review of Systems Constitutional: Denies: Chills, Fever, Malaise, Night Sweats, Weakness, Fatigue, Weight Loss, Lethargy, Other Eyes: Denies: Pain, Vision change, Conjunctivae inflammation, Eyelid inflammation, Redness, Other ENT: Denies: Head Aches, Ear Pain, Dysphagia, Sinus Congestion, Post Nasal Drip, Sore Throat, Epistaxis, Other Symptoms Skin: Denies: Rash, Lesions, Jaundice, Bruising, Itching, Dry, Breakdown, Nail Changes, Other Pulmonary: Denies: Dyspnea, Cough, Pleuritic Chest Pain, Other Symptoms Cardiovascular: Denies: Chest Pain, Palpitations, Orthopnea, Paroxysmal Noc. Dyspnea, Edema, Lt Headedness, Other Symptoms Gastrointestinal: Denies: Nausea, Vomiting, Abdominal Pain, Diarrhea, Constipation, Melena, Hematochezia, Other Symptoms Genitourinary: Denies: Dysuria, Frequency, Incontinence, Hematuria, Retention, Other Symptoms Hematologic: Denies: Bruising, Bleeding Excessively, Petecchia, Purpura, Enlarged Lymph Nodes, Other Hematologic Endocrine: Denies: Polydipsia, Polyphagia, Polyuria, Heat Intolerance, Cold Intolerance, Other Endocrine Sx Musculoskeletal: Denies: Neck Pain, Back Pain, Shoulder Pain, Arm Pain, Hand Pain, Leg Pain, Foot Pain, Joint Pain, Muscle Pain, Spasms, Other Symptoms Neurological: Denies: Weakness, Numbness, Incoordination, Change in speech, Confusion, Seizures, Other Symptoms Psych: Denies: Mood Normal, Anxiety, Depression, Memory Issues, Thoughts of Self Harm, Anger, Thoughts of Harming Other, Other Psych Physical Examination General Exam: Positive: Alert, Cooperative Eye Exam: Positive: PERRLA, Conjunctiva & lids normal ENT Exam: Positive: Atraumatic, Mucous membr. moist/pink Neck Exam: Positive: Supple Chest Exam: Positive: Clear to auscultation Heart Exam: Positive: Rate Normal, Normal S1, Normal S2 Abdomen Exam: Positive: Normal bowel sounds, Soft Extremity Exam: Positive: Normal pulses Skin Exam: Positive: Nl turgor and temperature Neuro Exam: Positive: Normal Gait, Strength at 5/5 X4 ext, Cranial Nerves 3-12 NL Psych Exam: Positive: Mood NL, Oriented x 3 Vital Signs Vital Signs Date Time Temp Pulse Resp B/P (MAP) Pulse Ox O2 Delivery O2 Flow Rate FiO2 07/18/19 14:42 97.0 76 18 171/79 Room Air 07/18/19 14:27 97 Laboratory Data Labs 24H Laboratory Tests 2 07/18/19 12:59: Prothrombin Time 12.2, Prothromb Time International Ratio 0.94, Anion Gap 10, Glomerular Filtration Rate 18.5L, Calcium Level 9.0, Total Bilirubin 0.8, Direct Bilirubin 0.4H, Aspartate Amino Transf (AST/SGOT) 33, Alanine Aminotransferase (ALT/SGPT) 20, Alkaline Phosphatase 140H, Total Protein 5.9L, Albumin 3.1L, Albumin/Globulin Ratio 1.11, Lipase 609H 07/18/19 13:38: Immature Granulocyte % (Auto) 21.5H, Neutrophils (%) (Auto) 49.3, Lymphocytes (%) (Auto) 20.3L, Monocytes (%) (Auto) 7.6H, Eosinophils (%) (Auto) 1.3, Basophils (%) (Auto) 0.0, Neutrophils # (Auto) 0.4L, Lymphocytes # (Auto) 0.2L, Monocytes # (Auto) 0.1, Eosinophils # (Auto) 0.0, Basophils # (Auto) 0.0, Nucle ated Red Blood Cells % (auto) 0.0, Immature Platelet Fraction 1.2 CBC/BMP Laboratory Tests 07/18/19 12:59 07/18/19 13:38 Problems (1) Anemia Onset Date: ~ 2016 Status: Acute Problem Text: Patient's anemia is most likely secondary to blood loss from multiple AV malformation in her stomach and small bowel. On her last admission, multiple AVMs were coagulated by Dr. Wells. , Patient's hemoglobin is 7.4, hematocrit 24.6, patient already has an order for blood transfusion from ED. Admit patient to [facility] floor [place] [facility] Continue transfusion of 2 units of PRBC Continue all home medications Continue Protonix , Continue Carafate Will monitor CBC regularly DVT prophylaxis with bilateral SCDs Activity as tolerated And regular (2) Neutropenia Status: Acute Problem Text: Patient receives immunosuppressive therapy with belatacept, and checking old records and all laboratories most of the time. She had a WBC count of less than 3000 after receiving treatment with immunosuppressive therapies. Patient is afebrile, asymptomatic, we will place and to isolation Discussed case with Dr. navi medeiros, will start patient on Neupogen 300 g subcutaneous daily for 3 days Monitor CBC in a.m. (3) Thrombocytopenia Onset Date: ~ 2016 Status: Acute Problem Text: History of thrombocytopenia in the past No evidence of active bleeding from gums or nose are skin Patient's Plavix was stopped on the last admission Continue monitoring closely (4) CKD (chronic kidney disease), stage IV Status: Acute Problem Text: CMP is still pending. Discussed with Dr. Navi medeiros if there is no change in BUN/creatinine. They will just continue monitoring clinically, Plan / VTE VTE Prophylaxis Ordered?: Yes DINO YOUNGBLOOD MD Jul 18, 2019 15:08
[2019-07-18] MEDS: FILGRASTIM 300 MCG/0.5 ML SYRINGE (J1442 PER 1MCG) SC SCH (16:11)
[2019-07-18] MEDS: **hydrALAZINE HCL** 25 MG TAB PO SCH ×2 (16:21→21:37)
[2019-07-18] MEDS: FUROSEMIDE 40 MG TAB PO SCH (16:21)
[2019-07-18] MEDS: PANTOPRAZOLE 40MG INJ (PROTONIX) (C9113) IV SCH (16:21)
[2019-07-18] MEDS ORDERED: FURO PO SCH (17:00)
--- NOTE | 2019-07-18 20:05 | ECGEPIP ---
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
[2019-07-18] MEDS: CARVedilol 12.5 MG TAB PO SCH (21:38)
[2019-07-19] MEDS: PANTOPRAZOLE 40MG INJ (PROTONIX) (C9113) IV SCH ×2 (04:20→17:32)
[2019-07-19 06:00] VITALS: BP 140/61
[2019-07-19 07:59] LABS: HEMATOCRIT 29.5 % (36.0-47.0); HEMOGLOBIN 9.2 g/dl (12.0-15.5); MEAN CORPUSCULAR HGB CONC 31.2 g/dl (32.0-36.5); MEAN CORPUSCULAR VOLUME 86.5 fl (80.0-96.0); RED BLOOD COUNT 3.41 10^6/uL (4.00-5.40)
[2019-07-19 08:10] LABS: PLATELET COUNT, AUTOMATED 76 10^3/uL (150-450); WHITE BLOOD COUNT 1.4 10^3/uL (4.0-10.0)
[2019-07-19 08:27] LABS: ALBUMIN 2.6 GM/DL (3.2-5.2); BILIRUBIN,TOTAL 1.1 MG/DL (0.2-1.0); CALCIUM LEVEL 8.4 MG/DL (8.8-10.2); CREATININE FOR GFR 2.71 MG/DL (0.55-1.30); GLOMERULAR FILTRATION RATE 18.7 (>45); POTASSIUM SERUM 3.5 MEQ/L (3.5-5.1); TOTAL PROTEIN 5.7 GM/DL (6.4-8.2)
[2019-07-19 08:30] VITALS: BP 136/64
[2019-07-19] MEDS: FUROSEMIDE 40 MG TAB PO SCH ×2 (08:36→17:31)
[2019-07-19] MEDS: SPIRONOLACTONE 25 MG TAB PO SCH (08:37)
[2019-07-19] MEDS: **hydrALAZINE HCL** 25 MG TAB PO SCH ×3 (08:37→20:53)
[2019-07-19] MEDS: SUCRALFATE 1 GM TAB PO SCH (08:37)
[2019-07-19] MEDS: CARVedilol 12.5 MG TAB PO SCH ×2 (08:37→20:52)
[2019-07-19] MEDS: allopurinoL 100 MG TAB PO SCH (08:37)
[2019-07-19] MEDS: predniSONE 10 MG TAB PO SCH (08:38)
[2019-07-19] MEDS: FILGRASTIM 300 MCG/0.5 ML SYRINGE (J1442 PER 1MCG) SC SCH (12:15)
--- NOTE | 2019-07-19 12:43 | IPNPDOC ---
Subjective Date Seen The patient was seen on 07/19/19. Subjective Chief Complaint/HPI Patient is a comfortable, in no distress. Offers no new complaints General: Denies: ROS Unobtainable, Chills, Night Sweats, Fatigue, Malaise, Normal Appetite, Other Symptoms Constitutional: Denies: Chills, Fever, Malaise, Night Sweats, Weakness, Fatigue, Weight Loss, Lethargy, Other Pulmonary: Denies: Dyspnea, Cough, Pleuritic Chest Pain, Other Symptoms Cardiovascular: Denies: Chest Pain, Palpitations, Orthopnea, Paroxysmal Noc. Dyspnea, Edema, Lt Headedness, Other Symptoms Gastrointestinal: Denies: Nausea, Vomiting, Abdominal Pain, Diarrhea, Constipation, Melena, Hematochezia, Other Symptoms Musculoskeletal: Denies: Neck Pain, Back Pain, Shoulder Pain, Arm Pain, Hand Pain, Leg Pain, Foot Pain, Joint Pain, Muscle Pain, Spasms, Other Symptoms Neurological: Denies: Weakness, Numbness, Incoordination, Change in speech, Confusion, Seizures, Other Symptoms Objective Physical Examination ENT Exam: Positive: Atraumatic, Mucous membr. moist/pink Neck Exam: Positive: Supple Chest Exam: Positive: Clear to auscultation Heart Exam: Positive: Rate Normal, Normal S1, Normal S2 Abdomen Exam: Positive: Normal bowel sounds, Soft Extremity Exam: Positive: Normal pulses Skin Exam: Positive: Nl turgor and temperature Assessment /Plan Problems (1) CKD (chronic kidney disease), stage IV Status: Acute Problem Text: Stable Continue home meds (2) Pancytopenia Status: Acute Problem Text: Patient's WBC count has increased to 1.4 Will continue Neupogen 300 g daily for 3 days DC home with a WBC count more than 3 . She is H&H is stable, hemoglobin 9.2, hematocrit 29.5 Liters. CBC in a.m. Plan/VTE VTE Prophylaxis Ordered?: Yes VS, I&O, 24H, Fishbone Vital Signs/I&O Vital Signs Date Time Temp Pulse Resp B/P (MAP) Pulse Ox O2 Delivery O2 Flow Rate FiO2 07/19/19 08:30 98.2 75 16 136/64 (88) 95 Room Air I&O- Last 24 Hours up to 6 AM 07/19/19 06:00 Intake Total 1078 ml Output Total 375 ml Balance 703 ml Laboratory Data 24H LABS Laboratory Tests 2 1/22/20 12:59: Prothrombin Time 12.2, Prothromb Time International Ratio 0.94, Anion Gap 10, Glomerular Filtration Rate 18.5L, Calcium Level 9.0, Total Bilirubin 0.8, Direct Bilirubin 0.4H, Aspartate Amino Transf (AST/SGOT) 33, Alanine Aminotransferase (ALT/SGPT) 20, Alkaline Phosphatase 140H, Total Protein 5.9L, Albumin 3.1L, Albumin/Globulin Ratio 1.11, Lipase 609H 07/18/19 13:38: Immature Granulocyte % (Auto) 21.5H, Neutrophils (%) (Auto) 49.3, Lymphocytes (%) (Auto) 20.3L, Monocytes (%) (Auto) 7.6H, Eosinophils (%) (Auto) 1.3, Basophils (%) (Auto) 0.0, Neutrophils # (Auto) 0.4L, Lymphocytes # (Auto) 0.2L, Monocytes # (Auto) 0.1, Eosinophils # (Auto) 0.0, Basophils # (Auto) 0.0, Nucleated Red Blood Cells % (auto) 0.0, Immature Platelet Fraction 1.2 07/19/19 07:02: Anion Gap 10, Glomerular Filtration Rate 18.7L, Calcium Level 8.4L, Total Bilirubin 1.1H, Aspartate Amino Transf (AST/SGOT) 26, Alanine Aminotransferase (ALT/SGPT) 19, Alkaline Phosphatase 120H, Total Protein 5.7L, Albumin 2.6L, Albumin/Globulin Ratio 0.84L, Nucleated Red Blood Cells % (auto) 0.0 CBC/BMP Laboratory Tests 07/18/19 12:59 07/18/19 13:38 07/19/19 07:02 DINO YOUNGBLOOD MD Jul 19, 2019 12:43
[2019-07-19 17:28] VITALS: BP 142/68
[2019-07-19 22:00] VITALS: BP 148/68
[2019-07-20] MEDS: PANTOPRAZOLE 40MG INJ (PROTONIX) (C9113) IV SCH ×2 (05:05→17:28)
[2019-07-20 05:48] VITALS: BP 139/62
[2019-07-20 07:10] LABS: HEMATOCRIT 29.5 % (36.0-47.0); HEMOGLOBIN 9.3 g/dl (12.0-15.5); MEAN CORPUSCULAR HEMOGLOBIN 27.5 pg (27.0-33.0); MEAN CORPUSCULAR HGB CONC 31.5 g/dl (32.0-36.5); MEAN CORPUSCULAR VOLUME 87.3 fl (80.0-96.0); RED BLOOD COUNT 3.38 10^6/uL (4.00-5.40); WHITE BLOOD COUNT 2.7 10^3/uL (4.0-10.0)
[2019-07-20 07:14] LABS: PLATELET COUNT, AUTOMATED 79 10^3/uL (150-450)
[2019-07-20 07:49] LABS: BASOPHILS 2 % (0-1); LYMPHOCYTES 14 % (16-44); METAMYELOCYTES 5 % (0-0); MONOCYTES 6 % (0-5); NEUTROPHILS 35 % (28-66); PROMYELOCYTES 1 % (0-0)
[2019-07-20 07:50] LABS: PLATELET ESTIMATE DECREASED (NORMAL)
[2019-07-20] MEDS: SUCRALFATE 1 GM TAB PO SCH (08:30)
[2019-07-20] MEDS: allopurinoL 100 MG TAB PO SCH (08:30)
[2019-07-20] MEDS: predniSONE 10 MG TAB PO SCH (08:31)
[2019-07-20] MEDS: FUROSEMIDE 40 MG TAB PO SCH ×2 (08:31→16:16)
[2019-07-20] MEDS: **hydrALAZINE HCL** 25 MG TAB PO SCH ×3 (08:31→20:11)
[2019-07-20] MEDS: SPIRONOLACTONE 25 MG TAB PO SCH (08:31)
[2019-07-20] MEDS: CARVedilol 12.5 MG TAB PO SCH ×2 (08:32→20:12)
[2019-07-20] MEDS ORDERED: CALCITRIOL 0.25 MCG CAP (S0169) PO SCH (09:00)
[2019-07-20] MEDS: FILGRASTIM 300 MCG/0.5 ML SYRINGE (J1442 PER 1MCG) SC SCH (09:43)
--- NOTE | 2019-07-20 12:28 | IPNPDOC ---
Subjective Date Seen The patient was seen on 07/20/19. Subjective Chief Complaint/HPI Patient is comfortable in no distress. Offers no new complaints. Wants to go home General: Denies: ROS Unobtainable, Chills, Night Sweats, Fatigue, Malaise, Normal Appetite, Other Symptoms Constitutional: Denies: Chills, Fever, Malaise, Night Sweats, Weakness, Fatigue, Weight Loss, Lethargy, Other Skin: Denies: Rash, Lesions, Jaundice, Bruising, Itching, Dry, Breakdown, Nail Changes, Other Pulmonary: Denies: Dyspnea, Cough, Pleuritic Chest Pain, Other Symptoms Cardiovascular: Denies: Chest Pain, Palpitations, Orthopnea, Paroxysmal Noc. Dyspnea, Edema, Lt Headedness, Other Symptoms Gastrointestinal: Denies: Nausea, Vomiting, Abdominal Pain, Diarrhea, Constipation, Melena, Hematochezia, Other Symptoms Endocrine: Denies: Polydipsia, Polyphagia, Polyuria, Heat Intolerance, Cold Intolerance, Other Endocrine Sx Musculoskeletal: Denies: Neck Pain, Back Pain, Shoulder Pain, Arm Pain, Hand Pain, Leg Pain, Foot Pain, Joint Pain, Muscle Pain, Spasms, Other Symptoms Neurological: Denies: Weakness, Numbness, Incoordination, Change in speech, Co nfusion, Seizures, Other Symptoms Objective Physical Examination ENT Exam: Positive: Atraumatic, Mucous membr. moist/pink Neck Exam: Positive: Supple Chest Exam: Positive: Clear to auscultation Heart Exam: Positive: Rate Normal, Normal S1, Normal S2 Abdomen Exam: Positive: Normal bowel sounds, Soft Extremity Exam: Positive: Normal pulses Skin Exam: Positive: Nl turgor and temperature Assessment /Plan Problems (1) Pancytopenia Status: Acute Problem Text: Patient's WBC count has increased to 2.7 today Patient. WBC count is 2.7 today possible discharge home once WBC count is more than 3, and patient remains afebrile Her H&H is 9.3 and 29.5 today CBC in a.m. (2) CKD (chronic kidney disease), stage IV Status: Acute Problem Text: Stable Continue home meds Plan/VTE VTE Prophylaxis Ordered?: Yes VS, I&O, 24H, Fishbone Vital Signs/I&O Vital Signs Date Time Temp Pulse Resp B/P (MAP) Pulse Ox O2 Delivery O2 Flow Rate FiO2 07/20/19 08:32 78 132/62 07/20/19 05:48 98.7 16 94 Room Air I&O- Last 24 Hours up to 6 AM 07/20/19 06:00 Intake Total 2100 ml Output Total 2300 ml Balance -200 ml Laboratory Data 24H LABS Laboratory Tests 2 07/20/19 06:39: Immature Granulocyte % (Auto) , Nucleated Red Blood Cells % (auto) 0.7H, Neutrophils 35, Band Neutrophils 37H, Lymphocytes (Manual) 14L, Monocytes (Manual) 6H, Basophils (Manual) 2H, Metamyelocytes 5H, Promyelocytes 1H, Red Blood Cell Morphology NORMAL, Platelet Estimate DECREASED, Immature Platelet Fraction 1.6 CBC/BMP Laboratory Tests 07/20/19 06:39 DINO YOUNGBLOOD MD Jul 20, 2019 12:28
[2019-07-20 13:59] VITALS: BP 124/60
[2019-07-20 20:00] VITALS: BP 136/62
[2019-07-20 20:11] VITALS: BP 136/62
[2019-07-21 06:50] VITALS: BP 128/69
[2019-07-21] MEDS: PANTOPRAZOLE 40MG INJ (PROTONIX) (C9113) IV SCH (06:51)
[2019-07-21 07:04] LABS: HEMATOCRIT 29.9 % (36.0-47.0); HEMOGLOBIN 9.6 g/dl (12.0-15.5); MEAN CORPUSCULAR HEMOGLOBIN 27.8 pg (27.0-33.0); MEAN CORPUSCULAR HGB CONC 32.1 g/dl (32.0-36.5); MEAN CORPUSCULAR VOLUME 86.7 fl (80.0-96.0); PLATELET COUNT, AUTOMATED 103 10^3/uL (150-450); RED BLOOD COUNT 3.45 10^6/uL (4.00-5.40); WHITE BLOOD COUNT 4.6 10^3/uL (4.0-10.0)
[2019-07-21] MEDS: FILGRASTIM 300 MCG/0.5 ML SYRINGE (J1442 PER 1MCG) SC SCH (09:00)
[2019-07-21] MEDS: SUCRALFATE 1 GM TAB PO SCH (10:58)
[2019-07-21] MEDS: predniSONE 10 MG TAB PO SCH (10:58)
[2019-07-21] MEDS: FUROSEMIDE 40 MG TAB PO SCH (10:58)
[2019-07-21] MEDS: allopurinoL 100 MG TAB PO SCH (10:59)
[2019-07-21] MEDS: CARVedilol 12.5 MG TAB PO SCH (10:59)
[2019-07-21] MEDS: **hydrALAZINE HCL** 25 MG TAB PO SCH (10:59)
[2019-07-21] MEDS: SPIRONOLACTONE 25 MG TAB PO SCH (11:00)
--- NOTE | 2019-07-21 11:36 | DS.PDOC ---
Discharge Summary General Date of Admission Jul 18, 2019 at 14:49 Date of Discharge 07/21/19 Discharge Summary PROCEDURES PERFORMED DURING STAY: None. ADMITTING DIAGNOSES: 1. Anemia and neutropenia. DISCHARGE DIAGNOSES: 1. Anemia, neutropenia, CK D, stage IV, hyperparathyroidism, thrombocytopenia, hypertension. COMPLICATIONS/CHIEF COMPLAINT: Anemia,Neutropenia. HISTORY OF PRESENT ILLNESS: This is a 64 years old white female with past medical history of multiple medical problems including kidney transplant. CK D, stage IV, hyperparathyroidism, leukopenia, thrombocytopenia, hypertension, chronic anemia every month formations was sent from Dr. Gusman was office with abnormal labs. Patient's hemoglobin was 7.4, hematocrit 24.6, platelets of 75,000 and WBC count is 0.8. Patient is asymptomatic. She received her regular immunosuppressant therapy with BELATACEPT yesterday for her kidney transplant. Patient denies any complain at the present time. HOSPITAL COURSE: Patient was admitted to medical floor. After speaking with Dr. Francisco who follows with his primary care doctor and from nephrology as well. Patient received transfusion of 2 units of PRBC with improvement in her hemoglobin and hematocrit. Also, she was started on Neupogen 300 g subcutaneous daily. Pt's WBC count slowly and progressively improved today is 4.6 with hemoglobin of 9.6, hematocrit 29.9 and platelets of 103 Patient will be discharged home on all her current home medication and she will follow with her primary care physician and nephrology as an outpatient. DISCHARGE MEDICATIONS: Please see below. ALLERGIES: Please see below. PHYSICAL EXAMINATION ON DISCHARGE: VITAL SIGNS: Please see below. GENERAL: Within normal limits HEENT: PERRLA. Extraocular muscles intact NECK: Supple CARDIOVASCULAR EXAMINATION: S1, S2, regular RESPIRATORY EXAMINATION: Clear to A&P ABDOMINAL EXAMINATION: Benign EXTREMITIES: No clubbing, cyanosis, edema SKIN: [Normal NEUROLOGICAL EXAMINATION: Focal motor sensory deficit PSYCHIATRIC EXAMINATION: Normal LABORATORY DATA: Please see below. IMAGING: None PROGNOSIS: Good ACTIVITY: As tolerated. DIET: As tolerated DISCHARGE PLAN: Follow-up with the nephrology as an outpatient DISPOSITION: . Home DISCHARGE INSTRUCTIONS: 1. As per discharge instructions. ITEMS TO FOLLOWUP ON ON OUTPATIENT: 1. Follow with nephrology. DISCHARGE CONDITION: Stable. TIME SPENT ON DISCHARGE: 25 minutes. Vital Signs/I&Os Vital Signs Date Time Temp Pulse Resp B/P (MAP) Pulse Ox O2 Delivery O2 Flow Rate FiO2 07/21/19 06:50 98.1 76 18 128/69 (88) 99 Room Air I&O- Last 24 Hours up to 6 AM 07/21/19 06:00 Intake Total 1200 ml Output Total 1050 ml Balance 150 ml Laboratory Data Labs 24H Laboratory Tests 2 07/21/19 06:33: Nucleated Red Blood Cells % (auto) 0.9H CBC/BMP Laboratory Tests 07/21/19 06:33 Discharge Medications Scheduled Allopurinol (Allopurinol) 100 Mg Tab, 100 MG PO DAILY, (Reported) Belatacept IV (Nulojix) Unknown Strength Inj, Unknown Dose IV Q5WK, (Reported) [facility] IS DISCUSSING INCREASING THIS TO [id number] Calcitriol (Calcitriol) 0.25 Mcg Cap, 0.25 MCG PO 3XW, (Reported) TAKES ON TUESDAY, TUESDAY AND TUESDAY Calcium Carbonate (Calcium) 600 Mg Tab, 600 MG PO BID, (Reported) Carvedilol (Carvedilol) 25 Mg Tablet, 25 MG PO BID, (Reported) PATIENT ALSO HAS RX FOR 12.5MG (2 TABS BID) Epoetin Murphy-Epbx (Retacrit) 10,000 Unit/1 Ml Vial, 2 ML SQ Q2WK, (Reported) Furosemide (Furosemide) 20 Mg Tablet, 40 MG PO BID, (Reported) Hydralazine HCl (Hydralazine HCl) 25 Mg Tablet, 25 MG PO TID, (Reported) Prednisone (Prednisone) 10 Mg Tablet, 5 MG PO DAILY, (Reported) Spironolactone (Spironolactone) 25 Mg Tablet, 25 MG PO DAILY, (Reported) Sucralfate (Sucralfate) 1 Gm Tablet, 1 GM PO DAILY, (Reported) Allergies Coded Allergies: No Known Allergies (Verified , 12/31/02) DINO YOUNGBLOOD MD Jul 21, 2019 11:36
== END 2019-07-21 12:20 | disposition home or self-care (01) | DRG 809 ==
LOC: M ED 12:22 → M ED INP 14:49 → ENRESERVTM 21:58 → ENRESERVDT 21:58 → M MS4PR 22:32
PROVIDERS: ADMIT Internal Medicine; ATTEND Internal Medicine
PROC: 30233N1 Transfusion of Nonautologous Red Blood Cells into Peripheral Vein, Percutaneous Approach (ICD-10-PCS; principal; 2019-07-18)
DX: D61.818 Other pancytopenia (principal); N18.4 Chronic kidney disease, stage 4 (severe); N25.81 Secondary hyperparathyroidism of renal origin; Z94.0 Kidney transplant status; Q43.9 Congenital malformation of intestine, unspecified; D69.6 Thrombocytopenia, unspecified; I12.9 Hypertensive chronic kidney disease with stage 1 through stage 4 chronic kidney disease, or unspecified chronic kidney disease; Z79.899 Other long term (current) drug therapy; D50.0 Iron deficiency anemia secondary to blood loss (chronic); Q40.3 Congenital malformation of stomach, unspecified

== ENCOUNTER 2019-08-21 08:06 | Outpatient (CLI) | payer OTHER, MEDICARE ==
[~2019-08-21] VITALS: Ht 149.9 cm; Wt 71.0 kg
[2019-08-21 08:37] VITALS: BP 148/66
[2019-08-21] MEDS ORDERED: NS IV ONE (09:00)
[2019-08-21] MEDS ORDERED: BELATACEPT IV ONE (09:00)
[2019-08-21 09:47] VITALS: BP 114/53
== END 2019-08-21 09:40 | disposition home or self-care (01) ==
LOC: M INFU 08:06
PROVIDERS: ATTEND Internal Medicine Nephrology
DX: Z94.0 Kidney transplant status (principal)
CPT/HCPCS: 36415; 96365; J0485

== ENCOUNTER → 2019-08-21 | Outpatient (CLI) | payer OTHER, MEDICARE ==
[2019-08-21 08:56] LABS: APPEARANCE, URINE CLEAR (CLEAR); BACTERIA, URINE AUTO NEGATIVE (NEGATIVE); BILIRUBIN, URINE AUTO NEGATIVE (NEGATIVE); BLOOD, URINE BLOOD NEGATIVE (NEGATIVE); COLOR, URINE STRAW (YELLOW); GLUCOSE, URINE (UA) AUTO NEGATIVE (NEGATIVE); KETONE, URINE AUTO NEGATIVE (NEGATIVE); LEUKOCYTE ESTERASE, URINE AUTO NEGATIVE (NEGATIVE); NITRITE, URINE AUTO NEGATIVE (NEGATIVE); PROTEIN, URINE AUTO NEGATIVE (NEGATIVE); RBC, URINE AUTO 0 /HPF (0-3); SPECIFIC GRAVITY URINE AUTO 1.006 (1.002-1.035); SQUAMOUS EPITHELIAL CELL UR AU 1 /HPF (0-6); UROBILINOGEN, URINE AUTO 0.2 mg/dL (0.0-2.0); WBC, URINE AUTO 0 /HPF (0-3)
[2019-08-21 09:14] LABS: HEMATOCRIT 29.7 % (36.0-47.0); HEMOGLOBIN 9.4 g/dl (12.0-15.5); MEAN CORPUSCULAR HEMOGLOBIN 27.5 pg (27.0-33.0); MEAN CORPUSCULAR HGB CONC 31.6 g/dl (32.0-36.5); MEAN CORPUSCULAR VOLUME 86.8 fl (80.0-96.0); PLATELET COUNT, AUTOMATED 68 10^3/uL (150-450); RED BLOOD COUNT 3.42 10^6/uL (4.00-5.40)
[2019-08-21 09:28] LABS: CREATININE,RANDOM URINE 26.9 MG/DL; TOTAL PROTEIN,RANDOM URINE 7.1 MG/DL (0.0-12.0)
[2019-08-21 09:31] LABS: ATYPICAL LYMPH 1 % (0-5); LYMPHOCYTES 30 % (16-44); MONOCYTES 6 % (0-5); NEUTROPHILS 58 % (28-66)
[2019-08-21 09:32] LABS: PLATELET ESTIMATE DECREASED (NORMAL)
[2019-08-21 09:40] LABS: BILIRUBIN,DIRECT 0.3 MG/DL (0.0-0.2); BILIRUBIN,TOTAL 0.9 MG/DL (0.2-1.0); CALCIUM LEVEL 9.1 MG/DL (8.8-10.2); CREATININE FOR GFR 3.39 MG/DL (0.55-1.30); GLOMERULAR FILTRATION RATE 14.4 (>45); MAGNESIUM LEVEL 2.6 MG/DL (1.8-2.4); PHOSPHORUS LEVEL 4.8 MG/DL (2.5-4.9); POTASSIUM SERUM 4.3 MEQ/L (3.5-5.1); TOTAL PROTEIN 6.1 GM/DL (6.4-8.2)
[2019-08-24 00:07] LABS: log10 CMV QN DNA P1 2.711 (.)
== END ==
LOC: M LAB 08:10
PROVIDERS: ATTEND Internal Medicine Nephrology
DX: Z94.0 Kidney transplant status (principal); N18.5 Chronic kidney disease, stage 5; D84.9 Immunodeficiency, unspecified; Z79.899 Other long term (current) drug therapy

== ENCOUNTER → 2019-08-28 | Outpatient (REF) | payer OTHER, MEDICARE ==
[2019-08-29 14:36] LABS: CHOLESTEROL LEVEL 210 MG/DL (<200); HDL CHOLESTEROL 70 MG/DL (>40); LDL CHOLESTEROL 122 MG/DL (<100); NON-HDL-C 140 MG/DL; TRIGLYCERIDES LEVEL 88 MG/DL (<150)
[2019-08-29 14:40] LABS: HEPATITIS B SURFACE ANTIBODY NEGATIVE (POSITIVE)
[2019-08-29 14:51] LABS: HEPATITIS B SURFACE ANTIGEN NEGATIVE (NEGATIVE)
[2019-08-29 15:18] LABS: HEPATITIS C VIRUS ABY INDEX < 0.0 INDEX (<0.8)
[2019-08-29 15:19] LABS: HEPATITIS B CORE ANTIBODY IGM NEGATIVE (NEGATIVE)
== END ==
LOC: M LAB REF 13:27
PROVIDERS: ATTEND Internal Medicine Nephrology
DX: N18.4 Chronic kidney disease, stage 4 (severe) (principal)

== ENCOUNTER 2019-08-31 13:13 | Emergency (ER) | payer OTHER, MEDICARE ==
[~2019-08-31] VITALS: Ht 149.9 cm; Wt 65.5 kg
[2019-08-31 14:43] LABS: INFLUENZA A AMPLIFICATION POSITIVE (NEGATIVE); INFLUENZA B AMPLIFICATION NEGATIVE (NEGATIVE)
--- NOTE | 2019-08-31 15:54 | REP ---
CHEST, TWO VIEWS: Two views of the chest are performed and compared to prior studies, most recent of which is 04/12/2019. There is mild cardiomegaly. No acute infiltrate is seen. Mediastinal silhouette is unchanged. There are mild degenerative changes of the spine. IMPRESSION: No evidence of acute infiltrate. Mild cardiomegaly. Electronically Signed by Yasmani Soliman MD 09/04/2019 04:10 P
[2019-08-31 15:57] VITALS: BP 141/69
== END 2019-08-31 16:03 | disposition home or self-care (01) ==
LOC: M ED 13:13
DX: J09.X2 Influenza due to identified novel influenza A virus with other respiratory manifestations (principal); I51.7 Cardiomegaly; N18.4 Chronic kidney disease, stage 4 (severe); Z79.899 Other long term (current) drug therapy

== ENCOUNTER 2019-10-02 08:08 | Outpatient (CLI) | payer OTHER, MEDICARE ==
[~2019-10-02] VITALS: Ht 149.9 cm; Wt 67.3 kg
[2019-10-02] MEDS ORDERED: NS IV ONE (08:15)
[2019-10-02] MEDS ORDERED: BELATACEPT IV ONE (08:15)
[2019-10-02 08:59] VITALS: BP 125/60
[2019-10-02 09:34] VITALS: BP 132/62
== END 2019-10-02 09:35 | disposition home or self-care (01) ==
LOC: M INFU 08:08
PROVIDERS: ATTEND Internal Medicine Nephrology
DX: Z94.0 Kidney transplant status (principal)
CPT/HCPCS: 36415; 96365; J0485

== ENCOUNTER → 2019-10-02 | Outpatient (CLI) | payer OTHER, MEDICARE ==
[~2019-10-02] MED LIST changes: -FLUO0.024 EXT; +FLUO15CR3 EXT
[2019-10-02 09:16] LABS: APPEARANCE, URINE CLEAR (CLEAR); BACTERIA, URINE AUTO NEGATIVE (NEGATIVE); BILIRUBIN, URINE AUTO NEGATIVE (NEGATIVE); BLOOD, URINE BLOOD NEGATIVE (NEGATIVE); COLOR, URINE STRAW (YELLOW); GLUCOSE, URINE (UA) AUTO NEGATIVE (NEGATIVE); HEMATOCRIT 27.6 % (36.0-47.0); HEMOGLOBIN 8.9 g/dl (12.0-15.5); KETONE, URINE AUTO NEGATIVE (NEGATIVE); LEUKOCYTE ESTERASE, URINE AUTO NEGATIVE (NEGATIVE); MEAN CORPUSCULAR HEMOGLOBIN 27.8 pg (27.0-33.0); MEAN CORPUSCULAR HGB CONC 32.2 g/dl (32.0-36.5); MEAN CORPUSCULAR VOLUME 86.3 fl (80.0-96.0); NITRITE, URINE AUTO NEGATIVE (NEGATIVE); PROTEIN, URINE AUTO NEGATIVE (NEGATIVE); RBC, URINE AUTO 0 /HPF (0-3); SPECIFIC GRAVITY URINE AUTO 1.008 (1.002-1.035); SQUAMOUS EPITHELIAL CELL UR AU 0 /HPF (0-6); UROBILINOGEN, URINE AUTO 0.2 mg/dL (0.0-2.0); WBC, URINE AUTO 0 /HPF (0-3); WHITE BLOOD COUNT 4.3 10^3/uL (4.0-10.0)
[2019-10-02 09:19] LABS: PLATELET COUNT, AUTOMATED 98 10^3/uL (150-450)
[2019-10-02 09:41] LABS: EOSINOPHILS 2 % (0-3); LYMPHOCYTES 13 % (16-44); METAMYELOCYTES 11 % (0-0); MONOCYTES 5 % (0-5); NEUTROPHILS 50 % (28-66)
[2019-10-02 09:42] LABS: ANISOCYTOSIS 2+; OVALOCYTES 1+; PLATELET ESTIMATE DECREASED (NORMAL)
[2019-10-02 09:43] LABS: ALBUMIN 2.9 GM/DL (3.2-5.2); BILIRUBIN,DIRECT 0.4 MG/DL (0.0-0.2); CALCIUM LEVEL 10.3 MG/DL (8.8-10.2); CREATININE FOR GFR 3.2 MG/DL (0.55-1.30); GLOMERULAR FILTRATION RATE 15.4 (>45); MAGNESIUM LEVEL 2.3 MG/DL (1.8-2.4); POTASSIUM SERUM 3.7 MEQ/L (3.5-5.1); TOTAL PROTEIN 6.5 GM/DL (6.4-8.2)
[2019-10-02 09:54] LABS: CREATININE, URINE 34.3 MG/DL; MALB URINE SIEMENS 21.1 MG/L; MAU/CREAT RATIO 61.5 MCG/MG (0.0-30.0)
== END ==
LOC: M LAB 08:12
PROVIDERS: ATTEND Internal Medicine Nephrology
DX: N18.9 Chronic kidney disease, unspecified (principal); Z94.0 Kidney transplant status

== ENCOUNTER 2019-11-13 07:44 | Outpatient (CLI) | payer MEDICARE, OTHER ==
[~2019-11-13] VITALS: Ht 149.9 cm; Wt 65.4 kg
[2019-11-13] MEDS ORDERED: BELATACEPT IV ONE (08:00)
[2019-11-13] MEDS ORDERED: NS IV ONE (08:00)
[2019-11-13 08:12] VITALS: BP 146/64
[2019-11-13 09:09] VITALS: BP 153/69
== END 2019-11-13 09:10 | disposition home or self-care (01) ==
LOC: M INFU 07:44
PROVIDERS: ATTEND Internal Medicine Nephrology
DX: N18.5 Chronic kidney disease, stage 5 (principal); D84.9 Immunodeficiency, unspecified; Z94.0 Kidney transplant status; Z79.899 Other long term (current) drug therapy
CPT/HCPCS: 36415; 80069; 80076; 81001; 82550; 82570; 83615; 83735; 84156; 85025; 87086; 87497; 96365; J0485

== ENCOUNTER → 2019-11-13 | Outpatient (CLI) | payer MEDICARE, OTHER ==
[~2019-11-13] MED LIST changes: -LISI-1046 PO; +LISI2.5T2 PO
[2019-11-13 08:46] LABS: APPEARANCE, URINE CLEAR (CLEAR); BACTERIA, URINE AUTO NEGATIVE (NEGATIVE); BILIRUBIN, URINE AUTO NEGATIVE (NEGATIVE); BLOOD, URINE BLOOD NEGATIVE (NEGATIVE); COLOR, URINE YELLOW (YELLOW); GLUCOSE, URINE (UA) AUTO NEGATIVE (NEGATIVE); KETONE, URINE AUTO NEGATIVE (NEGATIVE); LEUKOCYTE ESTERASE, URINE AUTO NEGATIVE (NEGATIVE); MUCUS, URINE SMALL (NEGATIVE); NITRITE, URINE AUTO NEGATIVE (NEGATIVE); PROTEIN, URINE AUTO NEGATIVE (NEGATIVE); RBC, URINE AUTO 0 /HPF (0-3); SPECIFIC GRAVITY URINE AUTO 1.009 (1.002-1.035); SQUAMOUS EPITHELIAL CELL UR AU 0 /HPF (0-6); UROBILINOGEN, URINE AUTO 0.2 mg/dL (0.0-2.0); WBC, URINE AUTO 0 /HPF (0-3)
[2019-11-13 09:28] LABS: HEMATOCRIT 28.3 % (36.0-47.0); HEMOGLOBIN 8.9 g/dl (12.0-15.5); MEAN CORPUSCULAR HEMOGLOBIN 26.6 pg (27.0-33.0); MEAN CORPUSCULAR HGB CONC 31.4 g/dl (32.0-36.5); MEAN CORPUSCULAR VOLUME 84.7 fl (80.0-96.0); PLATELET COUNT, AUTOMATED 128 10^3/uL (150-450); RED BLOOD COUNT 3.34 10^6/uL (4.00-5.40); WHITE BLOOD COUNT 5.5 10^3/uL (4.0-10.0)
[2019-11-13 09:39] LABS: CREATININE,RANDOM URINE 48.8 MG/DL; TOTAL PROTEIN,RANDOM URINE 15.4 MG/DL (0.0-12.0)
[2019-11-13 09:54] LABS: ALBUMIN 3.1 GM/DL (3.2-5.2); BILIRUBIN,DIRECT 0.3 MG/DL (0.0-0.2); BILIRUBIN,TOTAL 0.9 MG/DL (0.2-1.0); CALCIUM LEVEL 10.2 MG/DL (8.8-10.2); CREATININE FOR GFR 3.3 MG/DL (0.55-1.30); GLOMERULAR FILTRATION RATE 14.9 (>45); MAGNESIUM LEVEL 2.3 MG/DL (1.8-2.4); PHOSPHORUS LEVEL 4.9 MG/DL (2.5-4.9); POTASSIUM SERUM 3.6 MEQ/L (3.5-5.1); TOTAL PROTEIN 6.8 GM/DL (6.4-8.2)
[2019-11-13 09:57] LABS: LYMPHOCYTES 19 % (16-44); METAMYELOCYTES 1 % (0-0); MONOCYTES 3 % (0-5); NEUTROPHILS 55 % (28-66)
[2019-11-13 09:58] LABS: PLATELET ESTIMATE NORMAL (NORMAL)
== END ==
LOC: M LAB 07:46
PROVIDERS: ATTEND Internal Medicine Nephrology
DX: N18.5 Chronic kidney disease, stage 5 (principal); D84.9 Immunodeficiency, unspecified; Z94.0 Kidney transplant status; Z79.899 Other long term (current) drug therapy

== ENCOUNTER 2019-11-21 08:13 | Outpatient (CLI) | payer MEDICARE, OTHER ==
[~2019-11-21] VITALS: Ht 149.9 cm; Wt 68.5 kg
[2019-11-21 08:20] VITALS: BP 148/67
[2019-11-21] MEDS ORDERED: EPINEPHrine INJ 1 MG/ML 1ML AMP IM PRN (08:30)
[2019-11-21] MEDS ORDERED: ALBUTEROL SULFATE 2.5 MG/0.5 ML INH NEB SOLN INH PRN (08:30)
[2019-11-21] MEDS ORDERED: methylPREDNISolone INJ 125 MG/2 ML VIAL (J2930) IV PRN (08:30)
[2019-11-21] MEDS ORDERED: NS 1,000 ML IV SCH (08:30)
[2019-11-21] MEDS ORDERED: FERRIC CARBOXYMALTOSE INJ 750 MG in NS 250 ML IV ONE (08:30)
[2019-11-21] MEDS ORDERED: diphenhydrAMINE 50MG/ML VIAL (J1200) IV PRN (08:30)
[2019-11-21 10:11] VITALS: BP 156/66
== END 2019-11-21 10:15 | disposition home or self-care (01) ==
LOC: M INFU 08:13
PROVIDERS: ATTEND Internal Medicine Nephrology
DX: D50.9 Iron deficiency anemia, unspecified (principal)
CPT/HCPCS: 96365; J1439

== ENCOUNTER 2019-11-28 08:32 | Outpatient (CLI) | payer MEDICARE, OTHER ==
[~2019-11-28] VITALS: Ht 149.9 cm; Wt 68.6 kg
[2019-11-28 08:42] VITALS: BP 172/72
[2019-11-28] MEDS ORDERED: NS 1,000 ML IV SCH (08:45)
[2019-11-28] MEDS ORDERED: FERRIC CARBOXYMALTOSE INJ 750 MG in NS 250 ML IV ONE (08:45)
[2019-11-28] MEDS ORDERED: EPINEPHrine INJ 1 MG/ML 1ML AMP IM PRN (08:45)
[2019-11-28] MEDS ORDERED: diphenhydrAMINE 50MG/ML VIAL (J1200) IV PRN (08:45)
[2019-11-28] MEDS ORDERED: ALBUTEROL SULFATE 2.5 MG/0.5 ML INH NEB SOLN INH PRN (08:45)
[2019-11-28] MEDS ORDERED: methylPREDNISolone INJ 125 MG/2 ML VIAL (J2930) IV PRN (08:45)
[2019-11-28 09:30] VITALS: BP 144/65
[2019-11-28 10:24] VITALS: BP 135/62
== END 2019-11-28 10:30 | disposition home or self-care (01) ==
LOC: M INFU 08:32
PROVIDERS: ATTEND Internal Medicine Nephrology
DX: D50.9 Iron deficiency anemia, unspecified (principal)
CPT/HCPCS: 96365; J1439

== ENCOUNTER → 2019-12-12 | Outpatient (REF) | payer MEDICARE, OTHER ==
[2019-12-13 17:37] LABS: CHOLESTEROL LEVEL 194 MG/DL (<200); CHOLESTEROL RISK RATIO 2.621 (<5); HDL CHOLESTEROL 74 MG/DL (>40); LDL CHOLESTEROL 105 MG/DL (<100); NON-HDL-C 120 MG/DL; TRIGLYCERIDES LEVEL 75 MG/DL (<150)
[2019-12-14 17:28] LABS: HEPATITIS B SURFACE ANTIBODY NEGATIVE (POSITIVE)
[2019-12-14 17:39] LABS: HEPATITIS B SURFACE ANTIGEN NEGATIVE (NEGATIVE)
[2019-12-14 18:07] LABS: HEPATITIS C VIRUS ABY INDEX 0.2 INDEX (<0.8)
[2019-12-14 18:08] LABS: HEPATITIS B CORE ANTIBODY IGM NEGATIVE (NEGATIVE)
== END ==
LOC: M LAB REF 16:35
PROVIDERS: ATTEND Internal Medicine Nephrology
DX: N18.5 Chronic kidney disease, stage 5 (principal); Z94.0 Kidney transplant status; I12.0 Hypertensive chronic kidney disease with stage 5 chronic kidney disease or end stage renal disease

== ENCOUNTER → 2020-03-05 | Outpatient (CLI) | payer OTHER, MEDICARE ==
[~2020-03-05] MED LIST changes: +AMLO1TAB24 PO; -AMLO5TAB6 PO; +ISOVUE-370 76% 100ML VIAL As Ordered ONE
--- NOTE | 2020-03-25 14:48 | REP ---
CONTRAST ENHANCED CT OF THE ABDOMEN AND PELVIS: 03/05/20 CLINICAL: Fever with history of kidney transplant. TECHNIQUE: Axial contrast enhanced images from the lung bases to the pubic symphysis using 100cc Isovue 370 intravenous contrast material with coronal and sagittal reformations. COMPARISON: None. FINDINGS: A transplant kidney is identified in the right lower quadrant which demonstrates edematous enlargement, heterogeneous enhancement with decreased cortical medullary differentiation and a shaggy perinephric stranding appearance. There is associated mild hydronephrosis suspected. These findings suggest infectious/inflammatory changes including pyelonephritis. Rejection cannot be definitively be excluded as no prior examinations are available for comparison. A small amount of free fluid extending into the pelvis is also identified. Liver, pancreas, gallbladder, and bilateral adrenal glands are normal. [place] kidneys appear atrophic and demonstrate bilateral cysts. Splenomegaly is suggestive without focal splenic lesion. Evaluation of the enteric system is without obstruction or acute inflammatory process. Colonic and sigmoid diverticulosis noted. There appears to be a right inguinal hernia which contains non-obstructed loops of bowel as well as containing anterior right lateral bladder wall. Further evaluation of the pelvis demonstrates the bladder to be collapsed and evidence for prior hysterectomy. Stranding in the right lower abdomen and pelvis surrounding the transplant kidney as well as in the region of the inguinal hernia and adjacent subcutaneous fat stranding is appreciated which may represent associated acute findings versus post-surgical changes. No free air. No obvious significant adenopathy. Atherosclerotic changes to the aorta and vasculature noted without aneurysm. Skeletal structures are intact. Lung bases demonstrate basilar atelectasis (right greater than left). IMPRESSION: 1. The findings describing the transplant kidney in the right lower quadrant are consistent with an acute infectious/inflammatory process such as pyelonephritis as well as possible rejection which cannot be excluded based on CT. No prior examinations are available for comparison. 2. A right inguinal hernia is identified containing non-obstructed loop of bowel as well as a portion of the bladder wall with surrounding stranding which may be post-surgical in nature. 3. Splenomegaly. 4. Basilar atelectasis. 5. Further non-acute findings as described above. MTDD
== END ==
LOC: M RAD 13:49
PROVIDERS: ATTEND Internal Medicine Nephrology
DX: R50.9 Fever, unspecified (principal); Z94.0 Kidney transplant status
CPT/HCPCS: 74178; Q9967

== ENCOUNTER → 2020-03-10 | Outpatient (REF) | payer OTHER, MEDICARE ==
[~2020-03-10] MED LIST changes: -ISOVUE-370 76% 100ML VIAL As Ordered ONE
[2020-03-10 18:52] LABS: APPEARANCE, URINE CLOUDY (CLEAR); BACTERIA, URINE AUTO 1+ (NEGATIVE); BILIRUBIN, URINE AUTO NEGATIVE (NEGATIVE); BLOOD, URINE BLOOD 2+ (NEGATIVE); COLOR, URINE YELLOW (YELLOW); GLUCOSE, URINE (UA) AUTO 1+ mg/dL (NEGATIVE); KETONE, URINE AUTO NEGATIVE (NEGATIVE); LEUKOCYTE ESTERASE, URINE AUTO NEGATIVE (NEGATIVE); MUCUS, URINE SMALL (NEGATIVE); NITRITE, URINE AUTO NEGATIVE (NEGATIVE); PROTEIN, URINE AUTO 3+ mg/dL (NEGATIVE); RBC, URINE AUTO TNTC /HPF (0-3); SPECIFIC GRAVITY URINE AUTO 1.018 (1.002-1.035); SQUAMOUS EPITHELIAL CELL UR AU 7 /HPF (0-6); UROBILINOGEN, URINE AUTO 0.2 mg/dL (0.0-2.0); WBC, URINE AUTO 52 /HPF (0-3)
== END ==
LOC: M LAB REF 17:03
PROVIDERS: ATTEND Internal Medicine Nephrology
DX: N18.6 End stage renal disease (principal); T86.12 Kidney transplant failure; N39.0 Urinary tract infection, site not specified

== ENCOUNTER → 2020-05-07 | Outpatient (CLI) | payer OTHER, MEDICARE ==
[~2020-05-07] MED LIST changes: -LISI-542 PO; +LISI-898 PO
--- NOTE | 2020-05-07 11:36 | REPMRS ---
Patient History Patient is nulliparous. Took estrogen. Digital Woman Screen Mammo: May 07, 2020 - Exam #: [id number] Bilateral CC and MLO view(s) were taken. Technologist: Vidya Morris, Technologist Prior study comparison: September 25, 2015, bilateral digital woman screen mammo, performed at [facility]. November 24, 2010, bilateral digital mammo screening bilat, performed at [facility]. November 21, 2008, bilateral digital mammo screening bilat, performed at [facility]. FINDINGS: There are scattered fibroglandular densities. The Volpara volumetric breast density category is:B. There has been no change in the appearance of the mammogram from the prior studies. There is a mild amount of scattered fibroglandular density which is fairly symmetric. There is no interval development of dominant mass, architectural distortion, or grouped microcalcification suggestive of malignancy. 3-D tomosynthesis shows no additional findings. Assessment: BI-RADS/ACR category 1 mammogram. Negative Mammogram. Recommendation Routine screening mammogram of both breasts in 1 year (for women over age 40). This patient's Lifetime Breast Cancer Risk is estimated at 7.5 %. This mammogram was interpreted with the aid of an FDA-approved computer-aided dectection system. Electronically Signed By: Jace Wright MD 05/07/20 [id number]
== END ==
LOC: M WHC 08:39
PROVIDERS: ATTEND Physician Assistant
DX: Z12.39 Encounter for other screening for malignant neoplasm of breast (principal)

== ENCOUNTER → 2020-06-11 | Outpatient (CLI) | payer OTHER, MEDICARE ==
[~2020-06-11] MED LIST changes: +LISI-542 PO; -LISI-898 PO
--- NOTE | 2020-06-11 14:56 | REP ---
INDICATION: LOCALIZED SWELLING, MASS AND LUMP, TRUNK. COMPARISON: Abdomen/pelvis CT dated 03/05/2020 and supine plain film study of the abdomen dated 06/07/2019. TECHNIQUE: Two supine views of the abdomen and pelvis. FINDINGS: The bowel gas pattern is normal. There are calcifications projected over the upper abdomen bilaterally, likely artifactual costochondral calcifications. There are surgical clips in the right femoral area. There faintly visible calcifications projected over the right iliac wing superior laterally. 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 There are soft tissue calcifications lateral to the transplant kidney, likely accounting for these faintly visible calcifications on plain films. This is likely a postsurgical change. The skeletal soft tissue structures otherwise are unremarkable. IMPRESSION: Transplant kidney overlying the right iliac wing. Dystrophic soft tissue calcifications lateral to the transplant kidney. Surgical clips in the right femoral area. Normal bowel gas pattern. <Electronically signed by Yasmani Vasquez > 06/11/20 [id number]
== END ==
LOC: M RAD 11:43
PROVIDERS: ATTEND Nurse Practitioner Family
DX: R22.2 Localized swelling, mass and lump, trunk (principal)

== ENCOUNTER → 2022-05-05 | Outpatient (CLI) | payer MEDICARE ==
[~2022-05-05] MED LIST changes: -LISI-542 PO; -LISI2.5T2 PO; +LISI2.5T9 PO; +LISI5TAB11 PO; +POTA-151 PO; -POTA20TA6 PO
== END ==
LOC: M WHC 14:14
PROVIDERS: ATTEND Family Medicine
DX: Z12.31 Encounter for screening mammogram for malignant neoplasm of breast (principal); Z13.820 Encounter for screening for osteoporosis; M85.851 Other specified disorders of bone density and structure, right thigh; M85.852 Other specified disorders of bone density and structure, left thigh

== ENCOUNTER 2022-06-22 10:57 | Emergency (ER) | payer MEDICARE ==
[~2022-06-22] VITALS: Ht 149.9 cm; Wt 71.1 kg
[~2022-06-22 10:57] MED LIST changes: -VALG1TAB PO; +VALG450T10 PO
[2022-06-22] MEDS ORDERED: CARV12.5 (11:24)
[2022-06-22] MEDS ORDERED: AMLO1TAB25 (11:24)
[2022-06-22] MEDS ORDERED: CARVedilol 12.5 MG TAB PO ONE ×2 (11:25→13:40)
[2022-06-22] MEDS: METOPROLOL 5 MG/5 ML VIAL IV SCH ×3 (11:46→12:01)
[2022-06-22 11:54] LABS: BASO % 0.2 % (0.0-1.0); EOS # 0.1 10^3/uL (0.0-0.5); EOS % 1.9 % (0.0-3.0); HEMATOCRIT 26.5 % (36.0-47.0); HEMOGLOBIN 9.2 g/dl (12.0-15.5); LYMPH # 0.8 10^3/uL (1.5-5.0); LYMPH % 17.3 % (24.0-44.0); MEAN CORPUSCULAR HEMOGLOBIN 31.4 pg (27.0-33.0); MEAN CORPUSCULAR HGB CONC 34.7 g/dl (32.0-36.5); MEAN CORPUSCULAR VOLUME 90.4 fl (80.0-96.0); MONO # 0.5 10^3/uL (0.0-0.8); MONO % 10.2 % (2.0-8.0); NEUTROPHILS # 3.3 10^3/uL (1.5-8.5); NEUTROPHILS % 69.6 % (36.0-66.0); PLATELET COUNT, AUTOMATED 107 10^3/uL (150-450); RED BLOOD COUNT 2.93 10^6/uL (4.00-5.40); WHITE BLOOD COUNT 4.8 10^3/uL (4.0-10.0)
[2022-06-22 12:01] VITALS: BP 117/59
[2022-06-22 12:04] LABS: INR 0.98; PROTHROMBIN TIME 13.2 SECONDS (12.5-14.5)
[2022-06-22 12:17] LABS: LIPASE 65 U/L (12-53)
[2022-06-22 12:18] LABS: CK-MB VALUE MASS < 1.0 NG/ML (<3.6)
[2022-06-22 12:19] LABS: BILIRUBIN,DIRECT 0.3 MG/DL (<0.4)
[2022-06-22 12:20] LABS: ALBUMIN 3.5 G/DL (3.2-5.2); ALKALINE PHOSPHATASE 65 U/L (46-116); ALT/SGPT 28 U/L (7.0-40); AST/SGOT 29 U/L (<34); BILIRUBIN,TOTAL 1.2 MG/DL (0.3-1.2); BLOOD UREA NITROGEN 25 MG/DL (9-23); CALCIUM LEVEL 8.6 MG/DL (8.3-10.6); CARBON DIOXIDE LEVEL 31 MMOL/L (20-31); CHLORIDE LEVEL 98 MMOL/L (98-107); CPK CREATINE PHOSPHOKINASE 87 U/L (34-145); CREATININE FOR GFR 3.58 MG/DL (0.55-1.30); GLOMERULAR FILTRATION RATE 13.4 (>45); GLUCOSE, FASTING 89 MG/DL (74-106); MB/CK RELATIVE INDEX 1.14 (< OR =4); POTASSIUM SERUM 3.5 MMOL/L (3.5-5.1); SODIUM LEVEL 140 MMOL/L (136-145); TOTAL PROTEIN 6.5 G/DL (5.7-8.2)
[2022-06-22 12:21] LABS: FREE T4 1.17 NG/DL (0.89-1.76); THYROID STIMULATING HORMONE 1.776 uIU/ML (0.55-4.78)
[2022-06-22 13:13] LABS: CK-MB VALUE MASS < 1.0 NG/ML (<3.6)
[2022-06-22 13:16] LABS: CPK CREATINE PHOSPHOKINASE 89 U/L (34-145); MB/CK RELATIVE INDEX 1.12 (< OR =4)
[2022-06-22] MEDS ORDERED: APIXABAN 5 MG TAB (ELIQUIS) PO ONE (13:50)
[2022-06-22] MEDS ORDERED: ELIQ5TAB PO (13:53)
[2022-06-22 15:01] VITALS: BP 119/53
== END 2022-06-22 15:39 | disposition home or self-care (01) ==
LOC: M ED 10:57
DX: I48.0 Paroxysmal atrial fibrillation (principal); I10 Essential (primary) hypertension; D64.9 Anemia, unspecified; E78.5 Hyperlipidemia, unspecified; N18.9 Chronic kidney disease, unspecified; Z94.0 Kidney transplant status; Z79.01 Long term (current) use of anticoagulants; Z79.811 Long term (current) use of aromatase inhibitors; Z79.899 Other long term (current) drug therapy

== ENCOUNTER 2023-08-01 13:43 | Emergency (ER) | payer MEDICARE ==
[~2023-08-01] VITALS: Ht 152.4 cm; Wt 68.4 kg
[~2023-08-01 13:43] MED LIST changes: +AMLO1TAB25; -BIOT50004 PO; +BIOT5CAP8 PO; +CARV12.5; +ELIQ5TAB PO; +POTA-298 PO; -POTA1TAB14 PO
[2023-08-01] MEDS ORDERED: CALC1CAP (14:06)
[2023-08-01] MEDS ORDERED: CARV25TA (14:06)
[2023-08-01] MEDS ORDERED: ATOR1TAB19 (14:06)
[2023-08-01 20:17] VITALS: BP 150/74; TEMP 98.4; O2SAT 97
== END 2023-08-01 20:20 | disposition home or self-care (01) ==
LOC: M ED 13:43
DX: T82.590A Other mechanical complication of surgically created arteriovenous fistula, initial encounter (principal); I10 Essential (primary) hypertension; N18.6 End stage renal disease; Z94.0 Kidney transplant status; Z79.01 Long term (current) use of anticoagulants; Z79.02 Long term (current) use of antithrombotics/antiplatelets; Z79.52 Long term (current) use of systemic steroids; Z79.899 Other long term (current) drug therapy

== ENCOUNTER → 2024-04-10 | Outpatient (CLI) | payer MEDICARE ==
[~2024-04-10] MED LIST changes: +ATOR1TAB19; +CALC1CAP; -HYDR-3910 PO; +HYDR25TA87 PO
== END ==
LOC: M LAB 11:40
PROVIDERS: ATTEND Internal Medicine Nephrology
DX: N18.6 End stage renal disease (principal); D63.1 Anemia in chronic kidney disease

== ENCOUNTER → 2024-04-11 | Outpatient (CLI) | payer MEDICARE ==
[2024-04-11] VITALS (7 sets, daily range): BP systolic 118–149; BP diastolic 60–67; TEMP 96.6–98.5; O2SAT 91–97
[~2024-04-11] VITALS: Ht 149.9 cm; Wt 75.0 kg
[~2024-04-11] MED LIST changes: +NS 250 ML IV ONE
[2024-04-11] MEDS: diphenhydrAMINE 25MG CAP PO ONE (11:57)
[2024-04-11] MEDS: ACETAMINOPHEN 650 MG PO ONE (11:59)
== END ==
LOC: M INFU 11:25
PROVIDERS: ATTEND Internal Medicine Nephrology
DX: D64.9 Anemia, unspecified (principal); N18.6 End stage renal disease
CPT/HCPCS: 36430; P9016

== ENCOUNTER 2024-05-05 08:10 | Inpatient (IN) | payer MEDICARE ==
[~2024-05-05] VITALS: Ht 152.4 cm; Wt 67.2 kg
[2024-05-05] VITALS (10 sets, daily range): BP systolic 93–159; BP diastolic 60–80; TEMP 98.3–98.8; O2SAT 94–100
[~2024-05-05 08:10] MED LIST changes: -AMLO1TAB25; +AMLO1TAB25 PO; -ATOR1TAB19; +ATOR1TAB19 PO; -CALC1CAP; +CALC1CAP PO; -NS 250 ML IV ONE
[2024-05-05] MEDS: NS 500 ML IV ONE (09:03)
[2024-05-05 09:14] LABS: BASO % 0.2 % (0.0-1.0); EOS # 0.1 10^3/uL (0.0-0.5); EOS % 1.6 % (0.0-3.0); LYMPH # 0.5 10^3/uL (1.5-5.0); LYMPH % 11.8 % (24.0-44.0); MEAN CORPUSCULAR HEMOGLOBIN 29.6 pg (27.0-33.0); MEAN CORPUSCULAR HGB CONC 30.8 g/dl (32.0-36.5); MEAN CORPUSCULAR VOLUME 96.3 fl (80.0-96.0); MONO # 0.5 10^3/uL (0.0-0.8); MONO % 11.6 % (2.0-8.0); NEUTROPHILS # 3.2 10^3/uL (1.5-8.5); NEUTROPHILS % 73.9 % (36.0-66.0); PLATELET COUNT, AUTOMATED 106 10^3/uL (150-450); RED BLOOD COUNT 2.16 10^6/uL (4.00-5.40); WHITE BLOOD COUNT 4.4 10^3/uL (4.0-10.0)
[2024-05-05 09:15] LABS: HEMATOCRIT 20.8 % (36.0-47.0); HEMOGLOBIN 6.4 g/dl (12.0-15.5)
[2024-05-05 09:26] LABS: INR 1.63; PARTIAL THROMBOPLASTIN TIME 44.2 SECONDS (24.8-34.2); PROTHROMBIN TIME 19.5 SECONDS (12.5-14.5)
[2024-05-05 09:28] LABS: LIPASE 67 U/L (12-53)
[2024-05-05] MEDS ORDERED: LIDO30CR18 TOP (09:30)
[2024-05-05 09:31] LABS: ALKALINE PHOSPHATASE 55 U/L (35-104); ALT/SGPT 14 U/L (7.0-40); AST/SGOT 18 U/L (<34); BILIRUBIN,DIRECT 0.3 MG/DL (<0.4); BILIRUBIN,TOTAL 0.7 MG/DL (0.3-1.2); BLOOD UREA NITROGEN 25 MG/DL (9-23); CALCIUM LEVEL 9.2 MG/DL (8.3-10.6); CARBON DIOXIDE LEVEL 32 MMOL/L (20-31); CHLORIDE LEVEL 106 MMOL/L (98-107); CK-MB VALUE MASS < 1.0 NG/ML (<3.6); CPK CREATINE PHOSPHOKINASE 36 U/L (34-145); CREATININE FOR GFR 2.76 MG/DL (0.55-1.30); GLUCOSE, FASTING 106 MG/DL (74-106); MB/CK RELATIVE INDEX 2.77 (< OR =4); POTASSIUM SERUM 3.8 MMOL/L (3.5-5.1); SODIUM LEVEL 144 MMOL/L (136-145); TOTAL PROTEIN 5.7 G/DL (5.7-8.2)
[2024-05-05 09:32] LABS: FREE T4 1.27 NG/DL (0.89-1.76); THYROID STIMULATING HORMONE 4.184 uIU/ML (0.55-4.78)
[2024-05-05] MEDS ORDERED: ELIQ5TAB PO (10:05)
[2024-05-05] MEDS ORDERED: HOME MED LIST COMPLETE! XX SCH (10:05)
[2024-05-05] MEDS ORDERED: RENATAB6 PO (10:05)
[2024-05-05 10:20] LABS: CK-MB VALUE MASS 1.4 NG/ML (<3.6); MB/CK RELATIVE INDEX 4.11 (< OR =4)
[2024-05-05] MEDS: METOPROLOL TART 25 MG TABLET PO ONE (10:21)
[2024-05-05] MEDS ORDERED: EMLA CREAM 5GM TUBE (LIDOCAINE/PRILOCAINE) TOP SCH (11:40)
[2024-05-05] MEDS ORDERED: HEPARIN 1,000UNITS/ML 10ML VIAL (FOR RADIOLOGY & DIALYSIS ONLY) IV PRN (11:50)
[2024-05-05] MEDS ORDERED: LIDOCAINE 1% SDV 5ML VIAL SC PRN (11:50)
[2024-05-05] MEDS ORDERED: HEPARIN 1,000UNITS/ML 10ML VIAL (FOR RADIOLOGY & DIALYSIS ONLY) XX SCH (11:50)
[2024-05-05] MEDS ORDERED: SODIUM CHLORIDE 0.9% 1000 ML IV PRN (11:50)
[2024-05-05] MEDS: allopurinoL 100 MG TAB PO SCH (13:52)
[2024-05-05] MEDS: predniSONE 5 MG TAB PO SCH (13:52)
[2024-05-05] MEDS: PANTOPRAZOLE 40MG VIAL IV SCH (13:52)
[2024-05-05 17:09] LABS: BASO % 0.2 % (0.0-1.0); EOS % 0.4 % (0.0-3.0); HEMATOCRIT 29.2 % (36.0-47.0); LYMPH # 0.3 10^3/uL (1.5-5.0); LYMPH % 3.9 % (24.0-44.0); MEAN CORPUSCULAR HEMOGLOBIN 29.3 pg (27.0-33.0); MEAN CORPUSCULAR HGB CONC 32.5 g/dl (32.0-36.5); MEAN CORPUSCULAR VOLUME 90.1 fl (80.0-96.0); MONO # 0.9 10^3/uL (0.0-0.8); MONO % 10.3 % (2.0-8.0); NEUTROPHILS # 7.2 10^3/uL (1.5-8.5); NEUTROPHILS % 83.8 % (36.0-66.0); PLATELET COUNT, AUTOMATED 113 10^3/uL (150-450); RED BLOOD COUNT 3.24 10^6/uL (4.00-5.40); WHITE BLOOD COUNT 8.6 10^3/uL (4.0-10.0)
[2024-05-05 17:14] LABS: HEMOGLOBIN 9.5 g/dl (12.0-15.5)
[2024-05-05 17:34] LABS: C REACTIVE PROTEIN QUANTITATIV 2.1 MG/DL (<1.0)
[2024-05-05 17:37] LABS: ALBUMIN 3.4 G/DL (3.2-5.2); CALCIUM LEVEL 8.7 MG/DL (8.3-10.6); CREATININE FOR GFR 2.02 MG/DL (0.55-1.30); GLOMERULAR FILTRATION RATE 25.8 (>39); MAGNESIUM LEVEL 1.9 MG/DL (1.8-2.4); PHOSPHORUS LEVEL 1.7 MG/DL (2.4-5.1); POTASSIUM SERUM 4.4 MMOL/L (3.5-5.1); TOTAL PROTEIN 6.3 G/DL (5.7-8.2)
[2024-05-05 17:38] LABS: FREE T4 1.31 NG/DL (0.89-1.76); THYROID STIMULATING HORMONE 3.558 uIU/ML (0.55-4.78)
[2024-05-05] MEDS: CALCIUM ACETATE 667MG GELCAP PO SCH (20:39)
[2024-05-05] MEDS: ATORVASTATIN 10 MG TAB PO SCH (20:40)
[2024-05-05] MEDS: METOPROLOL TART 25 MG TABLET PO SCH (20:40)
[2024-05-06 03:40] VITALS: BP 156/68; TEMP 98.4; O2SAT 96
[2024-05-06 06:00] LABS: BASO % 0.2 % (0.0-1.0); EOS # 0.1 10^3/uL (0.0-0.5); EOS % 1.2 % (0.0-3.0); HEMOGLOBIN 8.5 g/dl (12.0-15.5); LYMPH # 0.8 10^3/uL (1.5-5.0); LYMPH % 12.9 % (24.0-44.0); MEAN CORPUSCULAR HEMOGLOBIN 30.1 pg (27.0-33.0); MEAN CORPUSCULAR HGB CONC 32.7 g/dl (32.0-36.5); MEAN CORPUSCULAR VOLUME 92.2 fl (80.0-96.0); MONO % 17.8 % (2.0-8.0); NEUTROPHILS # 3.9 10^3/uL (1.5-8.5); PLATELET COUNT, AUTOMATED 113 10^3/uL (150-450); RED BLOOD COUNT 2.82 10^6/uL (4.00-5.40); WHITE BLOOD COUNT 5.8 10^3/uL (4.0-10.0)
[2024-05-06 06:23] LABS: CALCIUM LEVEL 8.5 MG/DL (8.3-10.6); CREATININE FOR GFR 2.95 MG/DL (0.55-1.30); GLOMERULAR FILTRATION RATE 16.7 (>39); MAGNESIUM LEVEL 1.8 MG/DL (1.8-2.4); POTASSIUM SERUM 4.7 MMOL/L (3.5-5.1)
[2024-05-06 07:59] VITALS: BP 152/70; TEMP 97.8; O2SAT 94; O2SAT 97
[2024-05-06] MEDS ORDERED: NITROGLYCERIN 0.2 MG/HR PATCH TD SCH (09:00)
[2024-05-06 11:56] VITALS: BP 137/62; TEMP 98.2; O2SAT 91
[2024-05-06 16:20] VITALS: BP 168/76; TEMP 98.2; O2SAT 93
[2024-05-06] MEDS: METOPROLOL TART 50 MG TAB PO SCH (17:42)
[2024-05-06] MEDS: METOPROLOL TART 50 MG TAB PO ONE (18:16)
[2024-05-06 19:54] VITALS: BP 158/72; TEMP 98.5; O2SAT 91
[2024-05-07 03:40] VITALS: BP 154/80; TEMP 98.1; O2SAT 92
[2024-05-07 05:28] LABS: BASO % 0.2 % (0.0-1.0); EOS # 0.1 10^3/uL (0.0-0.5); EOS % 1.1 % (0.0-3.0); HEMATOCRIT 28.1 % (36.0-47.0); HEMOGLOBIN 8.8 g/dl (12.0-15.5); LYMPH # 0.9 10^3/uL (1.5-5.0); LYMPH % 14.1 % (24.0-44.0); MEAN CORPUSCULAR HEMOGLOBIN 28.8 pg (27.0-33.0); MEAN CORPUSCULAR HGB CONC 31.3 g/dl (32.0-36.5); MEAN CORPUSCULAR VOLUME 91.8 fl (80.0-96.0); MONO # 0.9 10^3/uL (0.0-0.8); NEUTROPHILS # 4.6 10^3/uL (1.5-8.5); NEUTROPHILS % 70.1 % (36.0-66.0); PLATELET COUNT, AUTOMATED 138 10^3/uL (150-450); RED BLOOD COUNT 3.06 10^6/uL (4.00-5.40); WHITE BLOOD COUNT 6.6 10^3/uL (4.0-10.0)
[2024-05-07 05:59] LABS: PERCENT SATURATION 14.8 % (13.2-45.0)
[2024-05-07] MEDS ORDERED: SODIUM CHLORIDE 0.9% 1000 ML IV PRN (06:00)
[2024-05-07] MEDS ORDERED: HEPARIN 1,000UNITS/ML 10ML VIAL (FOR RADIOLOGY & DIALYSIS ONLY) XX SCH (06:00)
[2024-05-07] MEDS ORDERED: HEPARIN 1,000UNITS/ML 10ML VIAL (FOR RADIOLOGY & DIALYSIS ONLY) IV PRN (06:00)
[2024-05-07] MEDS ORDERED: LIDOCAINE 1% SDV 5ML VIAL SC PRN (06:00)
[2024-05-07 06:37] LABS: CALCIUM LEVEL 9.8 MG/DL (8.3-10.6); CREATININE FOR GFR 4.71 MG/DL (0.55-1.30); FERRITIN 3225.2 NG/ML (7.3-270.7); GLOMERULAR FILTRATION RATE 9.7 (>39); POTASSIUM SERUM 4.5 MMOL/L (3.5-5.1)
[2024-05-07 07:26] VITALS: BP 164/73; TEMP 97.6; O2SAT 91
[2024-05-07 13:47] VITALS: BP 166/71; O2SAT 94
[2024-05-07 16:16] VITALS: BP 144/80; TEMP 98.4; O2SAT 94
[2024-05-07 20:04] VITALS: BP 152/64; TEMP 98.1; O2SAT 93
[2024-05-08 03:38] VITALS: BP 144/70; TEMP 97.8; O2SAT 94
[2024-05-08] MEDS ORDERED: HEPARIN 1,000UNITS/ML 10ML VIAL (FOR RADIOLOGY & DIALYSIS ONLY) IV PRN (06:00)
[2024-05-08] MEDS ORDERED: LIDOCAINE 1% SDV 5ML VIAL SC PRN (06:00)
[2024-05-08] MEDS ORDERED: SODIUM CHLORIDE 0.9% 1000 ML IV PRN (06:00)
[2024-05-08] MEDS ORDERED: HEPARIN 1,000UNITS/ML 10ML VIAL (FOR RADIOLOGY & DIALYSIS ONLY) XX SCH (06:00)
[2024-05-08 07:55] VITALS: BP 140/60; TEMP 98.1; O2SAT 96
[2024-05-08 12:35] VITALS: BP 144/70; TEMP 98; O2SAT 94
[2024-05-08] MEDS: BISACODYL 5MG TAB PO ONE (16:32)
[2024-05-08 16:34] VITALS: BP 150/65; TEMP 97.7; O2SAT 95
[2024-05-08] MEDS: GOLYTELY SOLN 4000 ML BTL PO ONE (18:34)
[2024-05-08 20:02] VITALS: BP 150/65; TEMP 98.1; O2SAT 97
[2024-05-08 23:38] VITALS: BP 128/60; TEMP 97.7; O2SAT 98
[2024-05-09] VITALS (9 sets, daily range): BP systolic 122–182; BP diastolic 56–78; TEMP 97.4–98.5; O2SAT 91–95
[2024-05-09] MEDS: MAGNESIUM CITRATE 300ML BTL PO ONE (05:10)
[2024-05-09 09:14] LABS: HEMATOCRIT 33.2 % (36.0-47.0); HEMOGLOBIN 10.6 g/dl (12.0-15.5); MEAN CORPUSCULAR HEMOGLOBIN 28.7 pg (27.0-33.0); MEAN CORPUSCULAR HGB CONC 31.9 g/dl (32.0-36.5); PLATELET COUNT, AUTOMATED 189 10^3/uL (150-450); RED BLOOD COUNT 3.69 10^6/uL (4.00-5.40)
[2024-05-09 09:39] LABS: CALCIUM LEVEL 9.4 MG/DL (8.3-10.6); CREATININE FOR GFR 3.66 MG/DL (0.55-1.30); POTASSIUM SERUM 3.6 MMOL/L (3.5-5.1)
[2024-05-09] MEDS ORDERED: propofoL 500 MG/50 ML VIAL As Ordered ONE (12:44)
[2024-05-09] MEDS ORDERED: PHENYLephrine 500MCG 5ML (100MCG/ML) SYRINGE As Ordered ONE (13:00)
[2024-05-09] MEDS ORDERED: LIDOCAINE 2% 100MG/5ML SDV (FOR ANES.) As Ordered ONE (13:00)
[2024-05-09] MEDS ORDERED: ePHEDrine SULFATE 25 MG/5 ML(5MG/ML) SYRINGE As Ordered ONE (13:02)
[2024-05-10] VITALS: BP 140/70; TEMP 97.9; O2SAT 93
[2024-05-10 04:00] VITALS: BP 135/88; TEMP 98.2; O2SAT 95
[2024-05-10] MEDS ORDERED: HEPARIN 1,000UNITS/ML 10ML VIAL (FOR RADIOLOGY & DIALYSIS ONLY) IV PRN (06:00)
[2024-05-10] MEDS ORDERED: SODIUM CHLORIDE 0.9% 1000 ML IV PRN (06:00)
[2024-05-10] MEDS ORDERED: HEPARIN 1,000UNITS/ML 10ML VIAL (FOR RADIOLOGY & DIALYSIS ONLY) XX SCH (06:00)
[2024-05-10] MEDS ORDERED: LIDOCAINE 1% SDV 5ML VIAL SC PRN (06:00)
[2024-05-10 07:05] LABS: HEMATOCRIT 29.7 % (36.0-47.0); HEMOGLOBIN 9.2 g/dl (12.0-15.5); MEAN CORPUSCULAR HEMOGLOBIN 28.5 pg (27.0-33.0); PLATELET COUNT, AUTOMATED 165 10^3/uL (150-450); RED BLOOD COUNT 3.23 10^6/uL (4.00-5.40); WHITE BLOOD COUNT 6.7 10^3/uL (4.0-10.0)
[2024-05-10 07:39] LABS: CALCIUM LEVEL 8.9 MG/DL (8.3-10.6); CREATININE FOR GFR 5.79 MG/DL (0.55-1.30); GLOMERULAR FILTRATION RATE 7.7 (>39); POTASSIUM SERUM 4.1 MMOL/L (3.5-5.1)
[2024-05-10 07:48] VITALS: BP 126/58; TEMP 97.6; O2SAT 100
[2024-05-10 11:41] VITALS: BP 125/64; TEMP 96.9; O2SAT 97
[2024-05-10] MEDS ORDERED: LOPR1TAB6 PO (14:38)
[2024-05-10] MEDS ORDERED: PANT40TA29 PO (14:38)
[2024-05-10 19:42] VITALS: BP 130/60; TEMP 98.4; O2SAT 96
[2024-05-10 19:47] VITALS: BP 130/60
== END 2024-05-10 20:08 | disposition home or self-care (01) | DRG 811 ==
LOC: M ED 08:10 → EDBD 08:10 → M ED INP 10:42 → M PCU 15:30
PROVIDERS: ADMIT Internal Medicine Pulmonary Disease; ATTEND Student in an Organized Health Care Education/Training Program
PROC: 30233N1 Transfusion of Nonautologous Red Blood Cells into Peripheral Vein, Percutaneous Approach (ICD-10-PCS; 2024-05-05)
PROC: 5A1D70Z Performance of Urinary Filtration, Intermittent, Less than 6 Hours Per Day (ICD-10-PCS; 2024-05-07)
PROC: 0DBH8ZX Excision of Cecum, Via Natural or Artificial Opening Endoscopic, Diagnostic (ICD-10-PCS; 2024-05-09)
PROC: 0DBL8ZX Excision of Transverse Colon, Via Natural or Artificial Opening Endoscopic, Diagnostic (ICD-10-PCS; 2024-05-09)
PROC: 0DB68ZX Excision of Stomach, Via Natural or Artificial Opening Endoscopic, Diagnostic (ICD-10-PCS; principal; 2024-05-09 12:30)
DX: D62 Acute posthemorrhagic anemia (principal); N18.6 End stage renal disease; I50.30 Unspecified diastolic (congestive) heart failure; I13.2 Hypertensive heart and chronic kidney disease with heart failure and with stage 5 chronic kidney disease, or end stage renal disease; T86.12 Kidney transplant failure; E78.5 Hyperlipidemia, unspecified; I48.91 Unspecified atrial fibrillation; K29.70 Gastritis, unspecified, without bleeding; K31.9 Disease of stomach and duodenum, unspecified; K57.30 Diverticulosis of large intestine without perforation or abscess without bleeding; D12.3 Benign neoplasm of transverse colon; D12.0 Benign neoplasm of cecum; K22.9 Disease of esophagus, unspecified; M10.9 Gout, unspecified; Z79.899 Other long term (current) drug therapy; Z79.01 Long term (current) use of anticoagulants; R00.0 Tachycardia, unspecified; Y84.8 Other medical procedures as the cause of abnormal reaction of the patient, or of later complication, without mention of misadventure at the time of the procedure

== ENCOUNTER 2024-06-05 07:13 | Emergency (ER) | payer MEDICARE ==
[~2024-06-05] VITALS: Ht 149.9 cm; Wt 66.1 kg
[~2024-06-05 07:13] MED LIST changes: +LIDO30CR18 TOP; +LOPR1TAB6 PO; +PANT40TA29 PO; +RENATAB6 PO
[2024-06-05 07:56] LABS: BASO % 0.3 % (0.0-1.0); EOS # 0.1 10^3/uL (0.0-0.5); HEMATOCRIT 25.6 % (36.0-47.0); HEMOGLOBIN 7.6 g/dl (12.0-15.5); LYMPH # 0.9 10^3/uL (1.5-5.0); LYMPH % 9.8 % (24.0-44.0); MEAN CORPUSCULAR HGB CONC 29.7 g/dl (32.0-36.5); MEAN CORPUSCULAR VOLUME 104.5 fl (80.0-96.0); MONO # 0.9 10^3/uL (0.0-0.8); MONO % 9.8 % (2.0-8.0); NEUTROPHILS # 7.4 10^3/uL (1.5-8.5); NEUTROPHILS % 77.8 % (36.0-66.0); PLATELET COUNT, AUTOMATED 177 10^3/uL (150-450); RED BLOOD COUNT 2.45 10^6/uL (4.00-5.40); WHITE BLOOD COUNT 9.5 10^3/uL (4.0-10.0)
[2024-06-05 08:14] LABS: INR 1.63; PROTHROMBIN TIME 19.6 SECONDS (12.5-14.5)
[2024-06-05 08:20] LABS: LIPASE 88 U/L (12-53)
[2024-06-05 08:23] LABS: ALBUMIN 3.2 G/DL (3.2-5.2); ALKALINE PHOSPHATASE 104 U/L (35-104); ALT/SGPT 22 U/L (7.0-40); AST/SGOT 36 U/L (<34); BILIRUBIN,DIRECT 0.3 MG/DL (<0.4); BILIRUBIN,TOTAL 0.6 MG/DL (0.3-1.2); BLOOD UREA NITROGEN 48 MG/DL (9-23); CALCIUM LEVEL 9.3 MG/DL (8.3-10.6); CARBON DIOXIDE LEVEL 27 MMOL/L (20-31); CHLORIDE LEVEL 103 MMOL/L (98-107); CK-MB VALUE MASS 1.4 NG/ML (<3.6); CREATININE FOR GFR 4.89 MG/DL (0.55-1.30); GLOMERULAR FILTRATION RATE 9.3 (>39); GLUCOSE, FASTING 81 MG/DL (74-106); POTASSIUM SERUM 5.1 MMOL/L (3.5-5.1); SODIUM LEVEL 142 MMOL/L (136-145); TOTAL PROTEIN 5.9 G/DL (5.7-8.2)
[2024-06-05] MEDS ORDERED: METO50TA7 PO (08:28)
[2024-06-05] MEDS ORDERED: PANT40TA29 PO (08:28)
[2024-06-05] MEDS ORDERED: ACET1TAB55 PO (08:30)
[2024-06-05 08:35] LABS: CPK CREATINE PHOSPHOKINASE 63 U/L (34-145); MB/CK RELATIVE INDEX 2.22 (< OR =4)
[2024-06-05 08:38] LABS: IRON (FE) 89 UG/DL (50-170); PERCENT SATURATION 31.1 % (13.2-45.0); TOTAL IRON BINDING CAPACITY 286 UG/DL (250-425)
[2024-06-05 08:40] LABS: FERRITIN 1101.3 NG/ML (7.3-270.7)
[2024-06-05] MEDS: DIGOXIN INJ 0.5 MG/2 ML AMP IV ONE (08:40)
[2024-06-05 08:41] LABS: VITAMIN B12 LEVEL 1199 PG/ML (211-911)
[2024-06-05 08:42] LABS: FOLATE > 24.00 NG/ML (>5.4)
[2024-06-05 09:17] VITALS: BP 130/68
[2024-06-05] MEDS: METOPROLOL TART 50 MG TAB PO ONE (09:17)
[2024-06-05] MEDS: APIXABAN 5 MG TAB (ELIQUIS) PO ONE (09:18)
[2024-06-05 10:49] VITALS: BP 174/72; TEMP 97.3; O2SAT 97
[2024-06-05 11:05] VITALS: BP 165/68; TEMP 97.3; O2SAT 97
[2024-06-05 12:05] VITALS: BP 162/74; TEMP 96.9; O2SAT 99
== END 2024-06-05 14:37 | disposition home or self-care (01) ==
LOC: EDBD 07:13 → M ED 07:13
DX: I48.91 Unspecified atrial fibrillation (principal); N18.6 End stage renal disease; D63.1 Anemia in chronic kidney disease; I45.10 Unspecified right bundle-branch block; I44.5 Left posterior fascicular block; I45.81 Long QT syndrome; I10 Essential (primary) hypertension; Z94.0 Kidney transplant status; Z79.01 Long term (current) use of anticoagulants; Z79.02 Long term (current) use of antithrombotics/antiplatelets; Z79.899 Other long term (current) drug therapy; Z79.1 Long term (current) use of non-steroidal anti-inflammatories (NSAID); Z86.79 Personal history of other diseases of the circulatory system
CPT/HCPCS: 36430; 71045; 80048; 80076; 82550; 82553; 82607; 82728; 82746; 83550; 83690; 84484; 85025; 85610; 86850; 86900; 86901; 86920; 93005; 93041; 94760; 96374; 99285; J1160; P9016

== ENCOUNTER → 2024-07-20 | Outpatient (CLI) | payer MEDICARE ==
[~2024-07-20] MED LIST changes: +ACET1TAB55 PO; +METO50TA7 PO; +VITA100093 PO
== END ==
LOC: M RAD 06:43
PROVIDERS: ATTEND Otolaryngology
DX: J38.01 Paralysis of vocal cords and larynx, unilateral (principal)

== ENCOUNTER → 2024-07-25 | Outpatient (REF) | payer MEDICARE | LOC: M LAB REF 11:29 | PROVIDERS: ATTEND Physician Assistant Medical | DX: R19.7 Diarrhea, unspecified (principal) ==

== ENCOUNTER 2024-07-30 12:47 | Inpatient (IN) | payer MEDICARE ==
[~2024-07-30] VITALS: Ht 149.9 cm; Wt 67.6 kg
[2024-07-30] MEDS ORDERED: propofoL 200 MG/20 ML VIAL As Ordered ONE (13:02)
[2024-07-30] MEDS ORDERED: LIDOCAINE 2% 100MG/5ML SDV (FOR ANES.) As Ordered ONE (13:02)
[2024-07-30 16:05] LABS: BASO % 0.3 % (0.0-1.0); EOS % 0.1 % (0.0-3.0); HEMATOCRIT 48.6 % (36.0-47.0); HEMOGLOBIN 15.2 g/dl (12.0-15.5); LYMPH # 1.3 10^3/uL (1.5-5.0); LYMPH % 14.4 % (24.0-44.0); MEAN CORPUSCULAR HEMOGLOBIN 28.9 pg (27.0-33.0); MEAN CORPUSCULAR HGB CONC 31.3 g/dl (32.0-36.5); MEAN CORPUSCULAR VOLUME 92.4 fl (80.0-96.0); MONO # 0.8 10^3/uL (0.0-0.8); MONO % 8.9 % (2.0-8.0); NEUTROPHILS # 6.8 10^3/uL (1.5-8.5); NEUTROPHILS % 75.5 % (36.0-66.0); PLATELET COUNT, AUTOMATED 122 10^3/uL (150-450); RED BLOOD COUNT 5.26 10^6/uL (4.00-5.40)
[2024-07-30 16:23] LABS: CALCIUM LEVEL 9.5 MG/DL (8.3-10.6); CREATININE FOR GFR 6.77 MG/DL (0.55-1.30); GLOMERULAR FILTRATION RATE 6.4 (>39); POTASSIUM SERUM 6.5 MMOL/L (3.5-5.1)
[2024-07-30] MEDS: SODIUM CHLORIDE 0.9% 1000 ML IV SCH (16:30)
[2024-07-30] MEDS: DEXTROSE 50% 50ML SYRINGE IV STA ×2 (16:43→17:37)
[2024-07-30] MEDS: HumuLIN R (REGULAR) INSULIN (NovoLIN R) **100U/ML** PER UNIT IV STA (17:37)
[2024-07-30] MEDS ORDERED: DEXTROSE 50% 50ML SYRINGE IV PRN (17:40)
[2024-07-30] MEDS ORDERED: GLUCOSE 4 GM CHEW PO PRN (17:40)
[2024-07-30] MEDS ORDERED: GLUCAGON INJ 1MG VIAL SC PRN (17:40)
[2024-07-30] MEDS: CALCIUM GLUCONATE 1,000 MG in DEXTROSE 5% (D5W) MINI-BAG PLU 100 ML IV ONE (17:49)
[2024-07-30 18:10] VITALS: BP 143/56; TEMP 97.5; O2SAT 97
[2024-07-30] MEDS: PATIROMER SORBITEX CALCIUM 8.4 GM POWDER PACKET (VELTASSA) PO ONE (18:23)
[2024-07-30] MEDS ORDERED: CICL0.7739 TOP (20:21)
[2024-07-30] MEDS ORDERED: HOME MED LIST COMPLETE! XX SCH (20:25)
[2024-07-30 21:01] VITALS: BP 121/58; TEMP 96.8; O2SAT 95
[2024-07-30] MEDS: METOPROLOL TART 50 MG TAB PO SCH (21:22)
[2024-07-30] MEDS: ATORVASTATIN 10 MG TAB PO SCH (21:22)
[2024-07-30] MEDS: ALBUTEROL SULFATE 2.5MG/0.5ML INH NEB SOLN NEB ONE (21:33)
[2024-07-30 22:00] LABS: CALCIUM LEVEL 8.6 MG/DL (8.3-10.6); CREATININE FOR GFR 6.71 MG/DL (0.55-1.30); GLOMERULAR FILTRATION RATE 6.5 (>39); MAGNESIUM LEVEL 2.4 MG/DL (1.8-2.4); POTASSIUM SERUM 5.9 MMOL/L (3.5-5.1)
[2024-07-30] MEDS: NYSTATIN 100,000 UNITS/GM TOPICAL PWD 15GM TOP PRN (22:02)
[2024-07-30] MEDS: NS 500 ML IV ONE (22:23)
[2024-07-31] VITALS (8 sets, daily range): BP systolic 102–128; BP diastolic 53–67; TEMP 97.2–98.2; O2SAT 95–99
[2024-07-31] MEDS: allopurinoL 100 MG TAB PO SCH (08:12)
[2024-07-31] MEDS: predniSONE 5 MG TAB PO SCH (08:12)
[2024-07-31] MEDS ORDERED: HEPARIN 1,000UNITS/ML 10ML VIAL (FOR RADIOLOGY & DIALYSIS ONLY) IV PRN (09:15)
[2024-07-31] MEDS ORDERED: HEPARIN 1,000UNITS/ML 10ML VIAL (FOR RADIOLOGY & DIALYSIS ONLY) XX SCH (09:15)
[2024-07-31] MEDS ORDERED: SODIUM CHLORIDE 0.9% 1000 ML IV PRN (09:15)
[2024-07-31] MEDS ORDERED: LIDOCAINE 1% SDV 5ML VIAL SC PRN (09:15)
[2024-07-31 09:19] LABS: HEMATOCRIT 46.8 % (36.0-47.0); HEMOGLOBIN 14.6 g/dl (12.0-15.5); MEAN CORPUSCULAR HEMOGLOBIN 28.7 pg (27.0-33.0); MEAN CORPUSCULAR HGB CONC 31.2 g/dl (32.0-36.5); MEAN CORPUSCULAR VOLUME 92.1 fl (80.0-96.0); RED BLOOD COUNT 5.08 10^6/uL (4.00-5.40)
[2024-07-31 09:34] LABS: PLATELET COUNT, AUTOMATED 99 10^3/uL (150-450)
[2024-07-31 09:37] LABS: CREATININE FOR GFR 7.39 MG/DL (0.55-1.30); GLOMERULAR FILTRATION RATE 5.8 (>39); PHOSPHORUS LEVEL 5.9 MG/DL (2.4-5.1); POTASSIUM SERUM 5.5 MMOL/L (3.5-5.1)
[2024-07-31] MEDS ORDERED: fentaNYL 100 MCG/2 ML INJECTION As Ordered ONE (13:53)
[2024-07-31] MEDS: CALCIUM ACETATE 667MG GELCAP PO SCH (16:50)
[2024-07-31] MEDS: LACTOBACILLUS ACIDOPHILUS CAP (BACID) PO SCH (16:50)
[2024-07-31] MEDS: APIXABAN 5 MG TAB (ELIQUIS) PO SCH (20:17)
[2024-08-01 00:25] VITALS: BP 111/58; TEMP 97.9; O2SAT 98
[2024-08-01 04:20] VITALS: BP 118/63; TEMP 97.9; O2SAT 93
[2024-08-01 07:38] VITALS: BP 100/53; TEMP 97.2; O2SAT 93
[2024-08-01 08:46] LABS: BASO % 0.6 % (0.0-1.0); EOS # 0.1 10^3/uL (0.0-0.5); EOS % 1.3 % (0.0-3.0); HEMATOCRIT 44.6 % (36.0-47.0); HEMOGLOBIN 14.2 g/dl (12.0-15.5); LYMPH # 1.2 10^3/uL (1.5-5.0); LYMPH % 18.5 % (24.0-44.0); MEAN CORPUSCULAR HEMOGLOBIN 29.4 pg (27.0-33.0); MEAN CORPUSCULAR HGB CONC 31.8 g/dl (32.0-36.5); MEAN CORPUSCULAR VOLUME 92.3 fl (80.0-96.0); MONO % 15.7 % (2.0-8.0); NEUTROPHILS % 63.3 % (36.0-66.0); RED BLOOD COUNT 4.83 10^6/uL (4.00-5.40); WHITE BLOOD COUNT 6.3 10^3/uL (4.0-10.0)
[2024-08-01 08:48] LABS: PLATELET COUNT, AUTOMATED 83 10^3/uL (150-450)
[2024-08-01 09:00] VITALS: BP 100/52
[2024-08-01 09:14] LABS: CALCIUM LEVEL 8.1 MG/DL (8.3-10.6); CREATININE FOR GFR 5.47 MG/DL (0.55-1.30); GLOMERULAR FILTRATION RATE 8.2 (>39); POTASSIUM SERUM 4.4 MMOL/L (3.5-5.1)
[2024-08-01] MEDS ORDERED: METO1TAB87 PO (10:42)
[2024-08-01] MEDS ORDERED: BACI1TAB21 PO (10:52)
== END 2024-08-01 13:30 | disposition home or self-care (01) | DRG 640 ==
LOC: M OPP 12:47 → M MSPAV 18:02 → M OPP 18:30 → OBSVTOIN 07-31 11:07
PROVIDERS: ADMIT Internal Medicine Gastroenterology; ATTEND Internal Medicine
PROC: 0DB68ZX Excision of Stomach, Via Natural or Artificial Opening Endoscopic, Diagnostic (ICD-10-PCS; 2024-07-31)
PROC: 0DB48ZX Excision of Esophagogastric Junction, Via Natural or Artificial Opening Endoscopic, Diagnostic (ICD-10-PCS; principal; 2024-07-31 13:00)
DX: E87.5 Hyperkalemia (principal); N18.6 End stage renal disease; I50.32 Chronic diastolic (congestive) heart failure; Z94.0 Kidney transplant status; I13.2 Hypertensive heart and chronic kidney disease with heart failure and with stage 5 chronic kidney disease, or end stage renal disease; K92.2 Gastrointestinal hemorrhage, unspecified; E87.20 Acidosis, unspecified; I48.91 Unspecified atrial fibrillation; D69.6 Thrombocytopenia, unspecified; M10.9 Gout, unspecified; D63.1 Anemia in chronic kidney disease; K29.70 Gastritis, unspecified, without bleeding; E78.5 Hyperlipidemia, unspecified; Z99.2 Dependence on renal dialysis; Z79.01 Long term (current) use of anticoagulants; R21 Rash and other nonspecific skin eruption; Z79.899 Other long term (current) drug therapy; Z79.52 Long term (current) use of systemic steroids; K31.819 Angiodysplasia of stomach and duodenum without bleeding; D50.9 Iron deficiency anemia, unspecified

== ENCOUNTER 2024-08-07 12:07 | Inpatient (IN) | payer MEDICARE ==
[~2024-08-07] VITALS: Ht 149.9 cm; Wt 63.9 kg
[~2024-08-07 12:07] MED LIST changes: +BACI1TAB21 PO; +CICL0.7739 TOP; +METO1TAB87 PO
[2024-08-07 13:17] LABS: BASO % 0.3 % (0.0-1.0); EOS # 0.1 10^3/uL (0.0-0.5); EOS % 0.6 % (0.0-3.0); HEMATOCRIT 46.9 % (36.0-47.0); HEMOGLOBIN 14.9 g/dl (12.0-15.5); LYMPH # 0.6 10^3/uL (1.5-5.0); LYMPH % 6.2 % (24.0-44.0); MEAN CORPUSCULAR HEMOGLOBIN 28.5 pg (27.0-33.0); MEAN CORPUSCULAR HGB CONC 31.8 g/dl (32.0-36.5); MEAN CORPUSCULAR VOLUME 89.8 fl (80.0-96.0); MONO % 9.5 % (2.0-8.0); NEUTROPHILS # 8.3 10^3/uL (1.5-8.5); NEUTROPHILS % 82.5 % (36.0-66.0); PLATELET COUNT, AUTOMATED 119 10^3/uL (150-450); RED BLOOD COUNT 5.22 10^6/uL (4.00-5.40)
[2024-08-07 13:31] LABS: ERYTHROCYTE SEDIMENTATION RATE 46 mm/hr (0-30)
[2024-08-07 13:50] LABS: C REACTIVE PROTEIN QUANTITATIV 19.16 MG/DL (<1.0)
[2024-08-07 13:53] LABS: CALCIUM LEVEL 9.6 MG/DL (8.3-10.6); CREATININE FOR GFR 4.97 MG/DL (0.55-1.30); GLOMERULAR FILTRATION RATE 9.1 (>39); POTASSIUM SERUM 3.8 MMOL/L (3.5-5.1)
[2024-08-07] MEDS: ACETAMINOPHEN *IV* 1,000 MG in IV 1 EA IV ONE (16:51)
[2024-08-07] MEDS ORDERED: NYST1POW3 TOP (17:10)
[2024-08-07] MEDS ORDERED: PROB250C PO (17:10)
[2024-08-07] MEDS ORDERED: METO1TAB87 PO (17:10)
[2024-08-07] MEDS ORDERED: HOME MED LIST COMPLETE! XX SCH (17:10)
[2024-08-07] MEDS ORDERED: NYSTATIN 100,000 UNITS/GM TOPICAL PWD 15GM TOP PRN (17:30)
[2024-08-07] MEDS: CALCIUM ACETATE 667MG GELCAP PO SCH (18:41)
[2024-08-07] MEDS: DOXYCYCLINE HYCLATE 100MG TABLET PO SCH (18:42)
[2024-08-07] MEDS: ATORVASTATIN 10 MG TAB PO SCH (20:09)
[2024-08-07] MEDS: APIXABAN 5 MG TAB (ELIQUIS) PO SCH (20:10)
[2024-08-07] MEDS: cefTRIAXone SOD 1 GM in DEXTROSE 5% (D5W) ADV/MINI-BAG 50 ML IV SCH (20:10)
[2024-08-07 21:25] VITALS: BP 148/58; TEMP 97.6; O2SAT 93
[2024-08-07 21:45] VITALS: O2SAT 93
[2024-08-07] MEDS: METOPROLOL TART 25 MG TABLET PO SCH (21:54)
[2024-08-08 04:00] VITALS: BP 134/67; TEMP 97.2; O2SAT 95
[2024-08-08] MEDS ORDERED: HEPARIN 1,000UNITS/ML 10ML VIAL (FOR RADIOLOGY & DIALYSIS ONLY) IV PRN (06:00)
[2024-08-08] MEDS ORDERED: LIDOCAINE 1% SDV 5ML VIAL SC PRN (06:00)
[2024-08-08] MEDS ORDERED: SODIUM CHLORIDE 0.9% 1000 ML IV PRN (06:00)
[2024-08-08] MEDS: predniSONE 5 MG TAB PO SCH (07:50)
[2024-08-08] MEDS: VITAMIN D 1,000 INTERNATIONAL UNITS TABLET PO SCH (07:50)
[2024-08-08] MEDS: LACTOBACILLUS ACIDOPHILUS CAP (BACID) PO SCH (07:50)
[2024-08-08] MEDS: allopurinoL 100 MG TAB PO SCH (07:50)
[2024-08-08] MEDS: HEPARIN 1,000UNITS/ML 10ML VIAL (FOR RADIOLOGY & DIALYSIS ONLY) XX SCH (09:40)
[2024-08-08 10:11] LABS: CALCIUM LEVEL 8.3 MG/DL (8.3-10.6); CREATININE FOR GFR 6.05 MG/DL (0.55-1.30); GLOMERULAR FILTRATION RATE 7.3 (>39); MAGNESIUM LEVEL 2.2 MG/DL (1.8-2.4); POTASSIUM SERUM 4.3 MMOL/L (3.5-5.1)
[2024-08-08 10:21] LABS: BASO % 0.3 % (0.0-1.0); EOS % 0.4 % (0.0-3.0); HEMATOCRIT 42.5 % (36.0-47.0); HEMOGLOBIN 13.7 g/dl (12.0-15.5); LYMPH % 13.5 % (24.0-44.0); MEAN CORPUSCULAR HEMOGLOBIN 28.4 pg (27.0-33.0); MEAN CORPUSCULAR HGB CONC 32.2 g/dl (32.0-36.5); MONO % 13.3 % (2.0-8.0); NEUTROPHILS # 5.4 10^3/uL (1.5-8.5); NEUTROPHILS % 71.7 % (36.0-66.0); PLATELET COUNT, AUTOMATED 147 10^3/uL (150-450); RED BLOOD COUNT 4.83 10^6/uL (4.00-5.40); WHITE BLOOD COUNT 7.5 10^3/uL (4.0-10.0)
[2024-08-08 10:40] VITALS: BP 124/56; TEMP 97.7
[2024-08-08 10:44] LABS: ANTI-STREPTOLYSIN O QUANT 233.3 IU/ML (<195); C REACTIVE PROTEIN QUANTITATIV 12.73 MG/DL (<1.0)
[2024-08-08 12:31] VITALS: BP 133/63; TEMP 97.2; O2SAT 94
[2024-08-08] MEDS: ACETAMINOPHEN 325 MG TAB PO PRN (18:38)
[2024-08-08 20:18] VITALS: BP 158/85; TEMP 97.5; O2SAT 94
[2024-08-09 04:19] VITALS: BP 149/83; TEMP 97.2; O2SAT 95
[2024-08-09] MEDS ORDERED: SODIUM CHLORIDE 0.9% 1000 ML IV PRN (06:00)
[2024-08-09] MEDS ORDERED: LIDOCAINE 1% SDV 5ML VIAL SC PRN (06:00)
[2024-08-09] MEDS ORDERED: HEPARIN 1,000UNITS/ML 10ML VIAL (FOR RADIOLOGY & DIALYSIS ONLY) XX SCH (06:00)
[2024-08-09 07:39] VITALS: BP 167/80
[2024-08-09] MEDS: ACETAMINOPHEN 325 MG TAB PO PRN (07:41)
[2024-08-09] MEDS: HEPARIN 1,000UNITS/ML 10ML VIAL (FOR RADIOLOGY & DIALYSIS ONLY) IV PRN (08:55)
[2024-08-09 08:59] LABS: HEMATOCRIT 44.6 % (36.0-47.0); HEMOGLOBIN 14.7 g/dl (12.0-15.5); MEAN CORPUSCULAR HEMOGLOBIN 28.8 pg (27.0-33.0); MEAN CORPUSCULAR VOLUME 87.5 fl (80.0-96.0); PLATELET COUNT, AUTOMATED 163 10^3/uL (150-450); WHITE BLOOD COUNT 7.5 10^3/uL (4.0-10.0)
[2024-08-09 09:22] LABS: CALCIUM LEVEL 8.9 MG/DL (8.3-10.6); CREATININE FOR GFR 7.36 MG/DL (0.55-1.30); GLOMERULAR FILTRATION RATE 5.8 (>39); POTASSIUM SERUM 4.7 MMOL/L (3.5-5.1)
[2024-08-09 11:44] LABS: C REACTIVE PROTEIN QUANTITATIV 9.64 MG/DL (<1.0)
[2024-08-09 12:30] VITALS: BP 127/66; TEMP 97
[2024-08-09 14:23] VITALS: BP 124/87; TEMP 96.6; O2SAT 95
[2024-08-09] MEDS: METOPROLOL 5 MG/5 ML VIAL IV STA (14:37)
[2024-08-09] MEDS: METOPROLOL TART 25 MG TABLET PO ONE (14:45)
[2024-08-09] MEDS ORDERED: AMIODARONE HCL 150 MG/100 ML PREMIXED BAG (NEXTERONE) As Ordered ONE (15:00)
[2024-08-09] MEDS: NS 500 ML IV ONE ×2 (15:25)
[2024-08-09 15:35] LABS: BASO % 0.3 % (0.0-1.0); EOS % 0.4 % (0.0-3.0); HEMATOCRIT 39.8 % (36.0-47.0); LYMPH # 0.8 10^3/uL (1.5-5.0); LYMPH % 11.6 % (24.0-44.0); MEAN CORPUSCULAR HGB CONC 31.2 g/dl (32.0-36.5); MONO # 0.9 10^3/uL (0.0-0.8); MONO % 13.6 % (2.0-8.0); NEUTROPHILS % 72.6 % (36.0-66.0); PLATELET COUNT, AUTOMATED 123 10^3/uL (150-450); RED BLOOD COUNT 4.28 10^6/uL (4.00-5.40); WHITE BLOOD COUNT 6.9 10^3/uL (4.0-10.0)
[2024-08-09] MEDS: AMIODARONE HCL 150 MG in IV 1 EA IV ONE (15:38)
[2024-08-09 15:54] LABS: HEMOGLOBIN 12.4 g/dl (12.0-15.5)
[2024-08-09] MEDS ORDERED: AMIODARONE HCL 360 MG in IV 1 EA IV SCH (16:00)
[2024-08-09 16:14] LABS: CK-MB VALUE MASS 2.7 NG/ML (<3.6)
[2024-08-09 16:20] LABS: MB/CK RELATIVE INDEX 5.74 (< OR =4)
[2024-08-09 17:44] LABS: CALCIUM LEVEL 8.1 MG/DL (8.3-10.6); CK-MB VALUE MASS 5.9 NG/ML (<3.6); CREATININE FOR GFR 4.1 MG/DL (0.55-1.30); GLOMERULAR FILTRATION RATE 11.4 (>39); MB/CK RELATIVE INDEX 11.56 (< OR =4); POTASSIUM SERUM 4.4 MMOL/L (3.5-5.1)
[2024-08-09] MEDS: TRANEXAMIC ACID 100 MG/ML 10ML VIAL XX ONE (18:50)
[2024-08-09 19:30] VITALS: BP 132/64; TEMP 97.8; O2SAT 95
[2024-08-09 20:39] LABS: INR 1.38; PROTHROMBIN TIME 17.2 SECONDS (12.5-14.5)
[2024-08-10] VITALS (7 sets, daily range): BP systolic 105–134; BP diastolic 53–64; TEMP 97.6–99.4; O2SAT 94–100
[2024-08-10 04:32] LABS: HEMATOCRIT 41.7 % (36.0-47.0); HEMOGLOBIN 13.5 g/dl (12.0-15.5); MEAN CORPUSCULAR HEMOGLOBIN 28.7 pg (27.0-33.0); MEAN CORPUSCULAR HGB CONC 32.4 g/dl (32.0-36.5); MEAN CORPUSCULAR VOLUME 88.5 fl (80.0-96.0); PLATELET COUNT, AUTOMATED 175 10^3/uL (150-450); RED BLOOD COUNT 4.71 10^6/uL (4.00-5.40); WHITE BLOOD COUNT 8.3 10^3/uL (4.0-10.0)
[2024-08-10 05:03] LABS: CALCIUM LEVEL 8.2 MG/DL (8.3-10.6); CREATININE FOR GFR 5.03 MG/DL (0.55-1.30); POTASSIUM SERUM 5.1 MMOL/L (3.5-5.1)
[2024-08-11 03:52] VITALS: BP 148/69; TEMP 97.8; O2SAT 99
[2024-08-11] MEDS ORDERED: HEPARIN 1,000UNITS/ML 10ML VIAL (FOR RADIOLOGY & DIALYSIS ONLY) XX SCH (06:00)
[2024-08-11] MEDS ORDERED: LIDOCAINE 1% SDV 5ML VIAL SC PRN (06:00)
[2024-08-11] MEDS ORDERED: HEPARIN 1,000UNITS/ML 10ML VIAL (FOR RADIOLOGY & DIALYSIS ONLY) IV PRN (06:00)
[2024-08-11] MEDS ORDERED: SODIUM CHLORIDE 0.9% 1000 ML IV PRN (06:00)
[2024-08-11 07:51] VITALS: BP 108/55; TEMP 98.6; O2SAT 98
[2024-08-11 09:03] LABS: HEMATOCRIT 35.4 % (36.0-47.0); HEMOGLOBIN 11.7 g/dl (12.0-15.5); MEAN CORPUSCULAR HGB CONC 33.1 g/dl (32.0-36.5); MEAN CORPUSCULAR VOLUME 87.8 fl (80.0-96.0); PLATELET COUNT, AUTOMATED 164 10^3/uL (150-450); RED BLOOD COUNT 4.03 10^6/uL (4.00-5.40); WHITE BLOOD COUNT 9.2 10^3/uL (4.0-10.0)
[2024-08-11 09:33] LABS: CALCIUM LEVEL 8.3 MG/DL (8.3-10.6); CREATININE FOR GFR 6.87 MG/DL (0.55-1.30); GLOMERULAR FILTRATION RATE 6.3 (>39); POTASSIUM SERUM 4.5 MMOL/L (3.5-5.1)
[2024-08-11 13:09] VITALS: BP 122/57; O2SAT 100
[2024-08-11] MEDS: cefTRIAXone SOD 2 GM in DEXTROSE 5% (D5W) ADV/MINI-BAG 50 ML IV SCH (13:11)
[2024-08-11 16:00] VITALS: BP 115/54; TEMP 97.9; O2SAT 95
[2024-08-11 20:00] VITALS: BP 112/56; TEMP 98.4; O2SAT 98
[2024-08-11 21:48] VITALS: BP 121/56; TEMP 97.9; O2SAT 95
[2024-08-12 04:02] VITALS: BP 123/58; TEMP 98.1; O2SAT 97
[2024-08-12 06:10] LABS: HEMATOCRIT 36.5 % (36.0-47.0); HEMOGLOBIN 11.8 g/dl (12.0-15.5); MEAN CORPUSCULAR HEMOGLOBIN 28.4 pg (27.0-33.0); MEAN CORPUSCULAR HGB CONC 32.3 g/dl (32.0-36.5); PLATELET COUNT, AUTOMATED 126 10^3/uL (150-450); RED BLOOD COUNT 4.15 10^6/uL (4.00-5.40); WHITE BLOOD COUNT 7.9 10^3/uL (4.0-10.0)
[2024-08-12 06:36] LABS: C REACTIVE PROTEIN QUANTITATIV 3.83 MG/DL (<1.0); CALCIUM LEVEL 8.1 MG/DL (8.3-10.6); CREATININE FOR GFR 4.33 MG/DL (0.55-1.30); GLOMERULAR FILTRATION RATE 10.7 (>39); POTASSIUM SERUM 4.9 MMOL/L (3.5-5.1)
[2024-08-12 08:34] VITALS: BP 96/44; TEMP 97.8; O2SAT 95
[2024-08-12 12:00] VITALS: BP 110/56; TEMP 97.7; O2SAT 96
[2024-08-12 20:00] VITALS: BP 134/72; TEMP 98.1; O2SAT 96
[2024-08-13 04:00] VITALS: BP 117/69; TEMP 98.2; O2SAT 95
[2024-08-13] MEDS ORDERED: HEPARIN 1,000UNITS/ML 10ML VIAL (FOR RADIOLOGY & DIALYSIS ONLY) IV PRN (06:00)
[2024-08-13] MEDS ORDERED: LIDOCAINE 1% SDV 5ML VIAL SC PRN (06:00)
[2024-08-13] MEDS ORDERED: HEPARIN 1,000UNITS/ML 10ML VIAL (FOR RADIOLOGY & DIALYSIS ONLY) XX SCH (06:00)
[2024-08-13] MEDS ORDERED: SODIUM CHLORIDE 0.9% 1000 ML IV PRN (06:00)
[2024-08-13 08:50] LABS: HEMATOCRIT 34.1 % (36.0-47.0); MEAN CORPUSCULAR HEMOGLOBIN 28.2 pg (27.0-33.0); MEAN CORPUSCULAR HGB CONC 32.3 g/dl (32.0-36.5); MEAN CORPUSCULAR VOLUME 87.4 fl (80.0-96.0); PLATELET COUNT, AUTOMATED 160 10^3/uL (150-450); WHITE BLOOD COUNT 8.2 10^3/uL (4.0-10.0)
[2024-08-13 09:24] LABS: CALCIUM LEVEL 8.3 MG/DL (8.3-10.6); CREATININE FOR GFR 6.06 MG/DL (0.55-1.30); GLOMERULAR FILTRATION RATE 7.3 (>39); POTASSIUM SERUM 4.5 MMOL/L (3.5-5.1)
[2024-08-13 12:15] VITALS: BP 122/69; TEMP 97.9; O2SAT 91
[2024-08-13 20:15] VITALS: BP 124/72; TEMP 97.9; O2SAT 100
[2024-08-14] VITALS (7 sets, daily range): BP systolic 118–134; BP diastolic 57–73; TEMP 97.5–98.1; O2SAT 92–96
[2024-08-14] MEDS ORDERED: SODIUM CHLORIDE 0.9% 1000 ML IV PRN (06:00)
[2024-08-14] MEDS ORDERED: HEPARIN 1,000UNITS/ML 10ML VIAL (FOR RADIOLOGY & DIALYSIS ONLY) XX SCH (06:00)
[2024-08-14] MEDS ORDERED: HEPARIN 1,000UNITS/ML 10ML VIAL (FOR RADIOLOGY & DIALYSIS ONLY) IV PRN (06:00)
[2024-08-14] MEDS ORDERED: LIDOCAINE 1% SDV 5ML VIAL SC PRN (06:00)
[2024-08-14 08:43] LABS: HEMATOCRIT 31.6 % (36.0-47.0); HEMOGLOBIN 10.2 g/dl (12.0-15.5); MEAN CORPUSCULAR HEMOGLOBIN 28.3 pg (27.0-33.0); MEAN CORPUSCULAR HGB CONC 32.3 g/dl (32.0-36.5); MEAN CORPUSCULAR VOLUME 87.5 fl (80.0-96.0); PLATELET COUNT, AUTOMATED 137 10^3/uL (150-450); RED BLOOD COUNT 3.61 10^6/uL (4.00-5.40); WHITE BLOOD COUNT 2.5 10^3/uL (4.0-10.0)
[2024-08-14 09:26] LABS: CREATININE FOR GFR 5.86 MG/DL (0.55-1.30); GLOMERULAR FILTRATION RATE 7.6 (>39); POTASSIUM SERUM 4.4 MMOL/L (3.5-5.1)
[2024-08-14] MEDS ORDERED: ISOVUE-300 61% 100ML VIAL As Ordered ONE (13:06)
[2024-08-14] MEDS ORDERED: LIDOCAINE 1% MDV 20ML VIAL As Ordered ONE (13:07)
[2024-08-14] MEDS: HEPARIN 1,000UNITS/ML 10ML VIAL (FOR RADIOLOGY & DIALYSIS ONLY) IV ONE (13:35)
[2024-08-14] MEDS: NS 250 ML IV SCH (13:35)
[2024-08-14] MEDS: fentaNYL 100 MCG/2 ML INJECTION IV PRN (14:20)
[2024-08-14] MEDS: MIDAZOLAM INJ 2MG/2ML VIAL IV PRN (14:20)
[2024-08-14] MEDS ORDERED: NS (Normal Saline) 0.9% 1,000 ML IV SCH (15:25)
[2024-08-14] MEDS ORDERED: KETOROLAC 30 MG/ML 1ML VIAL IV PRN (15:25)
[2024-08-14] MEDS ORDERED: cefTRIAXone SOD 2 GM in DEXTROSE 5% (D5W) ADV/MINI-BAG 50 ML IV SCH (15:25)
[2024-08-14] MEDS ORDERED: oxyCODONE 5MG TAB PO PRN ×2 (15:25)
[2024-08-14] MEDS: LIDOCAINE 1% MDV 20ML VIAL IM ONE (15:41)
[2024-08-14] MEDS: ISOVUE-300 61% 100ML VIAL IV ONE (15:41)
[2024-08-14] MEDS: CEFDINIR 300 MG CAP (OMNICEF) PO ONE (18:43)
[2024-08-14] MEDS ORDERED: CEFDINIR 300 MG CAP (OMNICEF) PO SCH (21:00)
[2024-08-15 03:26] VITALS: BP 118/62; TEMP 97.9; O2SAT 92
[2024-08-15] MEDS ORDERED: HEPARIN 1,000UNITS/ML 10ML VIAL (FOR RADIOLOGY & DIALYSIS ONLY) IV PRN (06:00)
[2024-08-15] MEDS ORDERED: SODIUM CHLORIDE 0.9% 1000 ML IV PRN (06:00)
[2024-08-15] MEDS ORDERED: LIDOCAINE 1% SDV 5ML VIAL SC PRN (06:00)
[2024-08-15] MEDS ORDERED: HEPARIN 1,000UNITS/ML 10ML VIAL (FOR RADIOLOGY & DIALYSIS ONLY) XX SCH (06:00)
[2024-08-15 09:11] LABS: HEMATOCRIT 32.5 % (36.0-47.0); HEMOGLOBIN 10.5 g/dl (12.0-15.5); MEAN CORPUSCULAR HEMOGLOBIN 28.5 pg (27.0-33.0); MEAN CORPUSCULAR HGB CONC 32.3 g/dl (32.0-36.5); MEAN CORPUSCULAR VOLUME 88.3 fl (80.0-96.0); PLATELET COUNT, AUTOMATED 145 10^3/uL (150-450); RED BLOOD COUNT 3.68 10^6/uL (4.00-5.40); WHITE BLOOD COUNT 7.7 10^3/uL (4.0-10.0)
[2024-08-15 09:43] LABS: CALCIUM LEVEL 8.3 MG/DL (8.3-10.6); CREATININE FOR GFR 5.26 MG/DL (0.55-1.30); GLOMERULAR FILTRATION RATE 8.6 (>39); POTASSIUM SERUM 4.4 MMOL/L (3.5-5.1)
[2024-08-15 12:00] VITALS: BP 144/78; TEMP 97.7; O2SAT 94
[2024-08-15 13:30] LABS: HEMATOCRIT 34.9 % (36.0-47.0); HEMOGLOBIN 11.2 g/dl (12.0-15.5); MEAN CORPUSCULAR HEMOGLOBIN 28.6 pg (27.0-33.0); MEAN CORPUSCULAR HGB CONC 32.1 g/dl (32.0-36.5); PLATELET COUNT, AUTOMATED 145 10^3/uL (150-450); RED BLOOD COUNT 3.92 10^6/uL (4.00-5.40); WHITE BLOOD COUNT 9.5 10^3/uL (4.0-10.0)
[2024-08-15] MEDS: CEFDINIR 300 MG CAP (OMNICEF) PO SCH (17:23)
[2024-08-15 20:38] VITALS: BP 112/64; TEMP 97.9; O2SAT 95
[2024-08-16] VITALS (10 sets, daily range): BP systolic 100–126; BP diastolic 47–65; TEMP 97.3–98.2; O2SAT 89–99
[2024-08-16] MEDS ORDERED: SODIUM CHLORIDE 0.9% 1000 ML IV PRN (06:00)
[2024-08-16] MEDS ORDERED: HEPARIN 1,000UNITS/ML 10ML VIAL (FOR RADIOLOGY & DIALYSIS ONLY) IV PRN (06:00)
[2024-08-16] MEDS ORDERED: LIDOCAINE 1% SDV 5ML VIAL SC PRN (06:00)
[2024-08-16] MEDS ORDERED: HEPARIN 1,000UNITS/ML 10ML VIAL (FOR RADIOLOGY & DIALYSIS ONLY) XX SCH (06:00)
[2024-08-16 09:04] LABS: HEMOGLOBIN 10.6 g/dl (12.0-15.5); MEAN CORPUSCULAR HEMOGLOBIN 28.1 pg (27.0-33.0); MEAN CORPUSCULAR HGB CONC 32.1 g/dl (32.0-36.5); MEAN CORPUSCULAR VOLUME 87.5 fl (80.0-96.0); PLATELET COUNT, AUTOMATED 166 10^3/uL (150-450); RED BLOOD COUNT 3.77 10^6/uL (4.00-5.40); WHITE BLOOD COUNT 9.2 10^3/uL (4.0-10.0)
[2024-08-16 09:24] LABS: CALCIUM LEVEL 7.9 MG/DL (8.3-10.6); CREATININE FOR GFR 6.52 MG/DL (0.55-1.30); GLOMERULAR FILTRATION RATE 6.7 (>39); POTASSIUM SERUM 4.4 MMOL/L (3.5-5.1)
[2024-08-16] MEDS ORDERED: MIDAZOLAM INJ 2MG/2ML VIAL As Ordered ONE (15:41)
[2024-08-16] MEDS ORDERED: fentaNYL 100 MCG/2 ML INJECTION As Ordered ONE (15:41)
[2024-08-16] MEDS: NS 250 ML IV SCH (16:05)
[2024-08-16] MEDS: MIDAZOLAM INJ 2MG/2ML VIAL IV PRN (16:19)
[2024-08-16] MEDS: fentaNYL 100 MCG/2 ML INJECTION IV PRN (16:19)
[2024-08-16] MEDS: HEPARIN SOD (PORCINE) 5000UNITS/ML 1ML VIAL/SYRINGE IV ONE (16:55)
[2024-08-16] MEDS: HEPARIN 1,000UNITS/ML 10ML VIAL (FOR RADIOLOGY & DIALYSIS ONLY) IV PRN (17:16)
[2024-08-17] VITALS (7 sets, daily range): BP systolic 102–155; BP diastolic 52–72; TEMP 97.5–98.6; O2SAT 94–100
[2024-08-17] MEDS ORDERED: LIDOCAINE 1% SDV 5ML VIAL SC PRN (06:00)
[2024-08-17] MEDS ORDERED: HEPARIN 1,000UNITS/ML 10ML VIAL (FOR RADIOLOGY & DIALYSIS ONLY) XX SCH (06:00)
[2024-08-17] MEDS ORDERED: HEPARIN 1,000UNITS/ML 10ML VIAL (FOR RADIOLOGY & DIALYSIS ONLY) IV PRN (06:00)
[2024-08-17] MEDS ORDERED: SODIUM CHLORIDE 0.9% 1000 ML IV PRN (06:00)
[2024-08-17 10:03] LABS: HEMATOCRIT 31.5 % (36.0-47.0); HEMOGLOBIN 9.9 g/dl (12.0-15.5); MEAN CORPUSCULAR HEMOGLOBIN 28.7 pg (27.0-33.0); MEAN CORPUSCULAR HGB CONC 31.4 g/dl (32.0-36.5); MEAN CORPUSCULAR VOLUME 91.3 fl (80.0-96.0); PLATELET COUNT, AUTOMATED 160 10^3/uL (150-450); RED BLOOD COUNT 3.45 10^6/uL (4.00-5.40); WHITE BLOOD COUNT 9.2 10^3/uL (4.0-10.0)
[2024-08-17 10:30] LABS: CALCIUM LEVEL 8.2 MG/DL (8.3-10.6); CREATININE FOR GFR 4.66 MG/DL (0.55-1.30); GLOMERULAR FILTRATION RATE 9.9 (>39); POTASSIUM SERUM 4.3 MMOL/L (3.5-5.1)
[2024-08-17] MEDS: AUGMENTIN 500MG TAB PO SCH (20:42)
[2024-08-18] VITALS (9 sets, daily range): BP systolic 102–114; BP diastolic 53–63; TEMP 97.2–98.1; O2SAT 95–97
[2024-08-18 06:28] LABS: HEMOGLOBIN 10.3 g/dl (12.0-15.5); MEAN CORPUSCULAR HEMOGLOBIN 28.8 pg (27.0-33.0); MEAN CORPUSCULAR HGB CONC 32.2 g/dl (32.0-36.5); MEAN CORPUSCULAR VOLUME 89.4 fl (80.0-96.0); PLATELET COUNT, AUTOMATED 187 10^3/uL (150-450); RED BLOOD COUNT 3.58 10^6/uL (4.00-5.40); WHITE BLOOD COUNT 6.6 10^3/uL (4.0-10.0)
[2024-08-18] MEDS ORDERED: LIDOCAINE 1% SDV 5ML VIAL SC PRN (06:35)
[2024-08-18] MEDS ORDERED: HEPARIN 1,000UNITS/ML 10ML VIAL (FOR RADIOLOGY & DIALYSIS ONLY) IV PRN (06:35)
[2024-08-18] MEDS ORDERED: SODIUM CHLORIDE 0.9% 1000 ML IV PRN (06:35)
[2024-08-18 06:56] LABS: CALCIUM LEVEL 8.6 MG/DL (8.3-10.6); CREATININE FOR GFR 5.92 MG/DL (0.55-1.30); GLOMERULAR FILTRATION RATE 7.5 (>39); POTASSIUM SERUM 4.4 MMOL/L (3.5-5.1)
[2024-08-18] MEDS: HEPARIN 1,000UNITS/ML 10ML VIAL (FOR RADIOLOGY & DIALYSIS ONLY) XX SCH (09:58)
[2024-08-18] MEDS: DIGOXIN INJ 0.5 MG/2 ML AMP IV ONE (15:47)
[2024-08-19 04:00] VITALS: BP 107/54; TEMP 97.9; O2SAT 97
[2024-08-19 06:06] LABS: HEMATOCRIT 30.5 % (36.0-47.0); HEMOGLOBIN 9.6 g/dl (12.0-15.5); MEAN CORPUSCULAR HEMOGLOBIN 28.9 pg (27.0-33.0); MEAN CORPUSCULAR HGB CONC 31.5 g/dl (32.0-36.5); MEAN CORPUSCULAR VOLUME 91.9 fl (80.0-96.0); PLATELET COUNT, AUTOMATED 161 10^3/uL (150-450); RED BLOOD COUNT 3.32 10^6/uL (4.00-5.40); WHITE BLOOD COUNT 6.3 10^3/uL (4.0-10.0)
[2024-08-19 06:30] LABS: CALCIUM LEVEL 8.7 MG/DL (8.3-10.6); CREATININE FOR GFR 4.28 MG/DL (0.55-1.30); GLOMERULAR FILTRATION RATE 10.9 (>39); POTASSIUM SERUM 4.9 MMOL/L (3.5-5.1)
[2024-08-19] MEDS: DIGOXIN 0.0625MG PER 1/2TABLET PO SCH (08:36)
[2024-08-19 12:00] VITALS: BP 140/72; TEMP 97.7; O2SAT 95
[2024-08-19 19:50] VITALS: BP 136/69; TEMP 97.7; O2SAT 96
[2024-08-20 04:01] VITALS: BP 135/69; TEMP 97.5; O2SAT 95
[2024-08-20 05:59] LABS: HEMATOCRIT 30.3 % (36.0-47.0); HEMOGLOBIN 9.5 g/dl (12.0-15.5); MEAN CORPUSCULAR HEMOGLOBIN 28.2 pg (27.0-33.0); MEAN CORPUSCULAR HGB CONC 31.4 g/dl (32.0-36.5); MEAN CORPUSCULAR VOLUME 89.9 fl (80.0-96.0); PLATELET COUNT, AUTOMATED 174 10^3/uL (150-450); RED BLOOD COUNT 3.37 10^6/uL (4.00-5.40); WHITE BLOOD COUNT 7.5 10^3/uL (4.0-10.0)
[2024-08-20] MEDS ORDERED: LIDOCAINE 1% SDV 5ML VIAL SC PRN (06:00)
[2024-08-20] MEDS ORDERED: HEPARIN 1,000UNITS/ML 10ML VIAL (FOR RADIOLOGY & DIALYSIS ONLY) IV PRN (06:00)
[2024-08-20] MEDS ORDERED: SODIUM CHLORIDE 0.9% 1000 ML IV PRN (06:00)
[2024-08-20 06:36] LABS: CALCIUM LEVEL 8.6 MG/DL (8.3-10.6); CREATININE FOR GFR 5.97 MG/DL (0.55-1.30); GLOMERULAR FILTRATION RATE 7.4 (>39); POTASSIUM SERUM 5.5 MMOL/L (3.5-5.1)
[2024-08-20] MEDS: HEPARIN 1,000UNITS/ML 10ML VIAL (FOR RADIOLOGY & DIALYSIS ONLY) XX SCH (09:27)
[2024-08-20] MEDS: DARBEPOETIN 100MCG/0.5ML *DIALYSIS* SYRINGE IV SCH (09:28)
[2024-08-20 12:00] VITALS: BP 140/69; TEMP 97.5; O2SAT 97
[2024-08-20] MEDS ORDERED: DIGO0.123 PO (15:00)
[2024-08-20] MEDS ORDERED: AMOX500T2 PO (15:03)
== END 2024-08-20 16:42 | disposition home health service (06) | DRG 579 ==
LOC: M ED 12:07 → M ED INP 17:36 → M MS5PR 21:25 → M ICU 08-09 14:47 → M MSPAV 08-11 21:48
PROVIDERS: ADMIT Student in an Organized Health Care Education/Training Program; ATTEND Student in an Organized Health Care Education/Training Program
PROC: 05HN33Z Insertion of Infusion Device into Left Internal Jugular Vein, Percutaneous Approach (ICD-10-PCS; principal; 2024-08-09)
PROC: 5A1D70Z Performance of Urinary Filtration, Intermittent, Less than 6 Hours Per Day (ICD-10-PCS; 2024-08-15)
PROC: 05BF3ZZ Excision of Left Cephalic Vein, Percutaneous Approach (ICD-10-PCS; 2024-08-16)
PROC: 05HD33Z Insertion of Infusion Device into Right Cephalic Vein, Percutaneous Approach (ICD-10-PCS; 2024-08-16)
PROC: 057A3ZZ Dilation of Left Brachial Vein, Percutaneous Approach (ICD-10-PCS; 2024-08-17)
DX: L03.116 Cellulitis of left lower limb (principal); N18.6 End stage renal disease; I21.A1 Myocardial infarction type 2; I13.2 Hypertensive heart and chronic kidney disease with heart failure and with stage 5 chronic kidney disease, or end stage renal disease; I50.32 Chronic diastolic (congestive) heart failure; D62 Acute posthemorrhagic anemia; T82.898A Other specified complication of vascular prosthetic devices, implants and grafts, initial encounter; E87.20 Acidosis, unspecified; D63.1 Anemia in chronic kidney disease; I48.0 Paroxysmal atrial fibrillation; E78.5 Hyperlipidemia, unspecified; I95.9 Hypotension, unspecified; I27.20 Pulmonary hypertension, unspecified; I72.9 Aneurysm of unspecified site; M10.9 Gout, unspecified; E55.9 Vitamin D deficiency, unspecified; Z79.899 Other long term (current) drug therapy; Z66 Do not resuscitate

== ENCOUNTER → 2024-08-31 | Outpatient (CLI) | payer MEDICARE ==
[~2024-08-31] MED LIST changes: +AMOX500T2 PO; +DIGO0.123 PO; +NYST1POW3 TOP; +PROB250C PO
[2024-08-31 12:43] LABS: CALCIUM LEVEL 9.3 MG/DL (8.3-10.6); CREATININE FOR GFR 4.48 MG/DL (0.55-1.30); DIGOXIN LEVEL 0.5 NG/ML (0.8-2.0); GLOMERULAR FILTRATION RATE 10.3 (>39); POTASSIUM SERUM 4.3 MMOL/L (3.5-5.1)
== END ==
LOC: M WUC 10:23
PROVIDERS: ATTEND Family Medicine
DX: I48.0 Paroxysmal atrial fibrillation (principal)

== ENCOUNTER 2024-10-04 09:00 | Inpatient (IN) | payer MEDICARE ==
[~2024-10-04] VITALS: Ht 149.9 cm; Wt 68.2 kg
[2024-10-04 10:00] LABS: BASO % 0.6 % (0.0-1.0); EOS # 0.1 10^3/uL (0.0-0.5); EOS % 1.6 % (0.0-3.0); HEMATOCRIT 40.7 % (36.0-47.0); HEMOGLOBIN 12.8 g/dl (12.0-15.5); LYMPH # 0.9 10^3/uL (1.5-5.0); LYMPH % 18.1 % (24.0-44.0); MEAN CORPUSCULAR HEMOGLOBIN 30.3 pg (27.0-33.0); MEAN CORPUSCULAR HGB CONC 31.4 g/dl (32.0-36.5); MEAN CORPUSCULAR VOLUME 96.2 fl (80.0-96.0); MONO # 0.8 10^3/uL (0.0-0.8); NEUTROPHILS # 3.2 10^3/uL (1.5-8.5); NEUTROPHILS % 62.5 % (36.0-66.0); PLATELET COUNT, AUTOMATED 106 10^3/uL (150-450); RED BLOOD COUNT 4.23 10^6/uL (4.00-5.40); WHITE BLOOD COUNT 5.1 10^3/uL (4.0-10.0)
[2024-10-04 10:14] LABS: CALCIUM LEVEL 9.6 MG/DL (8.3-10.6); CREATININE FOR GFR 3.84 MG/DL (0.55-1.30); MAGNESIUM LEVEL 2.3 MG/DL (1.8-2.4); POTASSIUM SERUM 3.8 MMOL/L (3.5-5.1)
[2024-10-04 10:15] LABS: INR 1.65; PARTIAL THROMBOPLASTIN TIME 42.9 SECONDS (24.8-34.2); PROTHROMBIN TIME 19.8 SECONDS (12.5-14.5)
[2024-10-04] MEDS ORDERED: PILL CUTTER 1 EACH XX ONE (10:25)
[2024-10-04] MEDS ORDERED: ISOVUE-370 76% 100ML VIAL As Ordered ONE (10:26)
[2024-10-04] MEDS: DIGOXIN 0.125 MG TAB PO ONE (10:30)
[2024-10-04] MEDS: METOPROLOL TART 25 MG TABLET PO ONE (10:31)
[2024-10-04 10:49] LABS: CK-MB VALUE MASS 4.4 NG/ML (<3.6)
[2024-10-04 10:50] LABS: MB/CK RELATIVE INDEX 5.64 (< OR =4)
[2024-10-04 11:20] LABS: CK-MB VALUE MASS 4.2 NG/ML (<3.6)
[2024-10-04] MEDS ORDERED: MOM 30ML SUSPENSION UDC PO PRN (13:30)
[2024-10-04] MEDS ORDERED: MAALOX 30 ML SUSP *UDC PO PRN (13:30)
[2024-10-04] MEDS ORDERED: HOME MED LIST COMPLETE! XX SCH (14:50)
[2024-10-04] MEDS ORDERED: DIGO0.123 PO (14:59)
[2024-10-04] MEDS ORDERED: COLCHICINE 0.6 MG TABLET PO SCH (15:10)
[2024-10-04] MEDS ORDERED: DEXTROSE 50% 50ML SYRINGE IV PRN (15:20)
[2024-10-04] MEDS ORDERED: GLUCAGON INJ 1MG VIAL SC PRN (15:20)
[2024-10-04] MEDS ORDERED: GLUCOSE 4 GM CHEW PO PRN (15:20)
[2024-10-04 16:12] VITALS: BP 142/66; TEMP 98.7; O2SAT 94
[2024-10-04] MEDS: allopurinoL 100 MG TAB PO SCH (17:15)
[2024-10-04] MEDS: ACETAMINOPHEN 325 MG TAB PO PRN (17:15)
[2024-10-04] MEDS: predniSONE 5 MG TAB PO SCH (17:15)
[2024-10-04] MEDS: VITAMIN D 1,000 INTERNATIONAL UNITS TABLET PO SCH (17:15)
[2024-10-04] MEDS: CALCIUM ACETATE 667MG GELCAP PO SCH (17:15)
[2024-10-04 19:40] VITALS: BP 143/65; TEMP 98.8; O2SAT 96
[2024-10-04] MEDS: APIXABAN 5 MG TAB (ELIQUIS) PO SCH (20:03)
[2024-10-04] MEDS: METOPROLOL TART 25 MG TABLET PO SCH (20:03)
[2024-10-04] MEDS: ATORVASTATIN 10 MG TAB PO SCH (20:03)
[2024-10-04 21:00] VITALS: O2SAT 93
[2024-10-04 22:00] VITALS: O2SAT 92
[2024-10-04 23:00] VITALS: O2SAT 93
[2024-10-04 23:16] VITALS: BP 169/71; TEMP 98; O2SAT 92
[2024-10-05] VITALS (20 sets, daily range): BP systolic 132–159; BP diastolic 59–70; TEMP 97–98.8; O2SAT 89–96
[2024-10-05 04:35] LABS: BASO % 0.3 % (0.0-1.0); EOS % 0.5 % (0.0-3.0); HEMATOCRIT 37.7 % (36.0-47.0); HEMOGLOBIN 11.8 g/dl (12.0-15.5); LYMPH # 0.7 10^3/uL (1.5-5.0); LYMPH % 11.7 % (24.0-44.0); MEAN CORPUSCULAR HEMOGLOBIN 30.4 pg (27.0-33.0); MEAN CORPUSCULAR HGB CONC 31.3 g/dl (32.0-36.5); MEAN CORPUSCULAR VOLUME 97.2 fl (80.0-96.0); MONO # 0.6 10^3/uL (0.0-0.8); NEUTROPHILS % 77.9 % (36.0-66.0); RED BLOOD COUNT 3.88 10^6/uL (4.00-5.40); WHITE BLOOD COUNT 6.4 10^3/uL (4.0-10.0)
[2024-10-05 04:56] LABS: ALBUMIN 3.3 G/DL (3.2-5.2); ALKALINE PHOSPHATASE 196 U/L (35-104); ALT/SGPT 33 U/L (7.0-40); AST/SGOT 67 U/L (<34); BILIRUBIN,TOTAL 0.8 MG/DL (0.3-1.2); BLOOD UREA NITROGEN 35 MG/DL (9-23); CALCIUM LEVEL 9.3 MG/DL (8.3-10.6); CARBON DIOXIDE LEVEL 26 MMOL/L (20-31); CHLORIDE LEVEL 101 MMOL/L (98-107); CREATININE FOR GFR 5.13 MG/DL (0.55-1.30); GLOMERULAR FILTRATION RATE 8.5 (>39); GLUCOSE, FASTING 93 MG/DL (74-106); POTASSIUM SERUM 5.2 MMOL/L (3.5-5.1); SODIUM LEVEL 140 MMOL/L (136-145)
[2024-10-05 05:05] LABS: PLATELET COUNT, AUTOMATED 92 10^3/uL (150-450)
[2024-10-05] MEDS ORDERED: SODIUM CHLORIDE 0.9% 1000 ML IV PRN (07:10)
[2024-10-05] MEDS ORDERED: HEPARIN 1,000UNITS/ML 10ML VIAL (FOR RADIOLOGY & DIALYSIS ONLY) XX SCH (07:10)
[2024-10-05] MEDS ORDERED: LIDOCAINE 1% SDV 5ML VIAL SC PRN (07:10)
[2024-10-05] MEDS ORDERED: HEPARIN 1,000UNITS/ML 10ML VIAL (FOR RADIOLOGY & DIALYSIS ONLY) IV PRN (07:10)
[2024-10-05 11:15] LABS: HEPATITIS B SURFACE ANTIGEN NEGATIVE (NEGATIVE)
[2024-10-05] MEDS: APIXABAN 2.5 MG TAB (ELIQUIS) PO SCH (12:40)
[2024-10-06] VITALS (12 sets, daily range): BP systolic 120–152; BP diastolic 56–69; TEMP 97.5–98.9; O2SAT 92–97
[2024-10-06] MEDS ORDERED: HEPARIN 1,000UNITS/ML 10ML VIAL (FOR RADIOLOGY & DIALYSIS ONLY) XX SCH (06:00)
[2024-10-06] MEDS ORDERED: SODIUM CHLORIDE 0.9% 1000 ML IV PRN (06:00)
[2024-10-06] MEDS ORDERED: HEPARIN 1,000UNITS/ML 10ML VIAL (FOR RADIOLOGY & DIALYSIS ONLY) IV PRN (06:00)
[2024-10-06] MEDS: DIGOXIN 0.0625MG PER 1/2TABLET PO SCH (06:36)
[2024-10-06 09:25] LABS: CALCIUM LEVEL 8.9 MG/DL (8.3-10.6); CREATININE FOR GFR 2.88 MG/DL (0.55-1.30); GLOMERULAR FILTRATION RATE 16.9 (>39); POTASSIUM SERUM 3.1 MMOL/L (3.5-5.1)
[2024-10-07 04:11] VITALS: BP 148/70; TEMP 98.9; O2SAT 94
[2024-10-07 06:09] LABS: CALCIUM LEVEL 8.5 MG/DL (8.3-10.6); CREATININE FOR GFR 3.41 MG/DL (0.55-1.30); GLOMERULAR FILTRATION RATE 13.8 (>39); MAGNESIUM LEVEL 2.2 MG/DL (1.8-2.4); POTASSIUM SERUM 4.8 MMOL/L (3.5-5.1)
[2024-10-07 08:05] VITALS: BP 139/61; TEMP 98.2; O2SAT 96
[2024-10-07 12:00] VITALS: BP 142/64; TEMP 98.2; O2SAT 92
[2024-10-07 16:00] VITALS: BP 164/62; TEMP 98; O2SAT 93
[2024-10-07 20:30] VITALS: BP 145/65; TEMP 97.5; O2SAT 97
[2024-10-07 21:27] VITALS: BP 164/75; TEMP 97.9; O2SAT 93
[2024-10-08] MEDS ORDERED: HEPARIN 1,000UNITS/ML 10ML VIAL (FOR RADIOLOGY & DIALYSIS ONLY) IV PRN (06:00)
[2024-10-08] MEDS ORDERED: HEPARIN 1,000UNITS/ML 10ML VIAL (FOR RADIOLOGY & DIALYSIS ONLY) XX SCH (06:00)
[2024-10-08] MEDS ORDERED: SODIUM CHLORIDE 0.9% 1000 ML IV PRN (06:00)
[2024-10-08] MEDS ORDERED: LIDOCAINE 1% SDV 5ML VIAL SC PRN (06:00)
[2024-10-08 06:22] VITALS: BP 136/59; TEMP 97.5; O2SAT 96
[2024-10-08 09:21] LABS: CALCIUM LEVEL 8.8 MG/DL (8.3-10.6); CREATININE FOR GFR 5.46 MG/DL (0.55-1.30); GLOMERULAR FILTRATION RATE 7.9 (>39); MAGNESIUM LEVEL 2.1 MG/DL (1.8-2.4); POTASSIUM SERUM 4.1 MMOL/L (3.5-5.1)
[2024-10-08 12:45] VITALS: BP 137/65; TEMP 97.9; O2SAT 96
[2024-10-08 20:00] VITALS: BP 130/60; TEMP 97.9; O2SAT 96
[2024-10-09 03:40] VITALS: BP 122/66; TEMP 97.7; O2SAT 96
[2024-10-09] MEDS ORDERED: LIDOCAINE 1% SDV 5ML VIAL SC PRN (06:00)
[2024-10-09] MEDS ORDERED: SODIUM CHLORIDE 0.9% 1000 ML IV PRN (06:00)
[2024-10-09] MEDS ORDERED: HEPARIN 1,000UNITS/ML 10ML VIAL (FOR RADIOLOGY & DIALYSIS ONLY) XX SCH (06:00)
[2024-10-09] MEDS ORDERED: HEPARIN 1,000UNITS/ML 10ML VIAL (FOR RADIOLOGY & DIALYSIS ONLY) IV PRN (06:00)
[2024-10-09 09:49] LABS: CALCIUM LEVEL 8.6 MG/DL (8.3-10.6); CREATININE FOR GFR 3.98 MG/DL (0.55-1.30); GLOMERULAR FILTRATION RATE 11.5 (>39); POTASSIUM SERUM 3.7 MMOL/L (3.5-5.1)
[2024-10-09 13:02] VITALS: BP 129/66; TEMP 97.7; O2SAT 95
[2024-10-09 20:00] VITALS: BP 127/86; TEMP 97.7; O2SAT 94
[2024-10-10 04:00] VITALS: BP 133/71; TEMP 97.2; O2SAT 98
[2024-10-10 06:35] LABS: CALCIUM LEVEL 8.8 MG/DL (8.3-10.6); CREATININE FOR GFR 3.57 MG/DL (0.55-1.30); GLOMERULAR FILTRATION RATE 13.1 (>39); POTASSIUM SERUM 3.9 MMOL/L (3.5-5.1)
[2024-10-10 08:29] VITALS: BP 109/49
== END 2024-10-10 11:56 | disposition home or self-care (01) | DRG 308 ==
LOC: M ED 09:00 → M ED INP 13:28 → INTOOBSV 13:28 → M PCU 16:03 → OBSVTOIN 10-05 12:51 → M MSPAV 10-07 21:19
PROVIDERS: ADMIT Student in an Organized Health Care Education/Training Program; ATTEND General Practice
PROC: 5A1D70Z Performance of Urinary Filtration, Intermittent, Less than 6 Hours Per Day (ICD-10-PCS; principal; 2024-10-09)
DX: I48.91 Unspecified atrial fibrillation (principal); N18.6 End stage renal disease; I31.39 Other pericardial effusion (noninflammatory); I13.2 Hypertensive heart and chronic kidney disease with heart failure and with stage 5 chronic kidney disease, or end stage renal disease; Z94.0 Kidney transplant status; D64.9 Anemia, unspecified; I27.20 Pulmonary hypertension, unspecified; E87.5 Hyperkalemia; I50.9 Heart failure, unspecified; Z79.01 Long term (current) use of anticoagulants; K64.8 Other hemorrhoids; D69.6 Thrombocytopenia, unspecified; Z85.828 Personal history of other malignant neoplasm of skin; Z79.899 Other long term (current) drug therapy; Z79.52 Long term (current) use of systemic steroids

== ENCOUNTER 2024-10-24 15:46 | Emergency (ER) | payer MEDICARE ==
[~2024-10-24] VITALS: Ht 149.9 cm; Wt 64.7 kg
[2024-10-24] MEDS ORDERED: AMIO200T49 PO (16:58)
[2024-10-24 20:45] VITALS: TEMP 97.4
[2024-10-24 21:30] VITALS: O2SAT 94
[2024-10-24 22:24] VITALS: BP 158/70
[2024-10-24] MEDS: APIXABAN 5 MG TAB (ELIQUIS) PO ONE (22:24)
[2024-10-24] MEDS: METOPROLOL TART 25 MG TABLET PO ONE (22:24)
[2024-10-24] MEDS: ATORVASTATIN 20 MG TAB PO ONE (22:24)
== END 2024-10-24 22:32 | disposition home or self-care (01) ==
LOC: M ED 15:46
DX: R06.02 Shortness of breath (principal); I31.39 Other pericardial effusion (noninflammatory); I08.0 Rheumatic disorders of both mitral and aortic valves; N18.6 End stage renal disease; I10 Essential (primary) hypertension; Z79.01 Long term (current) use of anticoagulants; Z79.02 Long term (current) use of antithrombotics/antiplatelets; Z79.52 Long term (current) use of systemic steroids; Z79.899 Other long term (current) drug therapy; Z86.79 Personal history of other diseases of the circulatory system

== ENCOUNTER → 2024-10-31 | Outpatient (REF) | payer MEDICARE ==
[~2024-10-31] MED LIST changes: +AMIO200T49 PO
[2024-10-31 18:09] LABS: BASO % 0.2 % (0.0-1.0); EOS % 0.4 % (0.0-3.0); HEMATOCRIT 41.7 % (36.0-47.0); HEMOGLOBIN 13.1 g/dl (12.0-15.5); LYMPH # 1.4 10^3/uL (1.5-5.0); MEAN CORPUSCULAR HGB CONC 31.4 g/dl (32.0-36.5); MEAN CORPUSCULAR VOLUME 95.4 fl (80.0-96.0); MONO # 0.9 10^3/uL (0.0-0.8); MONO % 11.2 % (2.0-8.0); NEUTROPHILS # 5.7 10^3/uL (1.5-8.5); NEUTROPHILS % 70.3 % (36.0-66.0); PLATELET COUNT, AUTOMATED 158 10^3/uL (150-450); RED BLOOD COUNT 4.37 10^6/uL (4.00-5.40); WHITE BLOOD COUNT 8.1 10^3/uL (4.0-10.0)
[2024-10-31 18:27] LABS: ALBUMIN 3.8 G/DL (3.2-5.2); BILIRUBIN,TOTAL 1.1 MG/DL (0.3-1.2); CALCIUM LEVEL 9.3 MG/DL (8.3-10.6); CREATININE FOR GFR 6.62 MG/DL (0.55-1.30); GLOMERULAR FILTRATION RATE 6.2 (>39); POTASSIUM SERUM 4.2 MMOL/L (3.5-5.1); TOTAL PROTEIN 6.5 G/DL (5.7-8.2)
== END ==
LOC: M SHH 16:52 → M SFHCPLAZ 16:52
PROVIDERS: ATTEND Physician Assistant Medical
DX: N18.6 End stage renal disease (principal); I12.0 Hypertensive chronic kidney disease with stage 5 chronic kidney disease or end stage renal disease; N20.0 Calculus of kidney; K31.819 Angiodysplasia of stomach and duodenum without bleeding; D50.0 Iron deficiency anemia secondary to blood loss (chronic); D69.3 Immune thrombocytopenic purpura; I32 Pericarditis in diseases classified elsewhere

== ENCOUNTER → 2024-11-07 | Outpatient (CLI) | payer MEDICARE ==
[2024-11-07 08:19] LABS: BASO % 0.5 % (0.0-1.0); EOS # 0.1 10^3/uL (0.0-0.5); EOS % 0.9 % (0.0-3.0); HEMATOCRIT 38.8 % (36.0-47.0); HEMOGLOBIN 12.6 g/dl (12.0-15.5); LYMPH # 1.1 10^3/uL (1.5-5.0); LYMPH % 12.5 % (24.0-44.0); MEAN CORPUSCULAR HEMOGLOBIN 30.7 pg (27.0-33.0); MEAN CORPUSCULAR HGB CONC 32.5 g/dl (32.0-36.5); MEAN CORPUSCULAR VOLUME 94.4 fl (80.0-96.0); MONO # 1.1 10^3/uL (0.0-0.8); MONO % 12.5 % (2.0-8.0); NEUTROPHILS # 6.2 10^3/uL (1.5-8.5); NEUTROPHILS % 72.3 % (36.0-66.0); PLATELET COUNT, AUTOMATED 143 10^3/uL (150-450); RED BLOOD COUNT 4.11 10^6/uL (4.00-5.40); WHITE BLOOD COUNT 8.6 10^3/uL (4.0-10.0)
[2024-11-07 08:29] LABS: ERYTHROCYTE SEDIMENTATION RATE 19 mm/hr (0-30)
[2024-11-07 08:37] LABS: HEMOGLOBIN A1c 5.3 % (4.0-6.0)
[2024-11-07 08:48] LABS: ALBUMIN 3.4 G/DL (3.2-5.2); ALKALINE PHOSPHATASE 337 U/L (35-104); ALT/SGPT 38 U/L (7.0-40); AST/SGOT 57 U/L (<34); BLOOD UREA NITROGEN 40 MG/DL (9-23); CALCIUM LEVEL 8.9 MG/DL (8.3-10.6); CARBON DIOXIDE LEVEL 31 MMOL/L (20-31); CHLORIDE LEVEL 93 MMOL/L (98-107); CREATININE FOR GFR 5.44 MG/DL (0.55-1.30); GLOMERULAR FILTRATION RATE 7.9 (>39); GLUCOSE, FASTING 72 MG/DL (74-106); POTASSIUM SERUM 4.1 MMOL/L (3.5-5.1); RHEUMATOID FACTOR QUANT 29.7 IU/ML (<14); SODIUM LEVEL 138 MMOL/L (136-145); THYROID STIMULATING HORMONE 12.914 uIU/ML (0.55-4.78); TOTAL PROTEIN 6.2 G/DL (5.7-8.2)
[2024-11-07 08:49] LABS: FOLATE > 24.0 NG/ML (>5.4); VITAMIN B12 LEVEL 1943 PG/ML (211-911)
[2024-11-08 08:12] LABS: T P ELECTROPHORESIS SO 6.2 g/dL (6.1-8.1)
[2024-11-08 10:17] LABS: DRVV SCREEN 161.1 SECONDS
[2024-11-08 10:20] LABS: PTT LUPUS TYPE ANTICOAG SCREEN 4.21 (0-1.20)
[2024-11-08 10:28] LABS: LUPUS CONFIRM RATIO 3.35
[2024-11-08 11:21] LABS: NORMALIZED RATIO 1.25 (0.00-1.20)
[2024-11-09 06:32] LABS: ALBUMIN SPEP 3.7 g/dL (3.8-4.8); ALPHA-1-GLOBULINS SO 0.4 g/dL (0.2-0.3); ALPHA-2-GLOBULINS SO 0.8 g/dL (0.5-0.9); BETA 2 GLOBULIN 0.2 g/dL (0.2-0.5); BETA-GLOBULIN SO 0.3 g/dL (0.4-0.6); GAMMA GLOBULINS SO 0.6 g/dL (0.8-1.7); SPEP ABN PROTEIN BAND 1 0.2 g/dL (NONE DETECTED)
[2024-11-09 11:12] LABS: ANA PATTERN Nuclear, Speckled (NEGATIVE); ANA PATTERN 2 Nuclear, Nucleolar; ANA SCREEN, IFA POSITIVE (NEGATIVE); ANA TITER 1:40 titer (<1:40)
[2024-11-09 22:18] LABS: SSA SJOGRENS A <1.0 NEG AI (<1.0 NEG); SSB SJOGRENS B <1.0 NEG AI (<1.0 NEG)
[2024-11-10 17:52] LABS: VITAMIN E(ALPHA TOCOPHEROL) 9.5 mg/L (5.7-19.9); VITAMIN E(GAMMA TOCOPHEROL) 1.8 mg/L (<=4.3)
[2024-11-13 08:13] LABS: VITAMIN B1 LEVEL WHOLE BLOOD 241 nmol/L (78-185)
[2024-11-14 07:33] LABS: HEXAGONAL PHASE PHOSPHOLIPID Weak Positive (Negative)
[2024-11-14 14:27] LABS: ANTI DS-DNA AB NEGATIVE (NEGATIVE)
[2024-11-14 19:31] LABS: STRIATED MUSCLE AB SCREEN NEGATIVE (NEGATIVE)
== END ==
LOC: M LAB 06:44
PROVIDERS: ATTEND Psychiatry & Neurology Neurology
DX: G62.9 Polyneuropathy, unspecified (principal); Z79.899 Other long term (current) drug therapy; Z79.01 Long term (current) use of anticoagulants

== ENCOUNTER → 2024-11-07 | Outpatient (CLI) | payer MEDICARE ==
[2024-11-08 13:12] LABS: FREE KAPPA LIGHT CHAINS SERUM 84.2 mg/L (3.3-19.4); FREE LAMBDA LIGHT CHAINS SERUM 105.3 mg/L (5.7-26.3)
[2024-11-09 06:32] LABS: ALBUMIN SPEP 3.6 g/dL (3.8-4.8); ALPHA-1-GLOBULINS SO 0.4 g/dL (0.2-0.3); ALPHA-2-GLOBULINS SO 0.8 g/dL (0.5-0.9); BETA 2 GLOBULIN 0.2 g/dL (0.2-0.5); BETA-GLOBULIN SO 0.3 g/dL (0.4-0.6); GAMMA GLOBULINS SO 0.6 g/dL (0.8-1.7); SPEP ABN PROTEIN BAND 1 0.2 g/dL (NONE DETECTED)
== END ==
LOC: M LAB 06:43
PROVIDERS: ATTEND Internal Medicine Pulmonary Disease
DX: J38.01 Paralysis of vocal cords and larynx, unilateral (principal)

== ENCOUNTER → 2025-01-07 | Outpatient (REF) | payer MEDICARE ==
[~2025-01-07] MED LIST changes: -AMIO200T49 PO; +AMIO200T54 PO; +CEPH500C PO; +LEVO25TA5 PO; +LEVO50TA5 PO; +LINE1TAB PO; +METO1TAB32 PO; +METO25TA4 PO; +MIDO5TA PO
[2025-01-07 19:04] LABS: ALT/SGPT 22.0 U/L (7.0-40); AST/SGOT 32.0 U/L (<34)
== END ==
LOC: M SHH 17:19
PROVIDERS: ATTEND Nurse Practitioner Acute Care
DX: R74.8 Abnormal levels of other serum enzymes (principal); I48.0 Paroxysmal atrial fibrillation

== ENCOUNTER → 2025-01-23 | Outpatient (REF) | payer MEDICARE ==
[~2025-01-23] MED LIST changes: +ELIQ2.5T PO
[2025-01-23 16:39] LABS: FREE T4 1.13 NG/DL (0.89-1.76)
== END ==
LOC: M SHH 15:42
PROVIDERS: ATTEND Family Medicine
DX: E03.9 Hypothyroidism, unspecified (principal)

== ENCOUNTER → 2025-02-15 | Outpatient (CLI) | payer MEDICARE | LOC: M WHC 15:40 | PROVIDERS: ATTEND Family Medicine | DX: Z12.31 Encounter for screening mammogram for malignant neoplasm of breast (principal); Z53.9 Procedure and treatment not carried out, unspecified reason ==

== ENCOUNTER → 2025-02-27 | Outpatient (REF) | payer MEDICARE ==
[2025-02-27 19:27] LABS: ALT/SGPT 22.0 U/L (7.0-40); AST/SGOT 34.0 U/L (<34); CALCIUM LEVEL 9.7 MG/DL (8.3-10.6); CARBON DIOXIDE LEVEL 33.0 MMOL/L (20-31); CHLORIDE LEVEL 94.0 MMOL/L (98-107); CREATININE FOR GFR 4.56 MG/DL (0.55-1.30); GLOMERULAR FILTRATION RATE 9.7 (>39); POTASSIUM SERUM 4.3 MMOL/L (3.5-5.1); SODIUM LEVEL 142.0 MMOL/L (136-145)
== END ==
LOC: M SHH 17:17
PROVIDERS: ATTEND Nurse Practitioner Acute Care
DX: E03.2 Hypothyroidism due to medicaments and other exogenous substances (principal)

== ENCOUNTER → 2025-03-06 | Outpatient (CLI) | payer MEDICARE | LOC: M WHC 08:35 | PROVIDERS: ATTEND Family Medicine | DX: Z12.31 Encounter for screening mammogram for malignant neoplasm of breast (principal); R92.313 Mammographic fatty tissue density, bilateral breasts ==

== ENCOUNTER → 2025-04-04 | Outpatient (REF) | payer MEDICARE ==
[~2025-04-04] MED LIST changes: +MIDO10TA3 PO; +SYNT100T PO
== END ==
LOC: M SHH 16:44
PROVIDERS: ATTEND Nurse Practitioner Acute Care
DX: I48.0 Paroxysmal atrial fibrillation (principal)

== ENCOUNTER → 2025-04-09 | Outpatient (CLI) | payer MEDICARE ==
[2025-04-09 09:00] VITALS: TEMP 98.1
[2025-04-09 10:00] VITALS: BP 166/79; O2SAT 97
[2025-04-09 10:05] LABS: BASO # 0.0 10^3/uL (0.0-0.2); BASO % 0.3 % (0.0-1.0); EOS # 0.0 10^3/uL (0.0-0.5); EOS % 0.4 % (0.0-3.0); LYMPH # 0.7 10^3/uL (1.5-5.0); LYMPH % 8.9 % (24.0-44.0); MONO # 0.6 10^3/uL (0.0-0.8); MONO % 7.6 % (2.0-8.0); NEUTROPHILS # 6.5 10^3/uL (1.5-8.5); NEUTROPHILS % 82.2 % (36.0-66.0); PLATELET COUNT, AUTOMATED 109 10^3/uL (150-450)
[2025-04-09] MEDS: LIDOCAINE 1% MDV 20 ML VIAL SC SCH (10:54)
== END ==
LOC: M IRPRO 08:39
PROVIDERS: ATTEND Specialist
DX: D46.9 Myelodysplastic syndrome, unspecified (principal)

== ENCOUNTER → 2025-05-20 | Outpatient (REF) | payer MEDICARE ==
[~2025-05-20] MED LIST changes: -VALC450T PO; +VALG450T18 PO
[2025-05-20 10:39] LABS: BASO # 0.0 10^3/uL (0.0-0.2); BASO % 0.4 % (0.0-1.0); EOS # 0.2 10^3/uL (0.0-0.5); EOS % 2.5 % (0.0-3.0); LYMPH # 1.2 10^3/uL (1.5-5.0); LYMPH % 15.2 % (24.0-44.0); MONO # 0.6 10^3/uL (0.0-0.8); MONO % 8.3 % (2.0-8.0); NEUTROPHILS # 5.5 10^3/uL (1.5-8.5); NEUTROPHILS % 72.8 % (36.0-66.0); PLATELET COUNT, AUTOMATED 212 10^3/uL (150-450)
[2025-05-20 11:03] LABS: ALT/SGPT 35.0 U/L (7.0-40); AST/SGOT 46.0 U/L (<34); CALCIUM LEVEL 9.4 MG/DL (8.3-10.6); CARBON DIOXIDE LEVEL 34.0 MMOL/L (20-31); CHLORIDE LEVEL 90.0 MMOL/L (98-107); CREATININE FOR GFR 6.29 MG/DL (0.55-1.30); GLOMERULAR FILTRATION RATE 6.6 (>39); POTASSIUM SERUM 5.0 MMOL/L (3.5-5.1); SODIUM LEVEL 136.0 MMOL/L (136-145)
[2025-05-21 10:01] LABS: T P ELECTROPHORESIS SO 7.2 g/dL (6.1-8.1)
== END ==
LOC: M LAB REF 09:25
PROVIDERS: ATTEND Specialist
DX: D64.9 Anemia, unspecified (principal); N18.9 Chronic kidney disease, unspecified; D47.2 Monoclonal gammopathy

== ENCOUNTER → 2025-06-19 | Outpatient (REF) | payer MEDICARE | LOC: M LAB REF 11:57 | PROVIDERS: ATTEND Nurse Practitioner Family | DX: E03.9 Hypothyroidism, unspecified (principal) ==